=== PATIENT | female | born 1945 | race Caucasian/White ===

== ENCOUNTER → 2016-05-25 | Outpatient (CLI) | payer MEDICARE, OTHER ==
[~2016-05-25] MED LIST: AC325T PO; ACHD5005 PO; AMLO5TAB2; AMLO5TAB2 PO; ASPI325T32 PO; ATOR20TA49 PO; Antivert; BLADDER PILL; DARVOCET; LEVO125T; LEVO150T6 PO; LEVO500T69 PO; LISI20TA PO; LISI40TA PO; LVT.025T PO; NAPR-243 PO; NAPR220T66 PO; POLY17PO23 GT; SENN25TA8 PO; SOLI5TAB4 PO; THYROID
--- NOTE | 2016-05-25 18:12 | Diagnostic Imaging Report ---
INDICATION: Left knee pain. FINDINGS: Three views of the left knee show some degenerative changes in the medial tibiofemoral joint compartment and patellofemoral joint space. There is joint space narrowing and osteophyte formation at the periphery of the articular surfaces. There is no fracture or dislocation. There is no appreciable effusion. IMPRESSION: Degenerative changes in the patellofemoral joint and medial compartment of the left knee. No acute abnormality is seen. Dictated by: Dictated on workstation # [id number]
== END ==
LOC: RAD 15:35
PROVIDERS: ATTEND Nurse Practitioner Family
DX: M17.12 Unilateral primary osteoarthritis, left knee (principal)
CPT/HCPCS: 73562

== ENCOUNTER 2016-12-05 16:41 | Emergency (ER) | payer MEDICARE, OTHER ==
[~2016-12-05] VITALS: Ht 165.1 cm; Wt 81.6 kg
[2016-12-05] MEDS ORDERED: NS IV 1000 ML 1,000 ML IV SCH (17:30)
[2016-12-05] MEDS ORDERED: ONDANSETRON 4 MG/2 ML (SDV) Z0FRAN IVP ONE (17:30)
--- NOTE | 2016-12-05 17:33 | ED General ---
General Chief Complaint: Dizziness/Syncope Stated Complaint: VOMITING,TROUBLE URINATING Nursing Triage Note: patient reports dizziness with n/v since 1000 Nursing Sepsis Screen: No Definite Risk Source of Information: Patient Exam Limitations: Intoxication (JASPAL MCGOVERN MD) History of Present Illness Time Seen by Provider: 17:29 Initial Comments The patient is a 71-year-old white female whom I have known for nearly 40 years. She reported that at approximately 1000 hours she became nauseated and then began to vomit. She estimates that she has vomited as much as 10 times. There is central episodic abdominal pain. She also had one diarrhea stool. She has not been exposed to anyone that she knows has had a gastroenteritis. She believes that she has been febrile. She left the question as to whether she had any previous abdominal surgeries and answered. Timing/Duration: 12 Hours Associated Systoms: Diaphoresis, Loss of Appetite, Nausea/Vomiting (JASPAL MCGOVERN MD) Allergies and Home Medications Allergies Coded Allergies: Penicillins (Unverified Allergy, Mild, 11/14/11) Uncoded Allergies: CONTRAST DYE (Adverse Reaction, Mild, 09/25/15) Home Medications Amlodipine Besylate 5 Mg Tablet, 5 MG PO DAILY, (Reported) Aspirin 325 Mg Tablet.dr, 325 MG PO DAILY, #30 Ref 6 Prescribed by: CARRIE TY on 09/28/15 0842 Atorvastatin Calcium 20 Mg Tablet, 20 MG PO DAILY, #30 Ref 6 Prescribed by: CARRIE TY on 09/28/15 0843 Levothyroxine Sodium 150 Mcg Tablet, 150 MCG PO DAILY, (Reported) LAST FILLED #30 08-08-15 Constitutional: see HPI EENTM: no symptoms reported Respiratory: no symptoms reported Cardiovascular: no symptoms reported Gastrointestinal: see HPI, diarrhea, nausea, vomiting Genitourinary: no symptoms reported Musculoskeletal: no symptoms reported Skin: no symptoms reported Psychiatric/Neurological: No Symptoms Reported (JASPAL MCGOVERN MD) Past Icjipdg-Pyfnbo-Pamqgf Hx Patient Social History Alcohol Use: Denies Use Recreational Drug Use: No Smoking Status: Never a Smoker 2nd Hand Smoke Exposure: No Recent Foreign Travel: No Contact w/Someone Who Travel: No Recent Infectious Disease Expo: No Recent Hopitalizations: No Physical Abuse: No Sexual Abuse: No (JASPAL MCGOVERN MD) Immunizations Up To Date Date of Pneumonia Vaccine: Nov 24, 2010 (JASPAL MCGOVERN MD) Seasonal Allergies Seasonal Allergies: No (JASPAL MCGOVERN MD) Surgeries History of Surgeries: Yes (DISC SURGERY ON BACK 1999, disc surgery on back in 2011) Surgeries: Gallbladder, Orthopedic (JASPAL MCGOVERN MD) Respiratory History of Respiratory Disorde: No (JASPAL MCGOVERN MD) Cardiovascular History of Cardiac Disorders: Yes Cardiac Disorders: Hypertension (JASPAL MCGOVERN MD) Neurological History of Neurological Disord: Yes (severe speech impediment, cervical spinal stenosis) Neurological Disorders: Stroke (JASPAL MCGOVERN MD) Reproductive System Hx Reproductive Disorders: No Sexually Transmitted Disease: No HIV/AIDS: No Female Reproductive Disorders: Denies (JASPAL MCGOVERN MD) Gastrointestinal History of Gastrointestinal Di: Yes (constipation) (JASPAL MCGOVERN MD) Musculoskeletal History of Musculoskeletal Dis: Yes (cervical spinal stenosis) Musculoskeletal Disorders: Arthritis (JASPAL MCGOVERN MD) Endocrine History of Endocrine Disorders: Yes Endocrine Disorders: Hypothyroidsim (JASPAL MCGOVERN MD) HEENT Loss of Vision: Denies Hearing Impairment: Denies (JASPAL MCGOVERN MD) Cancer History of Cancer: No (JASPAL MCGOVERN MD) Psychosocial History of Psychiatric Problem: No Suicide Risk Score: 0 (JASPAL MCGOVERN MD) Integumentary History of Skin or Integumenta: No (JASPAL MCGOVERN MD) Blood Transfusions History of Blood Disorders: No Adverse Reaction to a Blood Tr: No (JASPAL MCGOVERN MD) Family Medical History Significant Family History: Heart Disease, Hypertension Family Medial History: (JASPAL MCGOVERN MD) Physical Exam Vital Signs Vital Sign - Last 12Hours 12/05/16 12/05/16 16:55 19:38 Temp 98.2 Pulse 18 Resp 12 B/P (MAP) 132/62 Pulse Ox 89 O2 Delivery Room Air (MARGARET FRANK APRN) Vital Signs Capillary Refill : Less Than 3 Seconds (JASPAL MCGOVERN MD) General Appearance: Moderate Distress, Other (lying on left side with emesis bag in hand and retching and intervals) Eyes: Bilateral Eye Normal Inspection HEENT: Normal ENT Inspection Neck: Normal Inspection Respiratory: Chest Non Tender, Lungs Clear, Normal Breath Sounds, No Accessory Muscle Use, No Respiratory Distress Cardiovascular: Regular Rate, Rhythm, No Edema, No Gallop, No JVD, No Murmur, Normal Peripheral Pulses Gastrointestinal: Abnormal Bowel Sounds (decreased), Distended Back: Normal Inspection Extremity: Normal Capillary Refill, Normal Inspection, Normal Range of Motion, Non Tender, No Calf Tenderness, No Pedal Edema Skin: Normal Color, Warm/Dry Lymphatic: No Adenopathy (JASPAL MCGOVERN MD) Progress/Results/Core Measures Results/Orders Lab Results Laboratory Tests Test 12/05/16 17:35 12/05/16 18:25 Range/Units White Blood Count 12.5 H 4.3-11.0 10^3/uL Red Blood Count 5.34 4.35-5.85 10^6/uL Hemoglobin 15.0 11.5-16.0 G/DL Hematocrit 46 35-52 % Mean Corpuscular Volume 86 80-99 FL Mean Corpuscular Hemoglobin 28 25-34 PG Mean Corpuscular Hemoglobin Concent 33 32-36 G/DL Red Cell Distribution Width 13.6 10.0-14.5 % Platelet Count 314 130-400 10^3/uL Mean Platelet Volume 9.7 7.4-10.4 FL Neutrophils (%) (Auto) 93 H 42-75 % Lymphocytes (%) (Auto) 3 L 12-44 % Monocytes (%) (Auto) 4 0-12 % Eosinophils (%) (Auto) 0 0-10 % Basophils (%) (Auto) 0 0-10 % Neutrophils # (Auto) 11.6 H 1.8-7.8 X 10^3 Lymphocytes # (Auto) 0.4 L 1.0-4.0 X 10^3 Monocytes # (Auto) 0.5 0.0-1.0 X 10^3 Eosinophils # (Auto) 0.0 0.0-0.3 10^3/uL Basophils # (Auto) 0.0 0.0-0.1 10^3/uL Neutrophils % (Manual) 72 % Lymphocytes % (Manual) 6 % Monocytes % (Manual) 7 % Eosinophils % (Manual) 1 % Basophils % (Manual) 1 % Band Neutrophils 16 % Blood Morphology Comment NORMAL Sodium Level 140 135-145 MMOL/L Potassium Level 3.8 3.6-5.0 MMOL/L Chloride Level 102 98-107 MMOL/L Carbon Dioxide Level 28 21-32 MMOL/L Anion Gap 10 5-14 MMOL/L Blood Urea Nitrogen 13 7-18 MG/DL Creatinine 0.81 0.60-1.30 MG/DL Estimat Glomerular Filtration Rate > 60 BUN/Creatinine Ratio 16 Glucose Level 152 H 70-105 MG/DL Calcium Level 9.6 8.5-10.1 MG/DL Total Bilirubin 1.0 0.1-1.0 MG/DL Aspartate Amino Transf (AST/SGOT) 39 H 5-34 U/L Alanine Aminotransferase (ALT/SGPT) 46 0-55 U/L Alkaline Phosphatase 91 40-136 U/L Troponin I < 0.30 <0.30 NG/ML Total Protein 7.6 6.4-8.2 GM/DL Albumin 4.3 3.2-4.5 GM/DL Urine Color YELLOW Urine Clarity CLEAR Urine pH 5 5-9 Urine Specific [place] 1.020 1.016-1.022 Urine Protein NEGATIVE NEGATIVE Urine Glucose (UA) NEGATIVE NEGATIVE Urine Ketones NEGATIVE NEGATIVE Urine Nitrite NEGATIVE NEGATIVE Urine Bilirubin NEGATIVE NEGATIVE Urine Urobilinogen NORMAL NORMAL MG/DL Urine Leukocyte Esterase NEGATIVE NEGATIVE Urine RBC (Auto) NEGATIVE NEGATIVE Urine RBC NONE /HPF Urine WBC NONE /HPF Urine Squamous Epithelial Cells RARE /HPF Urine Crystals NONE /LPF Urine Bacteria NONE /HPF Urine Casts NONE /LPF Urine Mucus NEGATIVE /LPF Urine Culture Indicated NO (MARGARET FRANK APRN) My Orders Orders - MARGARET FRANK APRN Troponin I (12/05/16 18:28) Ekg Tracing (12/05/16 18:28) Chest Pa/Lat (2 View) (12/05/16 18:29) (MARGARET FRANK APRN) Medications Given in ED Current Medications Medications Dose Ordered Sig/Beena Route Start Time Stop Time Status Last Admin Dose Admin Ondansetron HCl 8 mg ONCE ONCE IVP 12/05/16 17:30 12/05/16 17:31 DC 12/05/16 17:40 8 MG (MARGARET FRANK APRN) Vital Signs/I&O Vital Sign - Last 12Hours 12/05/16 12/05/16 16:55 19:38 Temp 98.2 Pulse 18 84 Resp 12 18 B/P (MAP) 132/62 Pulse Ox 89 95 O2 Delivery Room Air (MARGARET FRANK APRN) Blood Pressure Mean: 85 Departure Communication (Admissions) Progress Notes 1824-I've taken over care of this patient from Dr. Mcgovern. She reports that at this time her dizziness is gone and her nausea is gone, her abdominal pain is gone and she feels back to normal. She does report to me that she had some chest pain that radiated from one shoulder to the other this morning at about 10 a.m. while at rest. The pain persisted for one hour before resolving spontaneously. She currently has no chest pain. I'll add an EKG and troponin to labs. 1917*-patient still remains asymptomatic. We will discharge to home. 1939-Discussed EKG with Dr vogel and he agrees no significant EKG changes from prior. (MARGARET FRANK APRN) Impression Impression: Primary Impression: Vertigo Disposition: 01 HOME, SELF-CARE Condition: Stable (around her) Departure-Patient Inst. Decision time for Depature: 19:17 (MARGARET FRANK APRN) Referrals: CARRIE TY MD (PCP/Family) Primary Care Physician Patient Instructions: Vertigo (a Type of Dizziness) (DC) Add. Discharge Instructions: 1. Call Dr. Ty tomorrow to make an appointment to be seen 2. Return to ER for any concerns 3. Scharge instructions reviewed with patient and/or family. Voiced understanding. Copy Copies To 1: CARRIE TY MD, RODNEY K MD Dec 05, 2016 17:32 MARGARET FRANK APRN Dec 05, 2016 18:28
[2016-12-05 17:47] LABS: BASOPHILS % (AUTO) 0 % (0-10); EOSINOPHILS % (AUTO) 0 % (0-10); LYMPHOCYTES # (AUTO) 0.4 X 10^3 (1.0-4.0); LYMPHOCYTES % (AUTO) 3 % (12-44); MEAN CORPUSCULAR HEMOGLOBIN 28 PG (25-34); MEAN CORPUSCULAR HGB CONC 33 G/DL (32-36); MEAN CORPUSCULAR VOLUME 86 FL (80-99); MEAN PLATELET VOLUME 9.7 FL (7.4-10.4); MONOCYTES # (AUTO) 0.5 X 10^3 (0.0-1.0); MONOCYTES % (AUTO) 4 % (0-12); NEUTROPHILS # (AUTO) 11.6 X 10^3 (1.8-7.8); NEUTROPHILS % (AUTO) 93 % (42-75); PLATELET COUNT 314 10^3/uL (130-400); RED BLOOD COUNT 5.34 10^6/uL (4.35-5.85); RED CELL DISTRIBUTION WIDTH 13.6 % (10.0-14.5); WHITE BLOOD COUNT 12.5 10^3/uL (4.3-11.0)
[2016-12-05 18:05] LABS: BAND NEUTROPHILS 16 %; BASOPHILS % (MANUAL) 1 %; EOSINOPHILS % (MANUAL) 1 %; LYMPHOCYTES % (MANUAL) 6 %; NEUTROPHILS % (MANUAL) 72 %
[2016-12-05 18:08] LABS: ALANINE AMINOTRANSFERASE 46 U/L (0-55); ALBUMIN 4.3 GM/DL (3.2-4.5); ANION GAP 10 MMOL/L (5-14); ASPARTATE AMINO TRANSFERASE 39 U/L (5-34); BLOOD UREA NITROGEN 13 MG/DL (7-18); BUN/CREATININE RATIO 16; CALCIUM 9.6 MG/DL (8.5-10.1); CARBON DIOXIDE 28 MMOL/L (21-32); CHLORIDE 102 MMOL/L (98-107); CREATININE SERUM 0.81 MG/DL (0.60-1.30); GFR ESTIMATED > 60; GLUCOSE 152 MG/DL (70-105); POTASSIUM 3.8 MMOL/L (3.6-5.0); SODIUM 140 MMOL/L (135-145); TOTAL PROTEIN 7.6 GM/DL (6.4-8.2)
[2016-12-05 18:42] LABS: BILIRUBIN,URINE NEGATIVE (NEGATIVE); KETONES,URINE NEGATIVE (NEGATIVE); LEUKOCYTE ESTERASE ,URINE NEGATIVE (NEGATIVE); NITRITE,URINE NEGATIVE (NEGATIVE); PH,URINE 5 (5-9); PROTEIN,URINE NEGATIVE (NEGATIVE); UROBILINOGEN,URINE NORMAL (NORMAL)
[2016-12-05 18:48] LABS: SQUAMOUS EPITHELIAL CELL,UR RARE /HPF
--- NOTE | 2016-12-05 19:01 | Diagnostic Imaging Report ---
INDICATION: Nausea, vomiting, diarrhea and cough. COMPARISON STUDY: Chest from 09/25/15. FINDINGS: A frontal and lateral view of the chest demonstrates mild cardiomegaly with normal vascularity. This appears stable. The lungs are clear. There are no pleural effusions. Postoperative changes are again seen in the cervical spine and left shoulder. IMPRESSION: Stable cardiomegaly with no acute findings. Dictated by: Dictated on workstation # [id number]
[2016-12-05 19:38] VITALS: BP 132/62
== END 2016-12-05 19:38 | disposition home or self-care (01) ==
LOC: EDUNIT# 16:41 → ER 16:43
DX: R42 Dizziness and giddiness (principal); E03.9 Hypothyroidism, unspecified; M48.02 Spinal stenosis, cervical region; I10 Essential (primary) hypertension; Z86.73 Personal history of transient ischemic attack (TIA), and cerebral infarction without residual deficits; Z98.890 Other specified postprocedural states; Z79.82 Long term (current) use of aspirin; Z82.49 Family history of ischemic heart disease and other diseases of the circulatory system
CPT/HCPCS: 36415; 71020; 80053; 81000; 84484; 85007; 85027; 93005

== ENCOUNTER 2016-12-20 17:51 | Emergency (ER) | payer MEDICARE, OTHER ==
[~2016-12-20] VITALS: Ht 152.4 cm; Wt 86.2 kg
--- NOTE | 2016-12-20 18:33 | Diagnostic Imaging Report ---
INDICATION: Fell, right shoulder pain. EXAMINATION: Right shoulder at 6:33 p.m. Three views were obtained. FINDINGS: There is a slightly displaced fracture extending through the greater tuberosity of the humeral head. No other fracture or acute bony abnormality is appreciated. There is mild degenerative disease of the glenohumeral joint and at least moderate degenerative disease of the acromioclavicular joint. The soft tissues are unremarkable. IMPRESSION: 1. There is a slightly displaced fracture of the greater tuberosity of the humerus. If further evaluation of the extent of the injury to the humeral head is desired, then CT would be recommended. 2. There is no acute bony abnormality noted otherwise. Dictated by: Dictated on workstation # [id number]
[2016-12-20] MEDS ORDERED: ACETAMINOPHEN 325 MG TABLET/CAPLET (TYLENOL) PO STA (18:54)
--- NOTE | 2016-12-20 18:54 | ED Upper Extremity ---
General Chief Complaint: Upper Extremity Nursing Triage Note: PT ASSISTED OUT OF CAR PER W/C, PT STATES FELL AT HOME ON R SHOULDER HAS PAIN AND POSSIBLE DEFORMITY OF R SHOULDER. HAS ABRASION NOTED UNDER R ARM STATES ARM HAD GOTTEN CAUGHT ON SOMETHING WHEN SHE FELL Nursing Sepsis Screen: No Definite Risk History of Present Illness Time seen by provider: 18:10 Initial Comments 71-year-old female reports falling off of her front porch, she states it was approximately 3 foot. She landed on her right shoulder. She is right- hand dominant. She reports pain in the right shoulder. She denies a head injury or loss of consciousness at the time of the injury she denies dyspnea or rib pain. Onset: just prior to arrival Pain/Injury Location: right shoulder Method of Injury: fell Modifying Factors: Improves With Cold Therapy, Improves With Immobilization, Improves With Rest Allergies and Home Medications Allergies Coded Allergies: Penicillins (Unverified Allergy, Mild, 11/14/11) Uncoded Allergies: CONTRAST DYE (Adverse Reaction, Mild, 09/25/15) Home Medications Amlodipine Besylate 5 Mg Tablet, 5 MG PO DAILY, (Reported) Aspirin 325 Mg Tablet.dr, 325 MG PO DAILY, #30 Ref 6 Prescribed by: CARRIE VALENTINE on 09/28/15 0842 Atorvastatin Calcium 20 Mg Tablet, 20 MG PO DAILY, #30 Ref 6 Prescribed by: CARRIE VALENTINE on 09/28/15 0843 Levothyroxine Sodium 150 Mcg Tablet, 150 MCG PO DAILY, (Reported) LAST FILLED #30 08-08-15 Tramadol HCl 50 Mg Tablet, 50 MG PO Q8H PRN for PAIN-MILD, #20 Ref 0 Prescribed by: REGGIE ALY on 12/20/16 1857 Constitutional: no symptoms reported, see HPI Musculoskeletal: see HPI, joint pain, muscle pain (right shoulder), muscle stiffness All Other Systems Reviewed Negative Unless Noted: Yes Past Scstuwu-Irxjsq-Npooir Hx Patient Social History Alcohol Use: Denies Use Recreational Drug Use: No Smoking Status: Never a Smoker 2nd Hand Smoke Exposure: No Recent Foreign Travel: No Contact w/Someone Who Travel: No Recent Infectious Disease Expo: No Recent Hopitalizations: No Physical Abuse: No Sexual Abuse: No Immunizations Up To Date Tetanus Booster (TDap): Unknown Date of Pneumonia Vaccine: Nov 24, 2010 Seasonal Allergies Seasonal Allergies: No Surgeries History of Surgeries: Yes (DISC SURGERY ON BACK 1999, disc surgery on back in 2011) Surgeries: Gallbladder, Orthopedic Respiratory History of Respiratory Disorde: No Cardiovascular History of Cardiac Disorders: Yes Cardiac Disorders: Hypertension Neurological History of Neurological Disord: Yes (severe speech impediment, cervical spinal stenosis) Neurological Disorders: Stroke Reproductive System Hx Reproductive Disorders: No Sexually Transmitted Disease: No HIV/AIDS: No Female Reproductive Disorders: Denies Gastrointestinal History of Gastrointestinal Di: Yes (constipation) Musculoskeletal History of Musculoskeletal Dis: Yes (cervical spinal stenosis) Musculoskeletal Disorders: Arthritis Endocrine History of Endocrine Disorders: Yes Endocrine Disorders: Hypothyroidsim HEENT Loss of Vision: Denies Hearing Impairment: Denies Cancer History of Cancer: No Psychosocial History of Psychiatric Problem: No Suicide Risk Score: 0 Integumentary History of Skin or Integumenta: No Blood Transfusions History of Blood Disorders: No Adverse Reaction to a Blood Tr: No Reviewed Nursing Assessment Reviewed/Agree w Nursing PMH: Yes Family Medical History Significant Family History: Heart Disease, Hypertension Family Medial History: Physical Exam Vital Signs Vital Sign - Last 12Hours 12/20/16 17:52 Temp 97.5 Pulse 87 Resp 16 B/P (MAP) 146/80 Pulse Ox 97 Capillary Refill : Less Than 3 Seconds General Appearance: WD/WN, no apparent distress Neck: non-tender, full range of motion, supple, normal inspection Cardiovascular: normal peripheral pulses, regular rate, rhythm Respiratory: chest non-tender, lungs clear, normal breath sounds, other (no rib pain on the right or left to palpation) Gastrointestinal: normal bowel sounds, non tender, soft Shoulder: bone tenderness (right shoulder lateral aspect), limited ROM, pain, soft tissue tenderness, swelling Hand: normal inspection, non-tender, no evidence of injury, normal ROM, Right Neurologic/Tendon: normal sensation, normal motor functions, normal tendon functions Neurologic/Psychiatric: no motor/sensory deficits, alert, normal mood/affect, oriented x 3 Skin: normal color, warm/dry Progress/Results/Core Measures Results/Orders My Orders Orders - REGGIE ALY Shoulder, Right, 3 Views (12/20/16 18:07) Acetaminophen Tablet/Caplet (Tylenol T (12/20/16 18:54) Vital Signs/I&O Vital Sign - Last 12Hours 12/20/16 12/20/16 17:52 19:07 Temp 97.5 97.5 Pulse 87 87 Resp 16 16 B/P (MAP) 146/80 Pulse Ox 97 97 Blood Pressure Mean: 102 Progress Note : Time: 18:10 Progress Note Initial evaluation completed, offered pain medication patient, she denies at this time. We'll obtain x-rays and reevaluate. 1849 x-ray results reviewed with the patient and her family, recommended sling for treatment and follow-up with orthopedics. Ice pack applied to the right shoulder. Tylenol 650 mg orally. She has been evaluated and treated by Dr. Yoo in the past, she prefers to follow-up with him. QUESTIONS answered and discharge plans reviewed. Diagnostic Imaging Diagonstic Imaging: Xray Plain Films/CT/US/NM/MRI: other (shoulder) Comments ADRIAN: [facility] REC#: [id number] PT STATUS: REG ER : 1945 PHYSICIAN: REGGIE ALY ADMIT DATE: 12/20/16/ER Draft Date of Exam:12/20/16 SHOULDER, RIGHT, 3 VIEWS INDICATION: Fell, right shoulder pain. EXAMINATION: Right shoulder at 6:33 p.m. Three views were obtained. FINDINGS: There is a slightly displaced fracture extending through the greater tuberosity of the humeral head. No other fracture or acute bony abnormality is appreciated. There is mild degenerative disease of the glenohumeral joint and at least moderate degenerative disease of the acromioclavicular joint. The soft tissues are unremarkable. IMPRESSION: 1. There is a slightly displaced fracture of the greater tuberosity of the humerus. If further evaluation of the extent of the injury to the humeral head is desired, then CT would be recommended. 2. There is no acute bony abnormality noted otherwise. Dictated on workstation # [id number] Dict: 12/20/16 1824 Trans: 12/20/16 1833 [facility] [id number] Interpreted by: KING CHRISTIANSON MD Electronically signed by: Departure Impression Impression: Primary Impression: Shoulder fracture, right Qualified Codes: S42.91XA - Fracture of right shoulder girdle, part unspecified, initial encounter for closed fracture Additional Impression: Fall Qualified Codes: W19.XXXA - Unspecified fall, initial encounter Disposition: 01 HOME, SELF-CARE Condition: Stable Departure-Patient Inst. Decision time for Depature: 18:50 Referrals: CARRIE VALENTINE MD (PCP/Family) Primary Care Physician Patient Instructions: How to Use a Shoulder Sling, Shoulder Fracture (DC) Add. Discharge Instructions: Ice to right shoulder 20 minutes every 2-3 hours while awake. Sling at all times, may be removed to perform gentle range of motion to the right elbow and wrist. Call for appointment with Dr. Yoo for early next week. Tylenol 650 mg alternating with ibuprofen 600 mg every 4 hours. Use tramadol for additional pain relief. Return to emergency department for new injuries or problems. All discharge instructions reviewed with patient and/or family. Voiced understanding. Scripts Tramadol HCl (Tramadol HCl) 50 Mg Tablet 50 MG PO Q8H Y for PAIN-MILD, #20 TAB 0 Refills Prov: REGGIE ALY 12/20/16 Copy Copies To 1: CARRIE VALENTINE MD Copies To 2: LEEANNA YOO AMY ARNP Dec 20, 2016 18:54
[2016-12-20] MEDS ORDERED: TRAM50TA2 PO (18:57)
[2016-12-20 19:07] VITALS: BP 146/80
== END 2016-12-20 19:07 | disposition home or self-care (01) ==
LOC: EDUNIT# 17:51 → ER 17:52
DX: S42.251A Displaced fracture of greater tuberosity of right humerus, initial encounter for closed fracture (principal); E03.9 Hypothyroidism, unspecified; M48.02 Spinal stenosis, cervical region; I10 Essential (primary) hypertension; Z86.73 Personal history of transient ischemic attack (TIA), and cerebral infarction without residual deficits; Z79.82 Long term (current) use of aspirin; Z82.49 Family history of ischemic heart disease and other diseases of the circulatory system; W17.89XA Other fall from one level to another, initial encounter
CPT/HCPCS: 73030; 99283

== ENCOUNTER 2017-03-21 10:00 | Outpatient (RCR) | payer MEDICARE, OTHER ==
[~2017-03-21 10:00] MED LIST changes: +TRAM50TA2 PO
== END 2017-04-22 14:42 | disposition home or self-care (01) ==
PROVIDERS: ATTEND Nurse Practitioner Family
DX: S42.251D Displaced fracture of greater tuberosity of right humerus, subsequent encounter for fracture with routine healing (principal); W17.89XD Other fall from one level to another, subsequent encounter

== ENCOUNTER → 2017-04-04 | Outpatient (CLI) | payer MEDICARE, OTHER ==
--- NOTE | 2017-04-04 14:56 | Diagnostic Imaging Report ---
PROCEDURE: MRI right joint upper extremity without contrast. TECHNIQUE: Multiplanar, multisequence non contrast-enhanced MRI of the right upper extremity was accomplished. INDICATION: Fall on 12/20/2016 with right humerus fracture. Right arm swelling and numbness to the fingers of the right hand with limited range of motion in the shoulder since that time. COMPARISON: Radiographs of the right shoulder from 12/20/2016. FINDINGS: Multiple sequences demonstrate significant motion artifact. There is mild irregularity of the greater tuberosity, consistent with prior fracture, however there appears to be healing changes with predominant bone marrow continuity. Cortical defects and subcortical cystlike changes are seen at the anterior greater tuberosity. No new fractures are seen. There are moderate degenerative changes at the right acromioclavicular joint. There is a full-thickness tear of the distal supraspinatus tendon measuring approximately 1.8 cm AP, with approximately 7 mm of retraction. There is tendinosis throughout the remainder of the supraspinatus tendon. This full-thickness tear appears to involve the anterior fibers of the infraspinatus as well. The subscapularis tendon appears intact. The teres minor tendon is intact. There is mild generalized muscular atrophy. The long head of the biceps tendon is normal in course and signal. There is minimally increased fluid in the glenohumeral joint. There is fluid in the superior subscapularis recess and the long head of biceps tendon sheath. Minimal fluid seen in the subacromial subdeltoid bursa. The glenoid labrum is not well evaluated, however no para-labral cysts are seen. The spinoglenoid and suprascapular notches are clear. The acromion has a curved undersurface without significant hooking. The coracoclavicular and the coracoacromial ligaments appear intact. The inferior glenohumeral ligament is intact. There is minimal distention of the axillary pouch. The brachial plexus is not imaged. No masses or fluid collections are seen along the course of the suprascapular or axillary nerves. IMPRESSION: 1. Bony union of the right humerus greater tuberosity fracture. Full-thickness tear of the supraspinatus tendon and the anterior fibers of the infraspinatus tendon. Dictated by: Dictated on workstation # [id number]
== END ==
LOC: RAD 12:55
PROVIDERS: ATTEND Orthopaedic Surgery
DX: S42.251D Displaced fracture of greater tuberosity of right humerus, subsequent encounter for fracture with routine healing (principal); S46.011D Strain of muscle(s) and tendon(s) of the rotator cuff of right shoulder, subsequent encounter; W19.XXXD Unspecified fall, subsequent encounter
CPT/HCPCS: 73221

== ENCOUNTER 2017-10-24 13:01 | Outpatient (RCR) | payer MEDICARE, OTHER ==
[~2017-10-24 13:01] MED LIST changes: -AMLO5TAB2; -AMLO5TAB2 PO; +AMLO5TAB7; +AMLO5TAB7 PO
== END 2017-10-24 13:39 | disposition home or self-care (01) ==
PROVIDERS: ATTEND Orthopaedic Surgery
DX: M41.9 Scoliosis, unspecified (principal); M51.36 Other intervertebral disc degeneration, lumbar region; M25.551 Pain in right hip

== ENCOUNTER → 2017-12-05 | Outpatient (CLI) | payer MEDICARE, OTHER ==
--- NOTE | 2017-12-05 18:18 | Diagnostic Imaging Report ---
INDICATION: Digital mammogram bilateral screening with 3-D tomosynthesis. This study was compared to the prior exam of 11/27/2013. At this time, there are no current complaints. The current study was also evaluated with a Computer Aided Detection (CAD) system. 3-D tomosynthesis was also performed and reviewed. FINDINGS: The fibroglandular tissue in both breasts is heterogeneously dense. This does limit the sensitivity of this exam. Overall, there does not appear to have been any significant change when compared to the prior study. No primary or secondary sign of malignancy is noted. 3D tomographic images fail to show any sign of malignancy. IMPRESSION: 1. There is no evidence of malignancy. 2. The patient should have her annual bilateral screening mammogram on schedule in November of 2018. ACR BI-RADS Category 1: Negative. Result letter will be mailed to the patient. Note: At least 10% of breast cancer is not imaged by mammography. Dictated by: Dictated on workstation # [id number]
== END ==
LOC: RAD 10:17
PROVIDERS: ATTEND Nurse Practitioner Family
DX: Z12.31 Encounter for screening mammogram for malignant neoplasm of breast (principal)
CPT/HCPCS: 77067

== ENCOUNTER → 2018-01-29 | Outpatient (CLI) | payer MEDICARE, OTHER ==
[~2018-01-29] VITALS: Ht 152.4 cm; Wt 86.6 kg
[~2018-01-29] MED LIST changes: +CATHETER FLUSH 10 ML SYR IV PRN; +REGADENOSON 0.4 MG/5 ML SYR (LEXISCAN) IV ONE
--- NOTE | 2018-01-29 16:13 | STRESS TEST ---
DATE OF SERVICE: 01/29/2018 LEXISCAN MYOVIEW STRESS TEST REPORT Baseline heart rate is 55. Baseline blood pressure 139/63. Baseline EKG is sinus rhythm with right bundle branch block. In summary, the patient was injected with 10.06 mCi of technetium-99 Myoview and the resting images were obtained. Then, the patient received 0.4 mg of Lexiscan followed by 28.8 mCi of technetium-99 Myoview. Throughout the test, there were no EKG changes. The resting and stress images were reviewed and compared in the short axis, horizontal long axis and vertical long axis views. Review of the images showed breast attenuation with mild decrease uptake at the anteroapical segment with subtle reversibility, no significant ischemia or infarction was noted. SSS is 3, SDS 3, TID value 1.08. On the gated images, the left ventricle appeared to be in normal size with normal contractility. Calculated ejection fraction 70%. CONCLUSION: 1. The patient tolerated Lexiscan well. 2. Breast attenuation with mild decreased uptake at the anteroapical segment with subtle reversibility, no significant ischemia or infarction was noted. 3. Normal left ventricular size with normal contractility. Calculated ejection fraction 70%. Job ID: [id number] DocumentID: [id number] Dictated Date: 01/29/2018 15:36:08 [employer] Date: 01/29/2018 16:13:10 Dictated By: ERIK DAUGHERTY MD
== END ==
LOC: RAD 11:00
PROVIDERS: ATTEND Physician Assistant
DX: I25.10 Atherosclerotic heart disease of native coronary artery without angina pectoris (principal); I10 Essential (primary) hypertension; E78.2 Mixed hyperlipidemia
CPT/HCPCS: 78452; 93017

== ENCOUNTER 2018-06-02 14:57 | Inpatient (IN) | payer MEDICARE, OTHER ==
[~2018-06-02] VITALS: Ht 157.5 cm; Wt 98.0 kg
[2018-06-02] VITALS (16 sets, daily range): BP systolic 74–113; BP diastolic 46–89
[~2018-06-02 14:57] MED LIST changes: -AMLO5TAB7; -AMLO5TAB7 PO; +AMLO5TAB9; +AMLO5TAB9 PO; -CATHETER FLUSH 10 ML SYR IV PRN; +ETOMIDATE IV SOLN 20 MG/10 ML VIAL IV ONE; +MIDAZOLAM 5 MG/5 ML (VERSED) VIAL IJ ONE; -REGADENOSON 0.4 MG/5 ML SYR (LEXISCAN) IV ONE; +SUCCINYLCHOLINE INJ 100 MG/5 ML SYR INJ ONE
[2018-06-02] MEDS ORDERED: NS IV 1000 ML 1,000 ML IV SCH ×3 (15:06→20:45)
--- OUTSIDE RECORDS SUMMARY | 2018-06-02 15:07 | XMS REPORT | CCD ---
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 Name Role Phone Brionna yT PP Unavailable CCM Unavailable Summary Purpose Interface Exchange Insurance Providers Payer name Policy type / Coverage type Covered constitution party ID Effective Begin Date Effective End Date WPS Medicare Part B [id number] 2016 Unknown [facility] [id number] 2016 Unknown Family history Daughter Diagnosis Age At Onset No Family Disease Entered N/A Son Diagnosis Age At Onset No Family Disease Entered N/A Mother Diagnosis Age At Onset No Family Disease Entered N/A Father Diagnosis Age At Onset No Family Disease Entered N/A Runs in the family Diagnosis Age At Onset Cancer Unknown Brother Diagnosis Age At Onset No Family Disease Entered N/A Sister Diagnosis Age At Onset No Family Disease Entered N/A Social History Social History Element Codes Description Effective Dates Employment Unknown Retired 11/28/2017 Marital status Unknown 11/01/2010 Number of children Unknown 2 1 daughter, 1 son - living and well 11/01/[address]: 472240464 Nonsmoker 11/01/[address]: 625764286 Never drinks alcohol 11/01/2010 Has the patient ever used illegal drugs? Unknown Has never used illegal drugs 11/01/2010 Allergies, Adverse Reactions, Alerts Substance Reaction Codes Entered Date Inactivated Date Status * NO KNOWN ENVIRONMENTAL ALLERGIES Unknown 11/01/2010 No Inactive Date Active * NO KNOWN FOOD ALLERGIES Unknown 11/01/2010 No Inactive Date Active Penicillin Unknown 11/01/2010 No Inactive Date Active Past Medical History Illness Codes Condition Status Onset Date Resolved Date Pain in left knee ICD- 9: 719.46 ICD-10: M25.562 Active 05/25/2016 Unknown Pain in right knee ICD -9: 719.46 ICD-10: M25.561 Active 11/02/2016 Unknown Acute recurrent maxillary sinusitis ICD-9: 461.0 ICD-10: J01.01 Active 04/22/2018 Unknown Cough ICD-9: 786.2 ICD-10: R05 Active 04/22/2018 Unknown Fever, unspecified ICD -9: 780.60 ICD-10: R50.9 Active 04/22/2018 Unknown Encounter for screening mammogram for malignant neoplasm of breast ICD-9: V76.12 ICD-10: Z12.31 Active 12/06/2017 Unknown Encounter for general adult medical examination without abnormal findings ICD-9: V70.0 ICD-10: Z00.00 Active 11/28/2017 Unknown Encounter for immunization ICD-9: V06.6 ICD-10: Z23 Active 11/28/2017 Unknown Insect bite (nonvenomous) of right upper arm, initial encounter ICD-9: 912.4 ICD-10: S40.861A Active 11/18/2017 Unknown Pain in right hip ICD- 9: 719.45 ICD-10: M25.551 Active 09/04/2017 Unknown Low back pain ICD-9: 724.2 ICD-10: M54.5 Active 06/15/2015 Unknown Atrophy of thyroid (acquired) ICD-9: 244.8 ICD-10: E03.4 Active 07/26/2016 Unknown Essential (primary) hypertension ICD-9: 401.9 ICD-10: I10 Active 11/05/2013 Unknown Unilateral primary osteoarthritis, left knee ICD-9: 715.96 ICD-10: M17.12 Active 06/21/2016 Unknown Dizziness and giddiness ICD-9: 780.4 ICD-10: R42 Active 12/01/2015 Unknown Other acute nonsuppurative otitis media, bilateral ICD-9: 381.00 ICD-10: H65.193 Active 12/01/2015 Unknown Other acute sinusitis ICD-9: 461.9 ICD-10: J01.80 Active 12/01/2015 Unknown Scar conditions and fibrosis of skin ICD-9: 709.2 ICD-10: L90.5 Active 10/20/2015 Unknown Hypothyroidism, unspecified ICD-9: 244.9 ICD-10: E03.9 Active 06/14/2014 Unknown Other obesity due to excess calories ICD-9: 278.00 ICD-10: E66.09 Active 06/15/2015 Unknown Sciatica, right side ICD-9: 724.3 ICD-10: M54.31 Active 06/15/2015 Unknown Cataract Unknown Active 02/08/2015 Unknown Allergic rhinitis due to pollen ICD-9: 477.0 ICD-10: J30.1 Active 02/07/2015 Unknown Headache ICD-9: 784.0 ICD-10: R51 Active 02/07/2015 Unknown Hyperlipidemia, unspecified ICD-9: 272.4 ICD-10: E78.5 Active 06/14/2014 Unknown Acute maxillary sinusitis, unspecified ICD-9: 461.0 ICD-10: J01.00 Active 12/26/2014 Unknown ESSENTIAL HYPERTENSION ICD-9: 401.9 Active 11/05/2013 Unknown HYPOTHYROIDISM ICD-9: 244.9 Active 06/14/2014 Unknown Sacroiliitis ICD-9: 720.2 Active 07/16/2014 Unknown Gait instability ICD-9 : 781.2 Active 06/14/2014 Unknown HYPERLIPIDEMIA ICD-9: 272.4 Active 06/14/2014 Unknown Osteoarthritis ICD-9: 715.90 Active 06/14/2014 Unknown Solano's cyst ICD-9: 727.51 Active 11/05/2013 Unknown ACUTE PHARYNGITIS ICD- 9: 462 Active 09/08/2013 Unknown UTI ICD-9: 599.0 Active 05/25/2013 Unknown ALLERGIC RHINITIS ICD- 9: 477.9 Active 05/04/2013 Unknown Urinary incontinence Unknown Resolved 02/09/2013 Unknown AC joint pain ICD-9: 719.41 Resolved 02/09/2013 Unknown Acute maxillary antritis ICD-9: 461.0 Resolved 02/09/2013 Unknown ACUTE SINUSITIS ICD-9 : 461.9 Resolved 11/05/2011 Unknown Cough ICD-9: 786.2 Resolved 02/09/2013 Unknown Drug therapy ICD-9: V58.69 Resolved 02/04/2012 Unknown Dysuria ICD-9: 788.1 Resolved 09/11/2012 Unknown Fall from slipping ICD -9: E885.9 Resolved 05/28/2011 Unknown FAMILY DSRPT-ESTRANGMEMT ICD-9: V61.04 Resolved 02/09/2013 Unknown Frequency ICD-9: 788.41 Resolved 02/09/2013 Unknown Hyperlipidemia Unknown Active 02/28/2012 Unknown Constipation - functional ICD-9: 564.09 Active 12/03/2011 Unknown Well woman exam ICD-9 : V70.0 Active 03/15/2011 Unknown ESOPHAGEAL REFLUX ICD- 9: 530.81 Active 03/13/2011 Unknown Leg pain, bilateral ICD-9: 729.5 Active 11/15/2010 Unknown Heart murmur Unknown Active 11/01/2010 Unknown Hypertension Unknown Active 11/01/2010 Unknown Hypothryroidism Unknown Active 11/01/2010 Unknown Osteoarthritis Unknown Active 11/01/2010 Unknown Sciatica Unknown Active 11/01/2010 Unknown Chronic LBP ICD-9: 724.2 Active 11/01/2010 Unknown Generalized OA ICD-9: 715.09 Active 11/01/2010 Unknown Palpitation ICD-9: 785.1 Active 11/01/2010 Unknown SCIATICA ICD-9: 724.3 Active 11/01/2010 Unknown Problems Condition Codes Effective Dates Condition Status Pain in left knee ICD- 9: 719.46 ICD-10: M25.562 05/25/2016 Active Pain in right knee ICD -9: 719.46 ICD-10: M25.561 11/02/2016 Active Acute recurrent maxillary sinusitis ICD-9: 461.0 ICD-10: J01.01 04/22/2018 Active Cough ICD-9: 786.2 ICD-10: R05 04/22/2018 Active Fever, unspecified ICD -9: 780.60 ICD-10: R50.9 04/22/2018 Active Encounter for screening mammogram for malignant neoplasm of breast ICD-9: V76.12 ICD-10: Z12.31 12/06/2017 Active Encounter for general adult medical examination without abnormal findings ICD-9: V70.0 ICD-10: Z00.00 11/28/2017 Active Encounter for immunization ICD-9: V06.6 ICD-10: Z23 11/28/2017 Active Insect bite (nonvenomous) of right upper arm, initial encounter ICD-9: 912.4 ICD-10: S40.861A 11/18/2017 Active Pain in right hip ICD- 9: 719.45 ICD-10: M25.551 09/04/2017 Active Low back pain ICD-9: 724.2 ICD-10: M54.5 06/15/2015 Active Atrophy of thyroid (acquired) ICD-9: 244.8 ICD-10: E03.4 07/26/2016 Active Essential (primary) hypertension ICD-9: 401.9 ICD-10: I10 11/05/2013 Active Unilateral primary osteoarthritis, left knee ICD-9: 715.96 ICD-10: M17.12 06/21/2016 Active Dizziness and giddiness ICD-9: 780.4 ICD-10: R42 12/01/2015 Active Other acute nonsuppurative otitis media, bilateral ICD-9: 381.00 ICD-10: H65.193 12/01/2015 Active Other acute sinusitis ICD-9: 461.9 ICD-10: J01.80 12/01/2015 Active Scar conditions and fibrosis of skin ICD-9: 709.2 ICD-10: L90.5 10/20/2015 Active Hypothyroidism, unspecified ICD-9: 244.9 ICD-10: E03.9 06/14/2014 Active Other obesity due to excess calories ICD-9: 278.00 ICD-10: E66.09 06/15/2015 Active Sciatica, right side ICD-9: 724.3 ICD-10: M54.31 06/15/2015 Active Cataract Unknown 02/08/2015 Active Allergic rhinitis due to pollen ICD-9: 477.0 ICD-10: J30.1 02/07/2015 Active Headache ICD-9: 784.0 ICD-10: R51 02/07/2015 Active Hyperlipidemia, unspecified ICD-9: 272.4 ICD-10: E78.5 06/14/2014 Active Acute maxillary sinusitis, unspecified ICD-9: 461.0 ICD-10: J01.00 12/26/2014 Active ESSENTIAL HYPERTENSION ICD-9: 401.9 11/05/2013 Active HYPOTHYROIDISM ICD-9: 244.9 06/14/2014 Active Sacroiliitis ICD-9: 720.2 07/16/2014 Active Gait instability ICD-9 : 781.2 06/14/2014 Active HYPERLIPIDEMIA ICD-9: 272.4 06/14/2014 Active Osteoarthritis ICD-9: 715.90 06/14/2014 Active Solano's cyst ICD-9: 727.51 11/05/2013 Active ACUTE PHARYNGITIS ICD- 9: 462 09/08/2013 Active UTI ICD-9: 599.0 05/25/2013 Active ALLERGIC RHINITIS ICD- 9: 477.9 05/04/2013 Active Urinary incontinence Unknown 02/09/2013 Resolved AC joint pain ICD-9: 719.41 02/09/2013 Resolved Acute maxillary antritis ICD-9: 461.0 02/09/2013 Resolved ACUTE SINUSITIS ICD-9 : 461.9 11/05/2011 Resolved Cough ICD-9: 786.2 02/09/2013 Resolved Drug therapy ICD-9: V58.69 02/04/2012 Resolved Dysuria ICD-9: 788.1 09/11/2012 Resolved Fall from slipping ICD -9: E885.9 05/28/2011 Resolved FAMILY DSRPT-ESTRANGMEMT ICD-9: V61.04 02/09/2013 Resolved Frequency ICD-9: 788.41 02/09/2013 Resolved Hyperlipidemia Unknown 02/28/2012 Active Constipation - functional ICD-9: 564.09 12/03/2011 Active Well woman exam ICD-9 : V70.0 03/15/2011 Active ESOPHAGEAL REFLUX ICD- 9: 530.81 03/13/2011 Active Leg pain, bilateral ICD-9: 729.5 11/15/2010 Active Heart murmur Unknown 11/01/2010 Active Hypertension Unknown 11/01/2010 Active Hypothryroidism Unknown 11/01/2010 Active Osteoarthritis Unknown 11/01/2010 Active Sciatica Unknown 11/01/2010 Active Chronic LBP ICD-9: 724.2 11/01/2010 Active Generalized OA ICD-9: 715.09 11/01/2010 Active Palpitation ICD-9: 785.1 11/01/2010 Active SCIATICA ICD-9: 724.3 11/01/2010 Active Medications Medication Codes Instructions Start Date Stop Date Status Fill Instructions Kenalog 40 mg/mL suspension for injection RxNorm: 7790000 2 Milliliter(s) Inj 05/01/2018 05/01/2018 Inactive Tessalon Perles 100 mg capsule RxNorm: 381249 1-2 Capsule(s) PO TID PRN 04/22/2018 No Stop Date Active cefdinir 300 mg capsule RxNorm: 748695 1 Capsule(s) PO BID 04/28/2018 Inactive Kenalog 40 mg/mL suspension for injection RxNorm: 3953036 Milliliter(s) Inj 04/22/2018 04/22/2018 Inactive levothyroxine 150 mcg tablet RxNorm: 995795 1 Tablet(s) PO daily 03/18/2018 07/15/2018 Active levothyroxine 137 mcg tablet RxNorm: 316602 1 Tablet(s) PO daily 12/04/2017 03/17/2018 Inactive levothyroxine 137 mcg tablet RxNorm: 284289 1 Tablet(s) PO daily 12/04/2017 12/03/2017 Inactive doxycycline hyclate 100 mg tablet RxNorm: 8945879 1 Tablet(s) PO BID 11/18/2017 11/24/2017 Inactive Kenalog 40 mg/mL suspension for injection RxNorm: 9472611 1 Milliliter(s) Inj 09/04/2017 09/04/2017 Inactive Kenalog 40 mg/mL suspension for injection RxNorm: 7381802 1 Milliliter(s) Inj 09/04/2017 09/04/2017 Inactive levothyroxine 150 mcg tablet RxNorm: 698490 TAKE ONE TABLET BY MOUTH ONCE DAILY ON EMPTY STOMACH 07/09/2017 12/03/2017 Inactive Kenalog 40 mg/mL suspension for injection RxNorm: 0482869 2 Milliliter(s) Inj 03/21/2017 03/21/2017 Inactive levothyroxine 150 mcg tablet RxNorm: 936643 TAKE ONE TABLET BY MOUTH ONCE DAILY ON EMPTY STOMACH 11/08/2016 05/06/2017 Inactive Voltaren 1 % topical gel RxNorm: 154294 1 Application TOP TID as needed 11/02/2016 No Stop Date Active Kenalog 40 mg/mL suspension for injection RxNorm: 2609223 1 Milliliter(s) Inj 06/21/2016 06/21/2016 Inactive levothyroxine 150 mcg tablet RxNorm: 998445 TAKE ONE TABLET BY MOUTH ONCE DAILY ON EMPTY STOMACH 05/09/2016 09/05/2016 Inactive Zithromax Z-Elmer 250 mg tablet RxNorm: 718063 1 Tablet(s) PO UD 12/02/2015 12/06/2015 Inactive Kenalog 40 mg/mL suspension for injection RxNorm: 8951264 Milliliter(s) Inj 12/02/2015 12/02/2015 Inactive levothyroxine 150 mcg tablet RxNorm: 849605 TAKE ONE TABLET BY MOUTH DAILY ON AN EMPTY STOMACH 12/01/2015 03/29/2016 Inactive Norvasc 5 mg tablet RxNorm: 026082 1 Tablet(s) PO daily 201510/10/2016 Inactive Kenalog 40 mg/mL suspension for injection RxNorm: 0232739 1 Milliliter(s) Inj 06/16/2015 06/16/2015 Inactive Norvasc 5 mg tablet RxNorm: 293750 TAKE ONE TABLET BY MOUTH DAILY 06/10/2015 10/07/2015 Inactive levothyroxine 150 mcg tablet RxNorm: 557125 1 Tablet(s) PO daily TAKE ONE TABLET BY MOUTH DAILY 05/18/2015 09/14/2015 Inactive Synthroid 175 mcg tablet RxNorm: 925494 1 Tablet(s) PO daily TAKE ONE TABLET BY MOUTH DAILY 03/11/2015 05/17/2015 Inactive Synthroid 175 mcg tablet RxNorm: 576273 1 Tablet(s) PO daily TAKE ONE TABLET BY MOUTH DAILY 02/08/2015 03/10/2015 Inactive Flonase Allergy Relief 50 mcg/actuation nasal spray, suspension RxNorm: 2 [place] NASAL daily 12/27/2014 01/05/2015 Inactive Kenalog 40 mg/mL suspension for injection RxNorm: 5480284 Milliliter(s) Inj 12/27/2014 12/27/2014 Inactive Levaquin 500 mg tablet RxNorm: 498377 1 Tablet(s) PO daily 03/201401/02/2015 Inactive Zithromax Z-Elmer 250 mg tablet RxNorm: 126047 1 Tablet(s) PO UD 11/26/2014 11/30/2014 Inactive Synthroid 125 mcg tablet RxNorm: 151207 1 Tablet(s) PO daily 10/12/2014 Inactive Synthroid 150 mcg tablet RxNorm: 439708 1 Tablet(s) PO daily TAKE ONE TABLET BY MOUTH DAILY 10/05/2014 02/01/2015 Inactive Norvasc 5 mg tablet RxNorm: 733920 TAKE ONE TABLET BY MOUTH DAILY 10/05/2014 06/01/2015 Inactive Synthroid 125 mcg tablet RxNorm: 879263 TAKE ONE TABLET BY MOUTH DAILY 07/12/2014 10/05/2014 Inactive cephalexin 500 mg capsule RxNorm: 953432 1 Capsule(s) PO TID 06/28/2014 Inactive Have patient get probiotic while on antibiotic cephalexin 500 mg capsule RxNorm: 434385 1 Capsule(s) PO TID 06/21/2014 Inactive Have patient get probiotic while on antibiotic Synthroid 125 mcg tablet RxNorm: 843493 TAKE ONE TABLET BY MOUTH DAILY 05/21/2014 06/19/2014 Inactive ketorolac 60 mg/2 mL intramuscular solution RxNorm: 462594 Milliliter(s) IM 11/05/2013 11/05/2013 Inactive Norvasc 5 mg tablet RxNorm: 132968 TAKE 1 TABLET BY MOUTH ONCE DAILY. 09/21/2013 10/04/2014 Inactive Generic For:NORVASC 5MG Zithromax Z-Elmer 250 mg tablet RxNorm: 250638 1 Tablet(s) PO UD 09/08/2013 09/12/2013 Inactive Bactrim DS 800 mg-160 mg tablet RxNorm: 471158 1 Tablet(s) PO BID 05/25/2013 05/31/2013 Inactive Keflex 500 mg capsule RxNorm: 036339 1 Capsule(s) PO TID 201305/04/2013 Inactive Keflex 500 mg capsule RxNorm: 809519 1 Capsule(s) PO TID 201304/27/2013 Inactive Synthroid 125 mcg tablet RxNorm: 368953 1 Tablet(s) PO daily 02/03/2014 Inactive Synthroid 112 mcg tablet RxNorm: 502318 Tablet(s) PO TAKE (1) TABLET BY MOUTH ONCE DAILY IN THE MORNING 01/28/201302/08 Inactive Synthroid 112 mcg tablet RxNorm: 024161 Tablet(s) PO TAKE (1) TABLET BY MOUTH ONCE DAILY IN THE MORNING 01/28/201301/27 Inactive Synthroid 112 mcg tablet RxNorm: 403273 Tablet(s) PO TAKE (1) TABLET BY MOUTH ONCE DAILY IN THE MORNING 01/26/201301/27 Inactive lovastatin 20 mg tablet RxNorm: 887739 Tablet(s) PO TAKE 1 TABLET BY MOUTH ONCE DAILY AT BEDTIME. 01/05/2013 10/10/2014 Inactive Synthroid 112 mcg tablet RxNorm: 532490 Tablet(s) PO TAKE (1) TABLET BY MOUTH ONCE DAILY IN THE MORNING 10/20/201201/25 Inactive Bactrim DS 800 mg-160 mg tablet RxNorm: 341856 1 Tablet(s) PO BID 09/25/2012 09/24/2012 Inactive Bactrim DS 800 mg-160 mg tablet RxNorm: 609735 1 Tablet(s) PO BID 09/25/2012 09/27/2012 Inactive Diflucan 150 mg tablet RxNorm: 356127 2 Tablet(s) PO daily 09/20/2012 Inactive sulfamethoxazole 800 mg-trimethoprim 160 mg tablet RxNorm: 267885 1 Tablet(s) PO BID 09/11/2012 09/17/2012 Inactive PLEASE GET A PROBIOTIC FOR VALERIE AND HAVE HER TAKE THE PROBIOTIC WHILE ON THE ANTIBIOT TO HELP PREVENT DIARRHEA Norvasc 5 mg tablet RxNorm: 368078 Tablet(s) PO TAKE 1 TABLET BY MOUTH ONCE DAILY. 08/13/2012 09/20/2013 Inactive Synthroid 112 mcg tablet RxNorm: 182292 1 Tablet(s) PO QAM 04/201206/26/2012 Inactive lovastatin 20 mg tablet RxNorm: 769192 1 Tablet(s) PO QHS 02/2701/04/2013 Inactive Norvasc 5 mg tablet RxNorm: 438230 1 Tablet(s) PO daily 201105/26/2012 Inactive Synthroid 100 mcg tablet RxNorm: 290309 Tablet(s) PO 201102/27/2012 Inactive TAKE 1 TABLET BY MOUTH ONCE DAILY FOR THYROID (IN AM, 30-60MIN BEFORE FOOD/ VITAMINS) Synthroid 100 mcg tablet RxNorm: 526556 Tablet(s) PO 201102/27/2012 Inactive TAKE 1 TABLET BY MOUTH ONCE DAILY FOR THYROID (IN AM, 30-60MIN BEFORE FOOD/ VITAMINS) Synthroid 100 mcg tablet RxNorm: 023386 Tablet(s) PO 201112/02/2011 Inactive TAKE 1 TABLET BY MOUTH ONCE DAILY FOR THYROID (IN AM, 30-60MIN BEFORE FOOD/ VITAMINS) Zyrtec 10 mg tablet RxNorm: 3876665 1 Tablet(s) PO daily 11/0412/04/2011 Inactive Synthroid 100 mcg tablet RxNorm: 627619 Tablet(s) PO 201112/02/2011 Inactive TAKE 1 TABLET BY MOUTH ONCE DAILY FOR THYROID (IN AM, 30-60MIN BEFORE FOOD/ VITAMINS) lisinopril 40 mg tablet RxNorm: 819661 Tablet(s) PO 10/08/2011 10/11/2014 Inactive TAKE 1 TABLET BY MOUTH ONCE DAILY. lisinopril 40 mg tablet RxNorm: 283106 Tablet(s) PO 09/04/2011 10/07/2011 Inactive TAKE 1 TABLET BY MOUTH ONCE DAILY. Kenalog 40 mg/mL Susp for Injection RxNorm: 9507301 1 Milliliter(s) Inj 08/09/2011 08/09/2011 Inactive Norvasc 5 mg Tab RxNorm: 025280 Tablet(s) PO 06/26/2011 11/04/2011 Inactive TAKE 1 TABLET BY MOUTH ONCE DAILY. Kenalog 40 mg/mL Susp for Injection RxNorm: 8150530 1 Milliliter(s) Inj 05/28/2011 05/28/2011 Inactive Synthroid 100 mcg tablet RxNorm: 125906 1 Tablet(s) PO daily 10/08/2011 Inactive lisinopril 40 mg Tab RxNorm: 615975 1 Tablet(s) PO daily 201109/03/2011 Inactive Norvasc 5 mg Tab RxNorm: 064327 1 Tablet(s) PO daily 2011 No Stop Date Active Synthroid 88 mcg Tab RxNorm: 283526 1 Tablet(s) PO daily 201012/14/2010 Inactive Norvasc 5 mg tablet RxNorm: 915709 1 Tablet(s) PO daily 201001/27/2012 Inactive Aspirin Low Dose 81 mg tablet,delayed release RxNorm: 153687 1 Tablet(s) PO daily No Start Date Active Aleve 220 mg Tab RxNorm: 431053 Oral No Start Date 12/02/2011 Inactive Synthroid 75 mcg Tab RxNorm: 895728 1 Tablet(s) PO daily No Start Date 11/14/2010 Inactive Diflucan 150 mg tablet RxNorm: 811643 Tablet(s) PO No Start Date 09/17/2012 Inactive lisinopril 40 mg Tab RxNorm: 498977 1 Tablet(s) PO daily No Start Date 03/12/2011 Inactive Synthroid 75 mcg Tab RxNorm: 867098 1 Tablet(s) PO daily No Start Date 03/13/2011 Inactive aspirin 325 mg tablet RxNorm: 436240 1 Tablet(s) PO daily No Start Date 07/25/2016 Inactive Zithromax Z-Elmer 250 mg tablet RxNorm: 961391 Tablet(s) PO QPM No Start Date 12/02/2011 Inactive Aciphex 20 mg Tab RxNorm: 410460 Tablet(s) PO No Start Date 10/10/2014 Inactive Synthroid 88 mcg Tab RxNorm: 121634 1 Tablet(s) PO daily No Start Date 03/13/2011 Inactive naproxen 500 mg Tab RxNorm: 227547 1 Tablet(s) PO BID No Start Date 03/12/2011 Inactive Medication Administered Medication Codes Instructions Start Date Status Kenalog 40 mg/mL suspension for injection RxNorm: 2222567 2Milliliter 05/01/2018 No longer Active Kenalog 40 mg/mL suspension for injection RxNorm: 7126098 Milliliter 04/22/2018 No longer Active Kenalog 40 mg/mL suspension for injection RxNorm: 5450736 1Milliliter 09/04/2017 No longer Active Kenalog 40 mg/mL suspension for injection RxNorm: 5430088 1Milliliter 09/04/2017 No longer Active Kenalog 40 mg/mL suspension for injection RxNorm: 6499098 2Milliliter 03/21/2017 No longer Active Kenalog 40 mg/mL suspension for injection RxNorm: 3083911 1Milliliter 06/21/2016 No longer Active Kenalog 40 mg/mL suspension for injection RxNorm: 8094514 Milliliter 12/02/2015 No longer Active Kenalog 40 mg/mL suspension for injection RxNorm: 3766215 1Milliliter 06/16/2015 No longer Active Kenalog 40 mg/mL suspension for injection RxNorm: 9561453 Milliliter 12/27/2014 No longer Active ketorolac 60 mg/2 mL intramuscular solution RxNorm: 787542 Milliliter 11/05/2013 No longer Active Kenalog 40 mg/mL Susp for Injection RxNorm: 3682124 1Milliliter 08/09/2011 No longer Active Kenalog 40 mg/mL Susp for Injection RxNorm: 5258574 1Milliliter 05/28/2011 No longer Active Immunizations Vaccine Codes Date Status Influenza CVX: 141 11/28/2017 completed Pneumococcal (Adult) CVX: 133 11/28/2017 completed Influenza CVX: 141 11/09/2016 completed Influenza CVX: 141 04/06/2016 completed Influenza CVX: 141 05/04/2013 completed Assessments Condition Codes Effective Dates Pain in right knee ICD-10: M25.561 ICD-9: 719.46 05/01/2018 Pain in left knee ICD-10: M25.562 ICD-9: 719.46 05/01/2018 Acute recurrent maxillary sinusitis ICD-10: J01.01 ICD-9: 461.0 04/22/2018 Fever, unspecified ICD-10: R50.9 ICD-9: 780.60 04/22/2018 Cough ICD-10: R05 ICD-9: 786.2 04/22/2018 Encounter for screening mammogram for malignant neoplasm of breast ICD-10: Z12.31 ICD-9: V76.12 12/06/2017 Encounter for general adult medical examination without abnormal findings ICD-10: Z00.00 ICD-9: V70.0 11/28/2017 Encounter for immunization ICD-10: Z23 ICD-9: V06.6 11/28/2017 Insect bite (nonvenomous) of right upper arm, initial encounter ICD-10: S40.861A ICD-9: 912.4 11/18/2017 Pain in right hip ICD-10: M25.551 ICD-9: 719.45 09/04/2017 Low back pain ICD-10: M54.5 ICD-9: 724.2 03/21/2017 Essential (primary) hypertension ICD-10: I10 ICD-9: 401.9 07/26/2016 Atrophy of thyroid (acquired) ICD-10: E03.4 ICD-9: 244.8 07/26/2016 Unilateral primary osteoarthritis, left knee ICD-10: M17.12 ICD-9: 715.96 06/21/2016 Other acute sinusitis ICD-10: J01.80 ICD-9: 461.9 12/02/2015 Dizziness and giddiness ICD-10: R42 ICD-9: 780.4 12/02/2015 Other acute nonsuppurative otitis media, bilateral ICD-10: H65.193 ICD-9: 381.00 12/02/2015 Scar conditions and fibrosis of skin ICD-10: L90.5 ICD-9: 709.2 10/21/2015 Hypothyroidism, unspecified ICD-10: E03.9 ICD-9: 244.9 10/17/2015 Sciatica, right side ICD-10: M54.31 ICD-9: 724.3 06/16/2015 Other obesity due to excess calories ICD-10: E66.09 ICD-9: 278.00 06/16/2015 Allergic rhinitis due to pollen ICD-10: J30.1 ICD-9: 477.0 02/08/2015 Headache ICD-10: R51 ICD-9: 784.0 02/08/2015 Hyperlipidemia, unspecified ICD-10: E78.5 ICD-9: 272.4 02/03/2015 Acute maxillary sinusitis, unspecified ICD-10: J01.00 ICD-9: 461.0 12/27/2014 HYPOTHYROIDISM ICD-9: 244.9 11/16/2014 ESSENTIAL HYPERTENSION ICD-9: 401.9 11/16 HYPERLIPIDEMIA ICD-9: 272.4 07/16/2014 Sacroiliitis ICD-9: 720.2 07/16/2014 Osteoarthritis ICD-9: 715.90 06/14/2014 Gait instability ICD-9: 781.2 06/14/2014 Solano's cyst ICD-9: 727.51 11/05/2013 ACUTE PHARYNGITIS ICD-9: 462 09/08/2013 UTI ICD-9: 599.0 05/25/2013 ALLERGIC RHINITIS ICD-9: 477.9 2013 Dysuria ICD-9: 788.1 09/11/2012 Drug therapy ICD-9: V58.69 02/04/2012 ESOPHAGEAL REFLUX ICD-9: 530.81 2011 Constipation - functional ICD-9: 564.09 12/03/2011 ACUTE SINUSITIS ICD-9: 461.9 11/05/2011 SCIATICA ICD-9: 724.3 08/09/2011 Fall from slipping ICD-9: E885.9 2011 URINARY FREQUENCY ICD-9: 788.41 2011 Well woman exam ICD-9: V70.0 03/15/2011 Leg pain, bilateral ICD-9: 729.5 2010 Reason For Visit Reason For Visit Effective Dates Notes knee pain 05/01/2018 sinus congestion 04/22/2018 Annual Medicare Wellness Exam 11/28/2017 rash 11/18/2017 right arm knee pain 09/04/2017 knee pain 03/21/2017 knee pain 11/02/2016 knee pain 07/26/2016 knee pain 06/21/2016 knee pain 05/25/2016 Hospital Follow Up 12/02/2015 skin lesion 10/21/2015 hypertension 10/17/2015 hip pain 06/16/2015 hypertension 05/12/2015 vertigo 03/10/2015 vertigo 02/08/2015 earache 12/27/2014 hypertension 11/16/2014 headache 10/11/2014 hypertension 07/16/2014 hypertension 06/14/2014 knee injury 11/05/2013 sore throat 09/08/2013 dysuria 05/25/2013 hypertension 05/04/2013 hypertension 02/09/2013 urinary retention/hesitancy 09/11/2012 hypertension 05/29/2012 blood pressure followup 02/28/2012 hypertension 01/28/2012 hypertension 12/03/2011 cough 11/05/2011 hip pain 08/09/2011 leg pain/sciatica 05/28/2011 well woman exam (65+ years) 03/15/2011 hypothyroid 03/13/2011 lab follow up lower leg pain 11/15/2010 back pain 11/01/2010 Results Observation Observation Code Item Item Code Result Date C A/B FLU 9326203 Influenza A Scr Negative 04/22/2018 C A/B FLU 8070837 Influenza B Scr Negative 04/22/2018 C A/B FLU [id number] Influenza Intrp B AG: PRID:PT:NOSE:NOM:IF See Footnote 04/22/2018 Free T4 Ymd131 FREE T4 0.92 ng/dL 03/14/2018 Tsh Ord6 TSH (3rd IS) 7.96 uIU/mL 03/14/2018 Tsh Ord6 TSH (3rd IS) 0.19 uIU/mL 11/29/2017 Comp Metabolic Lpe638 NA 141 mEq/L 11/29/2017 Comp Metabolic Dhs801 K 4.1 mEq/L 11/29/2017 Comp Metabolic Mjs842 CL 104 mEq/L 11/29/2017 Comp Metabolic Zfi606 CO2 29.0 mEq/L 11/29/2017 Comp Metabolic Byd951 ANION GAP 12 11/29/2017 Comp Metabolic Ifa845 GLUCOSE 100 mg/dL 11/29/2017 Comp Metabolic Msg262 Creat 0.7 mg/dL 11/29/2017 Comp Metabolic Lqp970 eGFR 95 ml/min/1.73m2 11/29/2017 Comp Metabolic Sqh078 BUN 14 mg/dL 11/29/2017 Comp Metabolic Mgg702 B/C Ratio 21.5 Ratio 11/29/2017 Comp Metabolic Emg295 CALCIUM 9.1 mg/dL 11/29/2017 Comp Metabolic Ipf344 ALK PHOS 53 U/L 11/29/2017 Comp Metabolic Wqt626 AST(SGOT) 13 U/L 11/29/2017 Comp Metabolic Spi080 ALT(SGPT) 17 U/L 11/29/2017 Comp Metabolic Nml864 BILI T 0.8 mg/dL 11/29/2017 Comp Metabolic Dmc364 ALBUMIN 3.9 g/dL 11/29/2017 Comp Metabolic Huh013 TPRO 6.1 g/dL 11/29/2017 Comp Metabolic Dqn423 GLOB 2.2 g/dL 11/29/2017 Comp Metabolic Tke999 A/G Ratio 1.8 Ratio 11/29/2017 Comp Metabolic Rxl702 Osmo 282 mOsmo 11/29/2017 Lipid Ord30 CHOL 184 mg/dL 11/29/2017 Lipid Ord30 HDL 52.0 mg/dl 11/29/2017 Lipid Ord30 TRIG 73 mg/dL 11/29/2017 Lipid Ord30 LDL 117 mg/dL 11/29/2017 Lipid Ord30 C/HDL 3.5 Ratio 11/29/2017 Free T4 Gka499 FREE T4 1.47 ng/dL 11/29/2017 Cbc With Differential Ord2 WBC 7.95 K/ul 11/29/2017 Cbc With Differential Ord2 RBC 4.54 M/ul 11/29/2017 Cbc With Differential Ord2 HGB 13.3 g/dl 11/29/2017 Cbc With Differential Ord2 HCT 40.9 % 11/29/2017 Cbc With Differential Ord2 Neut% 69.6 % 11/29/2017 Cbc With Differential Ord2 MCV 90.1 fl 11/29/2017 Cbc With Differential Ord2 Lymph% 17.2 % 11/29/2017 Cbc With Differential Ord2 MCH 29.3 pg 11/29/2017 Cbc With Differential Ord2 [place]% 8.6 % 11/29/2017 Cbc With Differential Ord2 MCHC 32.5 pg 11/29/2017 Cbc With Differential Ord2 Eos% 4.2 % 11/29/2017 Cbc With Differential Ord2 PLT 276 K/ul 11/29/2017 Cbc With Differential Ord2 Baso% 0.4 % 11/29/2017 Cbc With Differential Ord2 RDW 14.0 % 11/29/2017 Cbc With Differential Ord2 Neut ABS# 5.54 K/ul 11/29/2017 Cbc With Differential Ord2 Lymph ABS# 1.37 K/ul 11/29/2017 Cbc With Differential Ord2 [place] ABS# 0.7 K/ul 11/29/2017 Cbc With Differential Ord2 Eos ABS# 0.3 K/ul 11/29/2017 Cbc With Differential Ord2 Baso ABS# 0.0 K/ul 11/29/2017 Comp Metabolic Lqt834 NA 140 mEq/L 07/26/2016 Comp Metabolic Wue699 K 4.0 mEq/L 07/26/2016 Comp Metabolic Ubv977 CL 101 mEq/L 07/26/2016 Comp Metabolic Txm633 CO2 30.0 mEq/L 07/26/2016 Comp Metabolic Mrh907 ANION GAP 13 07/26/2016 Comp Metabolic Dcx294 GLUCOSE 94 mg/dL 07/26/2016 Comp Metabolic Giy642 Creat 0.7 mg/dL 07/26/2016 Comp Metabolic Cgh226 eGFR 87 ml/min/1.73m2 07/26/2016 Comp Metabolic Lfe399 BUN 9 mg/dL 07/26/2016 Comp Metabolic Lie123 B/C Ratio 12.9 Ratio 07/26/2016 Comp Metabolic Zeh715 CALCIUM 9.2 mg/dL 07/26/2016 Comp Metabolic Ztt345 ALK PHOS 74 U/L 07/26/2016 Comp Metabolic Exh377 AST(SGOT) 17 U/L 07/26/2016 Comp Metabolic Yts269 ALT(SGPT) 25 U/L 07/26/2016 Comp Metabolic Rzf038 BILI T 0.8 mg/dL 07/26/2016 Comp Metabolic Cmd793 ALBUMIN 4.0 g/dL 07/26/2016 Comp Metabolic Frx521 TPRO 6.6 g/dL 07/26/2016 Comp Metabolic Jys240 GLOB 2.6 g/dL 07/26/2016 Comp Metabolic Stl701 A/G Ratio 1.5 Ratio 07/26/2016 Comp Metabolic Lyq270 Osmo 278 mOsmo 07/26/2016 Free T4 Yzt081 FREE T4 1.07 ng/dL 07/26/2016 Cbc With Differential Ord2 WBC 8.32 K/ul 07/26/2016 Cbc With Differential Ord2 RBC 4.80 M/ul 07/26/2016 Cbc With Differential Ord2 HGB 13.7 g/dl 07/26/2016 Cbc With Differential Ord2 HCT 42.3 % 07/26/2016 Cbc With Differential Ord2 Neut% 55.9 % 07/26/2016 Cbc With Differential Ord2 MCV 88.1 fl 07/26/2016 Cbc With Differential Ord2 Lymph% 30.4 % 07/26/2016 Cbc With Differential Ord2 MCH 28.5 pg 07/26/2016 Cbc With Differential Ord2 [place]% 9.6 % 07/26/2016 Cbc With Differential Ord2 MCHC 32.4 pg 07/26/2016 Cbc With Differential Ord2 Eos% 4.0 % 07/26/2016 Cbc With Differential Ord2 PLT 300 K/ul 07/26/2016 Cbc With Differential Ord2 Baso% 0.1 % 07/26/2016 Cbc With Differential Ord2 RDW 13.4 % 07/26/2016 Cbc With Differential Ord2 Neut ABS# 4.65 K/ul 07/26/2016 Cbc With Differential Ord2 Lymph ABS# 2.53 K/ul 07/26/2016 Cbc With Differential Ord2 [place] ABS# 0.8 K/ul 07/26/2016 Cbc With Differential Ord2 Eos ABS# 0.3 K/ul 07/26/2016 Cbc With Differential Ord2 Baso ABS# 0.0 K/ul 07/26/2016 Tsh Ord6 hTSH II 0.44 uIU/mL 07/26/2016 Tsh Ord6 hTSH II 0.07 uIU/mL 05/12/2015 Free T4 Ykz365 FREE T4 1.70 ng/dL 05/12/2015 Free T4 Pjv343 FREE T4 0.96 ng/dL 02/03/2015 Comp Metabolic Tbq175 NA 141 mEq/L 02/03/2015 Comp Metabolic Ktc776 K 4.1 mEq/L 02/03/2015 Comp Metabolic Ksb981 CL 105 mEq/L 02/03/2015 Comp Metabolic Qeh260 CO2 29.0 mEq/L 02/03/2015 Comp Metabolic Fqo771 ANION GAP 11 02/03/2015 Comp Metabolic Mqq300 GLUCOSE 99 mg/dL 02/03/2015 Comp Metabolic Zam900 Creat 0.7 mg/dL 02/03/2015 Comp Metabolic Mmq514 eGFR 85 ml/min/1.73m2 02/03/2015 Comp Metabolic Foe417 BUN 15 mg/dL 02/03/2015 Comp Metabolic Fdy017 B/C Ratio 20.8 Ratio 02/03/2015 Comp Metabolic Poz161 CALCIUM 9.3 mg/dL 02/03/2015 Comp Metabolic Oax993 ALK PHOS 62 U/L 02/03/2015 Comp Metabolic Tsc410 AST(SGOT) 19 U/L 02/03/2015 Comp Metabolic Nee205 ALT(SGPT) 23 U/L 02/03/2015 Comp Metabolic Fsk716 BILI T 0.4 mg/dL 02/03/2015 Comp Metabolic Bvo512 ALBUMIN 4.2 g/dL 02/03/2015 Comp Metabolic Byf161 TPRO 6.6 g/dL 02/03/2015 Comp Metabolic Ugz556 GLOB 2.4 g/dL 02/03/2015 Comp Metabolic Izm919 A/G Ratio 1.7 Ratio 02/03/2015 Comp Metabolic Ukz047 Osmo 282 mOsmo 02/03/2015 Lipid Ord30 CHOL 198 mg/dL 02/03/2015 Lipid Ord30 HDL 47.0 mg/dl 02/03/2015 Lipid Ord30 TRIG 75 mg/dL 02/03/2015 Lipid Ord30 LDL 136 mg/dL 02/03/2015 Lipid Ord30 C/HDL 4.2 Ratio 02/03/2015 Cbc With Differential Ord2 WBC 7.4 K/uL 02/03/2015 Cbc With Differential Ord2 LYM 2.5 K/uL 02/03/2015 Cbc With Differential Ord2 LYM% 33.3 % 02/03/2015 Cbc With Differential Ord2 NEUT/GRAN 4.4 K/uL 02/03/2015 Cbc With Differential Ord2 NEUT/GRAN % 59.6 % 02/03/2015 Cbc With Differential Ord2 MID 0.5 K/uL 02/03/2015 Cbc With Differential Ord2 MID% 7.1 % 02/03/2015 Cbc With Differential Ord2 RBC 4.81 M/uL 02/03/2015 Cbc With Differential Ord2 HGB 13.4 g/dL 02/03/2015 Cbc With Differential Ord2 HCT 43.5 % 02/03/2015 Cbc With Differential Ord2 MCV 90 fL 02/03/2015 Cbc With Differential Ord2 MCH 28 pg 02/03/2015 Cbc With Differential Ord2 MCHC 31 g/dL 02/03/2015 Cbc With Differential Ord2 PLT 259 K/uL 02/03/2015 Cbc With Differential Ord2 RDW 15.1 % 02/03/2015 Tsh Ord6 hTSH II 5.13 uIU/mL 02/03/2015 LIPID GRP HDL TEST 41 MG/DL 02/04/2012 LIPID GRP TRIG 129 MG/DL 02/04/2012 LIPID GRP TEST LDL 129 MG/DL 02/04/2012 LIPID GRP CHOL 196 MG/DL 02/04/2012 LIPID GRP RCHOL/HDL 4.78 RATIO 02/04/2012 FREE T4 [id number] FREE T4 1.05 NG/DL 02/04/2012 GFR CALC [id number] GFR AA >60 ML/MIN 02/04/2012 GFR CALC [id number] GFR NON-AA >60 ML/MIN 02/04/2012 TSH [id number] TSH 3.062 uIU/ML 02/04/2012 CHEM 14 [id number] AST 18 U/L 02/04/2012 CHEM 14 [id number] ALT 22 IU/L 02/04/2012 CHEM 14 [id number] BUN 15 MG/DL 02/04/2012 CHEM 14 3830090 ALBUMIN 4.4 GM/DL 02/04/2012 CHEM 14 [id number] CHLORIDE 104 MMOL/L 02/04/2012 CHEM 14 [id number] BILI TOT 0.6 MG/DL 02/04/2012 CHEM 14 2910883 ALK PHOS 54 U/L 02/04/2012 CHEM 14 [id number] SODIUM 141 MMOL/L 02/04/2012 CHEM 14 [id number] CREATININE 0.85 MG/DL 02/04/2012 CHEM 14 [id number] CALCIUM 9.4 MG/DL 02/04/2012 CHEM 14 [id number] POTASSIUM 4.0 MMOL/L 02/04/2012 CHEM 14 2069128 PROT TOT 6.6 GM/DL 02/04/2012 CHEM 14 4217843 GLUCOSE 106 MG/DL 02/04/2012 CHEM 14 2057214 BICARB 30 MMOL/L 02/04/2012 CHEM 14 2552287 ANION GAP 7 MEQ/L 02/04/2012 UA 86472 Specific Remer 1.020 DateTime(Free Text in Aprima ) UA 76110 PH 6 DateTime(Free Text in Aprima) UA 72969 GLUCOSE DateTime(Free Text in Aprima) UA 36785 Protein 1+ DateTime(Free Text in Aprima) UA 91610 Blood 3+ DateTime(Free Text in Aprima) UA 99909 Bilirubin DateTime(Free Text in Aprima) UA 55642 Ketones DateTime(Free Text in Aprima) UA 11773 Urobilinogen DateTime(Free Text in Aprima) UA 20966 Nitrite DateTime(Free Text in Aprima) UA 23055 Leukocytes 2+ DateTime(Free Text in Aprima) UA 71209 Specific Remer 1.025 DateTime(Free Text in Apr ) UA 05947 PH 6 DateTime(Free Text in Apr) UA 54417 GLUCOSE neg DateTime(Free Text in Aprima) UA 72848 Protein neg DateTime(Free Text in Aprima) UA 97297 Blood neg DateTime(Free Text in Apr) UA 60860 Bilirubin neg DateTime(Free Text in Apr) UA 60869 Ketones neg DateTime(Free Text in Apr) UA 44752 Urobilinogen neg DateTime(Free Text in Aprima) UA 09626 Nitrite neg DateTime(Free Text in Apr) UA 17848 Leukocytes 1+ DateTime(Free Text in ) Review of Systems System Result Effective Dates Constitutional No recent illness 2018 Constitutional No chills 05/01/2018 Constitutional No fever 05/01/2018 Constitutional No diaphoresis 05/01/2018 Constitutional No anorexia 05/01/2018 Constitutional No night sweats 2018 Constitutional No fatigue 05/01/2018 Constitutional No insomnia 05/01/2018 Constitutional No malaise 05/01/2018 Constitutional No weight loss 05/01/2018 Constitutional No weight gain 05/01/2018 Constitutional recent illness 04/22/2018 Constitutional No anorexia 04/22/2018 Constitutional No night sweats 2018 Constitutional chills 04/22/2018 Constitutional diaphoresis 04/22/2018 Constitutional fatigue 04/22/2018 Constitutional No insomnia 04/22/2018 Constitutional fever 04/22/2018 Constitutional No malaise 04/22/2018 Constitutional No weight loss 04/22/2018 Constitutional No weight gain 04/22/2018 Eyes No eye erythema 04/22/2018 Eyes No eye discharge 04/22/2018 Ears/Nose/Throat/Neck headache 2018 Ears/Nose/Throat/Neck nasal discharge Ears/Nose/Throat/Neck otalgia 04/22/2018 Ears/Nose/Throat/Neck sinus congestion Ears/Nose/Throat/Neck sore throat 2018 Cardiovascular No chest pain/pressure Cardiovascular No dyspnea 04/22/2018 Cardiovascular No edema 04/22/2018 Respiratory cough 04/22/2018 Respiratory productive sputum 04/22/2018 Gastrointestinal No vomiting 04/22/2018 Gastrointestinal No nausea 04/22/2018 Gastrointestinal No diarrhea 04/22/2018 Genitourinary/Nephrology No dysuria 04/22 Musculoskeletal No joint complaint 2018 Dermatologic No rash 04/22/2018 Neurologic No alteration of consciousness 04/22/2018 Constitutional No recent illness 2017 Constitutional No anorexia 11/28/2017 Constitutional No night sweats 2017 Constitutional No chills 11/28/2017 Constitutional No diaphoresis 11/28/2017 Constitutional fatigue 11/28/2017 Constitutional No fever 11/28/2017 Constitutional No insomnia 11/28/2017 Constitutional No malaise 11/28/2017 Eyes No eye discharge 11/28/2017 Eyes No eye erythema 11/28/2017 Eyes No vision change 11/28/2017 Ears/Nose/Throat/Neck No dizziness 2017 Ears/Nose/Throat/Neck nasal allergies 05/2017 Ears/Nose/Throat/Neck No sore throat 05/2017 Ears/Nose/Throat/Neck No neck pain 2017 Cardiovascular No chest pain/pressure 05/2017 Cardiovascular No edema 11/28/2017 Cardiovascular No fatigue 11/28/2017 Respiratory No chest congestion 2017 Respiratory No chest tightness 2017 Gastrointestinal No anorexia 11/28/2017 Gastrointestinal No constipation 2017 Gastrointestinal No diarrhea 11/28/2017 Genitourinary/Nephrology No dysuria 11/28 Genitourinary/Nephrology No urinary urgency 11/28/2017 Genitourinary/Nephrology No urinary frequency 11/28/2017 Musculoskeletal stiffness 11/28/2017 Dermatologic No rash 11/28/2017 Dermatologic No sores 11/28/2017 Neurologic No dizziness 11/28/2017 Neurologic No neck pain 11/28/2017 Neurologic No syncope 11/28/2017 Psychiatric anxiety 11/28/2017 Psychiatric No depression 11/28/2017 Constitutional No weight loss 11/28/2017 Constitutional No weight gain 11/28/2017 Musculoskeletal No arthralgia(s) 2017 Musculoskeletal No joint complaint 2017 Ears/Nose/Throat/Neck No headache 2017 Neurologic No headache 11/28/2017 Constitutional No recent illness 2017 Constitutional No anorexia 11/18/2017 Constitutional No night sweats 2017 Constitutional No chills 11/18/2017 Constitutional No diaphoresis 11/18/2017 Constitutional fatigue 11/18/2017 Constitutional No fever 11/18/2017 Constitutional No insomnia 11/18/2017 Constitutional No malaise 11/18/2017 Constitutional No weight loss 11/18/2017 Constitutional No weight gain 11/18/2017 Dermatologic erythema 11/18/2017 Constitutional No recent illness 2017 Constitutional No chills 09/04/2017 Constitutional No diaphoresis 09/04/2017 Constitutional No fever 09/04/2017 Eyes No eye erythema 09/04/2017 Ears/Nose/Throat/Neck No nasal discharge 09/04/2017 Cardiovascular No chest pain/pressure 12/2017 Cardiovascular No dyspnea 09/04/2017 Respiratory No cough 09/04/2017 Respiratory No dyspnea 09/04/2017 Musculoskeletal joint complaint 2017 Neurologic No alteration of consciousness 09/04/2017 Neurologic No mental status change 2017 Musculoskeletal back pain 09/04/2017 Constitutional No recent illness 2017 Constitutional No chills 03/21/2017 Constitutional No diaphoresis 03/21/2017 Constitutional No fever 03/21/2017 Eyes No eye erythema 03/21/2017 Ears/Nose/Throat/Neck No nasal allergies 03/21/2017 Ears/Nose/Throat/Neck No nasal discharge 03/21/2017 Cardiovascular No chest pain/pressure Respiratory No cough 03/21/2017 Respiratory No dyspnea 03/21/2017 Musculoskeletal back pain 03/21/2017 Musculoskeletal joint complaint 2017 Dermatologic No rash 03/21/2017 Neurologic No alteration of consciousness 03/21/2017 Neurologic No mental status change 2017 Constitutional No recent illness 2016 Constitutional No chills 11/02/2016 Constitutional No diaphoresis 11/02/2016 Constitutional No fever 11/02/2016 Eyes No eye erythema 11/02/2016 Ears/Nose/Throat/Neck No nasal discharge 11/02/2016 Ears/Nose/Throat/Neck No nasal allergies 11/02/2016 Cardiovascular No chest pain/pressure 09/2016 Respiratory No cough 11/02/2016 Respiratory No dyspnea 11/02/2016 Musculoskeletal back pain 11/02/2016 Musculoskeletal joint complaint 2016 Dermatologic No rash 11/02/2016 Neurologic No alteration of consciousness 11/02/2016 Neurologic No mental status change 2016 Constitutional No recent illness 2016 Constitutional No anorexia 07/26/2016 Constitutional No night sweats 2016 Constitutional No chills 07/26/2016 Constitutional No diaphoresis 07/26/2016 Constitutional fatigue 07/26/2016 Constitutional No fever 07/26/2016 Constitutional No insomnia 07/26/2016 Constitutional No malaise 07/26/2016 Ears/Nose/Throat/Neck No dizziness 2016 Ears/Nose/Throat/Neck nasal allergies 02/2016 Ears/Nose/Throat/Neck No sore throat 02/2016 Ears/Nose/Throat/Neck No neck pain 2016 Cardiovascular No chest pain/pressure 02/2016 Cardiovascular No edema 07/26/2016 Cardiovascular No fatigue 07/26/2016 Respiratory No chest congestion 2016 Respiratory No chest tightness 2016 Respiratory cough 07/26/2016 Gastrointestinal No anorexia 07/26/2016 Gastrointestinal No constipation 2016 Gastrointestinal No diarrhea 07/26/2016 Genitourinary/Nephrology No dysuria 07/26 Genitourinary/Nephrology No urinary urgency 07/26/2016 Genitourinary/Nephrology No urinary frequency 07/26/2016 Musculoskeletal No stiffness 07/26/2016 Musculoskeletal arthralgia(s) 07/26/2016 Musculoskeletal joint complaint 2016 Dermatologic No rash 07/26/2016 Dermatologic No sores 07/26/2016 Neurologic No dizziness 07/26/2016 Neurologic headache 07/26/2016 Neurologic No neck pain 07/26/2016 Neurologic No syncope 07/26/2016 Psychiatric No anxiety 07/26/2016 Psychiatric No depression 07/26/2016 Constitutional No anorexia 06/21/2016 Constitutional No chills 06/21/2016 Constitutional No fatigue 06/21/2016 Eyes No vision change 06/21/2016 Ears/Nose/Throat/Neck No dizziness 2016 Ears/Nose/Throat/Neck No headache 2016 Ears/Nose/Throat/Neck No neck pain 2016 Respiratory No chest congestion 2016 Respiratory No chest tightness 2016 Respiratory No cough 06/21/2016 Gastrointestinal No anorexia 06/21/2016 Gastrointestinal No constipation 2016 Gastrointestinal No diarrhea 06/21/2016 Genitourinary/Nephrology No urinary urgency 06/21/2016 Genitourinary/Nephrology No urinary frequency 06/21/2016 Dermatologic No rash 06/21/2016 Dermatologic No sores 06/21/2016 Psychiatric No anxiety 06/21/2016 Psychiatric No depression 06/21/2016 Musculoskeletal stiffness 06/21/2016 Musculoskeletal No swelling 06/21/2016 Musculoskeletal No muscle weakness 2016 Musculoskeletal No myalgias 06/21/2016 Musculoskeletal arthralgia(s) 06/21/2016 Constitutional No recent illness 2016 Constitutional No chills 05/25/2016 Constitutional No fever 05/25/2016 Eyes No eye erythema 05/25/2016 Ears/Nose/Throat/Neck No nasal discharge 05/25/2016 Cardiovascular No chest pain/pressure Cardiovascular No dyspnea 05/25/2016 Respiratory No cough 05/25/2016 Respiratory No dyspnea 05/25/2016 Musculoskeletal joint complaint 2016 Neurologic No alteration of consciousness 05/25/2016 Neurologic No mental status change 2016 Constitutional recent illness 12/02/2015 Constitutional No diaphoresis 12/02/2015 Constitutional No fever 12/02/2015 Eyes No eye discharge 12/02/2015 Eyes No eye erythema 12/02/2015 Eyes No vision change 12/02/2015 Cardiovascular No chest pain/pressure 08/2015 Respiratory No dyspnea 12/02/2015 Gastrointestinal No abdominal pain 2015 Neurologic No alteration of consciousness 12/02/2015 Constitutional chills 12/02/2015 Constitutional fatigue 12/02/2015 Ears/Nose/Throat/Neck otitis media 2015 Ears/Nose/Throat/Neck nasal allergies 08/2015 Ears/Nose/Throat/Neck nasal discharge 08/2015 Ears/Nose/Throat/Neck sinus congestion Ears/Nose/Throat/Neck postnasal drip 08/2015 Cardiovascular No dyspnea 12/02/2015 Respiratory No chest congestion 2015 Gastrointestinal nausea 12/02/2015 Dermatologic No rash 12/02/2015 Neurologic dizziness 12/02/2015 Neurologic No mental status change 2015 Constitutional No recent illness 2015 Constitutional No chills 10/21/2015 Constitutional No diaphoresis 10/21/2015 Constitutional No fever 10/21/2015 Constitutional No malaise 10/21/2015 Eyes No eye discharge 10/21/2015 Eyes No eye erythema 10/21/2015 Eyes No vision change 10/21/2015 Cardiovascular No chest pain/pressure Cardiovascular No edema 10/21/2015 Respiratory No dyspnea 10/21/2015 Gastrointestinal No abdominal pain 2015 Dermatologic scar 10/21/2015 Neurologic No alteration of consciousness 10/21/2015 Constitutional No recent illness 2015 Constitutional No anorexia 10/17/2015 Constitutional No night sweats 2015 Constitutional No chills 10/17/2015 Constitutional No diaphoresis 10/17/2015 Constitutional fatigue 10/17/2015 Constitutional No fever 10/17/2015 Constitutional No insomnia 10/17/2015 Constitutional No malaise 10/17/2015 Eyes No eye discharge 10/17/2015 Eyes No eye erythema 10/17/2015 Eyes No vision change 10/17/2015 Ears/Nose/Throat/Neck No dizziness 2015 Ears/Nose/Throat/Neck nasal allergies Ears/Nose/Throat/Neck No neck pain 2015 Ears/Nose/Throat/Neck No sore throat Cardiovascular No chest pain/pressure Cardiovascular No edema 10/17/2015 Cardiovascular No fatigue 10/17/2015 Respiratory No chest congestion 2015 Respiratory No chest tightness 2015 Respiratory cough 10/17/2015 Gastrointestinal No anorexia 10/17/2015 Gastrointestinal No constipation 2015 Gastrointestinal No diarrhea 10/17/2015 Genitourinary/Nephrology No dysuria 10/16 Genitourinary/Nephrology No urinary urgency 10/17/2015 Genitourinary/Nephrology No urinary frequency 10/17/2015 Musculoskeletal stiffness 10/17/2015 Musculoskeletal arthralgia(s) 10/17/2015 Musculoskeletal joint complaint 2015 Dermatologic No rash 10/17/2015 Dermatologic No sores 10/17/2015 Neurologic No dizziness 10/17/2015 Neurologic headache 10/17/2015 Neurologic No neck pain 10/17/2015 Neurologic No syncope 10/17/2015 Psychiatric No anxiety 10/17/2015 Psychiatric No depression 10/17/2015 Constitutional No anorexia 06/16/2015 Constitutional No recent illness 2015 Constitutional No night sweats 2015 Constitutional No chills 06/16/2015 Constitutional No diaphoresis 06/16/2015 Constitutional No fatigue 06/16/2015 Constitutional No fever 06/16/2015 Constitutional No insomnia 06/16/2015 Constitutional No malaise 06/16/2015 Constitutional No weight loss 06/16/2015 Constitutional No weight gain 06/16/2015 Musculoskeletal joint complaint 2015 Musculoskeletal back pain 06/16/2015 Musculoskeletal sciatica 06/16/2015 Constitutional No recent illness 2015 Constitutional No anorexia 05/12/2015 Constitutional No night sweats 2015 Constitutional No chills 05/12/2015 Constitutional No diaphoresis 05/12/2015 Constitutional No fatigue 05/12/2015 Constitutional No fever 05/12/2015 Constitutional No insomnia 05/12/2015 Constitutional No malaise 05/12/2015 Constitutional No weight loss 05/12/2015 Constitutional No weight gain 05/12/2015 Constitutional No obesity 05/12/2015 Eyes No vision change 05/12/2015 Ears/Nose/Throat/Neck nasal allergies Ears/Nose/Throat/Neck No headache 2015 Ears/Nose/Throat/Neck otitis media 2015 Ears/Nose/Throat/Neck otalgia 05/12/2015 Ears/Nose/Throat/Neck No sinus congestion 05/12/2015 Ears/Nose/Throat/Neck sore throat 2015 Cardiovascular No chest pain/pressure Respiratory No cough 05/12/2015 Respiratory No chest tightness 2015 Respiratory No chest congestion 2015 Respiratory No cigarette smoking 2015 Respiratory No dyspnea on exertion 2015 Respiratory No dyspnea 05/12/2015 Gastrointestinal No abdominal pain 2015 Gastrointestinal No diarrhea 05/12/2015 Gastrointestinal No constipation 2015 Genitourinary/Nephrology No dysuria 05/11 Musculoskeletal No joint complaint 2015 Musculoskeletal No muscle weakness 2015 Musculoskeletal No myalgias 05/12/2015 Dermatologic No rash 05/12/2015 Dermatologic No sores 05/12/2015 Psychiatric No anxiety 05/12/2015 Psychiatric No depression 05/12/2015 Constitutional No recent illness 2015 Constitutional No anorexia 03/10/2015 Constitutional No night sweats 2015 Constitutional No chills 03/10/2015 Constitutional No diaphoresis 03/10/2015 Constitutional fatigue 03/10/2015 Constitutional No fever 03/10/2015 Constitutional No insomnia 03/10/2015 Constitutional No malaise 03/10/2015 Constitutional No weight loss 03/10/2015 Constitutional No weight gain 03/10/2015 Constitutional No obesity 03/10/2015 Genitourinary/Nephrology No dysuria 03/10 Genitourinary/Nephrology urinary urgency 03/10/2015 Genitourinary/Nephrology No urinary frequency 03/10/2015 Genitourinary/Nephrology urinary incontinence 03/10/2015 Cardiovascular No dyspnea 03/10/2015 Respiratory cough 03/10/2015 Respiratory No cigarette smoking 2015 Respiratory No chest tightness 2015 Respiratory No chest congestion 2015 Gastrointestinal No constipation 2015 Gastrointestinal No diarrhea 03/10/2015 Ears/Nose/Throat/Neck headache 2015 Ears/Nose/Throat/Neck dizziness 2015 Ears/Nose/Throat/Neck No sore throat Ears/Nose/Throat/Neck No otorrhea 2015 Ears/Nose/Throat/Neck No postnasal drip 03/10/2015 Ears/Nose/Throat/Neck No otitis media Ears/Nose/Throat/Neck No otalgia 2015 Eyes No vision change 03/10/2015 Eyes cataract 03/10/2015 Musculoskeletal No myalgias 03/10/2015 Musculoskeletal No muscle weakness 2015 Musculoskeletal No joint complaint 2015 Musculoskeletal No back pain 03/10/2015 Musculoskeletal No stiffness 03/10/2015 Musculoskeletal No arthralgia(s) 2015 Dermatologic No rash 03/10/2015 Dermatologic No sores 03/10/2015 Psychiatric No depression 03/10/2015 Psychiatric No anxiety 03/10/2015 Constitutional No recent illness 2014 Constitutional No anorexia 02/08/2015 Constitutional No night sweats 2014 Constitutional No chills 02/08/2015 Constitutional No diaphoresis 02/08/2015 Constitutional fatigue 02/08/2015 Constitutional No fever 02/08/2015 Constitutional No insomnia 02/08/2015 Constitutional No malaise 02/08/2015 Constitutional No weight loss 02/08/2015 Constitutional No weight gain 02/08/2015 Eyes No eye discharge 02/08/2015 Eyes No eye erythema 02/08/2015 Ears/Nose/Throat/Neck dizziness 2014 Ears/Nose/Throat/Neck headache 2014 Ears/Nose/Throat/Neck nasal discharge Ears/Nose/Throat/Neck otalgia 02/08/2015 Ears/Nose/Throat/Neck No sore throat Ears/Nose/Throat/Neck No sinus congestion 02/08/2015 Cardiovascular No chest pain/pressure Cardiovascular No dyspnea 02/08/2015 Cardiovascular No edema 02/08/2015 Respiratory No productive sputum 2014 Respiratory No cough 02/08/2015 Gastrointestinal No abdominal pain 2014 Gastrointestinal No constipation 2014 Gastrointestinal No diarrhea 02/08/2015 Genitourinary/Nephrology No dysuria 02/08 Genitourinary/Nephrology urinary frequency 02/08/2015 Musculoskeletal No joint complaint 2014 Dermatologic No rash 02/08/2015 Dermatologic No sores 02/08/2015 Neurologic No alteration of consciousness 02/08/2015 Psychiatric No depression 02/08/2015 Endocrine No dry or coarse skin 2014 Ears/Nose/Throat/Neck nasal allergies Constitutional recent illness 12/27/2014 Constitutional No anorexia 12/27/2014 Constitutional No night sweats 2014 Constitutional No chills 12/27/2014 Constitutional diaphoresis 12/27/2014 Constitutional fatigue 12/27/2014 Constitutional fever 12/27/2014 Constitutional No insomnia 12/27/2014 Constitutional No malaise 12/27/2014 Constitutional No weight loss 12/27/2014 Constitutional No weight gain 12/27/2014 Eyes No eye discharge 12/27/2014 Eyes No eye erythema 12/27/2014 Ears/Nose/Throat/Neck No dizziness 2014 Ears/Nose/Throat/Neck nasal allergies 03/2014 Ears/Nose/Throat/Neck nasal discharge 03/2014 Ears/Nose/Throat/Neck headache 2014 Ears/Nose/Throat/Neck otalgia 12/27/2014 Ears/Nose/Throat/Neck sinus congestion Ears/Nose/Throat/Neck sore throat 2014 Cardiovascular No chest pain/pressure 03/2014 Respiratory productive sputum 12/27/2014 Respiratory chest congestion 12/27/2014 Respiratory cough 12/27/2014 Respiratory No dyspnea on exertion 2014 Respiratory No dyspnea 12/27/2014 Gastrointestinal No abdominal pain 2014 Gastrointestinal No constipation 2014 Gastrointestinal No diarrhea 12/27/2014 Genitourinary/Nephrology No dysuria 12/27 Musculoskeletal No joint complaint 2014 Dermatologic No rash 12/27/2014 Dermatologic No sores 12/27/2014 Constitutional No anorexia 11/16/2014 Constitutional No chills 11/16/2014 Constitutional No fatigue 11/16/2014 Eyes No vision change 11/16/2014 Ears/Nose/Throat/Neck No dizziness 2014 Ears/Nose/Throat/Neck No headache 2014 Ears/Nose/Throat/Neck No neck pain 2014 Cardiovascular No edema 11/16/2014 Cardiovascular No fatigue 11/16/2014 Respiratory No chest congestion 2014 Respiratory No chest tightness 2014 Respiratory No cough 11/16/2014 Gastrointestinal No anorexia 11/16/2014 Gastrointestinal No constipation 2014 Gastrointestinal No diarrhea 11/16/2014 Genitourinary/Nephrology No urinary urgency 11/16/2014 Genitourinary/Nephrology No urinary frequency 11/16/2014 Dermatologic No rash 11/16/2014 Dermatologic No sores 11/16/2014 Psychiatric No anxiety 11/16/2014 Psychiatric No depression 11/16/2014 Musculoskeletal stiffness 11/16/2014 Musculoskeletal No swelling 11/16/2014 Musculoskeletal muscle weakness 2014 Musculoskeletal No myalgias 11/16/2014 Musculoskeletal arthralgia(s) 11/16/2014 Musculoskeletal joint complaint 2014 Constitutional No anorexia 10/11/2014 Constitutional No chills 10/11/2014 Constitutional No fatigue 10/11/2014 Eyes No vision change 10/11/2014 Ears/Nose/Throat/Neck No dizziness 2014 Ears/Nose/Throat/Neck headache 2014 Ears/Nose/Throat/Neck No neck pain 2014 Cardiovascular No edema 10/11/2014 Cardiovascular No fatigue 10/11/2014 Respiratory No chest congestion 2014 Respiratory No chest tightness 2014 Respiratory cough 10/11/2014 Gastrointestinal No anorexia 10/11/2014 Gastrointestinal No constipation 2014 Gastrointestinal No diarrhea 10/11/2014 Genitourinary/Nephrology No urinary urgency 10/11/2014 Genitourinary/Nephrology No urinary frequency 10/11/2014 Musculoskeletal stiffness 10/11/2014 Musculoskeletal arthralgia(s) 10/11/2014 Musculoskeletal joint complaint 2014 Dermatologic No rash 10/11/2014 Dermatologic No sores 10/11/2014 Neurologic No dizziness 10/11/2014 Neurologic headache 10/11/2014 Neurologic No neck pain 10/11/2014 Neurologic No syncope 10/11/2014 Psychiatric No anxiety 10/11/2014 Psychiatric No depression 10/11/2014 Constitutional No recent illness 2014 Constitutional No night sweats 2014 Constitutional No diaphoresis 10/11/2014 Constitutional No fever 10/11/2014 Constitutional No insomnia 10/11/2014 Constitutional No malaise 10/11/2014 Constitutional No weight loss 10/11/2014 Constitutional No weight gain 10/11/2014 Eyes No eye erythema 10/11/2014 Eyes No eye discharge 10/11/2014 Ears/Nose/Throat/Neck nasal allergies Ears/Nose/Throat/Neck nasal discharge Ears/Nose/Throat/Neck No sore throat Ears/Nose/Throat/Neck sinus congestion Cardiovascular No chest pain/pressure Genitourinary/Nephrology No dysuria 10/11 Constitutional No anorexia 07/16/2014 Constitutional No chills 07/16/2014 Constitutional No fatigue 07/16/2014 Eyes No vision change 07/16/2014 Ears/Nose/Throat/Neck No dizziness 2014 Ears/Nose/Throat/Neck No headache 2014 Ears/Nose/Throat/Neck No neck pain 2014 Cardiovascular No edema 07/16/2014 Cardiovascular No fatigue 07/16/2014 Respiratory No chest congestion 2014 Respiratory No chest tightness 2014 Respiratory No cough 07/16/2014 Gastrointestinal No anorexia 07/16/2014 Gastrointestinal No constipation 2014 Gastrointestinal No diarrhea 07/16/2014 Genitourinary/Nephrology No urinary urgency 07/16/2014 Genitourinary/Nephrology No urinary frequency 07/16/2014 Dermatologic No rash 07/16/2014 Dermatologic No sores 07/16/2014 Psychiatric No anxiety 07/16/2014 Psychiatric No depression 07/16/2014 Musculoskeletal arthralgia(s) 07/16/2014 Musculoskeletal stiffness 07/16/2014 Musculoskeletal joint complaint 2014 Neurologic No dizziness 07/16/2014 Neurologic No headache 07/16/2014 Neurologic No neck pain 07/16/2014 Neurologic No syncope 07/16/2014 Constitutional No anorexia 06/14/2014 Constitutional No chills 06/14/2014 Constitutional No fatigue 06/14/2014 Eyes No vision change 06/14/2014 Ears/Nose/Throat/Neck No dizziness 2014 Ears/Nose/Throat/Neck No headache 2014 Ears/Nose/Throat/Neck No neck pain 2014 Respiratory No chest congestion 2014 Respiratory No chest tightness 2014 Respiratory No cough 06/14/2014 Gastrointestinal No anorexia 06/14/2014 Gastrointestinal No constipation 2014 Gastrointestinal No diarrhea 06/14/2014 Genitourinary/Nephrology No urinary urgency 06/14/2014 Genitourinary/Nephrology No urinary frequency 06/14/2014 Dermatologic No rash 06/14/2014 Dermatologic No sores 06/14/2014 Psychiatric No anxiety 06/14/2014 Psychiatric No depression 06/14/2014 Cardiovascular No edema 06/14/2014 Cardiovascular No fatigue 06/14/2014 Constitutional No recent illness 2013 Constitutional No anorexia 11/05/2013 Constitutional No chills 11/05/2013 Constitutional No diaphoresis 11/05/2013 Constitutional No fatigue 11/05/2013 Constitutional No fever 11/05/2013 Constitutional No insomnia 11/05/2013 Eyes No eye discharge 11/05/2013 Eyes No eye erythema 11/05/2013 Ears/Nose/Throat/Neck No dizziness 2013 Ears/Nose/Throat/Neck No hoarseness 11/05 Ears/Nose/Throat/Neck No nasal discharge 11/05/2013 Ears/Nose/Throat/Neck No otalgia 2013 Ears/Nose/Throat/Neck No sinus congestion 11/05/2013 Cardiovascular No chest pain/pressure 12/2013 Respiratory No productive sputum 2013 Respiratory No chest congestion 2013 Respiratory No cough 11/05/2013 Gastrointestinal No diarrhea 11/05/2013 Gastrointestinal No nausea 11/05/2013 Gastrointestinal No vomiting 11/05/2013 Genitourinary/Nephrology No dysuria 11/05 Musculoskeletal joint complaint 2013 Dermatologic No rash 11/05/2013 Dermatologic No sores 11/05/2013 Psychiatric No anxiety 11/05/2013 Psychiatric No depression 11/05/2013 Musculoskeletal stiffness 11/05/2013 Musculoskeletal arthralgia(s) 11/05/2013 Constitutional recent illness 09/08/2013 Constitutional No anorexia 09/08/2013 Constitutional fever 09/08/2013 Constitutional fatigue 09/08/2013 Constitutional No diaphoresis 09/08/2013 Constitutional No chills 09/08/2013 Constitutional No insomnia 09/08/2013 Eyes No eye discharge 09/08/2013 Eyes No eye erythema 09/08/2013 Ears/Nose/Throat/Neck No dizziness 2013 Ears/Nose/Throat/Neck No hoarseness 09/08 Ears/Nose/Throat/Neck No nasal discharge 09/08/2013 Ears/Nose/Throat/Neck otalgia 09/08/2013 Ears/Nose/Throat/Neck No sinus congestion 09/08/2013 Cardiovascular No chest pain/pressure Respiratory No productive sputum 2013 Respiratory No chest congestion 2013 Respiratory No cough 09/08/2013 Gastrointestinal No vomiting 09/08/2013 Gastrointestinal No nausea 09/08/2013 Gastrointestinal No diarrhea 09/08/2013 Genitourinary/Nephrology No dysuria 09/08 Dermatologic No rash 09/08/2013 Dermatologic No sores 09/08/2013 Musculoskeletal No joint complaint 2013 Constitutional No recent illness 2013 Constitutional No night sweats 2013 Constitutional No anorexia 05/25/2013 Constitutional No chills 05/25/2013 Constitutional No diaphoresis 05/25/2013 Constitutional No fatigue 05/25/2013 Constitutional No fever 05/25/2013 Constitutional No insomnia 05/25/2013 Constitutional No malaise 05/25/2013 Gastrointestinal No abdominal pain 2013 Gastrointestinal No constipation 2013 Gastrointestinal No diarrhea 05/25/2013 Gastrointestinal No vomiting 05/25/2013 Gastrointestinal No nausea 05/25/2013 Musculoskeletal No joint complaint 2013 Respiratory No cough 05/25/2013 Cardiovascular No chest pain/pressure Ears/Nose/Throat/Neck No dizziness 2013 Constitutional No anorexia 05/04/2013 Constitutional No chills 05/04/2013 Constitutional No fatigue 05/04/2013 Eyes No vision change 05/04/2013 Ears/Nose/Throat/Neck No dizziness 2013 Ears/Nose/Throat/Neck No headache 2013 Ears/Nose/Throat/Neck No neck pain 2013 Respiratory No chest congestion 2013 Respiratory No chest tightness 2013 Respiratory No cough 05/04/2013 Gastrointestinal No anorexia 05/04/2013 Gastrointestinal No constipation 2013 Gastrointestinal No diarrhea 05/04/2013 Genitourinary/Nephrology No urinary urgency 05/04/2013 Genitourinary/Nephrology No urinary frequency 05/04/2013 Dermatologic No rash 05/04/2013 Dermatologic No sores 05/04/2013 Psychiatric No anxiety 05/04/2013 Psychiatric No depression 05/04/2013 Constitutional No anorexia 02/09/2013 Constitutional No chills 02/09/2013 Constitutional No fatigue 02/09/2013 Eyes No vision change 02/09/2013 Ears/Nose/Throat/Neck No dizziness 2012 Ears/Nose/Throat/Neck No headache 2012 Ears/Nose/Throat/Neck No neck pain 2012 Respiratory No chest congestion 2012 Respiratory No chest tightness 2012 Respiratory No cough 02/09/2013 Gastrointestinal No anorexia 02/09/2013 Gastrointestinal No constipation 2012 Gastrointestinal No diarrhea 02/09/2013 Genitourinary/Nephrology No urinary urgency 02/09/2013 Genitourinary/Nephrology No urinary frequency 02/09/2013 Dermatologic No rash 02/09/2013 Dermatologic No sores 02/09/2013 Psychiatric No anxiety 02/09/2013 Psychiatric No depression 02/09/2013 Constitutional No anorexia 09/11/2012 Constitutional No chills 09/11/2012 Ears/Nose/Throat/Neck No dizziness 2012 Ears/Nose/Throat/Neck No headache 2012 Respiratory No chest congestion 2012 Respiratory No cough 09/11/2012 Respiratory No chest tightness 2012 Gastrointestinal No anorexia 09/11/2012 Gastrointestinal No diarrhea 09/11/2012 Gastrointestinal No constipation 2012 Psychiatric No anxiety 09/11/2012 Psychiatric No depression 09/11/2012 Dermatologic No sores 09/11/2012 Dermatologic No rash 09/11/2012 Constitutional No anorexia 05/29/2012 Constitutional No chills 05/29/2012 Constitutional No fatigue 05/29/2012 Eyes No vision change 05/29/2012 Ears/Nose/Throat/Neck No dizziness 2012 Ears/Nose/Throat/Neck No headache 2012 Ears/Nose/Throat/Neck No neck pain 2012 Respiratory No chest congestion 2012 Respiratory No chest tightness 2012 Respiratory No cough 05/29/2012 Gastrointestinal No anorexia 05/29/2012 Gastrointestinal No constipation 2012 Gastrointestinal No diarrhea 05/29/2012 Genitourinary/Nephrology No urinary urgency 05/29/2012 Genitourinary/Nephrology No urinary frequency 05/29/2012 Dermatologic No rash 05/29/2012 Dermatologic No sores 05/29/2012 Psychiatric No anxiety 05/29/2012 Psychiatric No depression 05/29/2012 Constitutional No anorexia 02/28/2012 Constitutional No chills 02/28/2012 Constitutional No fatigue 02/28/2012 Eyes No vision change 02/28/2012 Ears/Nose/Throat/Neck No dizziness 2012 Ears/Nose/Throat/Neck No headache 2012 Ears/Nose/Throat/Neck No neck pain 2012 Respiratory No chest congestion 2012 Respiratory No chest tightness 2012 Respiratory No cough 02/28/2012 Gastrointestinal No anorexia 02/28/2012 Gastrointestinal No constipation 2012 Gastrointestinal No diarrhea 02/28/2012 Genitourinary/Nephrology No urinary urgency 02/28/2012 Genitourinary/Nephrology No urinary frequency 02/28/2012 Dermatologic No rash 02/28/2012 Dermatologic No sores 02/28/2012 Psychiatric No anxiety 02/28/2012 Psychiatric No depression 02/28/2012 Constitutional No anorexia 01/28/2012 Constitutional No chills 01/28/2012 Constitutional No fatigue 01/28/2012 Eyes No vision change 01/28/2012 Ears/Nose/Throat/Neck No dizziness 2011 Ears/Nose/Throat/Neck No headache 2011 Ears/Nose/Throat/Neck No neck pain 2011 Respiratory No chest congestion 2011 Respiratory No chest tightness 2011 Respiratory No cough 01/28/2012 Gastrointestinal No anorexia 01/28/2012 Gastrointestinal No constipation 2011 Gastrointestinal No diarrhea 01/28/2012 Genitourinary/Nephrology No urinary urgency 01/28/2012 Genitourinary/Nephrology No urinary frequency 01/28/2012 Dermatologic No rash 01/28/2012 Dermatologic No sores 01/28/2012 Psychiatric No anxiety 01/28/2012 Psychiatric No depression 01/28/2012 Constitutional No anorexia 12/03/2011 Constitutional No chills 12/03/2011 Constitutional No fatigue 12/03/2011 Eyes No vision change 12/03/2011 Ears/Nose/Throat/Neck No dizziness 2011 Ears/Nose/Throat/Neck No headache 2011 Ears/Nose/Throat/Neck No neck pain 2011 Respiratory No chest congestion 2011 Respiratory No chest tightness 2011 Respiratory No cough 12/03/2011 Gastrointestinal No anorexia 12/03/2011 Gastrointestinal No constipation 2011 Gastrointestinal No diarrhea 12/03/2011 Genitourinary/Nephrology No urinary urgency 12/03/2011 Genitourinary/Nephrology No urinary frequency 12/03/2011 Dermatologic No rash 12/03/2011 Dermatologic No sores 12/03/2011 Psychiatric No anxiety 12/03/2011 Psychiatric No depression 12/03/2011 Constitutional No anorexia 11/05/2011 Constitutional No night sweats 2011 Constitutional No chills 11/05/2011 Constitutional No diaphoresis 11/05/2011 Constitutional fatigue 11/05/2011 Constitutional No fever 11/05/2011 Constitutional No insomnia 11/05/2011 Constitutional No malaise 11/05/2011 Eyes No eye discharge 11/05/2011 Eyes No eye erythema 11/05/2011 Cardiovascular No chest pain/pressure 11/2011 Cardiovascular No dyspnea 11/05/2011 Cardiovascular No near-syncope/dizziness 11/05/2011 Cardiovascular No orthopnea 11/05/2011 Gastrointestinal No abdominal pain 2011 Gastrointestinal No constipation 2011 Gastrointestinal No diarrhea 11/05/2011 Gastrointestinal No nausea 11/05/2011 Gastrointestinal No vomiting 11/05/2011 Genitourinary/Nephrology No dysuria 11/04 Musculoskeletal joint complaint 2011 Musculoskeletal neck pain 11/05/2011 Musculoskeletal back pain 11/05/2011 Musculoskeletal No bone fracture 2011 Dermatologic No rash 11/05/2011 Dermatologic No sores 11/05/2011 Neurologic No alteration of consciousness 11/05/2011 Constitutional No recent illness 2011 Constitutional No recent illness 2011 Constitutional No anorexia 08/09/2011 Constitutional No night sweats 2011 Constitutional No chills 08/09/2011 Constitutional No diaphoresis 08/09/2011 Constitutional No fatigue 08/09/2011 Constitutional No fever 08/09/2011 Constitutional No insomnia 08/09/2011 Constitutional No malaise 08/09/2011 Musculoskeletal No bone fracture 2011 Musculoskeletal back pain 08/09/2011 Musculoskeletal No swelling 08/09/2011 Musculoskeletal sciatica 08/09/2011 Cardiovascular No chest pain/pressure 03/2011 Respiratory No chest congestion 2011 Respiratory No cough 05/28/2011 Constitutional No recent illness 2011 Constitutional No night sweats 2011 Constitutional No chills 05/28/2011 Constitutional No diaphoresis 05/28/2011 Constitutional No fatigue 05/28/2011 Constitutional No fever 05/28/2011 Musculoskeletal back pain 05/28/2011 Musculoskeletal No swelling 05/28/2011 Musculoskeletal sciatica 05/28/2011 Gastrointestinal No abdominal pain 2011 Gastrointestinal No vomiting 05/28/2011 Gastrointestinal No nausea 05/28/2011 Neurologic No alteration of consciousness 05/28/2011 Neurologic No dizziness 05/28/2011 Neurologic No memory loss 05/28/2011 Neurologic No headache 05/28/2011 Constitutional No recent illness 2011 Constitutional No anorexia 03/15/2011 Constitutional No chills 03/15/2011 Constitutional No diaphoresis 03/15/2011 Constitutional No fatigue 03/15/2011 Constitutional No fever 03/15/2011 Eyes No eye discharge 03/15/2011 Eyes No eye erythema 03/15/2011 Ears/Nose/Throat/Neck No dizziness 2011 Ears/Nose/Throat/Neck No sore throat Ears/Nose/Throat/Neck No sinus congestion 03/15/2011 Cardiovascular No chest pain/pressure Respiratory No productive sputum 2011 Respiratory cough 03/15/2011 Respiratory No dyspnea on exertion 2011 Gastrointestinal No nausea 03/15/2011 Gastrointestinal No vomiting 03/15/2011 Gastrointestinal No abdominal pain 2011 Gastrointestinal No constipation 2011 Gastrointestinal No diarrhea 03/15/2011 Gastrointestinal gastroesophageal reflux 03/15/2011 Genitourinary/Nephrology No dysuria 03/15 Dermatologic No rash 03/15/2011 Constitutional No night sweats 2011 Constitutional No chills 03/13/2011 Constitutional fatigue 03/13/2011 Eyes No vision change 03/13/2011 Ears/Nose/Throat/Neck No dysphagia 2011 Ears/Nose/Throat/Neck No dizziness 2011 Ears/Nose/Throat/Neck No headache 2011 Cardiovascular No chest pain/pressure Cardiovascular No edema 03/13/2011 Cardiovascular fatigue 03/13/2011 Respiratory No chest tightness 2011 Respiratory No chest congestion 2011 Gastrointestinal No abdominal pain 2011 Gastrointestinal No constipation 2011 Gastrointestinal No diarrhea 03/13/2011 Musculoskeletal No stiffness 03/13/2011 Musculoskeletal No arthralgia(s) 2011 Psychiatric No anxiety 03/13/2011 Psychiatric depression 03/13/2011 Respiratory cough 03/13/2011 Constitutional No anorexia 11/15/2010 Constitutional No chills 11/15/2010 Constitutional No fatigue 11/15/2010 Eyes No vision change 11/15/2010 Ears/Nose/Throat/Neck No dizziness 2010 Ears/Nose/Throat/Neck No headache 2010 Ears/Nose/Throat/Neck No neck pain 2010 Respiratory No chest congestion 2010 Respiratory No chest tightness 2010 Respiratory No cough 11/15/2010 Gastrointestinal No anorexia 11/15/2010 Gastrointestinal No constipation 2010 Gastrointestinal No diarrhea 11/15/2010 Genitourinary/Nephrology No urinary urgency 11/15/2010 Genitourinary/Nephrology No urinary frequency 11/15/2010 Dermatologic No rash 11/15/2010 Dermatologic No sores 11/15/2010 Psychiatric No anxiety 11/15/2010 Psychiatric No depression 11/15/2010 Constitutional No recent illness 2010 Constitutional No fever 11/01/2010 Ears/Nose/Throat/Neck No dizziness 2010 Gastrointestinal No nausea 11/01/2010 Gastrointestinal No vomiting 11/01/2010 Constitutional No chills 11/01/2010 Respiratory No chest tightness 2010 Respiratory No cough 11/01/2010 Respiratory No chest congestion 2010 Cardiovascular No chest pain/pressure 08/2010 Cardiovascular fatigue 11/01/2010 Genitourinary/Nephrology No urinary incontinence 11/01/2010 Neurologic No ataxia 11/01/2010 Neurologic No dizziness 11/01/2010 Neurologic headache 11/01/2010 Psychiatric No anxiety 11/01/2010 Psychiatric No depression 11/01/2010 Physical Exam Exam Name System Name Item Name Status Result Effective Dates Notes Full Exam - Orthopedics Constitutional general appearance Overall: well nourished 05/01/2018 None Full Exam - Orthopedics Constitutional general appearance Overall: well developed 05/01/2018 None Full Exam - Orthopedics Constitutional general appearance Overall: in no acute distress 05/01/2018 None Full Exam - Orthopedics Eyes conjunctiva/ eyelids Overall: conjunctiva clear 05/01/2018 None Full Exam - Orthopedics Eyes conjunctiva/ eyelids Overall: eyelids normal 05/01/2018 None Full Exam - Orthopedics Ears/Nose/Throat lips/teeth/gingiva Overall: benign lips 05/01/2018 None Full Exam - Orthopedics Ears/Nose/Throat oral cavity/pharynx/larynx Overall: oral mucosa clear 05/01/2018 None Full Exam - Orthopedics Respiratory auscultation Overall: breath sounds clear bilaterally 05/01/2018 None Full Exam - Orthopedics Respiratory respiratory effort/rhythm Overall: no retractions 05/01/2018 None Full Exam - Orthopedics Respiratory respiratory effort/rhythm Overall: normal rate 05/01/2018 None Full Exam - Orthopedics MS: Bilateral Lower Extremities insp & palp - LE Knees: joint swelling 05/01/2018 mild Full Exam - Orthopedics MS: Bilateral Lower Extremities range of motion - LE Knees: crepitus 05/01/2018 None Full Exam - Orthopedics MS: Bilateral Lower Extremities range of motion - LE Knees: pain with flexion 05/01/2018 None Full Exam - Orthopedics Psychiatric orientation/consciousness Overall: oriented to person, place and time 05/01/2018 None Full Exam - Orthopedics Psychiatric mood and affect Overall: normal mood and affect 05/01/2018 None Full Exam - Orthopedics Psychiatric appearance Overall: well-groomed, good eye contact 05/01/2018 None Full Exam - ENT Constitutional general appearance Overall: well nourished 04/22/2018 None Full Exam - ENT Constitutional general appearance Overall: well developed 04/22/2018 None Full Exam - ENT Constitutional general appearance Overall: in no acute distress 04/22/2018 None Full Exam - ENT Neurologic orientation Overall: oriented to person, place and time 04/22/2018 None Full Exam - ENT Integument inspection of skin Overall: no rash, lesions 04/22/2018 None Full Exam - ENT Musculoskeletal head and neck Overall: head atraumatic 04/22/2018 None Full Exam - ENT Lymphatic palpation of lymph nodes Overall: shotty lymphadenopathy 04/22/2018 None Full Exam - ENT Cardiovascular auscultation of heart Overall: regular rate 04/22/2018 None Full Exam - ENT Cardiovascular auscultation of heart Overall: normal heart sounds 04/22/2018 None Full Exam - ENT Respiratory auscultation Overall: breath sounds clear bilaterally 04/22/2018 with deep hacking cough Full Exam - ENT Respiratory inspection Overall: no retractions 04/22/2018 None Full Exam - ENT Respiratory inspection Overall: normal rate None Full Exam - ENT Face and Head palpation Left maxillary sinus: tender 04/22/2018 None Full Exam - ENT Face and Head palpation Right maxillary sinus: tender 04/22/2018 None Full Exam - ENT Ears/Nose/Throat otoscopic exam Overall: external auditory canals normal 04/22/2018 None Full Exam - ENT Ears/Nose/Throat otoscopic exam Overall: tympanic membranes normal 04/22/2018 None Full Exam - ENT Ears/Nose/Throat oropharynx Overall: oral mucosa clear 04/22/2018 None Full Exam - General 1994 Constitutional general appearance Overall: well developed 11/28/2017 None Full Exam - General 1994 Constitutional general appearance Overall: in no acute distress 11/28/2017 None Full Exam - General 1994 Constitutional general appearance Overall: well nourished 11/28/2017 None Full Exam - General 1994 Eyes pupils and irises Overall: pupils equal, round, reactive to light and accomodation 11/28/2017 None Full Exam - General 1994 Ears/Nose/Throat otoscopic exam Overall: external auditory canals clear 11/28/2017 None Full Exam - General 1994 Ears/Nose/Throat otoscopic exam Overall: tympanic membranes clear 11/28/2017 None Full Exam - General 1994 Ears/Nose/Throat oral cavity/pharynx/larynx Overall: oral mucosa clear 11/28/2017 None Full Exam - General 1994 Respiratory auscultation Overall: breath sounds clear bilaterally 11/28/2017 None Full Exam - General 1994 Respiratory respiratory effort/rhythm Overall: no retractions 11/28/2017 None Full Exam - General 1994 Respiratory respiratory effort/rhythm Overall: normal rate 11/28/2017 None Full Exam - General 1994 Cardiovascular extremities Overall: no clubbing 11/28/2017 None Full Exam - General 1994 Cardiovascular auscultation of heart Overall: regular rate 11/28/2017 None Full Exam - General 1994 Cardiovascular auscultation of heart Overall: normal heart sounds 11/28/2017 None Full Exam - General 1994 Cardiovascular auscultation of heart Overall: no murmurs 11/28/2017 None Full Exam - General 1994 Abdomen abdominal exam Overall: no tenderness 11/28/2017 None Full Exam - General 1994 Abdomen abdominal exam Overall: normal bowel sounds 11/28/2017 None Full Exam - General 1994 Musculoskeletal head and neck Overall: head atraumatic 11/28/2017 None Full Exam - General 1994 Musculoskeletal head and neck Overall: cervical spine benign 11/28/2017 None Full Exam - General 1994 Neurologic gait Overall: no ataxia, no unsteadiness 11/28/2017 None Full Exam - General 1994 Psychiatric orientation/consciousness Overall: oriented to person, place and time 11/28/2017 None Full Exam - General 1994 Psychiatric mood and affect Overall: normal mood and affect 11/28/2017 None Full Exam - Dermatology Constitutional general appearance Overall: well nourished 11/18/2017 None Full Exam - Dermatology Constitutional general appearance Overall: well developed 11/18/2017 None Full Exam - Dermatology Constitutional general appearance Overall: in no acute distress 11/18/2017 None Full Exam - Dermatology Constitutional general appearance Overall: of normal body habitus 11/18/2017 None Full Exam - Dermatology Constitutional general appearance Overall: well groomed 11/18/2017 None Full Exam - Dermatology Psychiatric orientation Overall: oriented to person, place and time 11/18/2017 None Full Exam - Dermatology Respiratory auscultation Overall: breath sounds clear bilaterally 11/18/2017 None Full Exam - Dermatology Respiratory respiratory effort/rhythm Overall: no retractions 11/18/2017 None Full Exam - Dermatology Respiratory respiratory effort/rhythm Overall: normal rate 11/18/2017 None Full Exam - Dermatology Cardiovascular peripheral vascular system Overall: warm extremities 11/18/2017 None Full Exam - Dermatology Integument insp & palp - right upper extremity Location: on the forearm 11/18/2017 near elbow - redness and warmth with small puncture marvel noted -petechiae noted from scratching forearm Full Exam - Orthopedics Constitutional general appearance Overall: well nourished 09/04/2017 None Full Exam - Orthopedics Constitutional general appearance Overall: well developed 09/04/2017 None Full Exam - Orthopedics Constitutional general appearance Overall: in no acute distress 09/04/2017 None Full Exam - Orthopedics Eyes conjunctiva/ eyelids Overall: conjunctiva clear 09/04/2017 None Full Exam - Orthopedics Eyes conjunctiva/ eyelids Overall: eyelids normal 09/04/2017 None Full Exam - Orthopedics Ears/Nose/Throat lips/teeth/gingiva Overall: benign lips 09/04/2017 None Full Exam - Orthopedics Ears/Nose/Throat oral cavity/pharynx/larynx Overall: oral mucosa clear 09/04/2017 None Full Exam - Orthopedics Respiratory respiratory effort/rhythm Overall: no retractions 09/04/2017 None Full Exam - Orthopedics Respiratory respiratory effort/rhythm Overall: normal rate 09/04/2017 None Full Exam - Orthopedics Psychiatric orientation/consciousness Overall: oriented to person, place and time 09/04/2017 None Full Exam - Orthopedics Psychiatric mood and affect Overall: normal mood and affect 09/04/2017 None Full Exam - Orthopedics Psychiatric appearance Overall: well-groomed, good eye contact 09/04/2017 None Full Exam - Orthopedics MS: head/neck insp & palp - H/N Overall: head atraumatic 09/04/2017 None Full Exam - Orthopedics MS: spine/rib/pelvis insp & palp - S/R/P Sacroiliac palpation: right sacroiliac joint tenderness 09/04/2017 None Full Exam - Orthopedics MS: right lower extremity insp & palp - RLE Knee: joint tenderness 09/04/2017 None Full Exam - Orthopedics MS: right lower extremity range of motion - RLE Knee: pain with extension 09/04/2017 None Full Exam - Orthopedics MS: right lower extremity range of motion - RLE Knee: pain with flexion 09/04/2017 None Full Exam - Orthopedics Constitutional general appearance Overall: well nourished 03/21/2017 None Full Exam - Orthopedics Constitutional general appearance Overall: well developed 03/21/2017 None Full Exam - Orthopedics Constitutional general appearance Overall: in no acute distress 03/21/2017 None Full Exam - Orthopedics Eyes conjunctiva/ eyelids Overall: conjunctiva clear 03/21/2017 None Full Exam - Orthopedics Eyes conjunctiva/ eyelids Overall: eyelids normal 03/21/2017 None Full Exam - Orthopedics Ears/Nose/Throat lips/teeth/gingiva Overall: benign lips 03/21/2017 None Full Exam - Orthopedics Ears/Nose/Throat oral cavity/pharynx/larynx Overall: oral mucosa clear 03/21/2017 None Full Exam - Orthopedics Respiratory auscultation Overall: breath sounds clear bilaterally 03/21/2017 None Full Exam - Orthopedics Respiratory respiratory effort/rhythm Overall: no retractions 03/21/2017 None Full Exam - Orthopedics Respiratory respiratory effort/rhythm Overall: normal rate 03/21/2017 None Full Exam - Orthopedics MS: Bilateral Lower Extremities insp & palp - LE Knees: joint swelling 03/21/2017 mild Full Exam - Orthopedics MS: Bilateral Lower Extremities range of motion - LE Knees: crepitus 03/21/2017 None Full Exam - Orthopedics MS: Bilateral Lower Extremities range of motion - LE Knees: pain with flexion 03/21/2017 None Full Exam - Orthopedics Psychiatric orientation/consciousness Overall: oriented to person, place and time 03/21/2017 None Full Exam - Orthopedics Psychiatric mood and affect Overall: normal mood and affect 03/21/2017 None Full Exam - Orthopedics Psychiatric appearance Overall: well-groomed, good eye contact 03/21/2017 None Full Exam - Orthopedics Constitutional general appearance Overall: well nourished 11/02/2016 None Full Exam - Orthopedics Constitutional general appearance Overall: well developed 11/02/2016 None Full Exam - Orthopedics Constitutional general appearance Overall: in no acute distress 11/02/2016 None Full Exam - Orthopedics Eyes conjunctiva/ eyelids Overall: conjunctiva clear 11/02/2016 None Full Exam - Orthopedics Eyes conjunctiva/ eyelids Overall: eyelids normal 11/02/2016 None Full Exam - Orthopedics Ears/Nose/Throat lips/teeth/gingiva Overall: benign lips 11/02/2016 None Full Exam - Orthopedics Ears/Nose/Throat oral cavity/pharynx/larynx Overall: oral mucosa clear 11/02/2016 None Full Exam - Orthopedics Respiratory respiratory effort/rhythm Overall: no retractions 11/02/2016 None Full Exam - Orthopedics Respiratory respiratory effort/rhythm Overall: normal rate 11/02/2016 None Full Exam - Orthopedics Respiratory auscultation Overall: breath sounds clear bilaterally 11/02/2016 None Full Exam - Orthopedics MS: Bilateral Lower Extremities insp & palp - LE Knees: joint swelling 11/02/2016 mild Full Exam - Orthopedics MS: Bilateral Lower Extremities range of motion - LE Knees: crepitus 11/02/2016 None Full Exam - Orthopedics MS: Bilateral Lower Extremities range of motion - LE Knees: pain with flexion 11/02/2016 None Full Exam - Orthopedics Psychiatric orientation/consciousness Overall: oriented to person, place and time 11/02/2016 None Full Exam - Orthopedics Psychiatric mood and affect Overall: normal mood and affect 11/02/2016 None Full Exam - Orthopedics Psychiatric appearance Overall: well-groomed, good eye contact 11/02/2016 None Full Exam - General 1994 Constitutional general appearance Overall: well developed 07/26/2016 None Full Exam - General 1994 Constitutional general appearance Overall: in no acute distress 07/26/2016 None Full Exam - General 1994 Constitutional general appearance Overall: well nourished 07/26/2016 None Full Exam - General 1994 Eyes pupils and irises Overall: pupils equal, round, reactive to light and accomodation 07/26/2016 None Full Exam - General 1994 Ears/Nose/Throat otoscopic exam Overall: external auditory canals clear 07/26/2016 None Full Exam - General 1994 Ears/Nose/Throat otoscopic exam Overall: tympanic membranes clear 07/26/2016 None Full Exam - General 1994 Ears/Nose/Throat oral cavity/pharynx/larynx Overall: oral mucosa clear 07/26/2016 None Full Exam - General 1994 Respiratory auscultation Overall: breath sounds clear bilaterally 07/26/2016 None Full Exam - General 1994 Respiratory respiratory effort/rhythm Overall: no retractions 07/26/2016 None Full Exam - General 1994 Respiratory respiratory effort/rhythm Overall: normal rate 07/26/2016 None Full Exam - General 1994 Cardiovascular extremities Overall: no clubbing 07/26/2016 None Full Exam - General 1994 Cardiovascular auscultation of heart Overall: regular rate 07/26/2016 None Full Exam - General 1994 Cardiovascular auscultation of heart Overall: normal heart sounds 07/26/2016 None Full Exam - General 1994 Cardiovascular auscultation of heart Overall: no murmurs 07/26/2016 None Full Exam - General 1994 Abdomen abdominal exam Overall: no tenderness 07/26/2016 None Full Exam - General 1994 Abdomen abdominal exam Overall: normal bowel sounds 07/26/2016 None Full Exam - General 1994 Musculoskeletal spine, ribs and pelvis Sacroiliac joints: tender right sacroiliac joint 07/26/2016 None Full Exam - General 1994 Musculoskeletal head and neck Overall: head atraumatic 07/26/2016 None Full Exam - General 1994 Musculoskeletal head and neck Overall: cervical spine benign 07/26/2016 None Full Exam - General 1994 Neurologic gait Overall: no ataxia, no unsteadiness 07/26/2016 None Full Exam - General 1994 Psychiatric orientation/consciousness Overall: oriented to person, place and time 07/26/2016 None Full Exam - General 1994 Psychiatric mood and affect Overall: normal mood and affect 07/26/2016 None Full Exam - General 1994 Constitutional general appearance Overall: well nourished 06/21/2016 None Full Exam - General 1994 Constitutional general appearance Overall: well developed 06/21/2016 None Full Exam - General 1994 Constitutional general appearance Overall: in no acute distress 06/21/2016 None Full Exam - General 1994 Eyes pupils and irises Overall: pupils equal, round, reactive to light and accomodation 06/21/2016 None Full Exam - General 1994 Ears/Nose/Throat otoscopic exam Overall: external auditory canals clear 06/21/2016 None Full Exam - General 1994 Ears/Nose/Throat otoscopic exam Overall: tympanic membranes clear 06/21/2016 None Full Exam - General 1994 Ears/Nose/Throat lips/teeth/gingiva Overall: benign lips 06/21/2016 None Full Exam - General 1994 Ears/Nose/Throat lips/teeth/gingiva Overall: normal dentition 06/21/2016 None Full Exam - General 1994 Ears/Nose/Throat lips/teeth/gingiva Overall: benign gingiva 06/21/2016 None Full Exam - General 1994 Ears/Nose/Throat lips/teeth/gingiva Overall: no masses 06/21/2016 None Full Exam - General 1994 Ears/Nose/Throat oral cavity/pharynx/larynx Overall: oral mucosa clear 06/21/2016 None Full Exam - General 1994 Abdomen abdominal exam Overall: no tenderness 06/21/2016 None Full Exam - General 1994 Abdomen abdominal exam Overall: normal bowel sounds 06/21/2016 None Full Exam - General 1994 Musculoskeletal head and neck Overall: head atraumatic 06/21/2016 None Full Exam - General 1994 Musculoskeletal head and neck Overall: cervical spine benign 06/21/2016 None Full Exam - General 1994 Neurologic gait Overall: no ataxia, no unsteadiness 06/21/2016 None Full Exam - General 1994 Psychiatric orientation/consciousness Overall: oriented to person, place and time 06/21/2016 None Full Exam - General 1994 Psychiatric mood and affect Overall: normal mood and affect 06/21/2016 None Full Exam - General 1994 Respiratory auscultation Overall: breath sounds clear bilaterally 06/21/2016 None Full Exam - General 1994 Respiratory respiratory effort/rhythm Overall: normal rate 06/21/2016 None Full Exam - General 1994 Respiratory respiratory effort/rhythm Overall: no retractions 06/21/2016 None Full Exam - General 1994 Cardiovascular auscultation of heart Overall: regular rate 06/21/2016 None Full Exam - General 1994 Cardiovascular auscultation of heart Overall: normal heart sounds 06/21/2016 None Full Exam - General 1994 Cardiovascular auscultation of heart Overall: no murmurs 06/21/2016 None Full Exam - General 1994 Musculoskeletal lower extremity ROM - knee: crepitus 06/21/2016 None Full Exam - General 1994 Musculoskeletal lower extremity ROM - knee: pain with flexion 06/21/2016 None Full Exam - General 1994 Musculoskeletal lower extremity Palpation - knee: crepitus 06/21/2016 None Full Exam - Orthopedics Constitutional general appearance Overall: well nourished 05/25/2016 None Full Exam - Orthopedics Constitutional general appearance Overall: well developed 05/25/2016 None Full Exam - Orthopedics Constitutional general appearance Overall: in no acute distress 05/25/2016 None Full Exam - Orthopedics Eyes conjunctiva/ eyelids Overall: conjunctiva clear 05/25/2016 None Full Exam - Orthopedics Eyes conjunctiva/ eyelids Overall: eyelids normal 05/25/2016 None Full Exam - Orthopedics Ears/Nose/Throat lips/teeth/gingiva Overall: benign lips 05/25/2016 None Full Exam - Orthopedics Ears/Nose/Throat oral cavity/pharynx/larynx Overall: oral mucosa clear 05/25/2016 None Full Exam - Orthopedics Respiratory respiratory effort/rhythm Overall: no retractions 05/25/2016 None Full Exam - Orthopedics Respiratory respiratory effort/rhythm Overall: normal rate 05/25/2016 None Full Exam - Orthopedics Psychiatric orientation/consciousness Overall: oriented to person, place and time 05/25/2016 None Full Exam - Orthopedics Psychiatric mood and affect Overall: normal mood and affect 05/25/2016 None Full Exam - Orthopedics Psychiatric appearance Overall: well-groomed, good eye contact 05/25/2016 None Full Exam - Orthopedics MS: left lower extremity insp & palp - LLE Knee: joint swelling 05/25/2016 mild Full Exam - Orthopedics MS: left lower extremity range of motion - LLE Knee: crepitus 05/25/2016 None Full Exam - Orthopedics MS: left lower extremity range of motion - LLE Knee: pain with flexion 05/25/2016 None Full Exam - Orthopedics MS: left lower extremity range of motion - LLE Knee: pain with extension 05/25/2016 None Full Exam - Orthopedics MS: left lower extremity insp & palp - LLE Knee: tenderness over anterior joint line 05/25/2016 None Full Exam - General 1994 Constitutional general appearance Overall: well developed 12/02/2015 None Full Exam - General 1994 Constitutional general appearance Overall: in no acute distress 12/02/2015 None Full Exam - General 1994 Constitutional general appearance Overall: well nourished 12/02/2015 None Full Exam - General 1994 Eyes conjunctiva /eyelids Overall: conjunctiva clear 12/02/2015 None Full Exam - General 1994 Ears/Nose/Throat lips/teeth/gingiva Overall: benign lips 12/02/2015 None Full Exam - General 1994 Ears/Nose/Throat oral cavity/pharynx/larynx Overall: oral mucosa clear 12/02/2015 None Full Exam - General 1994 Respiratory respiratory effort/rhythm Overall: no retractions 12/02/2015 None Full Exam - General 1994 Respiratory respiratory effort/rhythm Overall: normal rate 12/02/2015 None Full Exam - General 1994 Musculoskeletal head and neck Overall: head atraumatic 12/02/2015 None Full Exam - General 1994 Neurologic gait Overall: no ataxia, no unsteadiness 12/02/2015 None Full Exam - General 1994 Psychiatric orientation/consciousness Overall: oriented to person, place and time 12/02/2015 None Full Exam - General 1994 Psychiatric mood and affect Overall: normal mood and affect 12/02/2015 None Full Exam - General 1994 Ears/Nose/Throat otoscopic exam Overall: external auditory canals clear 12/02/2015 None Full Exam - General 1994 Ears/Nose/Throat otoscopic exam Tympanic membrane: air- fluid level 12/02/2015 None Full Exam - General 1994 Ears/Nose/Throat otoscopic exam Tympanic membrane: erythematous 12/02/2015 None Full Exam - General 1994 Ears/Nose/Throat otoscopic exam Tympanic membrane: effusion 12/02/2015 None Full Exam - General 1994 Ears/Nose/Throat internal nose Sinus tenderness: right maxillary 12/02/2015 None Full Exam - General 1994 Cardiovascular auscultation of heart Overall: regular rate 12/02/2015 None Full Exam - General 1994 Cardiovascular auscultation of heart Overall: normal heart sounds 12/02/2015 None Full Exam - General 1994 Neurologic cranial nerves Overall: crainial nerves 2 - 12 grossly intact 12/02/2015 None Full Exam - General 1994 Psychiatric appearance Overall: well-groomed, good eye contact 12/02/2015 None Full Exam - General 1994 Constitutional general appearance Overall: well developed 10/21/2015 None Full Exam - General 1994 Constitutional general appearance Overall: in no acute distress 10/21/2015 None Full Exam - General 1994 Constitutional general appearance Overall: well nourished 10/21/2015 None Full Exam - General 1994 Ears/Nose/Throat oral cavity/pharynx/larynx Overall: oral mucosa clear 10/21/2015 None Full Exam - General 1994 Respiratory respiratory effort/rhythm Overall: no retractions 10/21/2015 None Full Exam - General 1994 Respiratory respiratory effort/rhythm Overall: normal rate 10/21/2015 None Full Exam - General 1994 Cardiovascular extremities Overall: no clubbing 10/21/2015 None Full Exam - General 1994 Abdomen abdominal exam Overall: no tenderness 10/21/2015 None Full Exam - General 1994 Musculoskeletal head and neck Overall: head atraumatic 10/21/2015 None Full Exam - General 1994 Neurologic gait Overall: no ataxia, no unsteadiness 10/21/2015 None Full Exam - General 1994 Psychiatric orientation/consciousness Overall: oriented to person, place and time 10/21/2015 None Full Exam - General 1994 Psychiatric mood and affect Overall: normal mood and affect 10/21/2015 None Full Exam - General 1994 Eyes conjunctiva /eyelids Overall: conjunctiva clear 10/21/2015 None Full Exam - General 1994 Ears/Nose/Throat lips/teeth/gingiva Overall: benign lips 10/21/2015 None Full Exam - General 1994 Abdomen abdominal exam Overall: normal bowel sounds 10/21/2015 None Full Exam - General 1994 Integument inspection of skin Location: abdomen 10/21/2015 None Full Exam - General 1994 Integument inspection of skin Rash/Lesions: surgical site 10/21/2015 lap site - well healed Full Exam - General 1994 Constitutional general appearance Overall: well developed 10/17/2015 None Full Exam - General 1994 Constitutional general appearance Overall: in no acute distress 10/17/2015 None Full Exam - General 1994 Constitutional general appearance Overall: well nourished 10/17/2015 None Full Exam - General 1994 Eyes pupils and irises Overall: pupils equal, round, reactive to light and accomodation 10/17/2015 None Full Exam - General 1994 Ears/Nose/Throat otoscopic exam Overall: external auditory canals clear 10/17/2015 None Full Exam - General 1994 Ears/Nose/Throat otoscopic exam Overall: tympanic membranes clear 10/17/2015 None Full Exam - General 1994 Ears/Nose/Throat oral cavity/pharynx/larynx Overall: oral mucosa clear 10/17/2015 None Full Exam - General 1994 Respiratory auscultation Overall: breath sounds clear bilaterally 10/17/2015 None Full Exam - General 1994 Respiratory respiratory effort/rhythm Overall: no retractions 10/17/2015 None Full Exam - General 1994 Respiratory respiratory effort/rhythm Overall: normal rate 10/17/2015 None Full Exam - General 1994 Cardiovascular extremities Overall: no clubbing 10/17/2015 None Full Exam - General 1994 Cardiovascular auscultation of heart Overall: regular rate 10/17/2015 None Full Exam - General 1994 Cardiovascular auscultation of heart Overall: normal heart sounds 10/17/2015 None Full Exam - General 1994 Cardiovascular auscultation of heart Overall: no murmurs 10/17/2015 None Full Exam - General 1994 Abdomen abdominal exam Overall: no tenderness 10/17/2015 None Full Exam - General 1994 Abdomen abdominal exam Overall: normal bowel sounds 10/17/2015 None Full Exam - General 1994 Musculoskeletal spine, ribs and pelvis Sacroiliac joints: tender right sacroiliac joint 10/17/2015 None Full Exam - General 1994 Musculoskeletal head and neck Overall: head atraumatic 10/17/2015 None Full Exam - General 1994 Musculoskeletal head and neck Overall: cervical spine benign 10/17/2015 None Full Exam - General 1994 Neurologic gait Overall: no ataxia, no unsteadiness 10/17/2015 None Full Exam - General 1994 Psychiatric orientation/consciousness Overall: oriented to person, place and time 10/17/2015 None Full Exam - General 1994 Psychiatric mood and affect Overall: normal mood and affect 10/17/2015 None Full Exam - Orthopedics Constitutional general appearance Overall: well nourished 06/16/2015 None Full Exam - Orthopedics Constitutional general appearance Overall: well developed 06/16/2015 None Full Exam - Orthopedics Constitutional general appearance Overall: in no acute distress 06/16/2015 None Full Exam - Orthopedics Respiratory auscultation Overall: breath sounds clear bilaterally 06/16/2015 None Full Exam - Orthopedics Respiratory respiratory effort/rhythm Overall: no retractions 06/16/2015 None Full Exam - Orthopedics Respiratory respiratory effort/rhythm Overall: normal rate 06/16/2015 None Full Exam - Orthopedics Respiratory respiratory effort/rhythm Overall: normal , symmetric chest expansion 06/16/2015 None Full Exam - Orthopedics Cardiovascular examination of vasculature Overall: no clubbing, cyanosis, edema 06/16/2015 None Full Exam - Orthopedics Musculoskeletal gait and station Conventional walking: painful gait 06/16/2015 None Full Exam - Orthopedics MS: spine/rib/pelvis insp & palp - S/R/P Lumbar spine inspection: normal lumbar spine alignment 06/16/2015 None Full Exam - Orthopedics MS: spine/rib/pelvis insp & palp - S/R/P Hip palpation: no tenderness on palpation 06/16/2015 None Full Exam - Orthopedics MS: left lower extremity insp & palp - LLE Overall: normal appearance of leg 06/16/2015 None Full Exam - Orthopedics Psychiatric orientation/consciousness Overall: oriented to person, place and time 06/16/2015 None Full Exam - Orthopedics MS: spine/rib/pelvis insp & palp - S/R/P Sacroiliac palpation: right sacroiliac joint tenderness 06/16/2015 None Full Exam - General 1994 Constitutional general appearance Overall: well developed 05/12/2015 None Full Exam - General 1994 Constitutional general appearance Overall: in no acute distress 05/12/2015 None Full Exam - General 1994 Constitutional general appearance Overall: well nourished 05/12/2015 None Full Exam - General 1994 Eyes pupils and irises Overall: pupils equal, round, reactive to light and accomodation 05/12/2015 None Full Exam - General 1994 Ears/Nose/Throat otoscopic exam Overall: external auditory canals clear 05/12/2015 None Full Exam - General 1994 Ears/Nose/Throat otoscopic exam Overall: tympanic membranes clear 05/12/2015 None Full Exam - General 1994 Ears/Nose/Throat oral cavity/pharynx/larynx Overall: oral mucosa clear 05/12/2015 None Full Exam - General 1994 Respiratory auscultation Overall: breath sounds clear bilaterally 05/12/2015 None Full Exam - General 1994 Respiratory respiratory effort/rhythm Overall: no retractions 05/12/2015 None Full Exam - General 1994 Respiratory respiratory effort/rhythm Overall: normal rate 05/12/2015 None Full Exam - General 1994 Cardiovascular extremities Overall: no clubbing 05/12/2015 None Full Exam - General 1994 Cardiovascular auscultation of heart Overall: regular rate 05/12/2015 None Full Exam - General 1994 Cardiovascular auscultation of heart Overall: normal heart sounds 05/12/2015 None Full Exam - General 1994 Cardiovascular auscultation of heart Overall: no murmurs 05/12/2015 None Full Exam - General 1994 Abdomen abdominal exam Overall: no tenderness 05/12/2015 None Full Exam - General 1994 Abdomen abdominal exam Overall: normal bowel sounds 05/12/2015 None Full Exam - General 1994 Musculoskeletal head and neck Overall: head atraumatic 05/12/2015 None Full Exam - General 1994 Musculoskeletal head and neck Overall: cervical spine benign 05/12/2015 None Full Exam - General 1994 Neurologic gait Overall: no ataxia, no unsteadiness 05/12/2015 None Full Exam - General 1994 Psychiatric orientation/consciousness Overall: oriented to person, place and time 05/12/2015 None Full Exam - General 1994 Psychiatric mood and affect Overall: normal mood and affect 05/12/2015 None Full Exam - General 1994 Constitutional general appearance Overall: well developed 03/10/2015 None Full Exam - General 1994 Constitutional general appearance Overall: in no acute distress 03/10/2015 None Full Exam - General 1994 Constitutional general appearance Overall: well nourished 03/10/2015 None Full Exam - General 1994 Eyes pupils and irises Overall: pupils equal, round, reactive to light and accomodation 03/10/2015 None Full Exam - General 1994 Ears/Nose/Throat otoscopic exam Overall: external auditory canals clear 03/10/2015 None Full Exam - General 1994 Ears/Nose/Throat otoscopic exam Overall: tympanic membranes clear 03/10/2015 None Full Exam - General 1994 Ears/Nose/Throat oral cavity/pharynx/larynx Overall: oral mucosa clear 03/10/2015 None Full Exam - General 1994 Respiratory auscultation Overall: breath sounds clear bilaterally 03/10/2015 None Full Exam - General 1994 Respiratory respiratory effort/rhythm Overall: no retractions 03/10/2015 None Full Exam - General 1994 Respiratory respiratory effort/rhythm Overall: normal rate 03/10/2015 None Full Exam - General 1994 Cardiovascular extremities Overall: no clubbing 03/10/2015 None Full Exam - General 1994 Cardiovascular auscultation of heart Overall: regular rate 03/10/2015 None Full Exam - General 1994 Cardiovascular auscultation of heart Overall: normal heart sounds 03/10/2015 None Full Exam - General 1994 Cardiovascular auscultation of heart Overall: no murmurs 03/10/2015 None Full Exam - General 1994 Abdomen abdominal exam Overall: no tenderness 03/10/2015 None Full Exam - General 1994 Abdomen abdominal exam Overall: normal bowel sounds 03/10/2015 None Full Exam - General 1994 Musculoskeletal head and neck Overall: head atraumatic 03/10/2015 None Full Exam - General 1994 Musculoskeletal head and neck Overall: cervical spine benign 03/10/2015 None Full Exam - General 1994 Psychiatric orientation/consciousness Overall: oriented to person, place and time 03/10/2015 None Full Exam - General 1994 Psychiatric mood and affect Overall: normal mood and affect 03/10/2015 None Full Exam - General 1994 Neurologic gait Conventional walking: unsteady 03/10/2015 None Full Exam - General 1994 Psychiatric appearance Overall: well-groomed, good eye contact 03/10/2015 None Full Exam - General 1994 Psychiatric speech Overall: unimpaired reading, writing 03/10/2015 None Full Exam - General 1994 Psychiatric speech Overall: normal quality, quantity, rate 03/10/2015 None Full Exam - General 1994 Psychiatric speech Quality: dysphonia 03/10/2015 None Full Exam - General 1994 Psychiatric speech Quantity: normal speech 03/10/2015 None Full Exam - General 1994 Psychiatric behavior/psychomotor activity Overall: no tics, normal psychomotor activity 03/10/2015 None Full Exam - General 1994 Ears/Nose/Throat external ear Overall: normal appearance 03/10/2015 None Full Exam - General 1994 Ears/Nose/Throat external ear Overall: no masses 03/10/2015 None Full Exam - General 1994 Ears/Nose/Throat external ear Overall: normal mastoids 03/10/2015 None Full Exam - General 1994 Ears/Nose/Throat external nose Overall: benign appearance 03/10/2015 None Full Exam - General 1994 Ears/Nose/Throat external nose Overall: non-tender 03/10/2015 None Full Exam - General 1994 Ears/Nose/Throat external nose Overall: no masses 03/10/2015 None Full Exam - General 1994 Ears/Nose/Throat lips/teeth/gingiva Overall: benign gingiva 03/10/2015 None Full Exam - General 1994 Ears/Nose/Throat lips/teeth/gingiva Overall: no masses 03/10/2015 None Full Exam - General 1994 Ears/Nose/Throat lips/teeth/gingiva Overall: benign lips 03/10/2015 None Full Exam - General 1994 Ears/Nose/Throat lips/teeth/gingiva Teeth: wears dentures 03/10/2015 None Full Exam - General 1994 Ears/Nose/Throat otoscopic exam External auditory canal: minimal cerumen 03/10/2015 None Full Exam - General 1994 Ears/Nose/Throat otoscopic exam External auditory canal: tender 03/10/2015 None Full Exam - General 1994 Constitutional general appearance Overall: well developed 02/08/2015 None Full Exam - General 1994 Constitutional general appearance Overall: in no acute distress 02/08/2015 None Full Exam - General 1994 Constitutional general appearance Overall: well nourished 02/08/2015 None Full Exam - General 1994 Eyes pupils and irises Overall: pupils equal, round, reactive to light and accomodation 02/08/2015 None Full Exam - General 1994 Ears/Nose/Throat otoscopic exam Overall: external auditory canals clear 02/08/2015 None Full Exam - General 1994 Ears/Nose/Throat otoscopic exam Overall: tympanic membranes clear 02/08/2015 None Full Exam - General 1994 Ears/Nose/Throat oral cavity/pharynx/larynx Overall: oral mucosa clear 02/08/2015 None Full Exam - General 1994 Respiratory auscultation Overall: breath sounds clear bilaterally 02/08/2015 None Full Exam - General 1994 Respiratory respiratory effort/rhythm Overall: no retractions 02/08/2015 None Full Exam - General 1994 Respiratory respiratory effort/rhythm Overall: normal rate 02/08/2015 None Full Exam - General 1994 Cardiovascular extremities Overall: no clubbing 02/08/2015 None Full Exam - General 1994 Cardiovascular auscultation of heart Overall: regular rate 02/08/2015 None Full Exam - General 1994 Cardiovascular auscultation of heart Overall: normal heart sounds 02/08/2015 None Full Exam - General 1994 Cardiovascular auscultation of heart Overall: no murmurs 02/08/2015 None Full Exam - General 1994 Abdomen abdominal exam Overall: no tenderness 02/08/2015 None Full Exam - General 1994 Abdomen abdominal exam Overall: normal bowel sounds 02/08/2015 None Full Exam - General 1994 Musculoskeletal head and neck Overall: head atraumatic 02/08/2015 None Full Exam - General 1994 Musculoskeletal head and neck Overall: cervical spine benign 02/08/2015 None Full Exam - General 1994 Neurologic gait Overall: no ataxia, no unsteadiness 02/08/2015 None Full Exam - General 1994 Psychiatric orientation/consciousness Overall: oriented to person, place and time 02/08/2015 None Full Exam - General 1994 Psychiatric mood and affect Overall: normal mood and affect 02/08/2015 None Full Exam - ENT Constitutional general appearance Overall: well nourished 12/27/2014 None Full Exam - ENT Constitutional general appearance Overall: well developed 12/27/2014 None Full Exam - ENT Constitutional general appearance Overall: in no acute distress 12/27/2014 None Full Exam - ENT Ears/Nose/Throat otoscopic exam Overall: external auditory canals normal 12/27/2014 None Full Exam - ENT Ears/Nose/Throat otoscopic exam Overall: tympanic membranes normal 12/27/2014 None Full Exam - ENT Ears/Nose/Throat oropharynx Overall: oral mucosa clear 12/27/2014 None Full Exam - ENT Face and Head palpation Left maxillary sinus: nontender 12/27/2014 None Full Exam - ENT Face and Head palpation Left maxillary sinus: tender 12/27/2014 None Full Exam - ENT Face and Head palpation Right maxillary sinus: nontender 12/27/2014 None Full Exam - ENT Face and Head palpation Left frontal sinus: tender 12/27/2014 None Full Exam - ENT Face and Head palpation Right frontal sinus: tender 12/27/2014 None Full Exam - ENT Respiratory inspection Overall: no retractions 12/27/2014 None Full Exam - ENT Respiratory inspection Overall: normal rate 03/2014 None Full Exam - ENT Respiratory auscultation Overall: breath sounds clear bilaterally 12/27/2014 None Full Exam - ENT Cardiovascular auscultation of heart Overall: regular rate 12/27/2014 None Full Exam - ENT Cardiovascular auscultation of heart Overall: normal heart sounds 12/27/2014 None Full Exam - ENT Neurologic orientation Overall: oriented to person, place and time 12/27/2014 None Full Exam - ENT Lymphatic palpation of lymph nodes Overall: anterior cervical chain benign 12/27/2014 None Full Exam - ENT Lymphatic palpation of lymph nodes Overall: posterior cervical chain benign 12/27/2014 None Full Exam - General 1994 Constitutional general appearance Overall: well developed 11/16/2014 None Full Exam - General 1994 Constitutional general appearance Overall: in no acute distress 11/16/2014 None Full Exam - General 1994 Constitutional general appearance Overall: well nourished 11/16/2014 None Full Exam - General 1994 Eyes pupils and irises Overall: pupils equal, round, reactive to light and accomodation 11/16/2014 None Full Exam - General 1994 Ears/Nose/Throat otoscopic exam Overall: external auditory canals clear 11/16/2014 None Full Exam - General 1994 Ears/Nose/Throat otoscopic exam Overall: tympanic membranes clear 11/16/2014 None Full Exam - General 1994 Ears/Nose/Throat oral cavity/pharynx/larynx Overall: oral mucosa clear 11/16/2014 None Full Exam - General 1994 Respiratory auscultation Overall: breath sounds clear bilaterally 11/16/2014 None Full Exam - General 1994 Respiratory respiratory effort/rhythm Overall: no retractions 11/16/2014 None Full Exam - General 1994 Respiratory respiratory effort/rhythm Overall: normal rate 11/16/2014 None Full Exam - General 1994 Cardiovascular extremities Overall: no clubbing 11/16/2014 None Full Exam - General 1994 Cardiovascular auscultation of heart Overall: regular rate 11/16/2014 None Full Exam - General 1994 Cardiovascular auscultation of heart Overall: normal heart sounds 11/16/2014 None Full Exam - General 1994 Cardiovascular auscultation of heart Overall: no murmurs 11/16/2014 None Full Exam - General 1994 Abdomen abdominal exam Overall: no tenderness 11/16/2014 None Full Exam - General 1994 Abdomen abdominal exam Overall: normal bowel sounds 11/16/2014 None Full Exam - General 1994 Musculoskeletal head and neck Overall: head atraumatic 11/16/2014 None Full Exam - General 1994 Musculoskeletal head and neck Overall: cervical spine benign 11/16/2014 None Full Exam - General 1994 Neurologic gait Overall: no ataxia, no unsteadiness 11/16/2014 None Full Exam - General 1994 Psychiatric orientation/consciousness Overall: oriented to person, place and time 11/16/2014 None Full Exam - General 1994 Psychiatric mood and affect Overall: normal mood and affect 11/16/2014 None Full Exam - General 1994 Constitutional general appearance Overall: well developed 10/11/2014 None Full Exam - General 1994 Constitutional general appearance Overall: in no acute distress 10/11/2014 None Full Exam - General 1994 Constitutional general appearance Overall: well nourished 10/11/2014 None Full Exam - General 1994 Eyes pupils and irises Overall: pupils equal, round, reactive to light and accomodation 10/11/2014 None Full Exam - General 1994 Ears/Nose/Throat otoscopic exam Overall: external auditory canals clear 10/11/2014 None Full Exam - General 1994 Ears/Nose/Throat otoscopic exam Overall: tympanic membranes clear 10/11/2014 None Full Exam - General 1994 Ears/Nose/Throat oral cavity/pharynx/larynx Overall: oral mucosa clear 10/11/2014 None Full Exam - General 1994 Respiratory auscultation Overall: breath sounds clear bilaterally 10/11/2014 None Full Exam - General 1994 Respiratory respiratory effort/rhythm Overall: no retractions 10/11/2014 None Full Exam - General 1994 Respiratory respiratory effort/rhythm Overall: normal rate 10/11/2014 None Full Exam - General 1994 Cardiovascular extremities Overall: no clubbing 10/11/2014 None Full Exam - General 1994 Cardiovascular auscultation of heart Overall: regular rate 10/11/2014 None Full Exam - General 1994 Cardiovascular auscultation of heart Overall: normal heart sounds 10/11/2014 None Full Exam - General 1994 Cardiovascular auscultation of heart Overall: no murmurs 10/11/2014 None Full Exam - General 1994 Abdomen abdominal exam Overall: no tenderness 10/11/2014 None Full Exam - General 1994 Abdomen abdominal exam Overall: normal bowel sounds 10/11/2014 None Full Exam - General 1994 Musculoskeletal spine, ribs and pelvis Sacroiliac joints: tender right sacroiliac joint 10/11/2014 None Full Exam - General 1994 Musculoskeletal head and neck Overall: head atraumatic 10/11/2014 None Full Exam - General 1994 Musculoskeletal head and neck Overall: cervical spine benign 10/11/2014 None Full Exam - General 1994 Neurologic gait Overall: no ataxia, no unsteadiness 10/11/2014 None Full Exam - General 1994 Psychiatric orientation/consciousness Overall: oriented to person, place and time 10/11/2014 None Full Exam - General 1994 Psychiatric mood and affect Overall: normal mood and affect 10/11/2014 None Full Exam - General 1994 Constitutional general appearance Overall: well developed 07/16/2014 None Full Exam - General 1994 Constitutional general appearance Overall: in no acute distress 07/16/2014 None Full Exam - General 1994 Constitutional general appearance Overall: well nourished 07/16/2014 None Full Exam - General 1994 Eyes pupils and irises Overall: pupils equal, round, reactive to light and accomodation 07/16/2014 None Full Exam - General 1994 Ears/Nose/Throat otoscopic exam Overall: external auditory canals clear 07/16/2014 None Full Exam - General 1994 Ears/Nose/Throat otoscopic exam Overall: tympanic membranes clear 07/16/2014 None Full Exam - General 1994 Ears/Nose/Throat oral cavity/pharynx/larynx Overall: oral mucosa clear 07/16/2014 None Full Exam - General 1994 Respiratory auscultation Overall: breath sounds clear bilaterally 07/16/2014 None Full Exam - General 1994 Respiratory respiratory effort/rhythm Overall: no retractions 07/16/2014 None Full Exam - General 1994 Respiratory respiratory effort/rhythm Overall: normal rate 07/16/2014 None Full Exam - General 1994 Cardiovascular extremities Overall: no clubbing 07/16/2014 None Full Exam - General 1994 Cardiovascular auscultation of heart Overall: regular rate 07/16/2014 None Full Exam - General 1994 Cardiovascular auscultation of heart Overall: normal heart sounds 07/16/2014 None Full Exam - General 1994 Cardiovascular auscultation of heart Overall: no murmurs 07/16/2014 None Full Exam - General 1994 Abdomen abdominal exam Overall: no tenderness 07/16/2014 None Full Exam - General 1994 Abdomen abdominal exam Overall: normal bowel sounds 07/16/2014 None Full Exam - General 1994 Musculoskeletal head and neck Overall: head atraumatic 07/16/2014 None Full Exam - General 1994 Musculoskeletal head and neck Overall: cervical spine benign 07/16/2014 None Full Exam - General 1994 Neurologic gait Overall: no ataxia, no unsteadiness 07/16/2014 None Full Exam - General 1994 Psychiatric orientation/consciousness Overall: oriented to person, place and time 07/16/2014 None Full Exam - General 1994 Psychiatric mood and affect Overall: normal mood and affect 07/16/2014 None Full Exam - General 1994 Musculoskeletal spine, ribs and pelvis Sacroiliac joints: tender right sacroiliac joint 07/16/2014 None Full Exam - General 1994 Constitutional general appearance Overall: well developed 06/14/2014 None Full Exam - General 1994 Constitutional general appearance Overall: in no acute distress 06/14/2014 None Full Exam - General 1994 Constitutional general appearance Overall: well nourished 06/14/2014 None Full Exam - General 1994 Eyes pupils and irises Overall: pupils equal, round, reactive to light and accomodation 06/14/2014 None Full Exam - General 1994 Ears/Nose/Throat otoscopic exam Overall: external auditory canals clear 06/14/2014 None Full Exam - General 1994 Ears/Nose/Throat otoscopic exam Overall: tympanic membranes clear 06/14/2014 None Full Exam - General 1994 Ears/Nose/Throat oral cavity/pharynx/larynx Overall: oral mucosa clear 06/14/2014 None Full Exam - General 1994 Respiratory auscultation Overall: breath sounds clear bilaterally 06/14/2014 None Full Exam - General 1994 Respiratory respiratory effort/rhythm Overall: no retractions 06/14/2014 None Full Exam - General 1994 Respiratory respiratory effort/rhythm Overall: normal rate 06/14/2014 None Full Exam - General 1994 Cardiovascular extremities Overall: no clubbing 06/14/2014 None Full Exam - General 1994 Cardiovascular auscultation of heart Overall: regular rate 06/14/2014 None Full Exam - General 1994 Cardiovascular auscultation of heart Overall: normal heart sounds 06/14/2014 None Full Exam - General 1994 Cardiovascular auscultation of heart Overall: no murmurs 06/14/2014 None Full Exam - General 1994 Abdomen abdominal exam Overall: no tenderness 06/14/2014 None Full Exam - General 1994 Abdomen abdominal exam Overall: normal bowel sounds 06/14/2014 None Full Exam - General 1994 Musculoskeletal head and neck Overall: head atraumatic 06/14/2014 None Full Exam - General 1994 Musculoskeletal head and neck Overall: cervical spine benign 06/14/2014 None Full Exam - General 1994 Neurologic gait Overall: no ataxia, no unsteadiness 06/14/2014 None Full Exam - General 1994 Psychiatric orientation/consciousness Overall: oriented to person, place and time 06/14/2014 None Full Exam - General 1994 Psychiatric mood and affect Overall: normal mood and affect 06/14/2014 None Full Exam - General 1994 Constitutional general appearance Overall: well developed 11/05/2013 None Full Exam - General 1994 Constitutional general appearance Overall: in no acute distress 11/05/2013 None Full Exam - General 1994 Constitutional general appearance Overall: well nourished 11/05/2013 None Full Exam - General 1994 Eyes pupils and irises Overall: pupils equal, round, reactive to light and accomodation 11/05/2013 None Full Exam - General 1994 Ears/Nose/Throat otoscopic exam Overall: external auditory canals clear 11/05/2013 None Full Exam - General 1994 Ears/Nose/Throat otoscopic exam Overall: tympanic membranes clear 11/05/2013 None Full Exam - General 1994 Ears/Nose/Throat oral cavity/pharynx/larynx Overall: oral mucosa clear 11/05/2013 None Full Exam - General 1994 Respiratory auscultation Overall: breath sounds clear bilaterally 11/05/2013 None Full Exam - General 1994 Respiratory respiratory effort/rhythm Overall: no retractions 11/05/2013 None Full Exam - General 1994 Respiratory respiratory effort/rhythm Overall: normal rate 11/05/2013 None Full Exam - General 1994 Cardiovascular extremities Overall: no clubbing 11/05/2013 None Full Exam - General 1994 Cardiovascular auscultation of heart Overall: regular rate 11/05/2013 None Full Exam - General 1994 Cardiovascular auscultation of heart Overall: normal heart sounds 11/05/2013 None Full Exam - General 1994 Cardiovascular auscultation of heart Overall: no murmurs 11/05/2013 None Full Exam - General 1994 Abdomen abdominal exam Overall: no tenderness 11/05/2013 None Full Exam - General 1994 Abdomen abdominal exam Overall: normal bowel sounds 11/05/2013 None Full Exam - General 1994 Musculoskeletal head and neck Overall: head atraumatic 11/05/2013 None Full Exam - General 1994 Musculoskeletal head and neck Overall: cervical spine benign 11/05/2013 None Full Exam - General 1994 Neurologic gait Overall: no ataxia, no unsteadiness 11/05/2013 None Full Exam - General 1994 Psychiatric orientation/consciousness Overall: oriented to person, place and time 11/05/2013 None Full Exam - General 1994 Psychiatric mood and affect Overall: normal mood and affect 11/05/2013 None Full Exam - General 1994 Musculoskeletal lower extremity Inspection - knee: fullness in popliteal fossa 11/05/2013 None Full Exam - ENT Constitutional general appearance Overall: well nourished 09/08/2013 None Full Exam - ENT Constitutional general appearance Overall: well developed 09/08/2013 None Full Exam - ENT Constitutional general appearance Overall: in no acute distress 09/08/2013 None Full Exam - ENT Neurologic orientation Overall: oriented to person, place and time 09/08/2013 None Full Exam - ENT Cardiovascular auscultation of heart Overall: regular rate 09/08/2013 None Full Exam - ENT Cardiovascular auscultation of heart Overall: normal heart sounds 09/08/2013 None Full Exam - ENT Lymphatic palpation of lymph nodes Overall: posterior cervical chain benign 09/08/2013 None Full Exam - ENT Lymphatic palpation of lymph nodes Overall: anterior cervical chain benign 09/08/2013 None Full Exam - ENT Respiratory auscultation Overall: breath sounds clear bilaterally 09/08/2013 None Full Exam - ENT Face and Head palpation Overall: no sinus tenderness 09/08/2013 None Full Exam - ENT Ears/Nose/Throat oropharynx Posterior Pharynx: erythema 09/08/2013 None Full Exam - ENT Ears/Nose/Throat oropharynx Posterior Pharynx: exudate 09/08/2013 None Full Exam - ENT Ears/Nose/Throat otoscopic exam Overall: tympanic membranes normal 09/08/2013 None Full Exam - ENT Ears/Nose/Throat otoscopic exam Overall: external auditory canals normal 09/08/2013 None Full Exam - General 1994 Constitutional general appearance Overall: well developed 05/25/2013 None Full Exam - General 1994 Constitutional general appearance Overall: in no acute distress 05/25/2013 None Full Exam - General 1994 Constitutional general appearance Overall: well nourished 05/25/2013 None Full Exam - General 1994 Psychiatric orientation/consciousness Overall: oriented to person, place and time 05/25/2013 None Full Exam - General 1994 Abdomen abdominal exam Overall: no tenderness 05/25/2013 None Full Exam - General 1994 Abdomen abdominal exam Overall: normal bowel sounds 05/25/2013 None Full Exam - General 1994 Cardiovascular auscultation of heart Overall: regular rate 05/25/2013 None Full Exam - General 1994 Cardiovascular auscultation of heart Overall: normal heart sounds 05/25/2013 None Full Exam - General 1994 Cardiovascular auscultation of heart Overall: no murmurs 05/25/2013 None Full Exam - General 1994 Respiratory auscultation Overall: breath sounds clear bilaterally 05/25/2013 None Full Exam - General 1994 Respiratory respiratory effort/rhythm Overall: normal rate 05/25/2013 None Full Exam - General 1994 Respiratory respiratory effort/rhythm Overall: no retractions 05/25/2013 None Full Exam - General 1994 Constitutional general appearance Overall: well developed 05/04/2013 None Full Exam - General 1994 Constitutional general appearance Overall: in no acute distress 05/04/2013 None Full Exam - General 1994 Constitutional general appearance Overall: well nourished 05/04/2013 None Full Exam - General 1994 Eyes pupils and irises Overall: pupils equal, round, reactive to light and accomodation 05/04/2013 None Full Exam - General 1994 Ears/Nose/Throat otoscopic exam Overall: external auditory canals clear 05/04/2013 None Full Exam - General 1995 Ears/Nose/Throat otoscopic exam Overall: tympanic membranes clear 05/04/2013 None Full Exam - General 1995 Ears/Nose/Throat oral cavity/pharynx/larynx Overall: oral mucosa clear 05/04/2013 None Full Exam - General 1994 Respiratory auscultation Overall: breath sounds clear bilaterally 05/04/2013 None Full Exam - General 1994 Respiratory respiratory effort/rhythm Overall: no retractions 05/04/2013 None Full Exam - General 1994 Respiratory respiratory effort/rhythm Overall: normal rate 05/04/2013 None Full Exam - General 1994 Cardiovascular extremities Overall: no clubbing 05/04/2013 None Full Exam - General 1994 Cardiovascular auscultation of heart Overall: regular rate 05/04/2013 None Full Exam - General 1994 Cardiovascular auscultation of heart Overall: normal heart sounds 05/04/2013 None Full Exam - General 1994 Cardiovascular auscultation of heart Overall: no murmurs 05/04/2013 None Full Exam - General 1994 Abdomen abdominal exam Overall: no tenderness 05/04/2013 None Full Exam - General 1994 Abdomen abdominal exam Overall: normal bowel sounds 05/04/2013 None Full Exam - General 1994 Musculoskeletal head and neck Overall: head atraumatic 05/04/2013 None Full Exam - General 1994 Musculoskeletal head and neck Overall: cervical spine benign 05/04/2013 None Full Exam - General 1994 Neurologic gait Overall: no ataxia, no unsteadiness 05/04/2013 None Full Exam - General 1994 Psychiatric orientation/consciousness Overall: oriented to person, place and time 05/04/2013 None Full Exam - General 1994 Psychiatric mood and affect Overall: normal mood and affect 05/04/2013 None Full Exam - General 1994 Constitutional general appearance Overall: well developed 02/09/2013 None Full Exam - General 1994 Constitutional general appearance Overall: in no acute distress 02/09/2013 None Full Exam - General 1994 Constitutional general appearance Overall: well nourished 02/09/2013 None Full Exam - General 1994 Eyes pupils and irises Overall: pupils equal, round, reactive to light and accomodation 02/09/2013 None Full Exam - General 1994 Ears/Nose/Throat otoscopic exam Overall: external auditory canals clear 02/09/2013 None Full Exam - General 1994 Ears/Nose/Throat otoscopic exam Overall: tympanic membranes clear 02/09/2013 None Full Exam - General 1995 Ears/Nose/Throat oral cavity/pharynx/larynx Overall: oral mucosa clear 02/09/2013 None Full Exam - General 1994 Respiratory auscultation Overall: breath sounds clear bilaterally 02/09/2013 None Full Exam - General 1994 Respiratory respiratory effort/rhythm Overall: no retractions 02/09/2013 None Full Exam - General 1994 Respiratory respiratory effort/rhythm Overall: normal rate 02/09/2013 None Full Exam - General 1994 Cardiovascular extremities Overall: no clubbing 02/09/2013 None Full Exam - General 1994 Cardiovascular auscultation of heart Overall: regular rate 02/09/2013 None Full Exam - General 1994 Cardiovascular auscultation of heart Overall: normal heart sounds 02/09/2013 None Full Exam - General 1994 Cardiovascular auscultation of heart Overall: no murmurs 02/09/2013 None Full Exam - General 1994 Abdomen abdominal exam Overall: no tenderness 02/09/2013 None Full Exam - General 1994 Abdomen abdominal exam Overall: normal bowel sounds 02/09/2013 None Full Exam - General 1994 Musculoskeletal head and neck Overall: head atraumatic 02/09/2013 None Full Exam - General 1994 Musculoskeletal head and neck Overall: cervical spine benign 02/09/2013 None Full Exam - General 1994 Neurologic gait Overall: no ataxia, no unsteadiness 02/09/2013 None Full Exam - General 1994 Psychiatric orientation/consciousness Overall: oriented to person, place and time 02/09/2013 None Full Exam - General 1994 Psychiatric mood and affect Overall: normal mood and affect 02/09/2013 None Full Exam - General 1994 Constitutional general appearance Overall: well nourished 09/11/2012 None Full Exam - General 1994 Constitutional general appearance Overall: in no acute distress 09/11/2012 None Full Exam - General 1994 Constitutional general appearance Overall: well developed 09/11/2012 None Full Exam - General 1994 Eyes pupils and irises Overall: pupils equal, round, reactive to light and accomodation 09/11/2012 None Full Exam - General 1994 Respiratory auscultation Overall: breath sounds clear bilaterally 09/11/2012 None Full Exam - General 1994 Respiratory respiratory effort/rhythm Overall: no retractions 09/11/2012 None Full Exam - General 1994 Respiratory respiratory effort/rhythm Overall: normal rate 09/11/2012 None Full Exam - General 1994 Cardiovascular extremities Overall: no clubbing 09/11/2012 None Full Exam - General 1994 Cardiovascular auscultation of heart Overall: no murmurs 09/11/2012 None Full Exam - General 1994 Cardiovascular auscultation of heart Overall: normal heart sounds 09/11/2012 None Full Exam - General 1994 Cardiovascular auscultation of heart Overall: regular rate 09/11/2012 None Full Exam - General 1994 Psychiatric mood and affect Overall: normal mood and affect 09/11/2012 None Full Exam - General 1994 Psychiatric orientation/consciousness Overall: oriented to person, place and time 09/11/2012 None Full Exam - General 1994 Abdomen abdominal exam Overall: no tenderness 09/11/2012 None Full Exam - General 1995 Abdomen abdominal exam Overall: normal bowel sounds 09/11/2012 None Full Exam - General 1995 Constitutional general appearance Overall: well nourished 05/29/2012 None Full Exam - General 1994 Eyes pupils and irises Overall: pupils equal, round, reactive to light and accomodation 05/29/2012 None Full Exam - General 1995 Ears/Nose/Throat otoscopic exam Overall: external auditory canals clear 05/29/2012 None Full Exam - General 1995 Ears/Nose/Throat otoscopic exam Overall: tympanic membranes clear 05/29/2012 None Full Exam - General 1995 Ears/Nose/Throat oral cavity/pharynx/larynx Overall: oral mucosa clear 05/29/2012 None Full Exam - General 1994 Respiratory auscultation Overall: breath sounds clear bilaterally 05/29/2012 None Full Exam - General 1994 Respiratory respiratory effort/rhythm Overall: no retractions 05/29/2012 None Full Exam - General 1994 Respiratory respiratory effort/rhythm Overall: normal rate 05/29/2012 None Full Exam - General 1994 Cardiovascular extremities Overall: no clubbing 05/29/2012 None Full Exam - General 1994 Cardiovascular auscultation of heart Overall: regular rate 05/29/2012 None Full Exam - General 1994 Cardiovascular auscultation of heart Overall: normal heart sounds 05/29/2012 None Full Exam - General 1994 Cardiovascular auscultation of heart Overall: no murmurs 05/29/2012 None Full Exam - General 1994 Abdomen abdominal exam Overall: no tenderness 05/29/2012 None Full Exam - General 1994 Abdomen abdominal exam Overall: normal bowel sounds 05/29/2012 None Full Exam - General 1994 Constitutional general appearance Overall: well developed 05/29/2012 None Full Exam - General 1994 Constitutional general appearance Overall: in no acute distress 05/29/2012 None Full Exam - General 1995 Musculoskeletal head and neck Overall: head atraumatic 05/29/2012 None Full Exam - General 1994 Musculoskeletal head and neck Overall: cervical spine benign 05/29/2012 None Full Exam - General 1994 Neurologic gait Overall: no ataxia, no unsteadiness 05/29/2012 None Full Exam - General 1994 Psychiatric orientation/consciousness Overall: oriented to person, place and time 05/29/2012 None Full Exam - General 1994 Psychiatric mood and affect Overall: normal mood and affect 05/29/2012 None Full Exam - General 1995 Constitutional general appearance Overall: well developed 02/28/2012 None Full Exam - General 1995 Constitutional general appearance Overall: in no acute distress 02/28/2012 None Full Exam - General 1995 Constitutional general appearance Overall: well nourished 02/28/2012 None Full Exam - General 1994 Eyes pupils and irises Overall: pupils equal, round, reactive to light and accomodation 02/28/2012 None Full Exam - General 1995 Ears/Nose/Throat otoscopic exam Overall: external auditory canals clear 02/28/2012 None Full Exam - General 1995 Ears/Nose/Throat otoscopic exam Overall: tympanic membranes clear 02/28/2012 None Full Exam - General 1995 Ears/Nose/Throat lips/teeth/gingiva Overall: benign lips 02/28/2012 None Full Exam - General 1995 Ears/Nose/Throat lips/teeth/gingiva Overall: normal dentition 02/28/2012 None Full Exam - General 1995 Ears/Nose/Throat lips/teeth/gingiva Overall: benign gingiva 02/28/2012 None Full Exam - General 1995 Ears/Nose/Throat lips/teeth/gingiva Overall: no masses 02/28/2012 None Full Exam - General 1995 Ears/Nose/Throat oral cavity/pharynx/larynx Overall: oral mucosa clear 02/28/2012 None Full Exam - General 1994 Neck inspection of neck Overall: normal size 02/28/2012 None Full Exam - General 1994 Neck inspection of neck Appearance: surgical scarring 02/28/2012 right anterior neck Full Exam - General 1994 Respiratory auscultation Overall: breath sounds clear bilaterally 02/28/2012 None Full Exam - General 1994 Respiratory respiratory effort/rhythm Overall: no retractions 02/28/2012 None Full Exam - General 1994 Respiratory respiratory effort/rhythm Overall: normal rate 02/28/2012 None Full Exam - General 1994 Cardiovascular extremities Overall: no clubbing 02/28/2012 None Full Exam - General 1994 Cardiovascular auscultation of heart Overall: regular rate 02/28/2012 None Full Exam - General 1994 Cardiovascular auscultation of heart Overall: normal heart sounds 02/28/2012 None Full Exam - General 1994 Cardiovascular auscultation of heart Overall: no murmurs 02/28/2012 None Full Exam - General 1994 Abdomen abdominal exam Overall: no tenderness 02/28/2012 None Full Exam - General 1994 Abdomen abdominal exam Overall: normal bowel sounds 02/28/2012 None Full Exam - General 1995 Musculoskeletal head and neck Overall: head atraumatic 02/28/2012 None Full Exam - General 1994 Musculoskeletal head and neck Overall: cervical spine benign 02/28/2012 None Full Exam - General 1994 Neurologic gait Overall: no ataxia, no unsteadiness 02/28/2012 None Full Exam - General 1994 Psychiatric orientation/consciousness Overall: oriented to person, place and time 02/28/2012 None Full Exam - General 1994 Psychiatric mood and affect Overall: normal mood and affect 02/28/2012 None Full Exam - General 1994 Eyes pupils and irises Overall: pupils equal, round, reactive to light and accomodation 01/28/2012 None Full Exam - General 1995 Ears/Nose/Throat otoscopic exam Overall: external auditory canals clear 01/28/2012 None Full Exam - General 1995 Ears/Nose/Throat otoscopic exam Overall: tympanic membranes clear 01/28/2012 None Full Exam - General 1995 Ears/Nose/Throat lips/teeth/gingiva Overall: benign lips 01/28/2012 None Full Exam - General 1994 Ears/Nose/Throat lips/teeth/gingiva Overall: normal dentition 01/28/2012 None Full Exam - General 1995 Ears/Nose/Throat lips/teeth/gingiva Overall: benign gingiva 01/28/2012 None Full Exam - General 1995 Ears/Nose/Throat lips/teeth/gingiva Overall: no masses 01/28/2012 None Full Exam - General 1995 Ears/Nose/Throat oral cavity/pharynx/larynx Overall: oral mucosa clear 01/28/2012 None Full Exam - General 1994 Neck inspection of neck Overall: normal size 01/28/2012 None Full Exam - General 1994 Neck inspection of neck Appearance: surgical scarring 01/28/2012 right anterior neck Full Exam - General 1994 Respiratory auscultation Overall: breath sounds clear bilaterally 01/28/2012 None Full Exam - General 1994 Respiratory respiratory effort/rhythm Overall: no retractions 01/28/2012 None Full Exam - General 1994 Respiratory respiratory effort/rhythm Overall: normal rate 01/28/2012 None Full Exam - General 1994 Constitutional general appearance Overall: well developed 01/28/2012 None Full Exam - General 1994 Constitutional general appearance Overall: in no acute distress 01/28/2012 None Full Exam - General 1994 Constitutional general appearance Overall: well nourished 01/28/2012 None Full Exam - General 1994 Cardiovascular extremities Overall: no clubbing 01/28/2012 None Full Exam - General 1994 Cardiovascular auscultation of heart Overall: regular rate 01/28/2012 None Full Exam - General 1994 Cardiovascular auscultation of heart Overall: normal heart sounds 01/28/2012 None Full Exam - General 1994 Cardiovascular auscultation of heart Overall: no murmurs 01/28/2012 None Full Exam - General 1994 Abdomen abdominal exam Overall: no tenderness 01/28/2012 None Full Exam - General 1994 Abdomen abdominal exam Overall: normal bowel sounds 01/28/2012 None Full Exam - General 1994 Musculoskeletal head and neck Overall: head atraumatic 01/28/2012 None Full Exam - General 1994 Musculoskeletal head and neck Overall: cervical spine benign 01/28/2012 None Full Exam - General 1994 Neurologic gait Overall: no ataxia, no unsteadiness 01/28/2012 None Full Exam - General 1994 Psychiatric orientation/consciousness Overall: oriented to person, place and time 01/28/2012 None Full Exam - General 1994 Psychiatric mood and affect Overall: normal mood and affect 01/28/2012 None Full Exam - General 1994 Constitutional general appearance Overall: well nourished 12/03/2011 None Full Exam - General 1994 Constitutional general appearance Overall: well developed 12/03/2011 None Full Exam - General 1994 Constitutional general appearance Overall: in no acute distress 12/03/2011 None Full Exam - General 1994 Eyes pupils and irises Overall: pupils equal, round, reactive to light and accomodation 12/03/2011 None Full Exam - General 1994 Ears/Nose/Throat otoscopic exam Overall: external auditory canals clear 12/03/2011 None Full Exam - General 1994 Ears/Nose/Throat otoscopic exam Overall: tympanic membranes clear 12/03/2011 None Full Exam - General 1994 Ears/Nose/Throat lips/teeth/gingiva Overall: benign lips 12/03/2011 None Full Exam - General 1995 Ears/Nose/Throat lips/teeth/gingiva Overall: normal dentition 12/03/2011 None Full Exam - General 1995 Ears/Nose/Throat lips/teeth/gingiva Overall: benign gingiva 12/03/2011 None Full Exam - General 1995 Ears/Nose/Throat lips/teeth/gingiva Overall: no masses 12/03/2011 None Full Exam - General 1995 Ears/Nose/Throat oral cavity/pharynx/larynx Overall: oral mucosa clear 12/03/2011 None Full Exam - General 1995 Abdomen abdominal exam Overall: no tenderness 12/03/2011 None Full Exam - General 1995 Abdomen abdominal exam Overall: normal bowel sounds 12/03/2011 None Full Exam - General 1995 Musculoskeletal head and neck Overall: head atraumatic 12/03/2011 None Full Exam - General 1994 Musculoskeletal head and neck Overall: cervical spine benign 12/03/2011 None Full Exam - General 1994 Neurologic gait Overall: no ataxia, no unsteadiness 12/03/2011 None Full Exam - General 1994 Psychiatric orientation/consciousness Overall: oriented to person, place and time 12/03/2011 None Full Exam - General 1994 Psychiatric mood and affect Overall: normal mood and affect 12/03/2011 None Full Exam - General 1994 Neck inspection of neck Overall: normal size 12/03/2011 None Full Exam - General 1994 Neck inspection of neck Appearance: surgical scarring 12/03/2011 right anterior neck Full Exam - General 1994 Respiratory auscultation Overall: breath sounds clear bilaterally 12/03/2011 None Full Exam - General 1994 Respiratory respiratory effort/rhythm Overall: normal rate 12/03/2011 None Full Exam - General 1994 Respiratory respiratory effort/rhythm Overall: no retractions 12/03/2011 None Full Exam - General 1994 Cardiovascular auscultation of heart Overall: regular rate 12/03/2011 None Full Exam - General 1994 Cardiovascular auscultation of heart Overall: normal heart sounds 12/03/2011 None Full Exam - General 1994 Cardiovascular auscultation of heart Overall: no murmurs 12/03/2011 None Full Exam - General 1994 Cardiovascular extremities Overall: no clubbing 12/03/2011 None Full Exam - ENT Constitutional general appearance Overall: well nourished 11/05/2011 None Full Exam - ENT Constitutional general appearance Overall: well developed 11/05/2011 None Full Exam - ENT Constitutional general appearance Overall: in no acute distress 11/05/2011 None Full Exam - ENT Ears/Nose/Throat otoscopic exam Overall: external auditory canals normal 11/05/2011 None Full Exam - ENT Ears/Nose/Throat otoscopic exam Overall: tympanic membranes normal 11/05/2011 None Full Exam - ENT Ears/Nose/Throat oropharynx Overall: oral mucosa clear 11/05/2011 None Full Exam - ENT Face and Head palpation Right frontal sinus: tender 11/05/2011 None Full Exam - ENT Face and Head palpation Left frontal sinus: tender 11/05/2011 None Full Exam - ENT Face and Head palpation Left maxillary sinus: tender 11/05/2011 None Full Exam - ENT Face and Head palpation Right maxillary sinus: nontender 11/05/2011 None Full Exam - ENT Face and Head palpation Left maxillary sinus: nontender 11/05/2011 None Full Exam - ENT Respiratory auscultation Overall: breath sounds clear bilaterally 11/05/2011 None Full Exam - ENT Respiratory inspection Overall: no retractions 11/05/2011 None Full Exam - ENT Respiratory inspection Overall: normal rate 11/2011 None Full Exam - ENT Cardiovascular auscultation of heart Overall: normal heart sounds 11/05/2011 None Full Exam - ENT Cardiovascular auscultation of heart Overall: regular rate 11/05/2011 None Full Exam - ENT Neurologic orientation Overall: oriented to person, place and time 11/05/2011 None Full Exam - Orthopedics Constitutional general appearance Overall: well nourished 08/09/2011 None Full Exam - Orthopedics Constitutional general appearance Overall: well developed 08/09/2011 None Full Exam - Orthopedics Constitutional general appearance Overall: in no acute distress 08/09/2011 None Full Exam - Orthopedics Respiratory auscultation Overall: breath sounds clear bilaterally 08/09/2011 None Full Exam - Orthopedics Respiratory respiratory effort/rhythm Overall: no retractions 08/09/2011 None Full Exam - Orthopedics Respiratory respiratory effort/rhythm Overall: normal rate 08/09/2011 None Full Exam - Orthopedics Respiratory respiratory effort/rhythm Overall: normal , symmetric chest expansion 08/09/2011 None Full Exam - Orthopedics Cardiovascular examination of vasculature Overall: no clubbing, cyanosis, edema 08/09/2011 None Full Exam - Orthopedics Musculoskeletal gait and station Conventional walking: painful gait 08/09/2011 None Full Exam - Orthopedics MS: spine/rib/pelvis insp & palp - S/R/P Lumbar spine inspection: normal lumbar spine alignment 08/09/2011 None Full Exam - Orthopedics MS: spine/rib/pelvis insp & palp - S/R/P Sacroiliac palpation: left sacroiliac joint tenderness 08/09/2011 None Full Exam - Orthopedics MS: spine/rib/pelvis insp & palp - S/R/P Hip palpation: no tenderness on palpation 08/09/2011 None Full Exam - Orthopedics MS: left lower extremity insp & palp - LLE Overall: normal appearance of leg 08/09/2011 None Full Exam - Orthopedics Psychiatric orientation/consciousness Overall: oriented to person, place and time 08/09/2011 None Full Exam - Orthopedics Constitutional general appearance Overall: well nourished 05/28/2011 None Full Exam - Orthopedics Constitutional general appearance Overall: well developed 05/28/2011 None Full Exam - Orthopedics Constitutional general appearance Overall: in no acute distress 05/28/2011 None Full Exam - Orthopedics Respiratory auscultation Overall: breath sounds clear bilaterally 05/28/2011 None Full Exam - Orthopedics Respiratory respiratory effort/rhythm Overall: normal , symmetric chest expansion 05/28/2011 None Full Exam - Orthopedics Respiratory respiratory effort/rhythm Overall: no retractions 05/28/2011 None Full Exam - Orthopedics Respiratory respiratory effort/rhythm Overall: normal rate 05/28/2011 None Full Exam - Orthopedics Cardiovascular examination of vasculature Overall: no clubbing, cyanosis, edema 05/28/2011 None Full Exam - Orthopedics Musculoskeletal gait and station Conventional walking: painful gait 05/28/2011 None Full Exam - Orthopedics MS: left lower extremity insp & palp - LLE Overall: normal appearance of leg 05/28/2011 None Full Exam - Orthopedics MS: spine/rib/pelvis insp & palp - S/R/P Lumbar spine inspection: normal lumbar spine alignment 05/28/2011 None Full Exam - Orthopedics MS: spine/rib/pelvis insp & palp - S/R/P Sacroiliac palpation: left sacroiliac joint tenderness 05/28/2011 None Full Exam - Orthopedics MS: spine/rib/pelvis insp & palp - S/R/P Hip palpation: no tenderness on palpation 05/28/2011 None Full Exam - Orthopedics Psychiatric orientation/consciousness Overall: oriented to person, place and time 05/28/2011 None Full Exam - Genitourinary/Female Constitutional general appearance Overall: well nourished 03/15/2011 None Full Exam - Genitourinary/Female Constitutional general appearance Overall: well developed 03/15/2011 None Full Exam - Genitourinary/Female Constitutional general appearance Overall: in no acute distress 03/15/2011 None Full Exam - Genitourinary/Female Eyes conjunctiva/eyelids Overall: conjunctiva clear 03/15/2011 None Full Exam - Genitourinary/Female Eyes pupils and irises Overall: pupils equal, round, reactive to light and accomodation 03/15/2011 None Full Exam - Genitourinary/Female Ears/Nose/Throat otoscopic exam Overall: external auditory canals clear 03/15/2011 None Full Exam - Genitourinary/Female Ears/Nose/Throat otoscopic exam Overall: tympanic membranes clear 03/15/2011 None Full Exam - Genitourinary/Female Ears/Nose/Throat oral cavity/pharynx/larynx Oropharynx: a normal exam 03/15/2011 None Full Exam - Genitourinary/Female Respiratory respiratory effort/rhythm Overall: no retractions 03/15/2011 None Full Exam - Genitourinary/Female Respiratory respiratory effort/rhythm Overall: normal rate 03/15/2011 None Full Exam - Genitourinary/Female Respiratory auscultation Overall: breath sounds clear bilaterally 03/15/2011 None Full Exam - Genitourinary/Female Cardiovascular auscultation of heart Overall: regular rate 03/15/2011 None Full Exam - Genitourinary/Female Cardiovascular auscultation of heart Overall: normal heart sounds 03/15/2011 None Full Exam - Genitourinary/Female Cardiovascular auscultation of heart Overall: no murmurs 03/15/2011 None Full Exam - Genitourinary/Female Cardiovascular examination of vasculature Overall: no clubbing, cyanosis, edema 03/15/2011 None Full Exam - Genitourinary/Female Abdomen abdominal exam Overall: non tender, non distended 03/15/2011 None Full Exam - Genitourinary/Female Chest/Breast breast inspection and palpation Overall: breasts symmetric and without lesions 03/15/2011 None Full Exam - Genitourinary/Female Chest/Breast breast inspection and palpation Overall: normal chest shape 03/15/2011 None Full Exam - Genitourinary/Female Genitourinary breast inspection & palpation Overall: breasts symmetric and without lesions 03/15/2011 None Full Exam - Genitourinary/Female Genitourinary breast inspection & palpation Overall: normal chest shape 03/15/2011 None Full Exam - Genitourinary/Female Genitourinary breast inspection & palpation Overall: breasts non-tender, no mass lesions 03/15/2011 None Full Exam - Genitourinary/Female Genitourinary breast inspection & palpation Overall: no nipple discharge 03/15/2011 None Full Exam - Genitourinary/Female Genitourinary external genitalia Overall: normal hair distribution 03/15/2011 None Full Exam - Genitourinary/Female Genitourinary external genitalia Overall: no discharge 03/15/2011 None Full Exam - Genitourinary/Female Genitourinary external genitalia Overall: no lesions 03/15/2011 None Full Exam - Genitourinary/Female Genitourinary urethra Overall: no masses 03/15/2011 None Full Exam - Genitourinary/Female Genitourinary urethra Overall: no tenderness 03/15/2011 None Full Exam - Genitourinary/Female Genitourinary bladder Overall: no tenderness 03/15/2011 None Full Exam - Genitourinary/Female Genitourinary bladder Overall: no mass lesions 03/15/2011 None Full Exam - Genitourinary/Female Genitourinary vagina Overall: no discharge 03/15/2011 None Full Exam - Genitourinary/Female Genitourinary vagina Overall: no lesions 03/15/2011 None Full Exam - Genitourinary/Female Genitourinary cervix Overall: no discharge 03/15/2011 None Full Exam - Genitourinary/Female Genitourinary cervix Overall: no lesions 03/15/2011 None Full Exam - Genitourinary/Female Genitourinary uterus Overall: normal size 03/15/2011 None Full Exam - Genitourinary/Female Genitourinary uterus Overall: normal contour 03/15/2011 None Full Exam - Genitourinary/Female Genitourinary uterus Overall: non tender 03/15/2011 None Full Exam - Genitourinary/Female Genitourinary uterus Overall: normal mobility 03/15/2011 None Full Exam - Genitourinary/Female Genitourinary uterus Overall: normal shape 03/15/2011 None Full Exam - Genitourinary/Female Lymphatic inspection and palpation of nodes Overall: anterior cervical chain benign 03/15/2011 None Full Exam - Genitourinary/Female Lymphatic inspection and palpation of nodes Overall: posterior cervical chain benign 03/15/2011 None Full Exam - Genitourinary/Female Neurologic mood and affect Overall: normal mood 03/15/2011 None Full Exam - Genitourinary/Female Neurologic mood and affect Overall: normal affect 03/15/2011 None Full Exam - Genitourinary/Female Neurologic orientation Overall: oriented to person, place and time 03/15/2011 None Full Exam - Genitourinary/Female Psychiatric orientation/consciousness Overall: oriented to person, place and time 03/15/2011 None Full Exam - General 1994 Musculoskeletal head and neck Overall: head atraumatic 03/13/2011 None Full Exam - General 1994 Musculoskeletal head and neck Overall: cervical spine benign 03/13/2011 None Full Exam - General 1994 Neurologic gait Overall: no ataxia, no unsteadiness 03/13/2011 None Full Exam - General 1994 Psychiatric orientation/consciousness Overall: oriented to person, place and time 03/13/2011 None Full Exam - General 1994 Psychiatric mood and affect Overall: normal mood and affect 03/13/2011 None Full Exam - General 1994 Ears/Nose/Throat lips/teeth/gingiva Teeth: wears dentures 03/13/2011 uppers Full Exam - General 1994 Ears/Nose/Throat oral cavity/pharynx/larynx Overall: oropharyngeal mucosa clear 03/13/2011 None Full Exam - General 1994 Ears/Nose/Throat oral cavity/pharynx/larynx Overall: no masses 03/13/2011 None Full Exam - General 1994 Neck thyroid Overall: normal size None Full Exam - General 1994 Neck thyroid Overall: nontender 2011 None Full Exam - General 1994 Respiratory respiratory effort/rhythm Overall: normal rate 03/13/2011 None Full Exam - General 1994 Respiratory respiratory effort/rhythm Overall: no retractions 03/13/2011 None Full Exam - General 1994 Constitutional general appearance Overall: well nourished 03/13/2011 None Full Exam - General 1994 Constitutional general appearance Overall: well developed 03/13/2011 None Full Exam - General 1994 Abdomen abdominal exam Overall: no tenderness 03/13/2011 None Full Exam - General 1994 Abdomen abdominal exam Overall: normal bowel sounds 03/13/2011 None Full Exam - General 1994 Constitutional general appearance Overall: in no acute distress 03/13/2011 None Full Exam - General 1994 Eyes pupils and irises Overall: pupils equal, round, reactive to light and accomodation 03/13/2011 None Full Exam - General 1995 Ears/Nose/Throat otoscopic exam Overall: external auditory canals clear 03/13/2011 None Full Exam - General 1995 Ears/Nose/Throat otoscopic exam Overall: tympanic membranes clear 03/13/2011 None Full Exam - General 1995 Ears/Nose/Throat lips/teeth/gingiva Overall: benign lips 03/13/2011 None Full Exam - General 1995 Ears/Nose/Throat oral cavity/pharynx/larynx Overall: oral mucosa clear 03/13/2011 None Full Exam - General 1994 Respiratory auscultation Overall: breath sounds clear bilaterally 03/13/2011 None Full Exam - General 1994 Cardiovascular auscultation of heart Overall: regular rate 03/13/2011 None Full Exam - General 1994 Cardiovascular auscultation of heart Overall: normal heart sounds 03/13/2011 None Full Exam - General 1994 Constitutional general appearance Overall: well nourished 11/15/2010 None Full Exam - General 1994 Constitutional general appearance Overall: well developed 11/15/2010 None Full Exam - General 1994 Neurologic gait Overall: no ataxia, no unsteadiness 11/15/2010 None Full Exam - General 1994 Psychiatric orientation/consciousness Overall: oriented to person, place and time 11/15/2010 None Full Exam - General 1994 Psychiatric mood and affect Overall: normal mood and affect 11/15/2010 None Full Exam - General 1994 Constitutional general appearance Overall: in no acute distress 11/15/2010 None Full Exam - General 1994 Eyes pupils and irises Overall: pupils equal, round, reactive to light and accomodation 11/15/2010 None Full Exam - General 1994 Ears/Nose/Throat otoscopic exam Overall: tympanic membranes clear 11/15/2010 None Full Exam - General 1994 Ears/Nose/Throat otoscopic exam Overall: external auditory canals clear 11/15/2010 None Full Exam - General 1994 Ears/Nose/Throat lips/teeth/gingiva Overall: benign gingiva 11/15/2010 None Full Exam - General 1994 Ears/Nose/Throat lips/teeth/gingiva Overall: no masses 11/15/2010 None Full Exam - General 1994 Ears/Nose/Throat lips/teeth/gingiva Overall: normal dentition 11/15/2010 None Full Exam - General 1994 Ears/Nose/Throat lips/teeth/gingiva Overall: benign lips 11/15/2010 None Full Exam - General 1994 Ears/Nose/Throat oral cavity/pharynx/larynx Overall: oral mucosa clear 11/15/2010 None Full Exam - General 1994 Abdomen abdominal exam Overall: no tenderness 11/15/2010 None Full Exam - General 1994 Abdomen abdominal exam Overall: normal bowel sounds 11/15/2010 None Full Exam - General 1994 Musculoskeletal head and neck Overall: head atraumatic 11/15/2010 None Full Exam - General 1994 Musculoskeletal head and neck Overall: cervical spine benign 11/15/2010 None Full Exam - General Eyes pupils and irises Overall: pupils equal, round, reactive to light and accomodation 11/01/2010 None Full Exam - General Ears/Nose/Throat oral cavity/pharynx/larynx Overall: oral mucosa clear 11/01/2010 None Full Exam - General Ears/Nose/Throat oral cavity/pharynx/larynx Overall: oropharyngeal mucosa clear 11/01/2010 None Full Exam - General Ears/Nose/Throat otoscopic exam Overall: external auditory canals clear 11/01/2010 None Full Exam - General Ears/Nose/Throat otoscopic exam Overall: tympanic membranes clear 11/01/2010 None Full Exam - General Respiratory auscultation Overall: breath sounds clear bilaterally 11/01/2010 None Full Exam - General Respiratory respiratory effort/rhythm Overall: no retractions 11/01/2010 None Full Exam - General Respiratory respiratory effort/rhythm Overall: normal rate 11/01/2010 None Full Exam - General Cardiovascular auscultation of heart Overall: regular rate 11/01/2010 None Full Exam - General Cardiovascular auscultation of heart Overall: normal heart sounds 11/01/2010 None Full Exam - General Abdomen abdominal exam Overall: no tenderness 11/01/2010 None Full Exam - General Abdomen abdominal exam Overall: normal bowel sounds 11/01/2010 None Full Exam - General Musculoskeletal head and neck Overall: head atraumatic 11/01/2010 None Full Exam - General Musculoskeletal head and neck Overall: cervical spine benign 11/01/2010 None Full Exam - General Neurologic gait Overall: no ataxia, no unsteadiness 11/01/2010 None Full Exam - General Constitutional general appearance Overall: well nourished 11/01/2010 None Full Exam - General Constitutional general appearance Overall: well developed 11/01/2010 None Full Exam - General Constitutional general appearance Overall: in no acute distress 11/01/2010 None Full Exam - General Musculoskeletal spine , ribs and pelvis Sacroiliac joints: tender left sacroiliac joint 11/01/2010 None Full Exam - General Musculoskeletal spine , ribs and pelvis Sacroiliac joints: tender right sacroiliac joint 11/01/2010 None Full Exam - General Psychiatric orientation/consciousness Overall: oriented to person, place and time 11/01/2010 None Full Exam - General Psychiatric mood and affect Overall: normal mood and affect 11/01/2010 None Procedures Procedure Codes Date DRAIN/INJECT JOINT/BURSA CPT-4: 53925 05/01/2018 TRIAMCINOLONE ACET INJ NOS CPT-4: J3301 05/01/2018 TRIAMCINOLONE ACET INJ NOS CPT-4: J3301 04/22/2018 PPPS, SUBSEQ VISIT CPT -4: G0439 11/28/2017 ADMIN INFLUENZA VIRUS VAC CPT-4: G0008 11/28/2017 ADMIN PNEUMOCOCCAL VACCINE SNOMED CT: [id number] CPT-4: G0009 11/28/2017 FLU VACC PRSV FREE INC ANTIG CPT-4: 42785 11/28/2017 PNEUMOCOCCAL VACC [address]: [id number] CPT-4: 16574 11/28/2017 DRAIN/INJECT JOINT/BURSA CPT-4: 61495 09/04/2017 TRIAMCINOLONE ACET INJ NOS CPT-4: J3301 09/04/2017 TRIAMCINOLONE ACET INJ NOS CPT-4: J3301 03/21/2017 DRAIN/INJECT JOINT/BURSA CPT-4: 83603 03/21/2017 TRIAMCINOLONE ACET INJ NOS CPT-4: J3301 06/21/2016 DRAIN/INJECT JOINT/BURSA CPT-4: 02832 06/21/2016 TRIAMCINOLONE ACET INJ NOS CPT-4: J3301 12/02/2015 TRIAMCINOLONE ACET INJ NOS CPT-4: J3301 06/16/2015 TRIAMCINOLONE ACET INJ NOS CPT-4: J3301 12/27/2014 KETOROLAC TROMETHAMINE INJ CPT-4: J1885 11/05/2013 THER/PROPH/DIAG INJ SC/IM CPT-4: 45929 11/05/2013 URINALYSIS NONAUTO W/O SCOPE CPT-4: 51207 05/25/2013 URINALYSIS NONAUTO W/O SCOPE CPT-4: 19725 09/11/2012 PRESCRIP TRANSMIT VIA ERX SY CPT-4: G8553 09/11/2012 PRESCRIP TRANSMIT VIA ERX SY CPT-4: G8553 02/28/2012 ROUTINE VENIPUNCTURE CPT-4: 03553 02/04/2012 PRESCRIP TRANSMIT VIA ERX SY CPT-4: G8553 01/28/2012 PRESCRIP TRANSMIT VIA ERX SY CPT-4: G8553 11/05/2011 DRAIN/INJECT JOINT/BURSA CPT-4: 02715 08/09/2011 TRIAMCINOLONE ACET INJ NOS CPT-4: J3301 08/09/2011 TRIAMCINOLONE ACET INJ NOS CPT-4: J3301 05/28/2011 THER/PROPH/DIAG INJ SC/IM CPT-4: 74973 05/28/2011 URINALYSIS NONAUTO W/O SCOPE CPT-4: 19136 03/15/2011 Vital Signs Date Vital 05/01/2018 Blood Pressure 1: 122/70 Code : 8480-6 BMI: 37.1 Code : 30246-3 Heart Rate 1 : 80 bpm Height: 5' SpO2: 93% Weight: 190 lbs 04/22/2018 Blood Pressure 1: 128/88 Code : 8480-6 BMI: 36.9 Code : 38767-3 Heart Rate 1 : 97 bpm Height: 5' SpO2: 96% Temperature: 37.2 (C) / 98.9 (F) Weight: 189 lbs 11/28/2017 Blood Pressure 1: 122/66 Code : 8480-6 BMI: 37.1 Code : 02388-8 Heart Rate 1 : 78 bpm Height: 5' SpO2: 96% Waist Measure (cm): 109 cm Weight: 190 lbs 11/18/2017 Blood Pressure 1: 140/80 Code : 8480-6 BMI: 36.9 Code : 90050-3 Heart Rate 1 : 86 bpm Height: 5' SpO2: 94% Weight: 189 lbs 09/04/2017 Blood Pressure 1: 134/80 Code : 8480-6 Heart Rate 1: 74 bpm Height: SpO2: 96% Weight: 03/21/2017 Blood Pressure 1: 126/72 Code : 8480-6 BMI: 36.9 Code : 59624-4 Heart Rate 1 : 87 bpm Height: 5' SpO2: 97% Weight: 189 lbs 11/02/2016 Blood Pressure 1: 134/68 Code : 8480-6 BMI: 38.3 Code : 37191-1 Heart Rate 1 : 86 bpm Height: 5' SpO2: 98% Weight: 196 lbs 07/26/2016 Blood Pressure 1: 144/78 Code : 8480-6 BMI: 37.9 Code : 23019-3 Heart Rate 1 : 69 bpm Height: 5' SpO2: 96% Weight: 194 lbs 06/21/2016 Blood Pressure 1: 118/68 Code : 8480-6 BMI: 39.1 Code : 26013-9 Heart Rate 1 : 77 bpm Height: 5' SpO2: 95% Weight: 200 lbs 05/25/2016 Blood Pressure 1: 148/88 Code : 8480-6 BMI: 38.9 Code : 14547-3 Heart Rate 1 : 91 bpm Height: 5' SpO2: 94% Weight: 199 lbs 12/02/2015 Blood Pressure 1: 144/62 Code : 8480-6 BMI: 37.3 Code : 86300-3 Heart Rate 1 : 81 bpm Height: 5' SpO2: 95% Weight: 191 lbs 10/21/2015 Blood Pressure 1: 138/72 Code : 8480-6 BMI: 37.3 Code : 83527-1 Heart Rate 1 : 102 bpm Height: 5' SpO2: 98% Weight: 191 lbs 10/17/2015 Blood Pressure 1: 132/78 Code : 8480-6 BMI: 37.9 Code : 90548-2 Heart Rate 1 : 74 bpm Height: 5' SpO2: 97% Weight: 194 lbs 06/16/2015 Blood Pressure 1: 140/88 Code : 8480-6 BMI: 39.8 Code : 82512-9 Heart Rate 1 : 74 bpm Height: 5' SpO2: 96% Weight: 204 lbs 05/12/2015 Blood Pressure 1: 146/82 Code : 8480-6 Blood Pressure 1: 130/78 Code: 8480-6 BMI: 38.7 Code: 45038-8 Heart Rate 1: 67 bpm Height: 5' SpO2: 94% Weight: 198 lbs 03/10/2015 Blood Pressure 1: 132/86 Code : 8480-6 BMI: 38.9 Code : 05670-0 Heart Rate 1 : 72 bpm Height: 5' SpO2: 99% Weight: 199 lbs 02/08/2015 Blood Pressure 1: 130/88 Code : 8480-6 BMI: 38.5 Code : 22035-8 Heart Rate 1 : 68 bpm Height: 5' SpO2: 97% Temperature: 36.6 (C) / 97.8 (F) Weight: 197 lbs 12/27/2014 Blood Pressure 1: 140/82 Code : 8480-6 BMI: 38.5 Code : 00765-9 Heart Rate 1 : 79 bpm Height: 5' SpO2: 97% Temperature: 36.3 (C) / 97.4 (F) Weight: 197 lbs 11/16/2014 Blood Pressure 1: 128/76 Code : 8480-6 BMI: 38.7 Code : 83223-0 Heart Rate 1 : 76 bpm Height: 5' Weight: 198 lbs 10/11/2014 Blood Pressure 1: 112/78 Code : 8480-6 BMI: 38.7 Code : 29516-3 Heart Rate 1 : 100 bpm Height: 5' SpO2: 93% Temperature: 36.8 (C) / 98.3 (F) Weight: 198 lbs 07/16/2014 Blood Pressure 1: 142/86 Code : 8480-6 BMI: 39.8 Code : 85670-6 Heart Rate 1 : 71 bpm Height: 5' SpO2: 96% Weight: 204 lbs 06/14/2014 Blood Pressure 1: 132/82 Code : 8480-6 BMI: 39.8 Code : 05268-2 Heart Rate 1 : 71 bpm Height: 5' SpO2: 98% Weight: 207 lbs 11/05/2013 Blood Pressure 1: 130/70 Code : 8480-6 BMI: 38.6 Code : 44181-3 Heart Rate 1 : 83 bpm Height: 5' SpO2: 98% Weight: 201 lbs 09/08/2013 Blood Pressure 1: 122/78 Code : 8480-6 BMI: 39.2 Code : 96215-4 Heart Rate 1 : 64 bpm Height: 5' SpO2: 98% Temperature: 36.7 (C) / 98.0 (F) Weight: 204 lbs 05/25/2013 Blood Pressure 1: 130/82 Code : 8480-6 Weight: 05/04/2013 Blood Pressure 1: 110/68 Code : 8480-6 BMI: 38.8 Code : 52168-7 Heart Rate 1 : 76 bpm Height: 5' Temperature: 37.3 (C) / 99.2 (F) Weight: 202 lbs 02/09/2013 Blood Pressure 1: 128/78 Code : 8480-6 BMI: 39.4 Code : 92033-3 Heart Rate 1 : 76 bpm Height: 5' Weight: 205 lbs 09/11/2012 Blood Pressure 1: 128/72 Code : 8480-6 BMI: 38.6 Code : 56763-9 Heart Rate 1 : 76 bpm Height: 5' Temperature: 37.2 (C) / 99.0 (F) Weight: 201 lbs 05/29/2012 Blood Pressure 1: 132/82 Code : 8480-6 BMI: 38.4 Code : 72873-7 Heart Rate 1 : 80 bpm Height: 5' Weight: 200 lbs 02/28/2012 Blood Pressure 1: 120/66 Code : 8480-6 BMI: 37.6 Code : 22009-1 Height: 5' Weight: 196 lbs 01/28/2012 Blood Pressure 1: 144/72 Code : 8480-6 Heart Rate 1: 68 bpm Weight: 194 lbs 12/03/2011 Blood Pressure 1: 146/70 Code : 8480-6 BMI: 37.3 Code : 58514-3 Heart Rate 1 : 68 bpm Height: 5' Weight: 194 lbs 11/05/2011 Blood Pressure 1: 136/80 Code : 8480-6 Heart Rate 1: 68 bpm Temperature: 37.1 (C) / 98.8 (F) Weight: 200 lbs 08/09/2011 Blood Pressure 1: 128/80 Code : 8480-6 Heart Rate 1: 80 bpm Respiratory Rate : 16 bpm Weight: 200 lbs 05/28/2011 Blood Pressure 1: 142/82 Code : 8480-6 Heart Rate 1: 88 bpm Weight: 202 lbs 03/15/2011 Blood Pressure 1: 124/66 Code : 8480-6 Heart Rate 1: 68 bpm Respiratory Rate : 16 bpm Weight: 198 lbs 03/13/2011 Blood Pressure 1: 136/72 Code : 8480-6 BMI: 37.9 Code : 65189-0 Heart Rate 1 : 66 bpm Height: 5' Respiratory Rate: 20 bpm Weight: 197 lbs 8 oz 11/15/2010 Blood Pressure 1: 166/94 Code : 8480-6 BMI: 36.5 Code : 26562-8 Heart Rate 1 : 56 bpm Height: 5'1" Respiratory Rate: 16 bpm Weight: 193 lbs 11/01/2010 Blood Pressure 1: 132/72 Code : 8480-6 Heart Rate 1: 58 bpm Respiratory Rate : 16 bpm Weight: 189 lbs Functional Status No Functional Status data History of Present Illness Symptom Name Status Result Effective Date Notes Location on the left 05/01/2018 None Location on the right 05/01/2018 -worse Quality acute 2018 None Onset and Resolution sudden in onset 05/01/2018 None Onset of Symptom 3 days ago 05/01/2018 None Frequency of Episodes daily 05/01/2018 None Limitation on Activities moderately limits activities 05/01/2018 None Pertinent Findings pain with movement 05/01/2018 None Pertinent Findings limping 05/01/2018 None Pertinent Findings instability 05/01/2018 None Pertinent Findings swelling 05/01/2018 None Alleviating Factors joint immobilizer 05/01/2018 None Exacerbating Factors weight bearing 05/01/2018 None Onset and Resolution sudden in onset 04/22/2018 None Onset of Symptom 1 weeks ago 04/22/2018 None Pertinent Findings cough 04/22/2018 None Pertinent Findings fever 04/22/2018 None Severity moderate None Frequency of Episodes increasing 04/22/2018 None Length of Episodes 1 weeks 04/22/2018 None Triggers no known associated factors 04/22/2018 None Location on both sides 04/22/2018 None Quality acute 2018 None Location Denies in the lung 04/22/2018 None Quality acute 2018 None Onset and Resolution ongoing 04/22/2018 None Onset of Symptom Denies 1 weeks ago 04/22/2018 None Limitation on Activities does not limit activities 04/22/2018 None Frequency of Episodes increasing 04/22/2018 None Triggers no known associated factors 04/22/2018 None Pertinent Findings chest discomfort 04/22/2018 None Pertinent Findings fever 04/22/2018 None Pertinent Findings Denies lethargy 04/22/2018 None Pertinent Findings sputum production 04/22/2018 None Annual Medicare Wellness Exam Alcohol Use does not drink any alcohol 11/28/2017 None Annual Medicare Wellness Exam Aspirin Use no 11/28/2017 None Annual Medicare Wellness Exam Describe Your Health good 11/28/2017 None Annual Medicare Wellness Exam Blood Glucose (self reported) don't know 11/28/2017 None Annual Medicare Wellness Exam Blood Pressure (self reported ) borderline (120/80 - 139/89) 11/28/2017 None Annual Medicare Wellness Exam Cholesterol (self reported) don't know 11/28/2017 None Annual Medicare Wellness Exam Hemaglobin A-1C (self reported ) don't know 11/28/2017 None Annual Medicare Wellness Exam Hours of Sleep 5-6 11/28/2017 None Annual Medicare Wellness Exam Interaction with Friends yes 11/28/2017 None Annual Medicare Wellness Exam Exercise Habits exercises 2 days per week 11/28/2017 None Annual Medicare Wellness Exam Exercise Habits exercises 10 minutes per day 11/28/2017 None Annual Medicare Wellness Exam Handling Stress often has problems coping 11/28/2017 None Annual Medicare Wellness Exam Depression (last 6 months) some of the time 11/28/2017 None Annual Medicare Wellness Exam Depression or Hopelessness some of the time 11/28/2017 None Annual Medicare Wellness Exam Interests & Pleasure some of the time 11/28/2017 None Annual Medicare Wellness Exam Life Satisfaction dissatisfied 11/28/2017 None Annual Medicare Wellness Exam Smoking and Tobacco Use non smoker 11/28/2017 None Annual Medicare Wellness Exam Social & Emotional Support sometimes 11/28/2017 None Annual Medicare Wellness Exam Stress some of the time 11/28/2017 None Annual Medicare Wellness Exam Sun Exposure protects skin when outdoors: no 11/28/2017 None Annual Medicare Wellness Exam Motor Vehicle Safety always fastens seat belt: mostly 11/28/2017 None Annual Medicare Wellness Exam Motor Vehicle Safety drives after drinking: no 11/28/2017 None Annual Medicare Wellness Exam Motor Vehicle Safety rides with someone who has been drinking: no 11/28 None Annual Medicare Wellness Exam Nutrition servings of fried food / high fat foods per day: 0-1 2017 None Annual Medicare Wellness Exam Nutrition servings of high fiber / whole grain per day: 1 11/28/2017 None Annual Medicare Wellness Exam Nutrition servings of vegetables / fruit per day: 2 11/28/2017 None rash Location-Major on the arms 11/18/2017 right arm rash Color red 2017 None rash Onset and Resolution sudden in onset 11/18/2017 None rash Onset of Symptom 3 days ago 11/18/2017 None rash Pertinent Findings fever 11/18/2017 to arm rash Pertinent Findings itching 11/18/2017 None rash Quality acute None rash Limitation on Activities does not limit activities 11/18/2017 None rash Prior Treatments previously untreated 11/18/2017 None knee pain Location on the right 09/04/2017 None knee pain Onset of Symptom _ years ago 09/04/2017 None knee pain Pertinent Findings decreased range of motion 09/04/2017 None knee pain Pertinent Findings limping 09/04/2017 None knee pain Pertinent Findings pain with movement 09/04/2017 None hip pain Location on the right 09/04/2017 None hip pain Quality constant 09/04/2017 None hip pain Onset of Symptom _ years ago 09/04/2017 None hip pain Pertinent Findings decreased range of motion 09/04/2017 None hip pain Pertinent Findings limping 09/04/2017 None hip pain Pertinent Findings pain with movement 09/04/2017 None knee pain Location on the left 03/21/2017 None knee pain Location on the right 03/21/2017 None shoulder pain Location on the right shoulder 03/21/2017 None shoulder pain Quality acute 03/21/2017 None shoulder pain Onset and Resolution sudden in onset 03/21/2017 None shoulder pain Quality constant 03/21/2017 None shoulder pain Onset and Resolution ongoing 03/21/2017 None shoulder pain Onset of Symptom 3 months ago 03/21/2017 None shoulder pain Frequency of Episodes daily 03/21/2017 None shoulder pain Mechanism of injury fall onto the shoulder 03/21/2017 None shoulder pain Alleviating Factors physical therapy 03/21/2017 None shoulder pain Pertinent Findings limited range of motion 03/21/2017 None knee pain Quality chronic 03/21/2017 None knee pain Limitation on Activities allows weight bearing activity 03/21/2017 None knee pain Pertinent Findings pain with movement 03/21/2017 None knee pain Location on the right 11/02/2016 None knee pain Location on the left 11/02/2016 None knee pain Location in the anterior region 11/02/2016 None knee pain Quality giving way 11/02/2016 None knee pain Quality worsening 11/02/2016 None knee pain Limitation on Activities moderately limits activities 11/02/2016 None knee pain Pertinent Findings pain with movement 11/02/2016 None knee pain Pertinent Findings Denies warmth 11/02/2016 None back pain Location lumbar-sacral spine 11/02/2016 None back pain Quality chronic 11/02/2016 None back pain Quality worsening 11/02/2016 None back pain Onset and Resolution ongoing 11/02/2016 None back pain Pertinent Findings Denies fever 11/02/2016 None knee pain Location on the left 07/26/2016 None knee pain Quality tenderness 07/26/2016 None knee pain Quality intermittent 07/26/2016 None knee pain Frequency of Episodes daily 07/26/2016 None knee pain Pertinent Findings limping 07/26/2016 None knee pain Pertinent Findings pain with movement 07/26/2016 None knee pain Pertinent Findings sensation of buckling 07/26/2016 -improved- once in a while knee pain Pertinent Findings stiffness 07/26/2016 None knee pain Pertinent Findings swelling 07/26/2016 -improved hypertension Quality primary hypertension 07/26/2016 None hypertension Onset and Resolution ongoing 07/26/2016 None hypertension Onset of Symptom during adulthood 07/26/2016 None hypertension Blood Pressure Values not checking blood pressure at home 07/26/2016 None hypertension Alleviating Factors medication 07/26/2016 None hypertension Pertinent Findings Denies dizziness 07/26/2016 None hypertension Pertinent Findings Denies dyspnea 07/26/2016 None knee pain Location on the right 07/26/2016 None knee pain Quality improving 07/26/2016 None knee pain Frequency of Episodes decreasing 07/26/2016 None knee pain Location on the left 06/21/2016 None knee pain Quality giving way 06/21/2016 None knee pain Quality tenderness 06/21/2016 None knee pain Quality intermittent 06/21/2016 None knee pain Quality worsening 06/21/2016 None knee pain Onset and Resolution sudden in onset 06/21/2016 None knee pain Onset of Symptom 2 weeks ago 06/21/2016 None knee pain Frequency of Episodes daily 06/21/2016 None knee pain Pertinent Findings limping 06/21/2016 None knee pain Pertinent Findings pain with movement 06/21/2016 None knee pain Pertinent Findings stiffness 06/21/2016 None knee pain Pertinent Findings swelling 06/21/2016 None knee pain Pertinent Findings warmth 06/21/2016 None knee pain Pertinent Findings sensation of buckling 06/21/2016 None knee pain Location on the left 05/25/2016 None knee pain Quality giving way 05/25/2016 None knee pain Quality tenderness 05/25/2016 None knee pain Quality intermittent 05/25/2016 None knee pain Quality worsening 05/25/2016 None knee pain Onset and Resolution sudden in onset 05/25/2016 None knee pain Onset of Symptom 2 weeks ago 05/25/2016 None knee pain Frequency of Episodes daily 05/25/2016 None knee pain Pertinent Findings limping 05/25/2016 None knee pain Pertinent Findings pain with movement 05/25/2016 None knee pain Pertinent Findings stiffness 05/25/2016 None knee pain Pertinent Findings swelling 05/25/2016 None knee pain Pertinent Findings warmth 05/25/2016 None Hospital Follow Up _ infection 12/02/2015 None Hospital Follow Up Location ears 12/02/2015 None Hospital Follow Up Onset of Symptom 5 days ago 12/02/2015 None dizziness Quality feelings of unsteadiness 12/02/2015 None dizziness Quality imbalance 12/02/2015 None dizziness Onset and Resolution ongoing 12/02/2015 None dizziness Onset of Symptom 1 weeks ago 12/02/2015 None dizziness Pertinent Findings Denies fever 12/02/2015 None dizziness Pertinent Findings nausea 12/02/2015 None skin lesion Quality scabbed 10/21/2015 None skin lesion Location abdomen 10/21/2015 None hypertension Quality chronic 10/17/2015 None hypertension Onset and Resolution ongoing 10/17/2015 None hypertension Onset of Symptom during adulthood 10/17/2015 None hypertension Blood Pressure Values not checking blood pressure at home 10/17/2015 None hypertension Severity mild 10/17/2015 None hypertension Triggers stress 10/17/2015 None hypothyroid Quality chronic 10/17/2015 recent labs hypothyroid Onset and Resolution ongoing 10/17/2015 None hypothyroid Severity mild with subclinical signs 10/17/2015 None hypothyroid Triggers no known associated factors 10/17/2015 None hypertension Pertinent Findings anxiety 10/17/2015 None hypertension Pertinent Findings Denies dizziness 10/17/2015 None hypertension Pertinent Findings Denies dyspnea 10/17/2015 None hip pain Location on the right 06/16/2015 None hip pain Quality intermittent 06/16/2015 None hip pain Onset of Symptom _ years ago 06/16/2015 None hip pain Pertinent Findings decreased range of motion 06/16/2015 None hip pain Pertinent Findings limping 06/16/2015 using a cane hip pain Pertinent Findings pain with movement 06/16/2015 None hip pain Pertinent Findings swelling 06/16/2015 None hip pain Onset and Resolution ongoing 06/16/2015 None hip pain Severity mild 06/16/2015 None hip pain Limitation on Activities allows ambulation 06/16/2015 None hip pain Radiating the leg and foot 06/16/2015 None hip pain Radiating the knee 06/16/2015 None hypertension Quality chronic 05/12/2015 None hypertension Onset and Resolution ongoing 05/12/2015 None hypertension Onset of Symptom during adulthood 05/12/2015 None hypertension Blood Pressure Values not checking blood pressure at home 05/12/2015 None hypertension Severity mild 05/12/2015 None hypertension Triggers stress 05/12/2015 None hypothyroid Quality chronic 05/12/2015 recent labs hypothyroid Onset and Resolution ongoing 05/12/2015 None hypothyroid Severity mild with subclinical signs 05/12/2015 None hypothyroid Triggers no known associated factors 05/12/2015 None vertigo Quality intermittent 03/10/2015 None vertigo Onset and Resolution ongoing 03/10/2015 None vertigo Frequency of Episodes daily 03/10/2015 None vertigo Pertinent Findings Denies dizziness 03/10/2015 None vertigo Pertinent Findings ear pain 03/10/2015 None vertigo Pertinent Findings Denies syncope 03/10/2015 near syncope 2 weeks ago while shopping earache Location both ears 03/10/2015 None earache Quality acute 03/10/2015 None earache Onset and Resolution ongoing 03/10/2015 None vertigo Onset of Symptom 6 weeks ago 03/10/2015 None earache Onset of Symptom 5 weeks ago 03/10/2015 None earache Frequency of Episodes daily 03/10/2015 None vertigo Quality intermittent 02/08/2015 None vertigo Onset and Resolution ongoing 02/08/2015 None vertigo Onset of Symptom 2 weeks ago 02/08/2015 None vertigo Frequency of Episodes daily 02/08/2015 None vertigo Pertinent Findings Denies dizziness 02/08/2015 None vertigo Pertinent Findings ear pain 02/08/2015 None vertigo Pertinent Findings syncope 02/08/2015 near syncope 2 weeks ago while shopping earache Location both ears 02/08/2015 None earache Quality acute 02/08/2015 None earache Onset and Resolution ongoing 02/08/2015 None earache Onset of Symptom 1.5 weeks ago 02/08/2015 None hypertension Quality intermittent 02/08/2015 None hypertension Onset and Resolution ongoing 02/08/2015 None hypertension Blood Pressure Values not checking blood pressure at home 02/08/2015 she has no machine hypertension Severity mild 02/08/2015 None hypertension Pertinent Findings dizziness 02/08/2015 None hypertension Pertinent Findings Denies dyspnea 02/08/2015 None hypothyroid Quality stable 02/08/2015 None hypothyroid Onset and Resolution ongoing 02/08/2015 None hypothyroid Pertinent Findings Denies coarse hair 02/08/2015 None hypothyroid Pertinent Findings Denies dry skin 02/08/2015 None earache Location both ears 12/27/2014 None earache Onset of Symptom 3 days ago 12/27/2014 None cough Location in the throat 12/27/2014 None cough Onset of Symptom 3 days ago 12/27/2014 None cough Pertinent Findings Denies chest discomfort 12/27/2014 None cough Pertinent Findings nasal congestion 12/27/2014 None earache Onset and Resolution ongoing 12/27/2014 c/o ringing in the ears earache Frequency of Episodes increasing 12/27/2014 None earache Triggers no known triggers 12/27/2014 None sore throat Onset of Symptom 3 days ago 12/27/2014 None sore throat Limitation on Activities does not limit oral intake 12/27/2014 None sore throat Location diffusely 12/27/2014 None sore throat Quality scratchy 12/27/2014 None sore throat Pertinent Findings cough 12/27/2014 None sore throat Pertinent Findings nasal congestion 12/27/2014 None hypertension Quality intermittent 11/16/2014 None hypertension Onset and Resolution ongoing 11/16/2014 None hypertension Pertinent Findings Denies dizziness 11/16/2014 None hypertension Pertinent Findings Denies dyspnea 11/16/2014 None hypertension Blood Pressure Values not checking blood pressure at home 11/16/2014 she has no machine hypertension Severity mild 11/16/2014 None hypertension Quality chronic 10/11/2014 None hypertension Quality stable 10/11/2014 None hypertension Onset and Resolution ongoing 10/11/2014 None hypertension Onset of Symptom during adulthood 10/11/2014 None hypertension Blood Pressure Values not checking blood pressure at home 10/11/2014 None hypertension Severity mild 10/11/2014 None hypertension Triggers stress 10/11/2014 None hypertension Pertinent Findings Denies dizziness 10/11/2014 None hypertension Pertinent Findings Denies dyspnea 10/11/2014 None hypertension Pertinent Findings Denies edema 10/11/2014 None hypertension Pertinent Findings Denies orthostatic hypotension 10/11/2014 None hypertension Pertinent Findings Denies palpitations 10/11/2014 None headache Location on both sides 10/11/2014 back- had CT scan and EKG in ER last Saturday- all normal headache Onset of Symptom 1 weeks ago 10/11/2014 intermittent cough Onset of Symptom 1 days ago 10/11/2014 scratchy throat and runny nose cough Pertinent Findings Denies dyspnea 10/11/2014 None cough Pertinent Findings Denies fever 10/11/2014 None cough Pertinent Findings Denies sputum production 10/11/2014 None headache Quality acute 10/11/2014 None headache Onset and Resolution ongoing 10/11/2014 None headache Limitation on Activities does not limit activities 10/11/2014 None headache Frequency of Episodes decreasing 10/11/2014 None headache Triggers stress 10/11/2014 None cough Onset and Resolution ongoing 10/11/2014 None cough Location in the throat 10/11/2014 None cough Limitation on Activities does not limit activities 10/11/2014 None cough Frequency of Episodes increasing 10/11/2014 None hypertension Quality chronic 07/16/2014 None hypertension Quality stable 07/16/2014 None hypertension Onset and Resolution ongoing 07/16/2014 None hypertension Onset of Symptom during adulthood 07/16/2014 None hypertension Blood Pressure Values not checking blood pressure at home 07/16/2014 None hypertension Severity mild 07/16/2014 None hypertension Triggers stress 07/16/2014 None hypertension Pertinent Findings Denies dizziness 07/16/2014 None hypertension Pertinent Findings Denies dyspnea 07/16/2014 None hypertension Pertinent Findings Denies edema 07/16/2014 None hypertension Pertinent Findings Denies orthostatic hypotension 07/16/2014 None hypertension Pertinent Findings Denies palpitations 07/16/2014 None hip pain Location on the right 07/16/2014 None hip pain Quality intermittent 07/16/2014 None hip pain Pertinent Findings pain at rest 07/16/2014 reports that she lays on it too much hip pain Pertinent Findings Denies pain with movement 07/16/2014 None knee pain Location on the right 07/16/2014 None knee pain Pertinent Findings pain with movement 07/16/2014 None knee pain Pertinent Findings swelling 07/16/2014 None knee pain Onset of Symptom 1 months ago 07/16/2014 reports that she has been doing water exercise at PT and seems to help hypertension Quality chronic 06/14/2014 None hypertension Quality stable 06/14/2014 None hypertension Onset and Resolution ongoing 06/14/2014 None hypertension Onset of Symptom during adulthood 06/14/2014 None hypertension Blood Pressure Values not checking blood pressure at home 06/14/2014 None hypertension Severity mild 06/14/2014 None hypertension Triggers stress 06/14/2014 None hypertension Pertinent Findings Denies dizziness 06/14/2014 None hypertension Pertinent Findings Denies dyspnea 06/14/2014 None hypertension Pertinent Findings Denies edema 06/14/2014 None hypertension Pertinent Findings Denies orthostatic hypotension 06/14/2014 None hypertension Pertinent Findings Denies palpitations 06/14/2014 None hypothyroid Quality chronic 06/14/2014 recent labs hypothyroid Onset and Resolution ongoing 06/14/2014 None hypothyroid Severity mild with subclinical signs 06/14/2014 None hypothyroid Triggers no known associated factors 06/14/2014 None back pain Location in the right lower back area 06/14/2014 None back pain Onset of Symptom _ years ago 06/14/2014 previous back surgery in 1999 hip pain Location on the right 06/14/2014 None hip pain Quality intermittent 06/14/2014 None hip pain Pertinent Findings Denies pain with movement 06/14/2014 None hip pain Pertinent Findings pain at rest 06/14/2014 reports that she lays on it too much knee injury Exacerbating Factors activity 11/05/2013 None knee injury Frequency of Episodes unchanged 11/05/2013 fell getting out of bed 2 weeks ago and now has pain behind left thigh and knee, states knee gave out on her knee injury Limitation on Activities allows weight bearing activity 11/05/2013 - she has taken aleve and it did not help, but tylenol with arthritis helped - bending the knee hurts. knee injury Location on the left 11/05/2013 None knee injury Onset and Resolution ongoing 11/05/2013 None knee injury Onset of Symptom 2 weeks ago 11/05/2013 None knee injury Quality acute 11/05/2013 None knee injury Significant Medications NSAID 's 11/05/2013 None knee injury Sports Participation not significant 11/05/2013 None sore throat Location diffusely 09/08/2013 None sore throat Quality sharp 09/08/2013 None sore throat Pertinent Findings Denies cough 09/08/2013 None sore throat Pertinent Findings decreased energy level 09/08/2013 None sore throat Pertinent Findings fever 09/08/2013 None sore throat Onset and Resolution ongoing 09/08/2013 None sore throat Onset of Symptom 3-4 days ago 09/08/2013 None sore throat Limitation on Activities does not limit oral intake 09/08/2013 None sore throat Frequency of Episodes increasing 09/08/2013 None sore throat Triggers swallowing 09/08/2013 None sore throat Significant Medications acetaminophen 09/08/2013 None sore throat Alleviating Factors medication 09/08/2013 None sore throat Pertinent Findings Denies ill contacts 09/08/2013 None dysuria Quality acute 05/25/2013 None dysuria Onset and Resolution ongoing 05/25/2013 None dysuria Onset of Symptom 2 weeks ago 05/25/2013 None dysuria Limitation on Activities does not limit urination 05/25/2013 None dysuria Frequency of Episodes increasing 05/25/2013 None dysuria Triggers no known associated factors 05/25/2013 None dysuria Alleviating Factors medication 05/25/2013 None dysuria Pertinent Findings back pain 05/25/2013 None dysuria Pertinent Findings Denies chills 05/25/2013 None dysuria Pertinent Findings Denies fever 05/25/2013 None dysuria Pertinent Findings Denies nausea 05/25/2013 None dysuria Pertinent Findings Denies pelvic pain 05/25/2013 None dysuria Pertinent Findings urinary urgency 05/25/2013 None hypertension Quality chronic 05/04/2013 None hypertension Onset and Resolution ongoing 05/04/2013 None hypertension Blood Pressure Values not checking blood pressure at home 05/04/2013 None cough Location in the lung 05/04/2013 None cough Quality blood-tinged 05/04/2013 None cough Onset and Resolution ongoing 05/04/2013 on keflex. and cough med cough Quality improving 05/04/2013 None hypertension Quality stable 05/04/2013 None hypertension Onset of Symptom during adulthood 05/04/2013 None hypertension Severity mild 05/04/2013 None hypertension Triggers stress 05/04/2013 None hypertension Pertinent Findings Denies dizziness 05/04/2013 None hypertension Pertinent Findings Denies dyspnea 05/04/2013 None hypertension Pertinent Findings Denies edema 05/04/2013 None hypertension Pertinent Findings Denies orthostatic hypotension 05/04/2013 None hypertension Pertinent Findings Denies palpitations 05/04/2013 None hypertension Quality chronic 02/09/2013 None hypertension Quality stable 02/09/2013 None hypertension Onset and Resolution ongoing 02/09/2013 None hypertension Blood Pressure Values not checking blood pressure at home 02/09/2013 None hypertension Pertinent Findings Denies dizziness 02/09/2013 None hypertension Pertinent Findings Denies dyspnea 02/09/2013 None hypertension Pertinent Findings Denies edema 02/09/2013 None hypertension Pertinent Findings Denies palpitations 02/09/2013 None hypertension Pertinent Findings Denies orthostatic hypotension 02/09/2013 None hypertension Onset of Symptom during adulthood 02/09/2013 None hypertension Severity mild 02/09/2013 None hypertension Triggers stress 02/09/2013 None hypothyroid Quality chronic 02/09/2013 recent labs hypothyroid Onset and Resolution ongoing 02/09/2013 None hypothyroid Severity mild with subclinical signs 02/09/2013 None hypothyroid Triggers no known associated factors 02/09/2013 None urinary retention/hesitancy Quality acute 09/11/2012 None urinary retention/hesitancy Quality hesitancy 09/11/2012 None urinary retention/hesitancy Onset and Resolution sudden in onset 09/11/2012 None urinary retention/hesitancy Onset of Symptom 1 days ago 09/11/2012 None urinary retention/hesitancy Pertinent Findings pelvic pain 09/11/2012 None urinary retention/hesitancy Pertinent Findings urinary urgency 09/11/2012 None urinary retention/hesitancy Severity moderate 09/11/2012 None urinary retention/hesitancy Triggers no known associated factors 09/11/2012 None hypertension Quality chronic 05/29/2012 None hypertension Onset and Resolution ongoing 05/29/2012 None hypertension Onset of Symptom during adulthood 05/29/2012 None hypertension Blood Pressure Values not checking blood pressure at home 05/29/2012 None hypertension Severity mild 05/29/2012 None hypertension Triggers stress 05/29/2012 None hypothyroid Quality chronic 05/29/2012 recent labs hypothyroid Onset and Resolution ongoing 05/29/2012 None hypothyroid Severity mild with subclinical signs 05/29/2012 None hypothyroid Triggers no known associated factors 05/29/2012 None blood pressure followup Quality chronic 02/28/2012 None blood pressure followup Onset and Resolution ongoing 02/28/2012 None blood pressure followup Onset of Symptom during adulthood 02/28/2012 None hypertension Quality chronic 02/28/2012 None hypertension Onset and Resolution ongoing 02/28/2012 None hypertension Onset of Symptom during adulthood 02/28/2012 None hypertension Blood Pressure Values not checking blood pressure at home 02/28/2012 None hypertension Severity mild 02/28/2012 None hypertension Triggers stress 02/28/2012 None hypothyroid Quality chronic 02/28/2012 recent labs hypothyroid Onset and Resolution ongoing 02/28/2012 None hypothyroid Severity mild with subclinical signs 02/28/2012 None hypothyroid Triggers no known associated factors 02/28/2012 None knee pain Location on the right 02/28/2012 None knee pain Quality dull pain 02/28/2012 aching. states using 2 aleve a day and it helps knee pain Quality stable 02/28/2012 None knee pain Pertinent Findings pain with movement 02/28/2012 None hypertension Quality chronic 01/28/2012 None hypertension Onset and Resolution ongoing 01/28/2012 None hypertension Onset of Symptom during adulthood 01/28/2012 None hypertension Blood Pressure Values not checking blood pressure at home 01/28/2012 None hypertension Severity mild 01/28/2012 None hypertension Triggers stress 01/28/2012 None hypothyroid Quality chronic 01/28/2012 recent labs hypothyroid Onset and Resolution ongoing 01/28/2012 None hypothyroid Severity mild with subclinical signs 01/28/2012 None hypothyroid Triggers no known associated factors 01/28/2012 None knee pain Location on the right 01/28/2012 None knee pain Quality dull pain 01/28/2012 aching. states using 2 aleve a day and it helps knee pain Quality stable 01/28/2012 None knee pain Pertinent Findings pain with movement 01/28/2012 None hypertension Quality chronic 12/03/2011 None hypertension Onset and Resolution ongoing 12/03/2011 None hypertension Onset of Symptom during adulthood 12/03/2011 None hypertension Blood Pressure Values not checking blood pressure at home 12/03/2011 None hypertension Severity mild 12/03/2011 None hypertension Triggers stress 12/03/2011 None hypothyroid Quality chronic 12/03/2011 recent labs hypothyroid Onset and Resolution ongoing 12/03/2011 None hypothyroid Severity mild with subclinical signs 12/03/2011 None hypothyroid Triggers no known associated factors 12/03/2011 None cough Quality acute None cough Location in the throat 11/05/2011 None cough Onset and Resolution ongoing 11/05/2011 None cough Onset of Symptom 4 days ago 11/05/2011 None cough Limitation on Activities does not limit activities 11/05/2011 None sore throat Location in the left peritonsillar area 11/05/2011 None sore throat Onset and Resolution ongoing 11/05/2011 None sore throat Quality scratchy 11/05/2011 Itchy throat, itchy eyes, ear pain, and watery eyes. cough Frequency of Episodes increasing 11/05/2011 Scratchy throat, fever, cough, runny nose, since Saturday. States she is scheduled for surgery on Saturday cough Triggers post nasal drip 11/05/2011 None sore throat Limitation on Activities does not limit oral intake 11/05/2011 just wants to make sure she doesn't have an infection since she has surgery on Saturday hip pain Quality burning sensation 08/09/2011 None hip pain Quality tingling 08/09/2011 None hip pain Quality sharp pain 08/09/2011 None hip pain Quality intermittent 08/09/2011 None hip pain Quality worsening 08/09/2011 None hip pain Pertinent Findings instability 08/09/2011 None hip pain Pertinent Findings limping 08/09/2011 None hip pain Pertinent Findings tingling 08/09/2011 None hip pain Onset of Symptom 2 weeks ago 08/09/2011 None hip pain Location in the buttocks 08/09/2011 Left side leg pain/sciatica Radiating the left buttock 05/28/2011 None leg pain/sciatica Quality burning sensation 05/28/2011 None leg pain/sciatica Quality sharp pain 05/28/2011 None leg pain/sciatica Onset of Symptom 2 weeks ago 05/28/2011 None leg pain/sciatica Location left leg sciatica 05/28/2011 States she has had sciatica in the past, but she feel 2 weeks ago and it is hurting worse since then. Taking aleve, it was helping but now it's not working as well. 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 03/15/2011 states urine burton sodor well woman exam (65+ years) Pap Smear last normal performed 5-6 years ago 03/15/2011 None well woman exam (65+ years) Pap Smear normal results 03/15/2011 None well woman exam (65+ years) Menstrual History menopause at age 49 03/15/2011 None well woman exam (65+ years) Obstetrical History 2 total pregnancies 03/15/2011 None well woman exam (65+ years) Obstetrical History 2 full term 03/15/2011 None well woman exam (65+ years) Sexual Activity is not sexually active 03/15/2011 None hypothyroid Onset and Resolution ongoing 03/13/2011 None hypothyroid Quality chronic 03/13/2011 None hypothyroid Severity mild with subclinical signs 03/13/2011 None hypothyroid Pertinent Findings coarse hair 03/13/2011 None hypothyroid Pertinent Findings decreased energy 03/13/2011 None hypothyroid Pertinent Findings Denies dry skin 03/13/2011 None hypothyroid Pertinent Findings Denies dysphagia with liquids 03/13/2011 None hypothyroid Pertinent Findings Denies dysphagia with solids 03/13/2011 None hypothyroid Pertinent Findings increased need for sleep 03/13/2011 None lower leg pain Quality sharp pain 11/15/2010 pt states quit work and leg pain has improved. states no longer has to be up on her feet and can tell a difference hypertension Quality chronic 11/15/2010 None hypertension Onset and Resolution ongoing 11/15/2010 None hypothyroid Quality chronic 11/15/2010 recent labs hypertension Onset of Symptom during adulthood 11/15/2010 None hypertension Blood Pressure Values not checking blood pressure at home 11/15/2010 None hypertension Severity mild 11/15/2010 None hypertension Triggers stress 11/15/2010 None lower leg pain Location in the calf region 11/15/2010 None lower leg pain Onset and Resolution gradual in onset 11/15/2010 None lower leg pain Severity mild 11/15/2010 None lower leg pain Significant Medical Conditions degenerative joint disease 11/15/2010 None hypothyroid Onset and Resolution ongoing 11/15/2010 None hypothyroid Severity mild with subclinical signs 11/15/2010 None hypothyroid Triggers no known associated factors 11/15/2010 None back pain Limitation on Activities moderately limits activities 11/01/2010 None back pain Frequency of Episodes unchanged 11/01/2010 None back pain Length of Episodes 5-6 years 11/01/2010 None back pain Triggers lifting 11/01/2010 None back pain Triggers activity 11/01/2010 None back pain Alleviating Factors heat 11/01/2010 None back pain Alleviating Factors rest 11/01/2010 None back pain Exacerbating Factors stress 11/01/2010 None back pain Exacerbating Factors activity 11/01/2010 None back pain Exacerbating Factors exertion 11/01/2010 None back pain Location in the right lower back area 11/01/2010 None back pain Quality pinching 11/01/2010 None back pain Onset and Resolution worse during the day 11/01/2010 Pt states if she 's on her feet all day it's much worse fatigue Quality worsening 11/01/2010 None fatigue Onset and Resolution worse during the day 11/01/2010 None back pain Mechanism of injury unknown 11/01/2010 None back pain Radiating down the right leg 11/01/2010 None back pain Severity moderate 11/01/2010 None fatigue Onset of Symptom 2 months ago 11/01/2010 None fatigue Triggers exertion 11/01/2010 None fatigue Alleviating Factors rest 11/01/2010 None hypertension Quality chronic 11/01/2010 None hypertension Onset and Resolution ongoing 11/01/2010 None hypertension Onset of Symptom during adulthood 11/01/2010 None hypertension Blood Pressure Values not checking blood pressure at home 11/01/2010 None hypertension Triggers stress 11/01/2010 None hypertension Alleviating Factors medication 11/01/2010 None hypertension Exacerbating Factors stress 11/01/2010 None Advance Directives No Advance Directive data Encounters Encounter Performer Location Codes Date ([id number]) 14633 EST. PATIENT, LEVEL III Diagnosis: Cough[ICD10: R05] Diagnosis: Fever, unspecified[ICD10: R50.9] Diagnosis: Acute recurrent maxillary sinusitis[ICD10: J01.01] Sheri Ty MD, [facility] CPT-4: 13868 04/22/2018 ([id number]) 59293 EST. PATIENT, LEVEL III Diagnosis: Insect bite (nonvenomous) of right upper arm, initial encounter[ICD10 : S40.861A] Sheri Ty MD, [facility] CPT-4: 08909 11/18/2017 [id number] EST. PATIENT, LEVEL III Diagnosis: Pain in right knee[ICD10: M25.561] Diagnosis: Pain in left knee[ICD10: M25.562] Diagnosis: Low back pain[ICD10: M54.5] [facility] CPT[facility] : 59284 03/21/2017 85832 EST. PATIENT, LEVEL III Diagnosis: Pain in right knee[ICD10: M25.561] Diagnosis: Pain in left knee[ICD10: M25.562] Diagnosis: Low back pain[ICD10: M54.5] [facility] CPT-[facility] : 71713 11/02/2016 [id number] [id number] EST. PATIENT, LEVEL III Diagnosis: Essential (primary) hypertension[ICD10: I10] Diagnosis: Atrophy of thyroid (acquired)[ICD10: E03.4] [facility] CPT-4: 43572 07/26/2016 ([id number]) 58897 EST. PATIENT, LEVEL III Diagnosis: Essential (primary) hypertension[ICD10: I10] Diagnosis: Pain in left knee[ICD10: M25.562] Diagnosis: Unilateral primary osteoarthritis, left knee[ICD10: M17.12] Brionna Ty MD , [facility] CPT-4: 21747 06/21/2016 96337 EST. PATIENT, LEVEL III Diagnosis: Pain in left knee[ICD10: M25.562] Lana Ty MD, [facility] CPT -4: 39292 05/25/2016 71351 EST. PATIENT, LEVEL IV Diagnosis: Other acute sinusitis[ICD10: J01.80] Diagnosis: Dizziness and giddiness[ICD10: R42] Diagnosis: Other acute nonsuppurative otitis media, bilateral[ICD10: H65.193] Lana Ty MD, [facility] CPT-4: 49473 12/02/2015 39008 EST. PATIENT, LEVEL III Diagnosis: Scar conditions and fibrosis of skin[ICD10: L90.5] Lana Ty MD, [facility] CPT-4: 94550 10/21/2015 ([id number]) 59770 EST. PATIENT, LEVEL IV Diagnosis: Essential (primary) hypertension[ICD10: I10] Diagnosis: Hypothyroidism, unspecified[ICD10: E03.9] Brionna Ty MD, [facility] CPT-4: 70147 10/17/2015 ([id number]) 00402 EST. PATIENT, LEVEL III Diagnosis: Low back pain[ICD10: M54.5] Diagnosis: Sciatica, right side[ICD10: M54.31] Diagnosis: Other obesity due to excess calories[ICD10: E66.09] Sheri Ty MD, [facility] CPT-4: 78274 06/16/2015 ([id number]) 29898 EST. PATIENT, LEVEL III Diagnosis: Essential (primary) hypertension[ICD10: I10] Diagnosis: Hypothyroidism, unspecified[ICD10: E03.9] Sheri Ty MD, [facility] CPT-4: 28189 05/12/2015 ([id number]) 48010 EST. PATIENT, LEVEL IV Diagnosis: Essential (primary) hypertension[ICD10: I10] Diagnosis: Hypothyroidism, unspecified[ICD10: E03.9] Diagnosis: Dizziness and giddiness[ICD10: R42] Sheri Ty MD, [facility] CPT-4: 39151 03/10/2015 ([id number]) 57188 EST. PATIENT, LEVEL IV Diagnosis: Hypothyroidism, unspecified[ICD10: E03.9] Diagnosis: Dizziness and giddiness[ICD10: R42] Diagnosis: Headache[ICD10: R51] Diagnosis: Allergic rhinitis due to pollen[ICD10: J30.1] Sheri Ty MD, [facility] CPT-4: 77897 02/08/2015 ([id number]) 26872 EST. PATIENT, LEVEL III Diagnosis: Acute maxillary sinusitis, unspecified[ICD10: J01.00] Sheri Ty MD, [facility] CPT-4: 42817 12/27/2014 ([id number]) 80978 EST. PATIENT, LEVEL IV Diagnosis: ESSENTIAL HYPERTENSION[ICD9: 401.9] Diagnosis: HYPOTHYROIDISM[ICD9: 244.9] Brionna Ty MD, [facility] CPT- 4: 31886 11/16/2014 ([id number]) 18548 EST. PATIENT, LEVEL III Diagnosis: ESSENTIAL HYPERTENSION[ICD9: 401.9] Diagnosis: HYPOTHYROIDISM[ICD9: 244.9] Sheri Ty MD, [facility] CPT-4: 72137 10/11/2014 ([id number]) 07827 EST. PATIENT, LEVEL IV Diagnosis: ESSENTIAL HYPERTENSION[ICD9: 401.9] Diagnosis: HYPERLIPIDEMIA[ICD9: 272.4] Diagnosis: HYPOTHYROIDISM[ICD9: 244.9] Diagnosis: Sacroiliitis[ICD9: 720.2] Brionna Ty MD, [facility] CPT-4: 27264 07/16/2014 ([id number]) 37209 EST. PATIENT, LEVEL IV Diagnosis: ESSENTIAL HYPERTENSION[ICD9: 401.9] Diagnosis: HYPOTHYROIDISM[ICD9: 244.9] Diagnosis: HYPERLIPIDEMIA[ICD9: 272.4] Diagnosis: Gait instability[ICD9: 781.2] Diagnosis: Osteoarthritis[ICD9: 715.90] Brionna Ty MD, [facility] CPT- 4: 63903 06/14/2014 ([id number]) [id number] EST. PATIENT, LEVEL IV Diagnosis: Solano's cyst[ICD9: 727.51] Diagnosis: ESSENTIAL HYPERTENSION[ICD9: 401.9] Brionna Ty MD [facility] CPT-4: 16638 11/05/2013 ([id number]) 19322 EST. PATIENT, LEVEL III Diagnosis: ACUTE PHARYNGITIS[ICD9: 462] Sheri Ty MD [facility] CPT-4: 33959 09/08/2013 ([id number]) 53931 EST. PATIENT, LEVEL III Diagnosis: UTI[ICD9: 599.0] Sheri Ty MD [facility] CPT-4: 37661 05/25/2013 ([id number]) 05980 EST. PATIENT, LEVEL IV Diagnosis: ESSENTIAL HYPERTENSION[SNOMED: 53499196] Diagnosis: HYPOTHYROIDISM[ICD9: 244.9] Diagnosis: ALLERGIC RHINITIS[ICD9: 477.9] Brionna Ty MD [facility] CPT- 4: 48132 05/04/2013 ([id number]) 54772 EST. PATIENT, LEVEL IV Diagnosis: ESSENTIAL HYPERTENSION[SNOMED: 82362443] Diagnosis: HYPOTHYROIDISM[ICD9: 244.9] Brionna Ty MD [facility] CPT- 4: 00015 02/09/2013 ([id number]) 20851 EST. PATIENT, LEVEL III Diagnosis: UTI[ICD9: 599.0] Diagnosis: Dysuria[ICD9: 788.1] Brionna Ty MD [facility] CPT-4: 01825 09/11/2012 ([id number]) 20354 EST. PATIENT, LEVEL IV Diagnosis: ESSENTIAL HYPERTENSION[SNOMED: 44169087] Diagnosis: HYPERLIPIDEMIA[ICD9: 272.4] Diagnosis: HYPOTHYROIDISM[ICD9: 244.9] Brionna Ty MD [facility] CPT- 4: 95922 05/29/2012 ([id number]) 69495 EST. PATIENT, LEVEL IV Diagnosis: ESSENTIAL HYPERTENSION[SNOMED: 92910768] Diagnosis: HYPERLIPIDEMIA[ICD9: 272.4] Diagnosis: HYPOTHYROIDISM[ICD9: 244.9] Brionna Ty MD [facility] CPT- 4: 48721 02/28/2012 ([id number]) 69994 EST. PATIENT, LEVEL IV Diagnosis: ESSENTIAL HYPERTENSION[SNOMED: 88407680] Diagnosis: HYPOTHYROIDISM[ICD9: 244.9] Brionna Ty MD, [facility] CPT- 4: 87126 01/28/2012 ([id number]) 53484 EST. PATIENT, LEVEL IV Diagnosis: ESSENTIAL HYPERTENSION[SNOMED: 17540882] Diagnosis: ESOPHAGEAL REFLUX[ICD9: 530.81] Diagnosis: Constipation - functional[ICD9: 564.09] Brionna Ty MD, [facility] CPT-4: 87574 12/03/2011 ([id number]) 99129 EST. PATIENT, LEVEL III Diagnosis: ALLERGIC RHINITIS[ICD9: 477.9] Diagnosis: ACUTE SINUSITIS[ICD9: 461.9] Brionna Ty MD, [facility] CPT- 4: 06022 11/05/2011 ([id number]) 82410 EST. PATIENT, LEVEL III Diagnosis: SCIATICA[ICD9: 724.3] Diagnosis: SACROILIITIS NEC[ICD9: 720.2] Diagnosis: Gait instability[ICD9: 781.2] Sheri Ty MD, [facility] CPT-4: 74082 08/09/2011 28328 EST. PATIENT, LEVEL III Diagnosis: Sacroiliitis[ICD9: 720.2] Diagnosis: Fall from slipping[ICD9: E885.9] Sheri Ty MD, [facility] CPT-4: 98958 05/28/2011 ([id number]) PER PM REEVAL EST PAT 65+ YR Diagnosis: Well woman exam[ICD9: V70.0] Sheri Ty MD, [facility] CPT-4: 15498 03/15/2011 ([id number]) 99685 EST. PATIENT, LEVEL IV Diagnosis: ESSENTIAL HYPERTENSION[SNOMED: 06854229] Diagnosis: HYPOTHYROIDISM[ICD9: 244.9] Diagnosis: ESOPHAGEAL REFLUX[ICD9: 530.81] Brionna Ty MD, [facility] CPT- 4: 07613 03/13/2011 67866 EST. PATIENT, LEVEL IV Diagnosis: ESSENTIAL HYPERTENSION[SNOMED: 61161749] Diagnosis: HYPOTHYROIDISM[ICD9: 244.9] Diagnosis: Leg pain, bilateral[ICD9: 729.5] [facility] CPT-4: 15090 11/15/2010 14359 EST. PATIENT, LEVEL IV Diagnosis: SACROILIITIS NEC[ICD9: 720.2] Diagnosis: SCIATICA[ICD9: 724.3] Diagnosis: ESSENTIAL HYPERTENSION[SNOMED: 54732023] Diagnosis: HYPOTHYROIDISM[ICD9: 244.9] [facility] CPT- 4: 90267 11/01/2010 Plan of Care Planned Activity Notes Codes Status Date Visit Plan: Joint Injection -bilateral knees- Pt was given post - injection instructions. The pt has been advised to use anti- inflammatories post injection today, ice to the injected site, call if redness, warmth, or increased pain occurs at the site of injection. 05/01/2018 Appointment: Sheri Sorto WPtel: [address] [place] [address] (10 min) Simple 05/01/2018 Patient Education: Patient Medication Summary Completed 05/01/2018 Visit Plan: Sinusitis - Pt has acute infection - pain in face, maxillary region, Pt informed to use decongestant, RX given to patient, sinus rinses also recommended. Call if symptoms do not show improvement. Bronchitis - acute case of bronchitis identified. Pt has been given antibiotics , breathing treatments as appropriate, and pt has been instructed to call if symptoms are not improved, or if symptoms acutely worsen. 04/22/2018 Appointment: Sheri Sorto WPtel: [address] [place] [address] (15 min) Moderate 04/22/2018 Patient Education: Patient Medication Summary Completed 04/22/2018 Patient Education: Patient Medication Summary Completed 12/06/2017 Visit Plan: Medicare Exam - today we discussed the patients past history, immunizations, preventative exams/evaluations - colonoscopy, fecal occult blood testing, routine labs for renal function, glucose, cholesterol, osteoporosis evaluations, cardiovascular testing and cancer screenings. We have also discussed mental health and the signs/symptoms of depression. The patient was advised of home safety evaluations and the need to make sure that as the aging process continues, we need to be aware of different ways to make the home a safer place to reside. The patient has also been counseled that exercise is necessary - and of utmost importance as we age to help decrease fall risk and to maintain independence in the home. Today we discussed the need for the patient to create paperwork for Advanced directives as well as for the patient to provide this office with a copy of her DOPA paperwork for health care surrogate. 11/28/2017 Appointment: Sheri Sorto WPtel: [address] [place], [place] [phone] [facility] - Annual Wellness Visit 11/28/2017 Patient Education: Patient Medication Summary Completed 11/28/2017 Care Plan: SCREENINGMAMMOGRAPHYDIGITAL LOINC : 17379-6 Pending 11/28/2017 Visit Plan: Cellulitis -possible spider bite- RX for oral antibiotics provided to use as directed, return to clinic on as directed, call for acute change in symptoms, worsening redness, warmth, discharge. 11/18/2017 Visit Plan: Cellulitis -possible spider bite- RX for oral antibiotics provided to use as directed, return to clinic on as directed, call for acute change in symptoms, worsening redness, warmth, discharge. 11/18/2017 Appointment: Sheri Sorto WPtel: [address] [place], [place] [phone] (30 min) Complex 11/18/2017 Patient Education: Patient Medication Summary Completed 11/18/2017 Visit Plan: Joint Injection - Pt was given post - injection instructions. The pt has been advised to use anti-inflammatories post injection today, ice to the injected site, call if redness, warmth, or increased pain occurs at the site of injection. Right knee pain, Low back pain- the patient was instructed in appropriate posture, need for weight loss to alleviate abdominal obesity that is worsening the patient's back pain.. The pt is to use prn antiinflammatories to manage acute pain. The patient is to call the office if the pain is worsening or does not improve. Sacroiliitis - back exercises discussed with the patient, pt to continue with anti-inflammatories. Pt is to call if the symptoms do not improve or if they worsen. 09/04/2017 Appointment: Lana Seaman [facility]Ptel[facility] (30 min) Complex 09/04/2017 Patient Education: Patient Medication Summary Completed 09/04/2017 Visit Plan: Bilateral knee - Joint Injection - Pt was given post - injection instructions. The pt has been advised to use anti- inflammatories post injection today, ice to the injected site, call if redness, warmth, or increased pain occurs at the site of injection. 03/21/2017 Appointment: [facility] Seaman [facility]Ptel[facility] [phone] [facility] (30 min) Complex 03/21/2017 Patient Education: Patient Medication Summary Completed 03/21/2017 Referral: Osman Yoo 11/07 at 1PM - pt notified at her appointment Completed 11/07/2016 Care Plan: Referral Order SNOMED-CT : 576406386 Pending 11/04/2016 Visit Plan: Low back pain- the patient was instructed in appropriate posture, need for weight loss to alleviate abdominal obesity that is worsening the patient's back pain.. The pt is to use prn antiinflammatories to manage acute pain. The patient is to call the office if the pain is worsening or does not improve. Bilateral knee pain - worsening - will refer to Dr. Yoo - pt is to notify clinic if symptoms do not improve, if they worsen , or with any changes, questions, or concerns. 11/02/2016 Appointment: Lana Seaman WPtel[facility] (30 min) Complex 11/02/2016 Patient Education: Patient Medication Summary Completed 11/02/2016 Visit Plan: Hypertension - well controlled - continue with current medications, continue with no added salt diet. Pt has been encouraged to exercise daily. The pt has been advised to call the office if there are any acute concerns about change in blood pressure readings at home. Hypothyroidism - pt with chronic hypothyroidism, continue with current medication, will monitor pt to signs or symptoms of lack of adequate supplementation. Pt is to continue with current dose of medication unless directed otherwise. Check labs at regular intervals wither q 3 months or q 6 months based on previous levels of control. 07/26/2016 Appointment: Brionna Ty WPtel: [facility] (15 min) Moderate 07/26/2016 Patient Education: Patient Medication Summary Completed 07/26/2016 Patient Education: Obesity Completed 07/26/2016 Appointment: Brionna Ty WPtel: [facility] (15 min) Moderate 07/24/2016 Visit Plan: Hypertension - well controlled - continue with current medications, continue with no added salt diet. Pt has been encouraged to exercise daily. The pt has been advised to call the office if there are any acute concerns about change in blood pressure readings at home. steroid shot left knee today Arthritis- occasionally uncontrolled symptoms- recommend pt to take antiinflammatory as directed for pain control. Use tylenol for break through pain symptoms. 06/21/2016 Appointment: Brionna Ty WPtel: [facility] (15 min) Moderate 06/21/2016 Patient Education: Patient Medication Summary Completed 06/21/2016 Visit Plan: Left knee pain - ongoing x 2 weeks, denies trauma - will order x-ray. Pt is to use RICE - Rest, Ice, Compression, Elevation. The pt is to use prn antiinflammatories to manage acute pain. The patient is to call the office if the pain is worsening or does not improve. 05/25/2016 Appointment: Lana Seaman WPtel: [facility] (30 min) Complex 05/25/2016 Patient Education: Patient Medication Summary Completed 05/25/2016 Patient Education: Obesity Completed 05/25/2016 Appointment: Brionna Ty WPtel: [facility] [place] (15 min) Moderate 02/14/2016 Visit Plan: Sinusitis - Pt has acute infection - pain in face, maxillary region, Pt informed to use decongestant, RX given to patient, sinus rinses also recommended. Call if symptoms do not show improvement. Otitis Media - discussed the diagnosis with the patient, script sent electronically to the pharmacy for treatment of the infection. The disease course was discussed and the need to notify the clinic if symptoms do not improve or if they acutely worsen. Vertigo - discussed diagnosis with the patient, offered the pt the appropriate additional information in hand-out. Pt instructed in home exercises to help alleviate and prevent future recurrent episodes of vertigo. Pt informed that if symptoms worsen, call the office for further instructions/medication interventions. 12/02/2015 Appointment: Sheri Sorto WPtel: [phone] (30 min) Complex 12/02/2015 Patient Education: Patient Medication Summary Completed 12/02/2015 Patient Education: Obesity Completed 12/02/2015 Visit Plan: Scar - lap sites - cholecystectomy - pt states that she was worried that it was getting infected - well healing, no erythema, warmth, drainage, or edema noted. Pt can use topical ointment to help reduce the appearance of scars. Pt is to notify clinic with any questions or concerns. 10/21/2015 Patient Education: Patient Medication Summary Completed 10/21/2015 Patient Education: Obesity Completed 10/21/2015 Visit Plan: Hypertension - well controlled - continue with current medications, continue with no added salt diet. Pt has been encouraged to exercise daily. The pt has been advised to call the office if there are any acute concerns about change in blood pressure readings at home. Hypothyroidism - pt with chronic hypothyroidism, continue with current medication, will monitor pt to signs or symptoms of lack of adequate supplementation. Pt is to continue with current dose of medication unless directed otherwise. Check labs at regular intervals wither q 3 months or q 6 months based on previous levels of control. 10/17/2015 Patient Education: Patient Medication Summary Completed 10/17/2015 Patient Education: Obesity Completed 10/17/2015 Patient Education: Hypertension Completed 10/17/2015 Visit Plan: Sacroilitis/sciatica-injection today in the office-Recommend physical therapy for low back pain- exercises discussed with the patient, pt to continue with antiinflammatories. Pt is to call if the symptoms do not improve or if they worsen. 06/16/2015 Patient Education: Patient Medication Summary Completed 06/16/2015 Patient Education: Obesity Completed 06/16/2015 Care Plan: BMI Above normal followup SELF-MGMT EDUC & TRAIN 1 PT Pending 2015 Visit Plan: Hypertension - well controlled - continue with current medications, continue with no added salt diet. Pt has been encouraged to exercise daily. The pt has been advised to call the office if there are any acute concerns about change in blood pressure readings at home. Hypothyroidism - pt with chronic hypothyroidism, continue with current medication, will monitor pt to signs or symptoms of lack of adequate supplementation. Pt is to continue with current dose of medication unless directed otherwise. Check labs at regular intervals wither q 3 months or q 6 months based on previous levels of control. 05/12/2015 Patient Education: Patient Medication Summary Completed 05/12/2015 Patient Education: Obesity Completed 05/12/2015 Patient Education: Hypertension Completed 05/12/2015 Visit Plan: Hypertension - well controlled - continue with current medications, continue with no added salt diet. Pt has been encouraged to exercise daily. The pt has been advised to call the office if there are any acute concerns about change in blood pressure readings at home. Hypothyroidism - pt with chronic hypothyroidism, continue with current medication, will monitor pt to signs or symptoms of lack of adequate supplementation. Pt is to continue with current dose of medication unless directed otherwise. Check labs at regular intervals wither q 3 months or q 6 months based on previous levels of control. Hejfmdlii-qcjozwiy-megt if symptoms do not completely resolve 03/10/2015 Appointment: (15 min) Moderate 03/10/2015 Patient Education: Patient Medication Summary Completed 03/10/2015 Patient Education: Hypertension Completed 03/10/2015 Visit Plan: Allergies - chronic - recommended pt to use allergy medication as prescribed. Pt has been counseled as to the appropriate use of the medication. Pt to call if allergy symptoms are not controlled with the medication. If using nasal spray, instructions as follows: Nasal spray- use twice daily, one spray per nostril twice daily, after 30 minutes, rinse out nose with saline spray.. Use opposite hand per nostril to spray in the nasal steroid allergy spray. Hypothyroidism - pt with chronic hypothyroidism, continue with current medication, will monitor pt to signs or symptoms of lack of adequate supplementation. Pt is to continue with current dose of medication unless directed otherwise. Check labs at regular intervals wither q 3 months or q 6 months based on previous levels of control. Uknneadxe-flrqjlzfs-rbnqwou due to allergies-start claritin-call if symptoms persist and we will further investigate with CT head and carotid ultrasound 02/08/2015 Appointment: (15 min) Moderate 02/08/2015 Patient Education: Patient Medication Summary Completed 02/08/2015 Patient Education: Patient Medication Summary Completed 02/03/2015 Visit Plan: Sinusitis - Pt has acute infection - pain in face, maxillary region, Pt informed to use decongestant, RX given to patient, sinus rinses also recommended. Call if symptoms do not show improvement. 12/27/2014 Appointment: Sheri Sorto WPtel: [phone] [facility] (15 min) Moderate 12/27/2014 Patient Education: Patient Medication Summary Completed 12/27/2014 Visit Plan: Hypertension - well controlled - continue with current medications, continue with no added salt diet. Pt has been encouraged to exercise daily. The pt has been advised to call the office if there are any acute concerns about change in blood pressure readings at home. Hypothyroidism - pt with chronic hypothyroidism, continue with current medication, will monitor pt to signs or symptoms of lack of adequate supplementation. Pt is to continue with current dose of medication unless directed otherwise. Check labs at regular intervals wither q 3 months or q 6 months based on previous levels of control. 11/16/2014 Appointment: [facility]ionna [facility] [address] [facility] [facility] 11/16/2014 Patient Education: Patient Medication Summary Completed 11/16/2014 Patient Education: Hypertension Completed 11/16/2014 Visit Plan: Hypertension - well controlled - continue with current medications, continue with no added salt diet. Pt has been encouraged to exercise daily. The pt has been advised to call the office if there are any acute concerns about change in blood pressure readings at home. Hypothyroidism - pt with chronic hypothyroidism, continue with current medication, will monitor pt to signs or symptoms of lack of adequate supplementation. Pt is to continue with current dose of medication unless directed otherwise. Check labs at regular intervals wither q 3 months or q 6 months based on previous levels of control. 10/11/2014 Appointment: (15 min) Moderate 10/11/2014 Patient Education: Patient Medication Summary Completed 10/11/2014 Patient Education: Hypertension Completed 10/11/2014 Visit Plan: Hypertension - well controlled - continue with current medications, continue with no added salt diet. Pt has been encouraged to exercise daily. The pt has been advised to call the office if there are any acute concerns about change in blood pressure readings at home. Hypothyroidism - pt with chronic hypothyroidism, continue with current medication, will monitor pt to signs or symptoms of lack of adequate supplementation. Pt is to continue with current dose of medication unless directed otherwise. Check labs at regular intervals wither q 3 months or q 6 months based on previous levels of control. Hyperlipidemia - pt has been counseled about appropriate diet, exercise, and need for low fat food choices. I have discussed the need for the patient to take medications as prescribed. If the patient has negative side effects from the medication, they are to CALL the office and not abruptly discontinue the medication without discussion with a practitioner in the office. We will check labs in 3-6 months for follow up on the patient's chronic medical problem and to assure normal liver response to medications. SI joint pain, patient to use anti-inflammatory - will refer to Dr. Sarmiento for eval/ injections if conservative therapy does not help, pt is to call us to report if the recommended treatments help. 07/16/2014 Appointment: Brionna Ty WPtel: [address] [place], [place] [id number] Follow up 07/16/2014 Patient Education: Patient Medication Summary Completed 07/16/2014 Patient Education: Hypertension Completed 07/16/2014 Appointment: Brionna Ty WPtel: [address] [place], [place] [id number] Follow up 07/14/2014 Visit Plan: Hypertension - well controlled - continue with current medications, continue with no added salt diet. Pt has been encouraged to exercise daily. The pt has been advised to call the office if there are any acute concerns about change in blood pressure readings at home. Hypothyroidism - pt with chronic hypothyroidism, continue with current medication, will monitor pt to signs or symptoms of lack of adequate supplementation. Pt is to continue with current dose of medication unless directed otherwise. Check labs at regular intervals wither q 3 months or q 6 months based on previous levels of control. Arthritis- occasionally uncontrolled symptoms- recommend pt to take antiinflammatory as directed for pain control. Use tylenol for break through pain symptoms. Back pain - referral to physical therapy for treatment and gait training/strengthening. Pt to RTC in a few weeks for re-eval - if still not doing well, need to inject patient. 06/14/2014 Appointment: [phone] [facility] [facility] 06/14/2014 Patient Education: Patient Medication Summary Completed 06/14/2014 Patient Education: Hypertension Completed 06/14/2014 Visit Plan: Hypertension - well controlled - continue with current medications, continue with no added salt diet. Pt has been encouraged to exercise daily. The pt has been advised to call the office if there are any acute concerns about change in blood pressure readings at home. Arthritis - uncontrolled - with Solano's cyst toradol 60mg im x 1 11/05/2013 Appointment: Brionna Ty [facility]Ptel[facility] [address] [facility] Follow up 11/05/2013 Patient Education: Patient Medication Summary Completed 11/05/2013 Patient Education: Hypertension Completed 11/05/2013 Appointment: [facility]ionna Ty [facility]el[facility] [phone] [facility] Follow up 11/02/2013 Visit Plan: Pharyngitis-Discussed natural and expected course of this diagnosis and need to alert me if symtpoms do not follow expected course, or if any worse. Recommended salt water gargles as needed for pain. Tylenol/motrin as needed for fever/discomfort. 09/08/2013 Appointment: Sick 09/08/2013 Patient Education: Patient Medication Summary Completed 09/08/2013 Visit Plan: Urinary Tract Infection-discussed natural and expected course of this diagnosis and to alert me if symptoms do not follow expected course, or if any worse. UA positive for infection today in the office- plan to send for culture and will call patient with results. RX sent to patient' s pharmacy. Avoid tub baths, restrictive underwear, etc. Recommend patient start on probiotic while taking the antibiotic to prevent diarrhea. Patient verbalized understanding of plan. 05/25/2013 Appointment: Sheri Sorto WPtel: [phone] [place] Other 05/25/2013 Patient Education: Patient Medication Summary Completed 05/25/2013 Visit Plan: Hypertension - well controlled - continue with current medications, continue with no added salt diet. Pt has been encouraged to exercise daily. The pt has been advised to call the office if there are any acute concerns about change in blood pressure readings at home. Hypothyroidism - pt with chronic hypothyroidism, continue with current medication, will monitor pt to signs or symptoms of lack of adequate supplementation. Pt is to continue with current dose of medication unless directed otherwise. Check labs at regular intervals wither q 3 months or q 6 months based on previous levels of control. Allergies - chronic - recommended pt to use allergy medication as prescribed. Pt has been counseled as the the appropriate use of the medication. Pt to call if allergy symptoms are not controlled with the medication. If using nasal spray, instructions as follows: Nasal spray- use twice daily, one spray per nostril twice daily, after 30 minutes, rinse out nose with saline spray.. Use opposite hand per nostril to spray in the nasal steroid allergy spray. 05/04/2013 Appointment: Brionna Ty WPtel: [address] [place], [place] [id number] Follow up 05/04/2013 Patient Education: Patient Medication Summary Completed 05/04/2013 Patient Education: Hypertension Completed 05/04/2013 Visit Plan: Hypertension - well controlled - continue with current medications, continue with no added salt diet. Pt has been encouraged to exercise daily. The pt has been advised to call the office if there are any acute concerns about change in blood pressure readings at home. Hypothyroidism - pt with chronic hypothyroidism, continue with current medication, will monitor pt to signs or symptoms of lack of adequate supplementation. Pt is to continue with current dose of medication unless directed otherwise. Check labs at regular intervals wither q 3 months or q 6 months based on previous levels of control. 02/09/2013 Appointment: Brionna Ty WPtel: [address] [place], [place] [id number] Follow up 02/09/2013 Patient Education: Patient Medication Summary Completed 02/09/2013 Patient Education: Hypertension Completed 02/09/2013 Appointment: Brionna Ty WPtel: [address] [place], [place] [id number] Follow up 12/11/2012 Visit Plan: UTI - pt with positive urinalysis - culture sent if appropriate. Antibiotic electronically prescribed to pt's pharmacy of choice. Pt to call if symptoms do not improve. 09/11/2012 Appointment: Brionna Ty WPtel: [address] [facility] [id number] Follow up 09/11/2012 Patient Education: Patient Medication Summary Completed 09/11/2012 Appointment: Brionna Ty WPtel: [address] [id number] Follow up 09/02/2012 Visit Plan: Hypertension - well controlled - continue with current medications, continue with no added salt diet. Pt has been encouraged to exercise daily. The pt has been advised to call the office if there are any acute concerns about change in blood pressure readings at home. Hyperlipidemia - pt has been counseled about appropriate diet, exercise, and need for low fat food choices. I have discussed the need for the patient to take medications as prescribed. If the patient has negative side effects from the medication, they are to CALL the office and not abruptly discontinue the medication without discussion with a practicioner in the office. We will check labs in 3-6 months for follow up on the patient's chronic medical problem and to assure normal liver response to medications. Hypothyroidism - pt with chronic hypothyroidism, continue with current medication, will monitor pt to signs or symptoms of lack of adequate supplementation. Pt is to continue with current dose of medication unless directed otherwise. Check labs at regular intervals wither q 3 months or q 6 months based on previous levels of control. 05/29/2012 Appointment: Brionna Ty WPtel: [phone] [facility] [id number] Follow up 05/29/2012 Patient Education: Patient Medication Summary Completed 05/29/2012 Patient Education: Hypertension Completed 05/29/2012 Visit Plan: Hypertension - well controlled - continue with current medications, continue with no added salt diet. Pt has been encouraged to exercise daily. The pt has been advised to call the office if there are any acute concerns about change in blood pressure readings at home. Hyperlipidemia - pt has been counseled about appropriate diet, exercise, and need for low fat food choices. I have discussed the need for the patient to take medications as prescribed. If the patient has negative side effects from the medication, they are to CALL the office and not abruptly discontinue the medication without discussion with a practicioner in the office. We will check labs in 3-6 months for follow up on the patient's chronic medical problem and to assure normal liver response to medications. started lovastatin 20mg qhs Hypothyroidism - pt with chronic hypothyroidism, continue with current medication, will monitor pt to signs or symptoms of lack of adequate supplementation. Pt is to continue with current dose of medication unless directed otherwise. Check labs at regular intervals wither q 3 months or q 6 months based on previous levels of control. increased synthroid dose to 112 mcg daily 02/28/2012 Appointment: Brionna Ty WPtel: [phone] [id number] Follow up 02/28/2012 Patient Education: Patient Medication Summary Completed 02/28/2012 Patient Education: Hypertension Completed 02/28/2012 Patient Education: Patient Medication Summary Completed 02/04/2012 Patient Education: Hypertension Completed 02/04/2012 Visit Plan: Hypertension - uncontrolled - the patient's medications have been modified as documented in the visit note. The patient has been counseled to cut back on salt in diet for a no added salt diet, low fat diet, start an exercise program with low weight bearing exercises and higher aerobic activity for heart health. The patient is to check blood pressure readings as an outpatient and either fax, call, or email the readings to the office next week for practicioner to review. The pt is to call for acute concerns. PT TO RESTART HER NORVASC AT 5MG DAILY IN THE MORNING. Hypothyroidism - controlled - continue to monitor labs serially to keep Valerie at appropriate levelsof supplementation. 01/28/2012 Appointment: Brionna Ty WPtel: [address] [id number] Follow up 01/28/2012 Patient Education: Hypertension Completed 01/28/2012 Patient Education: Patient Medication Summary Completed 01/28/2012 Visit Plan: Hypertension - well controlled - continue with current medications, continue with no added salt diet. Pt has been encouraged to exercise daily. The pt has been advised to call the office if there are any acute concerns about change in blood pressure readings at home. Esophageal Reflux - the patient has been counseled against excessive intake of caffiene, spicy foods, peppermint, and cinnamon - all of which can exacerbate esophageal reflux. The patient is to take medications as prescribed and call the office if the symptoms are not improving. Neck pain- pt to follow up with Dr. Wadsworth. Constipation- improved on Miralax- may go to Saturday, Saturday, Saturday. 12/03/2011 Appointment: Brionna Ty WPtel: [address] [place], [place] [id number] Hospital follow up 12/03/2011 Patient Education: Patient Medication Summary Completed 12/03/2011 Patient Education: High Blood Pressure: Essential Hypertension Completed 2011 Visit Plan: Allergies - Advised avoidance of allergens if possible, we discussed natural and expected course of this diagnosis and need to alert me if symtpoms do not follow expected course, or if any worse. Sinusitis - Pt has acute infection - pain in face, maxillary region, Pt informed to use decongestant, RX given to patient, sinus rinses also recommended. Recommend take start on probiotic while on antibiotics. Call if symptoms do not show improvement. 11/05/2011 Appointment: Sheri Sorto WPtel: [address] [place], [place] [phone] Other 11/05/2011 Appointment: Sheri Sorto WPtel: [address] [place], [place] [phone] Lab Draw 11/05/2011 Patient Education: Patient Medication Summary Completed 11/05/2011 Appointment: Brionna Ty WPtel: [address] [place], [place] [id number] Follow up 09/06/2011 Visit Plan: Sacroilitis/sciatica-injection today in the office-Recommend physical therapy for gait instability- exercises discussed with the patient, pt to continue with antiinflammatories. Pt is to call if the symptoms do not improve or if they worsen. 08/09/2011 Appointment: Sheri Sorto WPtel: [address] [place], [place] [phone] [place] Other 08/09/2011 Patient Education: Patient Medication Summary Completed 08/09/2011 Visit Plan: Sacroilitis/sciatica-discussed natural and expected course of this diagnosis and to alert me if symptoms do not follow expected course, or if any worse. Plan for xrays today at the hospital to evaluate for acute abnormality. Kenalog injection today in the office. 05/28/2011 Appointment: Sheri Sorto WPtel: [facility] [place] [phone] [place] [address] Other 05/28/2011 Patient Education: Patient Medication Summary Completed 05/28/2011 Visit Plan: Well Adult Female - exam completed. Pap and gc/ chlamydia and breast exam completed. Pt will be called with results of her testing. She was advised to continue with yearly annual exams. Safe sex practices discussed during office visit today. Call if any abnormal gynecologic issues during the next year, otherwise, RTC yearly or prn. 03/15/2011 Appointment: Sheri Sorto WPtel: [facility] [id number] [place] [address] Well Woman 03/15/2011 Patient Education: Patient Medication Summary Completed 03/15/2011 Visit Plan: Hypertension - well controlled - continue with current medications, continue with no added salt diet. Pt has been encouraged to exercise daily. The pt has been advised to call the office if there are any acute concerns about change in blood pressure readings at home. Hypothyroidism - pt with chronic hypothyroidism, continue with current medication, will monitor pt to signs or symptoms of lack of adequate supplementation. Pt is to continue with current dose of medication unless directed otherwise. Check labs at regular intervals wither q 3 months or q 6 months based on previous levels of control. Synthroid changed to 100 mcg daily. Esophageal Reflux - the patient has been counseled against excessive intake of caffiene, spicy foods, peppermint , and cinnamon - all of which can exacerbate esophageal reflux. The patient is to take medications as prescribed and call the office if the symptoms are not improving. Samples of aciphex given to pt. 03/13/2011 Appointment: Brionna Ty WPtel: [phone] Other 03/13/2011 Patient Education: Patient Medication Summary Completed 03/13/2011 Patient Education: High Blood Pressure: Essential Hypertension Completed 2011 Appointment: Brionna Ty WPtel: [facility] Other 12/06/2010 Visit Plan: Hypertension - uncontrolled - the patient's medications have been modified as documented in the visit note. The patient has been counseled to cut back on salt in diet for a no added salt diet, low fat diet, start an exercise program with low weight bearing exercises and higher aerobic activity for heart health. The patient is to check blood pressure readings as an outpatient and either fax, call, or email the readings to the office next week for practicioner to review. The pt is to call for acute concerns. CONTINUE WITH THE LISINOPRIL AT CURRENT DOSE, AND START ON THE NEW MEDICATION, NORVASC 5 MG DAILY. Hypothyroidism - pt with chronic hypothyroidism , continue with current medication, will monitor pt to signs or symptoms of lack of adequate supplementation. Pt is to continue with current dose of medication unless directed otherwise. Check labs at regular intervals wither q 3 months or q 6 months based on previous levels of control. Leg pain- improved- continue with as needed antiinflammatories. 11/15/2010 Appointment: Brionna Ty WPtel: [address] [place] [address] Other 11/15/2010 Patient Education: Patient Medication Summary Completed 11/15/2010 Visit Plan: Hypertension - well controlled - continue with current medications, continue with no added salt diet. Pt has been encouraged to exercise daily. The pt has been advised to call the office if there are any acute concerns about change in blood pressure readings at home. Hypothyroidism - pt with chronic hypothyroidism, continue with current medication, will monitor pt to signs or symptoms of lack of adequate supplementation. Pt is to continue with current dose of medication unless directed otherwise. Check labs at regular intervals wither q 3 months or q 6 months based on previous levels of control. Sciatica- exercises discussed with the patient, pt to continue with antiinflammatories. Pt is to call if the symptoms do not improve or if they worsen. TAKE NAPROSYN TWICE A DAY TO CONTROL THE SCIATICA( BACK PAIN). 11/01/2010 Appointment: Brionna Ty WPtel: [facility] Other 11/01/2010 Patient Education: Patient Medication Summary Completed 11/01/2010 Referral: Osman Yoo Referral Completed Instructions Comment Refer to Sita for PT . Sacroilitis/sciatica-injection today in the office-Recommend physical therapy for low back pain- exercises discussed with the patient, pt to continue with antiinflammatories. Pt is to call if the symptoms do not improve or if they worsen. . Allergies - Advised avoidance of allergens if possible, we discussed natural and expected course of this diagnosis and need to alert me if symtpoms do not follow expected course, or if any worse. Sinusitis - Pt has acute infection - pain in face, maxillary region, Pt informed to use decongestant, RX given to patient, sinus rinses also recommended. Recommend take start on probiotic while on antibiotics. Call if symptoms do not show improvement. KENALOG FLU SWAB . Sinusitis - Pt has acute infection - pain in face, maxillary region, Pt informed to use decongestant, RX given to patient, sinus rinses also recommended. Call if symptoms do not show improvement. Bronchitis - acute case of bronchitis identified. Pt has been given antibiotics , breathing treatments as appropriate, and pt has been instructed to call if symptoms are not improved, or if symptoms acutely worsen. . Hypertension - well controlled - continue with current medications, continue with no added salt diet. Pt has been encouraged to exercise daily. The pt has been advised to call the office if there are any acute concerns about change in blood pressure readings at home. Hypothyroidism - pt with chronic hypothyroidism, continue with current medication, will monitor pt to signs or symptoms of lack of adequate supplementation. Pt is to continue with current dose of medication unless directed otherwise. Check labs at regular intervals wither q 3 months or q 6 months based on previous levels of control. Hyperlipidemia - pt has been counseled about appropriate diet, exercise, and need for low fat food choices. I have discussed the need for the patient to take medications as prescribed. If the patient has negative side effects from the medication, they are to CALL the office and not abruptly discontinue the medication without discussion with a practitioner in the office. We will check labs in 3-6 months for follow up on the patient's chronic medical problem and to assure normal liver response to medications. SI joint pain, patient to use anti-inflammatory - will refer to Dr. Sarmiento for eval/injections if conservative therapy does not help, pt is to call us to report if the recommended treatments help. . Hypertension - well controlled - continue with current medications, continue with no added salt diet. Pt has been encouraged to exercise daily. The pt has been advised to call the office if there are any acute concerns about change in blood pressure readings at home. Hypothyroidism - pt with chronic hypothyroidism, continue with current medication, will monitor pt to signs or symptoms of lack of adequate supplementation. Pt is to continue with current dose of medication unless directed otherwise. Check labs at regular intervals wither q 3 months or q 6 months based on previous levels of control. RETURN SATURDAY SO I CAN LOOK AT YOUR ARM . Cellulitis -possible spider bite- RX for oral antibiotics provided to use as directed, return to clinic on as directed, call for acute change in symptoms, worsening redness, warmth, discharge. RETURN SATURDAY SO I CAN LOOK AT YOUR ARM . Cellulitis -possible spider bite- RX for oral antibiotics provided to use as directed, return to clinic on as directed, call for acute change in symptoms, worsening redness, warmth, discharge. . Hypertension - well controlled - continue with current medications, continue with no added salt diet. Pt has been encouraged to exercise daily. The pt has been advised to call the office if there are any acute concerns about change in blood pressure readings at home. Hypothyroidism - pt with chronic hypothyroidism, continue with current medication, will monitor pt to signs or symptoms of lack of adequate supplementation. Pt is to continue with current dose of medication unless directed otherwise. Check labs at regular intervals wither q 3 months or q 6 months based on previous levels of control. Start the stretching exercises that have been provided.. Hypertension - well controlled - continue with current medications, continue with no added salt diet. Pt has been encouraged to exercise daily. The pt has been advised to call the office if there are any acute concerns about change in blood pressure readings at home. Hypothyroidism - pt with chronic hypothyroidism, continue with current medication, will monitor pt to signs or symptoms of lack of adequate supplementation. Pt is to continue with current dose of medication unless directed otherwise. Check labs at regular intervals wither q 3 months or q 6 months based on previous levels of control. Sciatica- exercises discussed with the patient, pt to continue with antiinflammatories. Pt is to call if the symptoms do not improve or if they worsen. TAKE NAPROSYN TWICE A DAY TO CONTROL THE SCIATICA( BACK PAIN). . Hypertension - well controlled - continue with current medications, continue with no added salt diet. Pt has been encouraged to exercise daily. The pt has been advised to call the office if there are any acute concerns about change in blood pressure readings at home. Hypothyroidism - pt with chronic hypothyroidism, continue with current medication, will monitor pt to signs or symptoms of lack of adequate supplementation. Pt is to continue with current dose of medication unless directed otherwise. Check labs at regular intervals wither q 3 months or q 6 months based on previous levels of control. Synthroid changed to 100 mcg daily. Esophageal Reflux - the patient has been counseled against excessive intake of caffiene, spicy foods, peppermint, and cinnamon - all of which can exacerbate esophageal reflux. The patient is to take medications as prescribed and call the office if the symptoms are not improving. Samples of aciphex given to pt. culture urine. Urinary Tract Infection-discussed natural and expected course of this diagnosis and to alert me if symptoms do not follow expected course, or if any worse. UA positive for infection today in the office- plan to send for culture and will call patient with results. RX sent to patient' s pharmacy. Avoid tub baths, restrictive underwear, etc. Recommend patient start on probiotic while taking the antibiotic to prevent diarrhea. Patient verbalized understanding of plan. . Joint Injection -bilateral knees- Pt was given post - injection instructions. The pt has been advised to use anti-inflammatories post injection today, ice to the injected site, call if redness, warmth, or increased pain occurs at the site of injection. . Joint Injection - Pt was given post - injection instructions. The pt has been advised to use anti-inflammatories post injection today, ice to the injected site, call if redness, warmth, or increased pain occurs at the site of injection. Right knee pain, Low back pain- the patient was instructed in appropriate posture, need for weight loss to alleviate abdominal obesity that is worsening the patient's back pain.. The pt is to use prn antiinflammatories to manage acute pain. The patient is to call the office if the pain is worsening or does not improve. Sacroiliitis - back exercises discussed with the patient, pt to continue with anti-inflammatories. Pt is to call if the symptoms do not improve or if they worsen. . Scar - lap sites - cholecystectomy - pt states that she was worried that it was getting infected - well healing, no erythema, warmth, drainage, or edema noted. Pt can use topical ointment to help reduce the appearance of scars. Pt is to notify clinic with any questions or concerns. . Hypertension - well controlled - continue with current medications, continue with no added salt diet. Pt has been encouraged to exercise daily. The pt has been advised to call the office if there are any acute concerns about change in blood pressure readings at home. Hypothyroidism - pt with chronic hypothyroidism, continue with current medication, will monitor pt to signs or symptoms of lack of adequate supplementation. Pt is to continue with current dose of medication unless directed otherwise. Check labs at regular intervals wither q 3 months or q 6 months based on previous levels of control. . Pharyngitis-Discussed natural and expected course of this diagnosis and need to alert me if symtpoms do not follow expected course, or if any worse. Recommended salt water gargles as needed for pain. Tylenol/ motrin as needed for fever/discomfort. . Hypertension - well controlled - continue with current medications, continue with no added salt diet. Pt has been encouraged to exercise daily. The pt has been advised to call the office if there are any acute concerns about change in blood pressure readings at home. Hypothyroidism - pt with chronic hypothyroidism, continue with current medication, will monitor pt to signs or symptoms of lack of adequate supplementation. Pt is to continue with current dose of medication unless directed otherwise. Check labs at regular intervals wither q 3 months or q 6 months based on previous levels of control. Arthritis- occasionally uncontrolled symptoms- recommend pt to take antiinflammatory as directed for pain control. Use tylenol for break through pain symptoms. Back pain - referral to physical therapy for treatment and gait training/ strengthening. Pt to RTC in a few weeks for re-eval - if still not doing well, need to inject patient. . Hypertension - well controlled - continue with current medications, continue with no added salt diet. Pt has been encouraged to exercise daily. The pt has been advised to call the office if there are any acute concerns about change in blood pressure readings at home. Hypothyroidism - pt with chronic hypothyroidism, continue with current medication, will monitor pt to signs or symptoms of lack of adequate supplementation. Pt is to continue with current dose of medication unless directed otherwise. Check labs at regular intervals wither q 3 months or q 6 months based on previous levels of control. Allergies - chronic - recommended pt to use allergy medication as prescribed. Pt has been counseled as the the appropriate use of the medication. Pt to call if allergy symptoms are not controlled with the medication. If using nasal spray, instructions as follows: Nasal spray- use twice daily, one spray per nostril twice daily, after 30 minutes, rinse out nose with saline spray.. Use opposite hand per nostril to spray in the nasal steroid allergy spray. PT TO RESTART THE NORVASC 5MG DAILY IN THE MORNING (this is in addition to the lisinopril 40 mg taken at bedtime). Hypertension - uncontrolled - the patient's medications have been modified as documented in the visit note. The patient has been counseled to cut back on salt in diet for a no added salt diet, low fat diet, start an exercise program with low weight bearing exercises and higher aerobic activity for heart health. The patient is to check blood pressure readings as an outpatient and either fax , call, or email the readings to the office next week for practicioner to review. The pt is to call for acute concerns. PT TO RESTART HER NORVASC AT 5MG DAILY IN THE MORNING. Hypothyroidism - controlled - continue to monitor labs serially to keep Valerie at appropriate levelsof supplementation. . Sinusitis - Pt has acute infection - pain in face, maxillary region, Pt informed to use decongestant, RX given to patient, sinus rinses also recommended. Call if symptoms do not show improvement. . Hypertension - well controlled - continue with current medications, continue with no added salt diet. Pt has been encouraged to exercise daily. The pt has been advised to call the office if there are any acute concerns about change in blood pressure readings at home. Hypothyroidism - pt with chronic hypothyroidism, continue with current medication, will monitor pt to signs or symptoms of lack of adequate supplementation. Pt is to continue with current dose of medication unless directed otherwise. Check labs at regular intervals wither q 3 months or q 6 months based on previous levels of control. CLARITIN 10MG DAILY INCREASE SYNTHROID TO 175MCG DAILY-TAKE FIRST THING IN THE MORNING ON AN EMPTY STOMACH ABOUT AN HOUR BEFORE BREAKFAST CALL IF DIZZINESS CONTINUES . Allergies - chronic - recommended pt to use allergy medication as prescribed. Pt has been counseled as to the appropriate use of the medication. Pt to call if allergy symptoms are not controlled with the medication. If using nasal spray, instructions as follows: Nasal spray- use twice daily, one spray per nostril twice daily, after 30 minutes, rinse out nose with saline spray.. Use opposite hand per nostril to spray in the nasal steroid allergy spray. Hypothyroidism - pt with chronic hypothyroidism, continue with current medication, will monitor pt to signs or symptoms of lack of adequate supplementation. Pt is to continue with current dose of medication unless directed otherwise. Check labs at regular intervals wither q 3 months or q 6 months based on previous levels of control. Iptcaypzh-jfoeyxdpn-njpisqe due to allergies-start claritin-call if symptoms persist and we will further investigate with CT head and carotid ultrasound . Hypertension - well controlled - continue with current medications, continue with no added salt diet. Pt has been encouraged to exercise daily. The pt has been advised to call the office if there are any acute concerns about change in blood pressure readings at home. Hyperlipidemia - pt has been counseled about appropriate diet, exercise, and need for low fat food choices. I have discussed the need for the patient to take medications as prescribed. If the patient has negative side effects from the medication, they are to CALL the office and not abruptly discontinue the medication without discussion with a practicioner in the office. We will check labs in 3-6 months for follow up on the patient's chronic medical problem and to assure normal liver response to medications. started lovastatin 20mg qhs Hypothyroidism - pt with chronic hypothyroidism, continue with current medication, will monitor pt to signs or symptoms of lack of adequate supplementation. Pt is to continue with current dose of medication unless directed otherwise. Check labs at regular intervals wither q 3 months or q 6 months based on previous levels of control. increased synthroid dose to 112 mcg daily . Sinusitis - Pt has acute infection - pain in face, maxillary region, Pt informed to use decongestant, RX given to patient, sinus rinses also recommended. Call if symptoms do not show improvement. Otitis Media - discussed the diagnosis with the patient, script sent electronically to the pharmacy for treatment of the infection. The disease course was discussed and the need to notify the clinic if symptoms do not improve or if they acutely worsen. Vertigo - discussed diagnosis with the patient, offered the pt the appropriate additional information in hand-out. Pt instructed in home exercises to help alleviate and prevent future recurrent episodes of vertigo. Pt informed that if symptoms worsen, call the office for further instructions/medication interventions. Appointment with Dr. Yoo in [place] office on Tuesday 11/07 at 1PM - go 15 minutes early for paperwork. Flo Leal - I can send a script to the pharmacy - if it is too expensive then tell them no thank you. . Low back pain- the patient was instructed in appropriate posture, need for weight loss to alleviate abdominal obesity that is worsening the patient's back pain.. The pt is to use prn antiinflammatories to manage acute pain. The patient is to call the office if the pain is worsening or does not improve. Bilateral knee pain - worsening - will refer to Dr. Yoo - pt is to notify clinic if symptoms do not improve, if they worsen, or with any changes, questions, or concerns. Plan: ([id number]) SCREENINGMAMMOGRAPHYDIGITAL-Scheduled for tomorrow at the hospital . Hypertension - well controlled - continue with current medications, continue with no added salt diet. Pt has been encouraged to exercise daily. The pt has been advised to call the office if there are any acute concerns about change in blood pressure readings at home. 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 UTI - pt with positive urinalysis - culture sent if appropriate. Antibiotic electronically prescribed to pt's pharmacy of choice. Pt to call if symptoms do not improve. Xray SI joint/lumbar spine today Kenalog injection in the office today.. Sacroilitis/sciatica-discussed natural and expected course of this diagnosis and to alert me if symptoms do not follow expected course, or if any worse. Plan for xrays today at the hospital to evaluate for acute abnormality. Kenalog injection today in the office. . Hypertension - well controlled - continue with current medications, continue with no added salt diet. Pt has been encouraged to exercise daily. The pt has been advised to call the office if there are any acute concerns about change in blood pressure readings at home. Esophageal Reflux - the patient has been counseled against excessive intake of caffiene, spicy foods, peppermint, and cinnamon - all of which can exacerbate esophageal reflux. The patient is to take medications as prescribed and call the office if the symptoms are not improving. Neck pain- pt to follow up with Dr. Wadsworth. Constipation- improved on Miralax- may go to Saturday, Saturday, Saturday. . Hypertension - well controlled - continue with current medications, continue with no added salt diet. Pt has been encouraged to exercise daily. The pt has been advised to call the office if there are any acute concerns about change in blood pressure readings at home. Hypothyroidism - pt with chronic hypothyroidism, continue with current medication, will monitor pt to signs or symptoms of lack of adequate supplementation. Pt is to continue with current dose of medication unless directed otherwise. Check labs at regular intervals wither q 3 months or q 6 months based on previous levels of control. . Hypertension - well controlled - continue with current medications, continue with no added salt diet. Pt has been encouraged to exercise daily. The pt has been advised to call the office if there are any acute concerns about change in blood pressure readings at home. Hypothyroidism - pt with chronic hypothyroidism, continue with current medication, will monitor pt to signs or symptoms of lack of adequate supplementation. Pt is to continue with current dose of medication unless directed otherwise. Check labs at regular intervals wither q 3 months or q 6 months based on previous levels of control. Uutosipbr-osjjnypi-ffda if symptoms do not completely resolve . Well Adult Female - exam completed. Pap and gc/ chlamydia and breast exam completed. Pt will be called with results of her testing. She was advised to continue with yearly annual exams. Safe sex practices discussed during office visit today. Call if any abnormal gynecologic issues during the next year, otherwise, RTC yearly or prn. . Hypertension - well controlled - continue with current medications, continue with no added salt diet. Pt has been encouraged to exercise daily. The pt has been advised to call the office if there are any acute concerns about change in blood pressure readings at home. steroid shot left knee today Arthritis- occasionally uncontrolled symptoms- recommend pt to take antiinflammatory as directed for pain control. Use tylenol for break through pain symptoms. RETURN TOMORROW FOR FASTING LABS SCHEDULE MAMMOGRAM FLU AND PREVNAR LET US KNOW WHEN YOU WANT US TO SCHEDULE AN APPOINTMENT WITH DR COPELAND FOR COLONOSCOPY . Medicare Exam - today we discussed the patients past history, immunizations, preventative exams/evaluations - colonoscopy, fecal occult blood testing, routine labs for renal function, glucose, cholesterol, osteoporosis evaluations , cardiovascular testing and cancer screenings. We have also discussed mental health and the signs/symptoms of depression. The patient was advised of home safety evaluations and the need to make sure that as the aging process continues , we need to be aware of different ways to make the home a safer place to reside. The patient has also been counseled that exercise is necessary - and of utmost importance as we age to help decrease fall risk and to maintain independence in the home. Today we discussed the need for the patient to create paperwork for Advanced directives as well as for the patient to provide this office with a copy of her [facility] paperwork for health care surrogate. . Hypertension - well controlled - continue with current medications, continue with no added salt diet. Pt has been encouraged to exercise daily. The pt has been advised to call the office if there are any acute concerns about change in blood pressure readings at home. Hypothyroidism - pt with chronic hypothyroidism, continue with current medication, will monitor pt to signs or symptoms of lack of adequate supplementation. Pt is to continue with current dose of medication unless directed otherwise. Check labs at regular intervals wither q 3 months or q 6 months based on previous levels of control. Recommend physical therapy for gait instability, sciatica- appointment August 15 at 8:30am Recommend rest and anti-inflammatories. . Sacroilitis/sciatica-injection today in the office-Recommend physical therapy for gait instability- exercises discussed with the patient, pt to continue with antiinflammatories. Pt is to call if the symptoms do not improve or if they worsen. . Hypertension - uncontrolled - the patient's medications have been modified as documented in the visit note. The patient has been counseled to cut back on salt in diet for a no added salt diet, low fat diet, start an exercise program with low weight bearing exercises and higher aerobic activity for heart health. The patient is to check blood pressure readings as an outpatient and either fax , call, or email the readings to the office next week for practicioner to review. The pt is to call for acute concerns. CONTINUE WITH THE LISINOPRIL AT CURRENT DOSE, AND START ON THE NEW MEDICATION, NORVASC 5 MG DAILY. Hypothyroidism - pt with chronic hypothyroidism, continue with current medication, will monitor pt to signs or symptoms of lack of adequate supplementation. Pt is to continue with current dose of medication unless directed otherwise. Check labs at regular intervals wither q 3 months or q 6 months based on previous levels of control. Leg pain- improved- continue with as needed antiinflammatories. . Hypertension - well controlled - continue with current medications, continue with no added salt diet. Pt has been encouraged to exercise daily. The pt has been advised to call the office if there are any acute concerns about change in blood pressure readings at home. Hyperlipidemia - pt has been counseled about appropriate diet, exercise, and need for low fat food choices. I have discussed the need for the patient to take medications as prescribed. If the patient has negative side effects from the medication, they are to CALL the office and not abruptly discontinue the medication without discussion with a practicioner in the office. We will check labs in 3-6 months for follow up on the patient's chronic medical problem and to assure normal liver response to medications. Hypothyroidism - pt with chronic hypothyroidism, continue with current medication, will monitor pt to signs or symptoms of lack of adequate supplementation. Pt is to continue with current dose of medication unless directed otherwise. Check labs at regular intervals wither q 3 months or q 6 months based on previous levels of control. Rest, Ice, Compression, Elevation Ibuprofen as needed for pain. Left knee pain - ongoing x 2 weeks, denies trauma - will order x-ray. Pt is to use RICE - Rest, Ice, Compression, Elevation. The pt is to use prn antiinflammatories to manage acute pain. The patient is to call the office if the pain is worsening or does not improve. She would like to think about being referred to Dr. Linda . Bilateral knee - Joint Injection - Pt was given post - injection instructions. The pt has been advised to use anti-inflammatories post injection today, ice to the injected site, call if redness, warmth, or increased pain occurs at the site of injection.
[2018-06-02] MEDS ORDERED: RT-ALBUTEROL/IPRATROPIUM 3 ML (DUONEB) VIAL ONE (15:09)
--- OUTSIDE RECORDS SUMMARY | 2018-06-02 15:11 | XMS REPORT | CCD ---
Author Author [facility] Organization [facility] Address [address] [place] [address] Phone Care Team Providers Care [employer] Curriculum Developer Name Role Phone Brionna Ty PP Unavailable CCM Unavailable Summary Purpose Interface Exchange Insurance Providers Payer name Policy type / Coverage type Covered republican ID Effective Begin Date Effective End Date WPS Medicare Part B [id number] 2016 Unknown [employer] [id number] 2016 Unknown Family history Daughter Diagnosis Age [...] and well 11/01/[address]: 076589056 Nonsmoker 11/01/[address]: 979525562 Never drinks alcohol 11/01/2010 Has the patient [...] Kenalog 40 mg/mL suspension for injection RxNorm: 3275981 2 Milliliter(s) Inj 05/01/2018 05/01/2018 Inactive Tessalon Perles 100 mg capsule RxNorm: 763069 1-2 Capsule(s) PO TID PRN 04/22/2018 No Stop Date Active cefdinir 300 mg capsule RxNorm: 617444 1 Capsule(s) PO BID 04/28/2018 Inactive Kenalog 40 mg/mL suspension for injection RxNorm: 5681018 Milliliter(s) Inj 04/22/2018 04/22/2018 Inactive levothyroxine 150 mcg tablet RxNorm: 010399 1 Tablet(s) PO daily 03/18/2018 07/15/2018 Active levothyroxine 137 mcg tablet RxNorm: 301825 1 Tablet(s) PO daily 12/04/2017 03/17/2018 Inactive levothyroxine 137 mcg tablet RxNorm: 786714 1 Tablet(s) PO daily 12/04/2017 12/03/2017 Inactive doxycycline hyclate 100 mg tablet RxNorm: 6183182 1 Tablet(s) PO BID 11/18/2017 11/24/2017 Inactive Kenalog 40 mg/mL suspension for injection RxNorm: 1891804 1 Milliliter(s) Inj 09/04/2017 09/04/2017 Inactive Kenalog 40 mg/mL suspension for injection RxNorm: 2037702 1 Milliliter(s) Inj 09/04/2017 09/04/2017 Inactive levothyroxine 150 mcg tablet RxNorm: 973983 TAKE ONE TABLET BY MOUTH ONCE DAILY ON EMPTY STOMACH 07/09/2017 12/03/2017 Inactive Kenalog 40 mg/mL suspension for injection RxNorm: 1559505 2 Milliliter(s) Inj 03/21/2017 03/21/2017 Inactive levothyroxine 150 mcg tablet RxNorm: 610914 TAKE ONE TABLET BY MOUTH ONCE DAILY ON EMPTY STOMACH 11/08/2016 05/06/2017 Inactive Voltaren 1 % topical gel RxNorm: 493886 1 Application TOP TID as needed 11/02/2016 No Stop Date Active Kenalog 40 mg/mL suspension for injection RxNorm: 6420440 1 Milliliter(s) Inj 06/21/2016 06/21/2016 Inactive levothyroxine 150 mcg tablet RxNorm: 876165 TAKE ONE TABLET BY MOUTH ONCE DAILY ON EMPTY STOMACH 05/09/2016 09/05/2016 Inactive Zithromax Z-Elmer 250 mg tablet RxNorm: 910297 1 Tablet(s) PO UD 12/02/2015 12/06/2015 Inactive Kenalog 40 mg/mL suspension for injection RxNorm: 6644466 Milliliter(s) Inj 12/02/2015 12/02/2015 Inactive levothyroxine 150 mcg tablet RxNorm: 532129 TAKE ONE TABLET BY MOUTH DAILY ON AN EMPTY STOMACH 12/01/2015 03/29/2016 Inactive Norvasc 5 mg tablet RxNorm: 090799 1 Tablet(s) PO daily 201510/10/2016 Inactive Kenalog 40 mg/mL suspension for injection RxNorm: 5287436 1 Milliliter(s) Inj 06/16/2015 06/16/2015 Inactive Norvasc 5 mg tablet RxNorm: 845836 TAKE ONE TABLET BY MOUTH DAILY 06/10/2015 10/07/2015 Inactive levothyroxine 150 mcg tablet RxNorm: 253648 1 Tablet(s) PO daily TAKE ONE TABLET BY MOUTH DAILY 05/18/2015 09/14/2015 Inactive Synthroid 175 mcg tablet RxNorm: 572861 1 Tablet(s) PO daily TAKE ONE TABLET BY MOUTH DAILY 03/11/2015 05/17/2015 Inactive Synthroid 175 mcg tablet RxNorm: 467694 1 Tablet(s) PO daily TAKE ONE TABLET BY MOUTH DAILY 02/08/2015 03/10/2015 Inactive Flonase Allergy Relief 50 mcg/actuation nasal spray, suspension RxNorm: 2 [place] NASAL daily 12/27/2014 01/05/2015 Inactive Kenalog 40 mg/mL suspension for injection RxNorm: 9507626 Milliliter(s) Inj 12/27/2014 12/27/2014 Inactive Levaquin 500 mg tablet RxNorm: 169393 1 Tablet(s) PO daily 03/201401/02/2015 Inactive Zithromax Z-Elmer 250 mg tablet RxNorm: 483060 1 Tablet(s) PO UD 11/26/2014 11/30/2014 Inactive Synthroid 125 mcg tablet RxNorm: 046674 1 Tablet(s) PO daily 10/12/2014 Inactive Synthroid 150 mcg tablet RxNorm: 404161 1 Tablet(s) PO daily TAKE ONE TABLET BY MOUTH DAILY 10/05/2014 02/01/2015 Inactive Norvasc 5 mg tablet RxNorm: 999509 TAKE ONE TABLET BY MOUTH DAILY 10/05/2014 06/01/2015 Inactive Synthroid 125 mcg tablet RxNorm: 445207 TAKE ONE TABLET BY MOUTH DAILY 07/12/2014 10/05/2014 Inactive cephalexin 500 mg capsule RxNorm: 744586 1 Capsule(s) PO TID 06/28/2014 Inactive Have patient get probiotic while on antibiotic cephalexin 500 mg capsule RxNorm: 661643 1 Capsule(s) PO TID 06/21/2014 Inactive Have patient get probiotic while on antibiotic Synthroid 125 mcg tablet RxNorm: 941259 TAKE ONE TABLET BY MOUTH DAILY 05/21/2014 06/19/2014 Inactive ketorolac 60 mg/2 mL intramuscular solution RxNorm: 064868 Milliliter(s) IM 11/05/2013 11/05/2013 Inactive Norvasc 5 mg tablet RxNorm: 624869 TAKE 1 TABLET BY MOUTH ONCE DAILY. 09/21/2013 10/04/2014 Inactive Generic For:NORVASC 5MG Zithromax Z-Elmer 250 mg tablet RxNorm: 121333 1 Tablet(s) PO UD 09/08/2013 09/12/2013 Inactive Bactrim DS 800 mg-160 mg tablet RxNorm: 014454 1 Tablet(s) PO BID 05/25/2013 05/31/2013 Inactive Keflex 500 mg capsule RxNorm: 899733 1 Capsule(s) PO TID 201305/04/2013 Inactive Keflex 500 mg capsule RxNorm: 977295 1 Capsule(s) PO TID 201304/27/2013 Inactive Synthroid 125 mcg tablet RxNorm: 678463 1 Tablet(s) PO daily 02/03/2014 Inactive Synthroid 112 mcg tablet RxNorm: 245239 Tablet(s) PO TAKE (1) TABLET BY MOUTH ONCE DAILY IN THE MORNING 01/28/201302/08 Inactive Synthroid 112 mcg tablet RxNorm: 479532 Tablet(s) PO TAKE (1) TABLET BY MOUTH ONCE DAILY IN THE MORNING 01/28/201301/27 Inactive Synthroid 112 mcg tablet RxNorm: 933466 Tablet(s) PO TAKE (1) TABLET BY MOUTH ONCE DAILY IN THE MORNING 01/26/201301/27 Inactive lovastatin 20 mg tablet RxNorm: 118656 Tablet(s) PO TAKE 1 TABLET BY MOUTH ONCE DAILY AT BEDTIME. 01/05/2013 10/10/2014 Inactive Synthroid 112 mcg tablet RxNorm: 502500 Tablet(s) PO TAKE (1) TABLET BY MOUTH ONCE DAILY IN THE MORNING 10/20/201201/25 Inactive Bactrim DS 800 mg-160 mg tablet RxNorm: 739864 1 Tablet(s) PO BID 09/25/2012 09/24/2012 Inactive Bactrim DS 800 mg-160 mg tablet RxNorm: 597724 1 Tablet(s) PO BID 09/25/2012 09/27/2012 Inactive Diflucan 150 mg tablet RxNorm: 985383 2 Tablet(s) PO daily 09/20/2012 Inactive sulfamethoxazole 800 mg-trimethoprim 160 mg tablet RxNorm: 392516 1 Tablet(s) PO BID 09/11/2012 09/17/2012 Inactive PLEASE GET A PROBIOTIC FOR VALERIE AND HAVE HER TAKE THE PROBIOTIC WHILE ON THE ANTIBIOT TO HELP PREVENT DIARRHEA Norvasc 5 mg tablet RxNorm: 266292 Tablet(s) PO TAKE 1 TABLET BY MOUTH ONCE DAILY. 08/13/2012 09/20/2013 Inactive Synthroid 112 mcg tablet RxNorm: 705071 1 Tablet(s) PO QAM 04/201206/26/2012 Inactive lovastatin 20 mg tablet RxNorm: 417855 1 Tablet(s) PO QHS 02/2701/04/2013 Inactive Norvasc 5 mg tablet RxNorm: 051269 1 Tablet(s) PO daily 201105/26/2012 Inactive Synthroid 100 mcg tablet RxNorm: 769080 Tablet(s) PO 201102/27/2012 Inactive TAKE 1 TABLET BY MOUTH ONCE DAILY FOR THYROID (IN AM, 30-60MIN BEFORE FOOD/ VITAMINS) Synthroid 100 mcg tablet RxNorm: 033152 Tablet(s) PO 201102/27/2012 Inactive TAKE 1 TABLET BY MOUTH ONCE DAILY FOR THYROID (IN AM, 30-60MIN BEFORE FOOD/ VITAMINS) Synthroid 100 mcg tablet RxNorm: 347331 Tablet(s) PO 201112/02/2011 Inactive TAKE 1 TABLET BY MOUTH ONCE DAILY FOR THYROID (IN AM, 30-60MIN BEFORE FOOD/ VITAMINS) Zyrtec 10 mg tablet RxNorm: 2263473 1 Tablet(s) PO daily 11/0412/04/2011 Inactive Synthroid 100 mcg tablet RxNorm: 867973 Tablet(s) PO 201112/02/2011 Inactive TAKE 1 TABLET BY MOUTH ONCE DAILY FOR THYROID (IN AM, 30-60MIN BEFORE FOOD/ VITAMINS) lisinopril 40 mg tablet RxNorm: 829367 Tablet(s) PO 10/08/2011 10/11/2014 Inactive TAKE 1 TABLET BY MOUTH ONCE DAILY. lisinopril 40 mg tablet RxNorm: 865266 Tablet(s) PO 09/04/2011 10/07/2011 Inactive TAKE 1 TABLET BY MOUTH ONCE DAILY. Kenalog 40 mg/mL Susp for Injection RxNorm: 4521891 1 Milliliter(s) Inj 08/09/2011 08/09/2011 Inactive Norvasc 5 mg Tab RxNorm: 202063 Tablet(s) PO 06/26/2011 11/04/2011 Inactive TAKE 1 TABLET BY MOUTH ONCE DAILY. Kenalog 40 mg/mL Susp for Injection RxNorm: 0138889 1 Milliliter(s) Inj 05/28/2011 05/28/2011 Inactive Synthroid 100 mcg tablet RxNorm: 991895 1 Tablet(s) PO daily 10/08/2011 Inactive lisinopril 40 mg Tab RxNorm: 629856 1 Tablet(s) PO daily 201109/03/2011 Inactive Norvasc 5 mg Tab RxNorm: 610358 1 Tablet(s) PO daily 2011 No Stop Date Active Synthroid 88 mcg Tab RxNorm: 403783 1 Tablet(s) PO daily 201012/14/2010 Inactive Norvasc 5 mg tablet RxNorm: 696529 1 Tablet(s) PO daily 201001/27/2012 Inactive Aspirin Low Dose 81 mg tablet,delayed release RxNorm: 750087 1 Tablet(s) PO daily No Start Date Active Aleve 220 mg Tab RxNorm: 991668 Oral No Start Date 12/02/2011 Inactive Synthroid 75 mcg Tab RxNorm: 628677 1 Tablet(s) PO daily No Start Date 11/14/2010 Inactive Diflucan 150 mg tablet RxNorm: 884818 Tablet(s) PO No Start Date 09/17/2012 Inactive lisinopril 40 mg Tab RxNorm: 385277 1 Tablet(s) PO daily No Start Date 03/12/2011 Inactive Synthroid 75 mcg Tab RxNorm: 311928 1 Tablet(s) PO daily No Start Date 03/13/2011 Inactive aspirin 325 mg tablet RxNorm: 337985 1 Tablet(s) PO daily No Start Date 07/25/2016 Inactive Zithromax Z-Elmer 250 mg tablet RxNorm: 005386 Tablet(s) PO QPM No Start Date 12/02/2011 Inactive Aciphex 20 mg Tab RxNorm: 787057 Tablet(s) PO No Start Date 10/10/2014 Inactive Synthroid 88 mcg Tab RxNorm: 763326 1 Tablet(s) PO daily No Start Date 03/13/2011 Inactive naproxen 500 mg Tab RxNorm: 873481 1 Tablet(s) PO BID No Start Date 03/12/2011 Inactive Medication Administered Medication Codes Instructions Start Date Status Kenalog 40 mg/mL suspension for injection RxNorm: 8841220 2Milliliter 05/01/2018 Active Kenalog 40 mg/mL suspension for injection RxNorm: 3484716 Milliliter 04/22/2018 No longer Active Kenalog 40 mg/mL suspension for injection RxNorm: 3576928 1Milliliter 09/04/2017 No longer Active Kenalog 40 mg/mL suspension for injection RxNorm: 7445423 1Milliliter 09/04/2017 No longer Active Kenalog 40 mg/mL suspension for injection RxNorm: 8324064 2Milliliter 03/21/2017 No longer Active Kenalog 40 mg/mL suspension for injection RxNorm: 9535914 1Milliliter 06/21/2016 No longer Active Kenalog 40 mg/mL suspension for injection RxNorm: 0757961 Milliliter 12/02/2015 No longer Active Kenalog 40 mg/mL suspension for injection RxNorm: 8540266 1Milliliter 06/16/2015 No longer Active Kenalog 40 mg/mL suspension for injection RxNorm: 5293378 Milliliter 12/27/2014 No longer Active ketorolac 60 mg/2 mL intramuscular solution RxNorm: 698308 Milliliter 11/05/2013 No longer Active Kenalog 40 mg/mL Susp for Injection RxNorm: 5094852 1Milliliter 08/09/2011 No longer Active Kenalog 40 mg/mL Susp for Injection RxNorm: 1950890 1Milliliter 05/28/2011 No longer Active Immunizations Vaccine [...] Item Code Result Date C A/B FLU 0036135 Influenza A Scr Negative 04/22/2018 C A/B FLU 6024560 Influenza B Scr Negative 04/22/2018 C A/B FLU 7316776 Influenza Intrp B AG: PRID:PT:NOSE:NOM:IF See Footnote 04/22/2018 Free T4 Vnt011 FREE T4 0.92 ng/dL 03/14/2018 Tsh Ord6 TSH (3rd IS) 7.96 uIU/mL 03/14/2018 Tsh Ord6 TSH (3rd IS) 0.19 uIU/mL 11/29/2017 Comp Metabolic Pnr532 NA 141 mEq/L 11/29/2017 Comp Metabolic Rbt555 K 4.1 mEq/L 11/29/2017 Comp Metabolic Waz729 CL 104 mEq/L 11/29/2017 Comp Metabolic Veo025 CO2 29.0 mEq/L 11/29/2017 Comp Metabolic Sei635 ANION GAP 12 11/29/2017 Comp Metabolic Vfq543 GLUCOSE 100 mg/dL 11/29/2017 Comp Metabolic Hlt403 Creat 0.7 mg/dL 11/29/2017 Comp Metabolic Msq314 eGFR 95 ml/min/1.73m2 11/29/2017 Comp Metabolic Iob209 BUN 14 mg/dL 11/29/2017 Comp Metabolic Oiv352 B/C Ratio 21.5 Ratio 11/29/2017 Comp Metabolic Wkg087 CALCIUM 9.1 mg/dL 11/29/2017 Comp Metabolic Hck451 ALK PHOS 53 U/L 11/29/2017 Comp Metabolic Ivr847 AST(SGOT) 13 U/L 11/29/2017 Comp Metabolic Vsk610 ALT(SGPT) 17 U/L 11/29/2017 Comp Metabolic Peq932 BILI T 0.8 mg/dL 11/29/2017 Comp Metabolic Kaa869 ALBUMIN 3.9 g/dL 11/29/2017 Comp Metabolic Uvn574 TPRO 6.1 g/dL 11/29/2017 Comp Metabolic Vgs824 GLOB 2.2 g/dL 11/29/2017 Comp Metabolic Gzv077 A/G Ratio 1.8 Ratio 11/29/2017 Comp Metabolic Cgn669 Osmo 282 mOsmo 11/29/2017 Lipid Ord30 CHOL 184 mg/dL 11/29/2017 Lipid Ord30 HDL 52.0 mg/dl 11/29/2017 Lipid Ord30 TRIG 73 mg/dL 11/29/2017 Lipid Ord30 LDL 117 mg/dL 11/29/2017 Lipid Ord30 C/HDL 3.5 Ratio 11/29/2017 Free T4 Ryz996 FREE T4 1.47 ng/dL 11/29/2017 Cbc With [...] 29.3 pg 11/29/2017 Cbc With Differential Ord2 [place]% 8.6 % 11/29/2017 Cbc With Differential Ord2 [...] 1.37 K/ul 11/29/2017 Cbc With Differential Ord2 [place] ABS# 0.7 K/ul 11/29/2017 Cbc With Differential Ord2 Eos ABS# 0.3 K/ul 11/29/2017 Cbc With Differential Ord2 Baso ABS# 0.0 K/ul 11/29/2017 Comp Metabolic Rmf301 NA 140 mEq/L 07/26/2016 Comp Metabolic Hpm786 K 4.0 mEq/L 07/26/2016 Comp Metabolic Vbs823 CL 101 mEq/L 07/26/2016 Comp Metabolic Prq746 CO2 30.0 mEq/L 07/26/2016 Comp Metabolic Yia304 ANION GAP 13 07/26/2016 Comp Metabolic Nsr935 GLUCOSE 94 mg/dL 07/26/2016 Comp Metabolic Nve257 Creat 0.7 mg/dL 07/26/2016 Comp Metabolic Yir894 eGFR 87 ml/min/1.73m2 07/26/2016 Comp Metabolic Uat084 BUN 9 mg/dL 07/26/2016 Comp Metabolic Zgp602 B/C Ratio 12.9 Ratio 07/26/2016 Comp Metabolic Kux877 CALCIUM 9.2 mg/dL 07/26/2016 Comp Metabolic Sje679 ALK PHOS 74 U/L 07/26/2016 Comp Metabolic Iah841 AST(SGOT) 17 U/L 07/26/2016 Comp Metabolic Vha599 ALT(SGPT) 25 U/L 07/26/2016 Comp Metabolic Qex751 BILI T 0.8 mg/dL 07/26/2016 Comp Metabolic Yhn207 ALBUMIN 4.0 g/dL 07/26/2016 Comp Metabolic Dxl532 TPRO 6.6 g/dL 07/26/2016 Comp Metabolic Lux715 GLOB 2.6 g/dL 07/26/2016 Comp Metabolic Kde194 A/G Ratio 1.5 Ratio 07/26/2016 Comp Metabolic Ttg240 Osmo 278 mOsmo 07/26/2016 Free T4 Nfd133 FREE T4 1.07 ng/dL 07/26/2016 Cbc With [...] 28.5 pg 07/26/2016 Cbc With Differential Ord2 [place]% 9.6 % 07/26/2016 Cbc With Differential Ord2 [...] 2.53 K/ul 07/26/2016 Cbc With Differential Ord2 [place] ABS# 0.8 K/ul 07/26/2016 Cbc With Differential Ord2 Eos ABS# 0.3 K/ul 07/26/2016 Cbc With Differential Ord2 Baso ABS# 0.0 K/ul 07/26/2016 Tsh Ord6 hTSH II 0.44 uIU/mL 07/26/2016 Tsh Ord6 hTSH II 0.07 uIU/mL 05/12/2015 Free T4 Ftt288 FREE T4 1.70 ng/dL 05/12/2015 Free T4 Yaq404 FREE T4 0.96 ng/dL 02/03/2015 Comp Metabolic Wto098 NA 141 mEq/L 02/03/2015 Comp Metabolic Spu633 K 4.1 mEq/L 02/03/2015 Comp Metabolic Qlv332 CL 105 mEq/L 02/03/2015 Comp Metabolic Gez683 CO2 29.0 mEq/L 02/03/2015 Comp Metabolic Kjz856 ANION GAP 11 02/03/2015 Comp Metabolic Ssg665 GLUCOSE 99 mg/dL 02/03/2015 Comp Metabolic Mdz297 Creat 0.7 mg/dL 02/03/2015 Comp Metabolic Jac651 eGFR 85 ml/min/1.73m2 02/03/2015 Comp Metabolic Kaq136 BUN 15 mg/dL 02/03/2015 Comp Metabolic Eve935 B/C Ratio 20.8 Ratio 02/03/2015 Comp Metabolic Dfu491 CALCIUM 9.3 mg/dL 02/03/2015 Comp Metabolic Fch146 ALK PHOS 62 U/L 02/03/2015 Comp Metabolic Ody788 AST(SGOT) 19 U/L 02/03/2015 Comp Metabolic Zpl141 ALT(SGPT) 23 U/L 02/03/2015 Comp Metabolic Kbq187 BILI T 0.4 mg/dL 02/03/2015 Comp Metabolic Vlv934 ALBUMIN 4.2 g/dL 02/03/2015 Comp Metabolic Ofu404 TPRO 6.6 g/dL 02/03/2015 Comp Metabolic Nak468 GLOB 2.4 g/dL 02/03/2015 Comp Metabolic Kih060 A/G Ratio 1.7 Ratio 02/03/2015 Comp Metabolic Sye559 Osmo 282 mOsmo 02/03/2015 Lipid Ord30 CHOL [...] GRP RCHOL/HDL 4.78 RATIO 02/04/2012 FREE T4 7221652 FREE T4 1.05 NG/DL 02/04/2012 GFR CALC 7615610 GFR AA >60 ML/MIN 02/04/2012 GFR CALC 4812078 GFR NON-AA >60 ML/MIN 02/04/2012 TSH 2365303 TSH 3.062 uIU/ML 02/04/2012 CHEM 14 2846404 AST 18 U/L 02/04/2012 CHEM 14 0676144 ALT 22 IU/L 02/04/2012 CHEM 14 2767446 BUN 15 MG/DL 02/04/2012 CHEM 14 0393184 ALBUMIN 4.4 GM/DL 02/04/2012 CHEM 14 8165942 CHLORIDE 104 MMOL/L 02/04/2012 CHEM 14 0553493 BILI TOT 0.6 MG/DL 02/04/2012 CHEM 14 5348836 ALK PHOS 54 U/L 02/04/2012 CHEM 14 8583405 SODIUM 141 MMOL/L 02/04/2012 CHEM 14 7648623 CREATININE 0.85 MG/DL 02/04/2012 CHEM 14 2393071 CALCIUM 9.4 MG/DL 02/04/2012 CHEM 14 8985240 POTASSIUM 4.0 MMOL/L 02/04/2012 CHEM 14 2793344 PROT TOT 6.6 GM/DL 02/04/2012 CHEM 14 3334778 GLUCOSE 106 MG/DL 02/04/2012 CHEM 14 1072788 BICARB 30 MMOL/L 02/04/2012 CHEM 14 3312194 ANION GAP 7 MEQ/L 02/04/2012 UA 05071 Specific [place] 1.020 DateTime(Free Text in Apr ) UA 42062 PH 6 DateTime(Free Text in Aprima) UA 30042 GLUCOSE DateTime(Free Text in Aprima) UA 00756 Protein 1+ DateTime(Free Text in Aprima) UA 82460 Blood 3+ DateTime(Free Text in Aprima) UA 90018 Bilirubin DateTime(Free Text in ) UA 46217 Ketones DateTime(Free Text in Apr) UA 03146 Urobilinogen DateTime(Free Text in Apr) UA 03215 Nitrite DateTime(Free Text in Apr) UA 63999 Leukocytes 2+ DateTime(Free Text in Apr) UA 91471 Specific [place] 1.025 DateTime(Free Text in Apr ) UA 69968 PH 6 DateTime(Free Text in ) UA 14781 GLUCOSE neg DateTime(Free Text in Apr) UA 17334 Protein neg DateTime(Free Text in Apr) UA 32420 Blood neg DateTime(Free Text in Apr) UA 80462 Bilirubin neg DateTime(Free Text in Apr) UA 36285 Ketones neg DateTime(Free Text in ) UA 37974 Urobilinogen neg DateTime(Free Text in ) UA 56341 Nitrite neg DateTime(Free Text in ) UA 63430 Leukocytes 1+ DateTime(Free Text in ) Review [...] affect 09/11/2012 None Full Exam - General 1995 Psychiatric orientation/consciousness Overall: oriented to person, place and time 09/11/2012 None Full Exam - General 1995 Abdomen abdominal exam Overall: no tenderness 09/11/2012 [...] distress 05/29/2012 None Full Exam - General 1994 [...] distress 02/28/2012 None Full Exam - General 1994 Constitutional general appearance Overall: well nourished 02/28/2012 [...] clubbing 02/28/2012 None Full Exam - General 1995 Cardiovascular auscultation of heart Overall: regular rate 02/28/2012 None Full Exam - General 1994 Cardiovascular auscultation of heart Overall: normal heart sounds 02/28/2012 None Full Exam - General 1994 Cardiovascular auscultation of heart Overall: no murmurs 02/28/2012 None Full Exam - General 1995 Abdomen abdominal exam Overall: no tenderness 02/28/2012 None Full Exam - General 1995 Abdomen abdominal exam Overall: normal bowel sounds 02/28/2012 None Full Exam - General 1995 Musculoskeletal head and neck Overall: head atraumatic 02/28/2012 None Full Exam - General 1995 Musculoskeletal head and neck Overall: cervical spine [...] lips 01/28/2012 None Full Exam - General 1995 Ears/Nose/Throat lips/teeth/gingiva Overall: normal dentition 01/28/2012 None [...] General 1994 Ears/Nose/Throat lips/teeth/gingiva Overall: benign lips 03/13/2011 None Full Exam - General 1994 [...] Procedures Procedure Codes Date DRAIN/INJECT JOINT/BURSA CPT-4: 92007 05/01/2018 TRIAMCINOLONE ACET INJ NOS CPT-4: J3301 05/01/2018 TRIAMCINOLONE ACET INJ NOS CPT-4: J3301 04/22/2018 PPPS, SUBSEQ VISIT CPT -4: G0439 11/28/2017 ADMIN INFLUENZA VIRUS VAC CPT-4: G0008 11/28/2017 ADMIN PNEUMOCOCCAL VACCINE SNOMED CT: 48533164 CPT-4: G0009 11/28/2017 FLU VACC PRSV FREE INC ANTIG CPT-4: 23574 11/28/2017 PNEUMOCOCCAL VACC [address]: 91075734 CPT-4: 27766 11/28/2017 DRAIN/INJECT JOINT/BURSA CPT-4: 17908 09/04/2017 TRIAMCINOLONE ACET INJ NOS CPT-4: J3301 09/04/2017 TRIAMCINOLONE ACET INJ NOS CPT-4: J3301 03/21/2017 DRAIN/INJECT JOINT/BURSA CPT-4: 90285 03/21/2017 TRIAMCINOLONE ACET INJ NOS CPT-4: J3301 06/21/2016 DRAIN/INJECT JOINT/BURSA CPT-4: 86516 06/21/2016 TRIAMCINOLONE ACET INJ NOS CPT-4: J3301 12/02/2015 TRIAMCINOLONE ACET INJ NOS CPT-4: J3301 06/16/2015 TRIAMCINOLONE ACET INJ NOS CPT-4: J3301 12/27/2014 KETOROLAC TROMETHAMINE INJ CPT-4: J1885 11/05/2013 THER/PROPH/DIAG INJ SC/IM CPT-4: 52755 11/05/2013 URINALYSIS NONAUTO W/O SCOPE CPT-4: 41359 05/25/2013 URINALYSIS NONAUTO W/O SCOPE CPT-4: 28874 09/11/2012 PRESCRIP TRANSMIT VIA ERX SY CPT-4: G8553 09/11/2012 PRESCRIP TRANSMIT VIA ERX SY CPT-4: G8553 02/28/2012 ROUTINE VENIPUNCTURE CPT-4: 28328 02/04/2012 PRESCRIP TRANSMIT VIA ERX SY CPT-4: G8553 01/28/2012 PRESCRIP TRANSMIT VIA ERX SY CPT-4: G8553 11/05/2011 DRAIN/INJECT JOINT/BURSA CPT-4: 68810 08/09/2011 TRIAMCINOLONE ACET INJ NOS CPT-4: J3301 08/09/2011 TRIAMCINOLONE ACET INJ NOS CPT-4: J3301 05/28/2011 THER/PROPH/DIAG INJ SC/IM CPT-4: 54268 05/28/2011 URINALYSIS NONAUTO W/O SCOPE CPT-4: 54899 03/15/2011 Vital Signs Date Vital 05/01/2018 Blood Pressure 1: 122/70 Code : 8480-6 BMI: 37.1 Code : 26393-6 Heart Rate 1 : 80 bpm Height: 5' SpO2: 93% Weight: 190 lbs 04/22/2018 Blood Pressure 1: 128/88 Code : 8480-6 BMI: 36.9 Code : 73490-6 Heart Rate 1 : 97 bpm Height: 5' SpO2: 96% Temperature: 37.2 (C) / 98.9 (F) Weight: 189 lbs 11/28/2017 Blood Pressure 1: 122/66 Code : 8480-6 BMI: 37.1 Code : 47429-2 Heart Rate 1 : 78 bpm Height: 5' SpO2: 96% Waist Measure (cm): 109 cm Weight: 190 lbs 11/18/2017 Blood Pressure 1: 140/80 Code : 8480-6 BMI: 36.9 Code : 82009-2 Heart Rate 1 : 86 bpm Height: 5' SpO2: 94% Weight: 189 lbs 09/04/2017 Blood Pressure 1: 134/80 Code : 8480-6 Heart Rate 1: 74 bpm Height: SpO2: 96% Weight: 03/21/2017 Blood Pressure 1: 126/72 Code : 8480-6 BMI: 36.9 Code : 96360-1 Heart Rate 1 : 87 bpm Height: 5' SpO2: 97% Weight: 189 lbs 11/02/2016 Blood Pressure 1: 134/68 Code : 8480-6 BMI: 38.3 Code : 02099-4 Heart Rate 1 : 86 bpm Height: 5' SpO2: 98% Weight: 196 lbs 07/26/2016 Blood Pressure 1: 144/78 Code : 8480-6 BMI: 37.9 Code : 49685-0 Heart Rate 1 : 69 bpm Height: 5' SpO2: 96% Weight: 194 lbs 06/21/2016 Blood Pressure 1: 118/68 Code : 8480-6 BMI: 39.1 Code : 22058-5 Heart Rate 1 : 77 bpm Height: 5' SpO2: 95% Weight: 200 lbs 05/25/2016 Blood Pressure 1: 148/88 Code : 8480-6 BMI: 38.9 Code : 06754-1 Heart Rate 1 : 91 bpm Height: 5' SpO2: 94% Weight: 199 lbs 12/02/2015 Blood Pressure 1: 144/62 Code : 8480-6 BMI: 37.3 Code : 75780-4 Heart Rate 1 : 81 bpm Height: 5' SpO2: 95% Weight: 191 lbs 10/21/2015 Blood Pressure 1: 138/72 Code : 8480-6 BMI: 37.3 Code : 34117-3 Heart Rate 1 : 102 bpm Height: 5' SpO2: 98% Weight: 191 lbs 10/17/2015 Blood Pressure 1: 132/78 Code : 8480-6 BMI: 37.9 Code : 84959-3 Heart Rate 1 : 74 bpm Height: 5' SpO2: 97% Weight: 194 lbs 06/16/2015 Blood Pressure 1: 140/88 Code : 8480-6 BMI: 39.8 Code : 03625-7 Heart Rate 1 : 74 bpm Height: 5' SpO2: 96% Weight: 204 lbs 05/12/2015 Blood Pressure 1: 146/82 Code : 8480-6 Blood Pressure 1: 130/78 Code: 8480-6 BMI: 38.7 Code: 52576-4 Heart Rate 1: 67 bpm Height: 5' SpO2: 94% Weight: 198 lbs 03/10/2015 Blood Pressure 1: 132/86 Code : 8480-6 BMI: 38.9 Code : 61256-6 Heart Rate 1 : 72 bpm Height: 5' SpO2: 99% Weight: 199 lbs 02/08/2015 Blood Pressure 1: 130/88 Code : 8480-6 BMI: 38.5 Code : 11409-4 Heart Rate 1 : 68 bpm Height: 5' SpO2: 97% Temperature: 36.6 (C) / 97.8 (F) Weight: 197 lbs 12/27/2014 Blood Pressure 1: 140/82 Code : 8480-6 BMI: 38.5 Code : 37287-1 Heart Rate 1 : 79 bpm Height: 5' SpO2: 97% Temperature: 36.3 (C) / 97.4 (F) Weight: 197 lbs 11/16/2014 Blood Pressure 1: 128/76 Code : 8480-6 BMI: 38.7 Code : 40184-4 Heart Rate 1 : 76 bpm Height: 5' Weight: 198 lbs 10/11/2014 Blood Pressure 1: 112/78 Code : 8480-6 BMI: 38.7 Code : 21853-2 Heart Rate 1 : 100 bpm Height: 5' SpO2: 93% Temperature: 36.8 (C) / 98.3 (F) Weight: 198 lbs 07/16/2014 Blood Pressure 1: 142/86 Code : 8480-6 BMI: 39.8 Code : 59954-2 Heart Rate 1 : 71 bpm Height: 5' SpO2: 96% Weight: 204 lbs 06/14/2014 Blood Pressure 1: 132/82 Code : 8480-6 BMI: 39.8 Code : 96412-7 Heart Rate 1 : 71 bpm Height: 5' SpO2: 98% Weight: 207 lbs 11/05/2013 Blood Pressure 1: 130/70 Code : 8480-6 BMI: 38.6 Code : 58744-9 Heart Rate 1 : 83 bpm Height: 5' SpO2: 98% Weight: 201 lbs 09/08/2013 Blood Pressure 1: 122/78 Code : 8480-6 BMI: 39.2 Code : 60551-0 Heart Rate 1 : 64 bpm Height: 5' SpO2: 98% Temperature: 36.7 (C) / 98.0 (F) Weight: 204 lbs 05/25/2013 Blood Pressure 1: 130/82 Code : 8480-6 Weight: 05/04/2013 Blood Pressure 1: 110/68 Code : 8480-6 BMI: 38.8 Code : 83343-9 Heart Rate 1 : 76 bpm Height: 5' Temperature: 37.3 (C) / 99.2 (F) Weight: 202 lbs 02/09/2013 Blood Pressure 1: 128/78 Code : 8480-6 BMI: 39.4 Code : 75334-6 Heart Rate 1 : 76 bpm Height: 5' Weight: 205 lbs 09/11/2012 Blood Pressure 1: 128/72 Code : 8480-6 BMI: 38.6 Code : 05990-6 Heart Rate 1 : 76 bpm Height: 5' Temperature: 37.2 (C) / 99.0 (F) Weight: 201 lbs 05/29/2012 Blood Pressure 1: 132/82 Code : 8480-6 BMI: 38.4 Code : 38488-0 Heart Rate 1 : 80 bpm Height: 5' Weight: 200 lbs 02/28/2012 Blood Pressure 1: 120/66 Code : 8480-6 BMI: 37.6 Code : 38991-9 Height: 5' Weight: 196 lbs 01/28/2012 Blood Pressure 1: 144/72 Code : 8480-6 Heart Rate 1: 68 bpm Weight: 194 lbs 12/03/2011 Blood Pressure 1: 146/70 Code : 8480-6 BMI: 37.3 Code : 33422-9 Heart Rate 1 : 68 bpm Height: [...] Code : 8480-6 BMI: 37.9 Code : 67194-0 Heart Rate 1 : 66 bpm Height: 5' Respiratory Rate: 20 bpm Weight: 197 lbs 8 oz 11/15/2010 Blood Pressure 1: 166/94 Code : 8480-6 BMI: 36.5 Code : 32008-2 Heart Rate 1 : 56 bpm Height: [...] an infection since she has surgery on Wednesday hip pain Quality burning sensation 08/09/2011 None [...] 05/28/2011 None well woman exam (65+ years) 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 PATIENT, LEVEL III Diagnosis: Cough[ICD10: R05] Diagnosis: Fever, unspecified[ICD10: R50.9] Diagnosis: Acute recurrent maxillary sinusitis[ICD10: J01.01] Sheri Ty MD, [facility] CPT-4: 53090 04/22/2018 ([id number]) 70819 EST. PATIENT, LEVEL III Diagnosis: Insect bite (nonvenomous) of right upper arm, initial encounter[ICD10 : S40.861A] [facility] CPT-4: 59515 11/18/2017 19133 EST. PATIENT, LEVEL III Diagnosis: Pain in right knee[ICD10: M25.561] Diagnosis: Pain in left knee[ICD10: M25.562] Diagnosis: Low back pain[ICD10: M54.5] [facility] CPT-4 : 27190 03/21/2017 29257 EST. PATIENT, LEVEL III Diagnosis: Pain in right knee[ICD10: M25.561] Diagnosis: Pain in left knee[ICD10: M25.562] Diagnosis: Low back pain[ICD10: M54.5] [facility] CPT-4 : 87508 11/02/2016 ([id number] 81537 EST. PATIENT, LEVEL III Diagnosis: Essential (primary) hypertension[ICD10: I10] Diagnosis: Atrophy of thyroid (acquired)[ICD10: E03.4] [facility] CPT-4: 65419 07/26/2016 ([id number]) 26085 EST. PATIENT, LEVEL III Diagnosis: Essential (primary) hypertension[ICD10: I10] Diagnosis: Pain in left knee[ICD10: M25.562] Diagnosis: Unilateral primary osteoarthritis, left knee[ICD10: M17.12] Brionna Ty MD , [facility] CPT-4: 55679 06/21/2016 49367 EST. PATIENT, LEVEL III Diagnosis: Pain in left knee[ICD10: M25.562] Lana Ty MD, [facility] CPT -4: 62174 05/25/2016 35854 EST. PATIENT, LEVEL IV Diagnosis: Other acute sinusitis[ICD10: J01.80] Diagnosis: Dizziness and giddiness[ICD10: R42] Diagnosis: Other acute nonsuppurative otitis media, bilateral[ICD10: H65.193] Lana Ty MD, [facility] CPT-4: 91298 12/02/2015 33429 EST. PATIENT, LEVEL III Diagnosis: Scar conditions and fibrosis of skin[ICD10: L90.5] Lana Ty MD, [facility] CPT-4: 60200 10/21/2015 ([id number]) 30648 EST. PATIENT, LEVEL IV Diagnosis: Essential (primary) hypertension[ICD10: I10] Diagnosis: Hypothyroidism, unspecified[ICD10: E03.9] Brionna Ty MD, [facility] CPT-4: 31126 10/17/2015 ([id number]) 04334 EST. PATIENT, LEVEL III Diagnosis: Low back pain[ICD10: M54.5] Diagnosis: Sciatica, right side[ICD10: M54.31] Diagnosis: Other obesity due to excess calories[ICD10: E66.09] Sheri Ty MD, [facility] CPT-4: 96436 06/16/2015 ([id number]) 19481 EST. PATIENT, LEVEL III Diagnosis: Essential (primary) hypertension[ICD10: I10] Diagnosis: Hypothyroidism, unspecified[ICD10: E03.9] Sheri Ty MD, [facility] CPT-4: 31401 05/12/2015 ([id number]) 28326 EST. PATIENT, LEVEL IV Diagnosis: Essential (primary) hypertension[ICD10: I10] Diagnosis: Hypothyroidism, unspecified[ICD10: E03.9] Diagnosis: Dizziness and giddiness[ICD10: R42] Sheri Ty MD, [facility] CPT-4: 83469 03/10/2015 [id number]) 10111 EST. PATIENT, LEVEL IV Diagnosis: Hypothyroidism, unspecified[ICD10: E03.9] Diagnosis: Dizziness and giddiness[ICD10: R42] Diagnosis: Headache[ICD10: R51] Diagnosis: Allergic rhinitis due to pollen[ICD10: J30.1] Sheri Ty MD, [facility] CPT-4: 07153 02/08/2015 ([id number]) 66498 EST. PATIENT, LEVEL III Diagnosis: Acute maxillary sinusitis, unspecified[ICD10: J01.00] Sheri Ty MD, [facility] CPT-4: 37382 12/27/2014 ([id number]) 11509 EST. PATIENT, LEVEL IV Diagnosis: ESSENTIAL HYPERTENSION[ICD9: 401.9] Diagnosis: HYPOTHYROIDISM[ICD9: 244.9] Brionna Ty MD, [facility] CPT- 4: 38452 11/16/2014 ([id number]) 52615 EST. PATIENT, LEVEL III Diagnosis: ESSENTIAL HYPERTENSION[ICD9: 401.9] Diagnosis: HYPOTHYROIDISM[ICD9: 244.9] Sheri Ty MD, [facility] CPT-4: 65896 10/11/2014 ([id number]) 74488 EST. PATIENT, LEVEL IV Diagnosis: ESSENTIAL HYPERTENSION[ICD9: 401.9] Diagnosis: HYPERLIPIDEMIA[ICD9: 272.4] Diagnosis: HYPOTHYROIDISM[ICD9: 244.9] Diagnosis: Sacroiliitis[ICD9: 720.2] Brionna Ty MD, [facility] CPT-4: 01777 07/16/2014 ([id number]) 66554 EST. PATIENT, LEVEL IV Diagnosis: ESSENTIAL HYPERTENSION[ICD9: 401.9] Diagnosis: HYPOTHYROIDISM[ICD9: 244.9] Diagnosis: HYPERLIPIDEMIA[ICD9: 272.4] Diagnosis: Gait instability[ICD9: 781.2] Diagnosis: Osteoarthritis[ICD9: 715.90] Brionna Ty MD, [facility] CPT- 4: 16961 06/14/2014 ([id number]) 75325 EST. PATIENT, LEVEL IV Diagnosis: Solano's cyst[ICD9: 727.51] Diagnosis: ESSENTIAL HYPERTENSION[ICD9: 401.9] Brionna Ty MD [facility] CPT-4: 02685 11/05/2013 ([id number]) 83675 EST. PATIENT, LEVEL III Diagnosis: ACUTE PHARYNGITIS[ICD9: 462] Sheri Ty MD [facility] CPT-4: 19930 09/08/2013 ([id number]) 81509 EST. PATIENT, LEVEL III Diagnosis: UTI[ICD9: 599.0] Sheri Ty MD [facility] CPT-4: 61764 05/25/2013 ([id number]) 17595 EST. PATIENT, LEVEL IV Diagnosis: ESSENTIAL HYPERTENSION[SNOMED: 06486239] Diagnosis: HYPOTHYROIDISM[ICD9: 244.9] Diagnosis: ALLERGIC RHINITIS[ICD9: 477.9] Brionna Ty MD [facility] CPT- 4: 46546 05/04/2013 ([id number]) 90540 EST. PATIENT, LEVEL IV Diagnosis: ESSENTIAL HYPERTENSION[SNOMED: 77602050] Diagnosis: HYPOTHYROIDISM[ICD9: 244.9] Brionna Ty MD [facility] CPT- 4: 05035 02/09/2013 ([id number]) 82716 EST. PATIENT, LEVEL III Diagnosis: UTI[ICD9: 599.0] Diagnosis: Dysuria[ICD9: 788.1] Brionna Ty MD [facility] CPT-4: 30906 09/11/2012 ([id number]) 86592 EST. PATIENT, LEVEL IV Diagnosis: ESSENTIAL HYPERTENSION[SNOMED: 66007416] Diagnosis: HYPERLIPIDEMIA[ICD9: 272.4] Diagnosis: HYPOTHYROIDISM[ICD9: 244.9] Brionna Ty MD, [facility] CPT- 4: 73291 05/29/2012 ([id number]) 28804 EST. PATIENT, LEVEL IV Diagnosis: ESSENTIAL HYPERTENSION[SNOMED: 87804862] Diagnosis: HYPERLIPIDEMIA[ICD9: 272.4] Diagnosis: HYPOTHYROIDISM[ICD9: 244.9] Brionna Ty MD, [facility] CPT- 4: 01802 02/28/2012 ([id number]) 65692 EST. PATIENT, LEVEL IV Diagnosis: ESSENTIAL HYPERTENSION[SNOMED: 50857078] Diagnosis: HYPOTHYROIDISM[ICD9: 244.9] Brionna Ty MD [facility] CPT- 4: 03562 01/28/2012 ([id number]) 79186 EST. PATIENT, LEVEL IV Diagnosis: ESSENTIAL HYPERTENSION[SNOMED: 11906774] Diagnosis: ESOPHAGEAL REFLUX[ICD9: 530.81] Diagnosis: Constipation - functional[ICD9: 564.09] Brionna Ty MD, [facility] CPT-4: 96178 12/03/2011 ([id number]) 33717 EST. PATIENT, LEVEL III Diagnosis: ALLERGIC RHINITIS[ICD9: 477.9] Diagnosis: ACUTE SINUSITIS[ICD9: 461.9] Brionna yT MD, [facility] CPT- 4: 82679 11/05/2011 ([id number]) 13409 EST. PATIENT, LEVEL III Diagnosis: SCIATICA[ICD9: 724.3] Diagnosis: SACROILIITIS NEC[ICD9: 720.2] Diagnosis: Gait instability[ICD9: 781.2] Sheri Ty MD, [facility] CPT-4: 92813 08/09/2011 84716 EST. PATIENT, LEVEL III Diagnosis: Sacroiliitis[ICD9: 720.2] Diagnosis: Fall from slipping[ICD9: E885.9] Sheri Ty MD, [facility] CPT-4: 71403 05/28/2011 ([id number]) PER PM REEVAL EST PAT 65+ YR Diagnosis: Well woman exam[ICD9: V70.0] Sheri Ty MD, [facility] CPT-4: 59538 03/15/2011 ([id number]) 96205 EST. PATIENT, LEVEL IV Diagnosis: ESSENTIAL HYPERTENSION[SNOMED: 27725419] Diagnosis: HYPOTHYROIDISM[ICD9: 244.9] Diagnosis: ESOPHAGEAL REFLUX[ICD9: 530.81] Brionna Ty MD, [facility] CPT- 4: 82319 03/13/2011 82569 EST. PATIENT, LEVEL IV Diagnosis: ESSENTIAL HYPERTENSION[SNOMED: 63347184] Diagnosis: HYPOTHYROIDISM[ICD9: 244.9] Diagnosis: Leg pain, bilateral[ICD9: 729.5] [facility] CPT-4: 31190 11/15/2010 08241 EST. PATIENT, LEVEL IV Diagnosis: SACROILIITIS NEC[ICD9: 720.2] Diagnosis: SCIATICA[ICD9: 724.3] Diagnosis: ESSENTIAL HYPERTENSION[SNOMED: 43172968] Diagnosis: HYPOTHYROIDISM[ICD9: 244.9] [facility] CPT- 4: 68689 11/01/2010 Plan of Care Planned Activity Notes Codes Status Date Visit Plan: Joint Injection -bilateral knees- Pt was given post - injection instructions. The pt has been advised to use anti- inflammatories post injection today, ice to the injected site, call if redness, warmth, or increased pain occurs at the site of injection. 05/01/2018 Patient Education: Patient Medication Summary Completed [...] acutely worsen. 04/22/2018 Appointment: Sheri Sorto WPtel: [address] [place], [place] [phone] (15 min) Moderate 04/22/2018 Patient Education: Patient [...] care surrogate. 11/28/2017 Appointment: Sheri Sorto WPtel: [phone] [facility] - Annual Wellness Visit 11/28/2017 Patient Education: Patient Medication Summary Completed 11/28/2017 Care Plan: SCREENINGMAMMOGRAPHYDIGITAL LOINC : 77322-1 Pending 11/28/2017 Visit Plan: Cellulitis -possible spider [...] warmth, discharge. 11/18/2017 Appointment: Sheri Sorto WPtel: [facility]5 [phone] (30 min) Complex 11/18/2017 Patient Education: Patient [...] they worsen. 09/04/2017 Appointment: Lana Seaman WPtel: [facility] (30 min) Complex 09/04/2017 Patient Education: Patient Medication Summary Completed 09/04/2017 Visit Plan: Bilateral knee - Joint Injection - Pt was given post - injection instructions. The pt has been advised to use anti- inflammatories post injection today, ice to the injected site, call if redness, warmth, or increased pain occurs at the site of injection. 03/21/2017 Appointment: [phone] (30 min) Complex 03/21/2017 Patient Education: Patient Medication Summary Completed 03/21/2017 Referral: Osman Yoo 11/07 at 1PM - pt notified at her appointment Completed 11/07/2016 Care Plan: Referral Order SNOMED-CT : 873502943 Pending 11/04/2016 Visit Plan: Low back pain- [...] or concerns. 11/02/2016 Appointment: Lana Seaman WPtel: [facility] [place] (30 min) Complex 11/02/2016 Patient Education: Patient [...] of control. 07/26/2016 Appointment: [phone] [place] (15 min) Moderate 07/26/2016 Patient Education: Patient Medication Summary Completed 07/26/2016 Patient Education: Obesity Completed 07/26/2016 Appointment: Brionna Ty WPtel: [facility] (15 min) Moderate 07/24/2016 Visit Plan: Hypertension [...] pain symptoms. 06/21/2016 Appointment: Brionna Ty WPtel: [facility] (15 min) Moderate 06/21/2016 Patient Education: Patient [...] not improve. 05/25/2016 Appointment: Lana Seaman WPtel: [facility] (30 min) Complex 05/25/2016 Patient Education: Patient Medication Summary Completed 05/25/2016 Patient Education: Obesity Completed 05/25/2016 Appointment: Brionna Ty WPtel: [facility] (15 min) Moderate 02/14/2016 Visit Plan: Sinusitis [...] instructions/medication interventions. 12/02/2015 Appointment: Sheri Sorto WPtel: [address] [place], [place] [phone] (30 min) [facility] 12/02/2015 Patient Education: Patient Medication Summary Completed [...] months based on previous levels of control. Oqyndqqwi-hegqtejn-bwyk if symptoms do not completely resolve 03/10/2015 [...] months based on previous levels of control. Ukaeeetcf-vmjmwudto-qmgjabh due to allergies-start claritin-call if symptoms persist [...] show improvement. 12/27/2014 Appointment: Sheri Sorto WPtel: [phone] [phone] [place] (15 min) Moderate 12/27/2014 Patient Education: Patient [...] of control. 11/16/2014 Appointment: [facility]ionna Ty WPtel[phone] Follow up 11/16/2014 Patient Education: Patient Medication [...] treatments help. 07/16/2014 Appointment: Brionna Ty WPtel: [facility] Follow up 07/16/2014 Patient Education: Patient Medication Summary Completed 07/16/2014 Patient Education: Hypertension Completed 07/16/2014 Appointment: Brionna Ty WPtel: [address] [place], [place] [phone] [place] Follow up 07/14/2014 Visit Plan: Hypertension - [...] inject patient. 06/14/2014 Appointment: Brionna Ty WPtel: [facility] [place] Follow up 06/14/2014 Patient Education: Patient Medication [...] x 1 11/05/2013 Appointment: Brionna Ty WPtel: [facility] Follow up 11/05/2013 Patient Education: Patient Medication Summary Completed 11/05/2013 Patient Education: Hypertension Completed 11/05/2013 Appointment: Brionna Ty WPtel: [facility] Follow up 11/02/2013 Visit Plan: Pharyngitis-Discussed natural [...] of plan. 05/25/2013 Appointment: Sheri Sorto WPtel: [phone] Other 05/25/2013 Patient Education: Patient Medication Summary [...] allergy spray. 05/04/2013 Appointment: Brionna Ty WPtel: [address] [place], [place] [phone] Follow up 05/04/2013 Patient Education: Patient Medication [...] of control. 02/09/2013 Appointment: Brionna Ty WPtel: [address] [place], [place] [phone] Follow up 02/09/2013 Patient Education: Patient Medication Summary Completed 02/09/2013 Patient Education: Hypertension Completed 02/09/2013 Appointment: Brionna Ty WPtel: [address] [place] [phone] Follow up 12/11/2012 Visit Plan: UTI - pt with positive urinalysis - culture sent if appropriate. Antibiotic electronically prescribed to pt's pharmacy of choice. Pt to call if symptoms do not improve. 09/11/2012 Appointment: Brionna Ty WPtel: [facility] Follow up 09/11/2012 Patient Education: Patient Medication Summary Completed 09/11/2012 Appointment: Brionna Ty WPtel: [phone] Follow up 09/02/2012 Visit Plan: Hypertension - [...] control. 05/29/2012 Appointment: Brionna Ty WPtel: [phone] Follow up 05/29/2012 Patient Education: Patient Medication [...] daily 02/28/2012 Appointment: Brionna Ty WPtel: [phone] Follow up 02/28/2012 Patient Education: Patient Medication [...] supplementation. 01/28/2012 Appointment: Brionna Ty WPtel: [phone] Follow up 01/28/2012 Patient Education: Hypertension Completed [...] Saturday, Saturday. 12/03/2011 Appointment: Brionna Ty WPtel: [address] [place], [place] [phone] Hospital follow up 12/03/2011 Patient Education: Patient [...] show improvement. 11/05/2011 Appointment: Sheri Sorto WPtel: [address] [place], [place] [phone] Other 11/05/2011 Appointment: Sheri Sorto WPtel: [address] [place], [place] [phone] Lab Draw 11/05/2011 Patient Education: Patient Medication Summary Completed 11/05/2011 Appointment: Brionna Ty WPtel: [address] [place], [place] [phone] Follow up 09/06/2011 Visit Plan: Sacroilitis/sciatica-injection today in the office-Recommend physical therapy for gait instability- exercises discussed with the patient, pt to continue with antiinflammatories. Pt is to call if the symptoms do not improve or if they worsen. 08/09/2011 Appointment: Sheri Sorto WPtel: [address] [place], [place] [phone] Other 08/09/2011 Patient Education: Patient Medication Summary Completed 08/09/2011 Visit Plan: Sacroilitis/sciatica-discussed natural and expected course of this diagnosis and to alert me if symptoms do not follow expected course, or if any worse. Plan for xrays today at the hospital to evaluate for acute abnormality. Kenalog injection today in the office. 05/28/2011 Appointment: Sheri Sorto WPtel: [address] [place], [place] [phone] Other 05/28/2011 Patient Education: Patient Medication Summary [...] or prn. 03/15/2011 Appointment: Sheri Sorto WPtel: [phone] [facility] 03/15/2011 Patient Education: Patient Medication [...] to pt. 03/13/2011 Appointment: Brionna Ty WPtel: [address] [place], [place] [phone] Other 03/13/2011 Patient Education: Patient Medication Summary Completed 03/13/2011 Patient Education: High Blood Pressure: Essential Hypertension Completed 2011 Appointment: Brionna Ty WPtel: [address] [place], [place] [phone] Other 12/06/2010 Visit Plan: Hypertension - uncontrolled [...] needed antiinflammatories. 11/15/2010 Appointment: Brionna Ty WPtel: [address] [place] [address] Other 11/15/2010 Patient Education: Patient Medication Summary [...] BACK PAIN). 11/01/2010 Appointment: Brionna Ty WPtel: [facility] [place] Other 11/01/2010 Patient Education: Patient Medication Summary [...] improving. Samples of aciphex given to pt. . Hypertension - well controlled - continue [...] months based on previous levels of control. culture urine. Urinary Tract Infection-discussed natural and [...] diarrhea. Patient verbalized understanding of plan. . Scar - lap sites - cholecystectomy - pt states that she was worried that it was getting infected - well healing, no erythema, warmth, drainage, or edema noted. Pt can use topical ointment to help reduce the appearance of scars. Pt is to notify clinic with any questions or concerns. . Joint Injection - Pt was given [...] do not improve or if they worsen. RETURN TOMORROW FOR FASTING LABS SCHEDULE MAMMOGRAM [...] DOPA paperwork for health care surrogate. . Well Adult Female - exam completed. [...] months based on previous levels of control. Wnuuchcqy-takvmbiq-rmcu if symptoms do not completely resolve . Hypertension - well controlled - continue [...] Miralax- may go to Saturday, Saturday, Saturday. Xray SI joint/lumbar spine today Kenalog injection in the office today.. Sacroilitis/sciatica-discussed natural and expected course of this diagnosis and to alert me if symptoms do not follow expected course, or if any worse. Plan for xrays today at the hospital to evaluate for acute abnormality. Kenalog injection today in the office. WHILE ON ANTIBIOTIC, TAKE A PROBIOTIC LIKE [employer] TO HELP PREVENT DIARRHEA. UTI - pt with positive urinalysis - culture sent if appropriate. Antibiotic electronically prescribed to pt's pharmacy of choice. Pt to call if symptoms do not improve. Plan: ([id number]) SCREENINGMAMMOGRAPHYDIGITAL-Scheduled for tomorrow at the [...] Solano's cyst toradol 60mg im x [address] Yoo in [place] office on Tuesday 11/07 at 1PM - go 15 minutes early for paperwork. Voltaren Gel - I can send a script to [...] or with any changes, questions, or concerns. . Sinusitis - Pt has acute infection [...] call the office for further instructions/medication interventions. . Hypertension - well controlled - continue [...] increased synthroid dose to 112 mcg daily CLARITIN 10MG DAILY INCREASE SYNTHROID TO 175MCG [...] months based on previous levels of control. Qrtfjvbbi-ekwgzlkmt-jqwwrmg due to allergies-start claritin-call if symptoms persist [...] based on previous levels of control. . Joint Injection -bilateral knees- Pt was given post - injection instructions. The pt has been advised to use anti-inflammatories post injection today, ice to the injected site, call if redness, warmth, or increased pain occurs at the site of injection. . Sinusitis - Pt has acute infection - pain in face, maxillary region, Pt informed to use decongestant, RX given to patient, sinus rinses also recommended. Call if symptoms do not show improvement. PT TO RESTART THE NORVASC 5MG DAILY [...] keep Valerie at appropriate levelsof supplementation. . Hypertension - well controlled - continue [...] spray in the nasal steroid allergy spray. . Hypertension - well controlled - continue [...] doing well, need to inject patient. . Pharyngitis-Discussed natural and expected course of [...] Use tylenol for break through pain symptoms. . Hypertension - well controlled - continue [...] do not improve or if they worsen. She would like to think about being referred to Dr. Linda . Bilateral knee - Joint Injection - Pt was given post - injection instructions. The pt has been advised to use anti-inflammatories post injection today, ice to the injected site, call if redness, warmth, or increased pain occurs at the site of injection. . Hypertension - uncontrolled - the patient's [...]
--- NOTE | 2018-06-02 15:13 | ED General ---
General Chief Complaint: Respiratory Problems Stated Complaint: WEAKNESS Source of Information: Patient, Family Exam Limitations: No Limitations History of Present Illness Date Seen by Provider: Jun 02, 2018 Time Seen by Provider: 14:54 Initial Comments Patient presents to ER by private conveyance with her grandson with chief complaint that this morning she woke up just not feeling well having nausea vomiting all day cough is productive and complaint of shortness of air. She does not have a history of oxygen dependency, asthma or COPD that her grandson is aware of. He does not know what medication she takes. The patient is not able to give any meaningful review of systems or history as she is quite delirious. She has not had any Tylenol ibuprofen or aspirin today. Allergies and Home Medications Allergies Coded Allergies: Penicillins (Unverified Allergy, Mild, 11/14/11) Uncoded Allergies: CONTRAST DYE (Adverse Reaction, Mild, 09/25/15) Home Medications Amlodipine Besylate 5 Mg Tablet, 5 MG PO DAILY, (Reported) Aspirin 325 Mg Tablet.dr, 325 MG PO DAILY Prescribed by: CARRIE TY on 09/28/15 0842 Atorvastatin Calcium 20 Mg Tablet, 20 MG PO DAILY Prescribed by: CARRIE TY on 09/28/15 0843 Levothyroxine Sodium 150 Mcg Tablet, 150 MCG PO DAILY, (Reported) LAST FILLED #30 16 Tramadol HCl 50 Mg Tablet, 50 MG PO Q8H PRN for PAIN-MILD Prescribed by: REGGIE ALY on 12/20/16 7417 Patient Home Medication List Home Medication List Reviewed: Yes Review of Systems Review of Systems Constitutional: see HPI ( the patient's unable to participate in a meaningful review of systems secondary to her), fever, malaise, weakness Respiratory: cough, phlegm Gastrointestinal: nausea, vomiting Past Nukicru-Cexmdp-Gllugv Hx Patient Social History Alcohol Use: Denies Use Recreational Drug Use: No Smoking Status: Never a Smoker 2nd Hand Smoke Exposure: No Recent Hopitalizations: No Immunizations Up To Date Tetanus Booster (TDap): Unknown Date of Pneumonia Vaccine: Nov 24, 2010 Seasonal Allergies Seasonal Allergies: No Past Medical History Surgeries: Yes (DISC SURGERY ON BACK 1999, disc surgery on back in 2011) Gallbladder, Orthopedic Respiratory: No Cardiac: Yes Hypertension Neurological: Yes (severe speech impediment, cervical spinal stenosis) Stroke Reproductive Disorders: No Female Reproductive Disorders: Denies Sexually Transmitted Disease: No HIV/AIDS: No Gastrointestinal: Yes (constipation) Musculoskeletal: Yes (cervical spinal stenosis) Arthritis Endocrine: Yes Hypothyroidsim Loss of Vision: Denies Hearing Impairment: Denies Cancer: No Psychosocial: No Integumentary: No Blood Disorders: No Adverse Reaction/Blood Tranf: No Family Medical History Heart Disease, Hypertension Physical Exam-Suspected Sepsis Physical Exam Vital Signs Vital Signs - First Documented 06/02/18 06/02/18 06/02/18 14:57 15:08 15:17 Temp 103.6 Pulse 128 Resp 26 B/P (MAP) 175/87 (116) Pulse Ox 90 O2 Delivery Nasal Cannula O2 Flow Rate 5.00 FiO2 75 Capillary Refill : Height, Weight, BMI Height: 5'0.00" Weight: 191lbs. 0.0oz. 86.174739ys; 37.3 BMI Method:Stated General Appearance: Obese, Severe Distress Eyes: Bilateral Eye Normal Inspection, Bilateral Eye PERRL, Bilateral Eye EOMI HEENT: PERRL/EOMI, TMs Normal, Normal ENT Inspection, Pharynx Normal; No Moist Mucous Membranes Neck: Full Range of Motion, Normal Inspection Respiratory: Lungs Clear, Accessory Muscle Use, Decreased Breath Sounds, Respiratory Distress (moderate to severe) Cardiovascular: Regular Rate, Rhythm, No Edema, Normal Peripheral Pulses, Tachycardia Gastrointestinal: Normal Bowel Sounds, Non Tender, Soft Extremity: Normal Capillary Refill, Normal Inspection, Normal Range of Motion, No Calf Tenderness, No Pedal Edema Neurologic/Psychiatric: Alert, No Motor/Sensory Deficits, Other (GCS 12 points. The patient knows her name. Delirious, somnolent) Skin: normal color, warm/dry Focused Exam Sepsis Stage: Septic Shock Possible Source: Pulmonary Lactate Level 06/02/18 15:10: Lactic Acid Level 4.42*H 06/02/18 16:50: Lactic Acid Level 3.01*H Time of Focused Exam: 18:11 Respiratory: Chest Non Tender, Crackles (right base), Respiratory Distress ( orotracheally intubated) Cardiovascular: Regular Rate, Rhythm, Normal Peripheral Pulses Capillary Refill: Greater Than 3 Seconds (on Levophed centrally) Peripheral Pulses: 1+ Radial Pulses (R), 1+ Radial Pulses (L) Skin: normal color, warm/dry Lactic Acid Level Laboratory Tests Test 06/02/18 15:10 06/02/18 16:50 Lactic Acid Level 4.42 MMOL/L (0.50-2.00) *H 3.01 MMOL/L (0.50-2.00) *H Within 3hrs of presentation: Admin fluids, Admin ABX, Blood cultures prior to ABX's, Focus exam, Lactate level, Other (Levophed initiated.) Procedures/Interventions Lumen: triple Central Line Procedure: betadine prep (chlorhexidine prep), sterile drapes applied, sterile dressing applied Position: internal jugular (R) Anesthesia: Lidocaine Volume Anesthetic (ccs): 3 Complications: none Post Position: sutured, good blood return, position confirmed w/ CXR There was no family present and the patient was sedated and orotracheally intubated and unable to give consent. Emergent need for central line vasopressors was indicated by her map in the upper 40s low 50s. We positioned the patient appropriately ascertained good site using ultrasound and then clean the site using chlorhexidine prep provided and draped her out in the usual sterile fashion. We then infiltrated the skin with 1% lidocaine 3 cc. We flushed the triple-lumen catheter and using ultrasound put the introducer needle into the right IJ on first attempt. We then passed a guidewire easily made a small maddison in the skin using 11 blade and removed the introducer needle. We then passed the dilator over the guidewire and removed it area did then placed the central lumen of the triple lumen catheter over the guidewire and then threaded it on to about 14 cm. Within stitched it down into different places. We placed a Biopatch and sterile dressing usual fashion. Chest x-ray was obtained demonstrating the distal tip of the central line in the superior vena cava just above the right atrium. The patient tolerated the procedure well. Reason for Intubation: acute respiratory failure with hypoxia Date of ETT Placement: Jun 02, 2018 Time of ETT Placement: 16:08 Intubation Method: orotracheal Tube Size: 8.0 Medications: Etomidate (30 mg), Succinylcholine (100 mg) Positive End Tide CO2: Yes (26 mmHg) Breath Sounds after Intubation: bilateral-equal Intubation Complications: other (too deep) Post Intubation Xray: Yes ETT tip at raz The decision was made to emergently intubate the patient as she was continuing to fail and having increasingly worsening respiratory failure despite interventions. We explained this to patient but she was unable to give any coherent consent. We positioned the patient appropriately oxygenated her with a bag valve mask until she was up to 97% and gave etomidate. After she was sedated we pushed succinylcholine. After she was adequately paralyzed we were able to use a 4 Joanna to get a good look at the vocal cords. We're able to easily pass an 8.0 ET tube and wants to pass the vocal cords. We then held the tube at 24 at the right lip. We gave of breath and her exhalation fogged tube and she had good breath sounds bilaterally and no breath sounds over the epigastrium. Patient's oxygen sats stayed up about 92-94%. We secured the tube and start Biaxin orogastric tube and her oxygen sats were back down to 88-92%. FiO2 was 100% and she was put on the ventilator and initial settings of 20 respiratory rate, tidal volume 500, PEEP 5. Patient's sedation was continued with propofol at 40. Progress/Results/Core Measures Suspected Sepsis SIRS Temperature: Pulse: Respiratory Rate: Laboratory Tests 06/02/18 15:10: White Blood Count 13.7H Blood Pressure / Mean: 06/02/18 15:10: Lactic Acid Level 4.42*H 06/02/18 16:50: Lactic Acid Level 3.01*H Laboratory Tests 06/02/18 15:10: Creatinine 0.89, INR Comment 1.0, Platelet Count 264, Total Bilirubin 1.6H Results/Orders Lab Results Laboratory Tests Test 06/02/18 15:09 06/02/18 15:10 06/02/18 15:12 06/02/18 15:14 Range/Units Blood Gas Puncture Site LT BRACHIAL Blood Gas Patient Temperature 103.3 Arterial Blood pH 7.39 7.37-7.43 Arterial Blood Partial Pressure CO2 35 35-45 MMHG Arterial Blood Partial Pressure O2 74 L 79-93 MMHG Arterial Blood HCO3 20 L 23-27 MMOL/L Arterial Blood Total CO2 21.2 21.0-31.0 MMOL/L Arterial Blood Oxygen Saturation 94 94-100 % Arterial Blood Base Excess -3.3 L -2.5-2.5 MMOL/L Yovani Test YES-POS Blood Gas Ventilator Setting NO Blood Gas Inspired Oxygen 4 White Blood Count 13.7 H 4.3-11.0 10^3/uL Red Blood Count 5.39 4.35-5.85 10^6/uL Hemoglobin 15.6 11.5-16.0 G/DL Hematocrit 47 35-52 % Mean Corpuscular Volume 87 80-99 FL Mean Corpuscular Hemoglobin 29 25-34 PG Mean Corpuscular Hemoglobin Concent 33 32-36 G/DL Red Cell Distribution Width 14.4 10.0-14.5 % Platelet Count 264 130-400 10^3/uL Mean Platelet Volume 9.7 7.4-10.4 FL Neutrophils (%) (Auto) 88 H 42-75 % Lymphocytes (%) (Auto) 10 L 12-44 % Monocytes (%) (Auto) 2 0-12 % Eosinophils (%) (Auto) 0 0-10 % Basophils (%) (Auto) 0 0-10 % Neutrophils # (Auto) 12.1 H 1.8-7.8 X 10^3 Lymphocytes # (Auto) 1.3 1.0-4.0 X 10^3 Monocytes # (Auto) 0.3 0.0-1.0 X 10^3 Eosinophils # (Auto) 0.0 0.0-0.3 10^3/uL Basophils # (Auto) 0.0 0.0-0.1 10^3/uL Neutrophils % (Manual) 65 % Lymphocytes % (Manual) 9 % Monocytes % (Manual) 2 % Eosinophils % (Manual) 0 % Basophils % (Manual) 0 % Band Neutrophils 20 % Reactive Lymphocytes 4 % Blood Morphology Comment NORMAL Prothrombin Time 13.3 12.2-14.7 SEC INR Comment 1.0 0.8-1.4 Activated Partial Thromboplast Time 26 24-35 SEC Sodium Level 138 135-145 MMOL/L Potassium Level 3.6 3.6-5.0 MMOL/L Chloride Level 100 98-107 MMOL/L Carbon Dioxide Level 25 21-32 MMOL/L Anion Gap 13 5-14 MMOL/L Blood Urea Nitrogen 11 7-18 MG/DL Creatinine 0.89 0.60-1.30 MG/DL Estimat Glomerular Filtration Rate > 60 BUN/Creatinine Ratio 12 Glucose Level 166 H 70-105 MG/DL Lactic Acid Level 4.42 *H 0.50-2.00 MMOL/L Calcium Level 9.5 8.5-10.1 MG/DL Corrected Calcium 9.4 8.5-10.1 MG/DL Total Bilirubin 1.6 H 0.1-1.0 MG/DL Aspartate Amino Transf (AST/SGOT) 22 5-34 U/L Alanine Aminotransferase (ALT/SGPT) 29 0-55 U/L Alkaline Phosphatase 54 40-136 U/L Total Protein 6.8 6.4-8.2 GM/DL Albumin 4.1 3.2-4.5 GM/DL Triglycerides Level 75 <150 MG/DL Glucometer 162 H 70-110 MG/DL Urine Color YELLOW Urine Clarity SLIGHTLY CLOUDY Urine pH 8 5-9 Urine Specific Teller 1.010 L 1.016-1.022 Urine Protein 1+ H NEGATIVE Urine Glucose (UA) NEGATIVE NEGATIVE Urine Ketones 1+ H NEGATIVE Urine Nitrite NEGATIVE NEGATIVE Urine Bilirubin NEGATIVE NEGATIVE Urine Urobilinogen 1 NORMAL MG/DL Urine Leukocyte Esterase 1+ H NEGATIVE Urine RBC (Auto) NEGATIVE NEGATIVE Urine RBC RARE /HPF Urine WBC RARE /HPF Urine Squamous Epithelial Cells RARE /HPF Urine Crystals PRESENT H /LPF Urine Amorphous Sediment FEW RENATA PHOSPHATE H /LPF Urine Bacteria TRACE /HPF Urine Casts NONE /LPF Urine Mucus SMALL H /LPF Urine Culture Indicated CULTURE PENDING Test 06/02/18 16:37 06/02/18 16:50 Range/Units Blood Gas Puncture Site RT BRACHIAL Blood Gas Patient Temperature 101.5 Arterial Blood pH 7.32 *L 7.37-7.43 Arterial Blood Partial Pressure CO2 41 35-45 MMHG Arterial Blood Partial Pressure O2 123 H 79-93 MMHG Arterial Blood HCO3 20 L 23-27 MMOL/L Arterial Blood Total CO2 21.1 21.0-31.0 MMOL/L Arterial Blood Oxygen Saturation 99 94-100 % Arterial Blood Base Excess -4.8 L -2.5-2.5 MMOL/L Yovani Test YES-POS Blood Gas Ventilator Setting YES Blood Gas Inspired Oxygen 100% Lactic Acid Level 3.01 *H 0.50-2.00 MMOL/L Micro Results Microbiology 06/02/18 Influenza Types A,B Antigen ([place]) - Final, Complete My Orders Orders - ANDRÉS MURGUIA Arterial Blood Gas (06/02/18 15:06) Influenza A And B Antigens (06/02/18 15:06) Albuterol/Ipra Inhalation Soln (Duoneb I (06/02/18 15:15) Chest 1 View, Ap/Pa Only (06/02/18 15:06) Cbc With Automated Diff (06/02/18 15:06) Comprehensive Metabolic Panel (06/02/18 15:06) Blood Culture (06/02/18 15:06) Sputum Culture (06/02/18 15:06) Urinalysis (06/02/18 15:06) Urine Culture (06/02/18 15:06) Protime With Inr (06/02/18 15:06) Partial Thromboplastin Time (06/02/18 15:06) Saline Lock/Iv-Start (06/02/18 15:06) Saline Lock/Iv-Start (06/02/18 15:06) Vital Signs Adult Sepsis Patie Q15M (06/02/18 15:06) Ondansetron Injection (Zofran Injectio (06/02/18 15:15) O2 (06/02/18 15:06) Remove Rings In Anticipation O (06/02/18 15:06) Lactic Acid Analyzer (06/02/18 15:06) Ns Iv 1000 Ml (Sodium Chloride 0.9%) (06/02/18 15:06) Cefepime Injection (Maxipime Injection) (06/02/18 15:15) Saline Lock/Iv-Start (06/02/18 15:06) Ns Iv 1000 Ml (Sodium Chloride 0.9%) (06/02/18 15:06) Acetaminophen Suppository (Tylenol Suppo (06/02/18 15:15) Svn Small Volume Nebulizer (06/02/18 15:06) Accucheck Stat ONCE (06/02/18 15:06) Arterial Blood Gas (06/02/18 15:09) Albuterol/Ipra Inhalation Soln (Duoneb I (06/02/18 15:09) Catheter(Urinary) Insert & Ass 03,15 (06/02/18 15:13) Ekg Tracing (06/02/18 15:21) Continuous Ekg Monitoring (06/02/18 15:21) Manual Differential (06/02/18 15:10) Arterial Blood Draw (06/02/18 ) Saline Lock/Iv-Start (06/02/18 15:47) Ns Iv 500 Ml (Sodium Chloride 0.9%) (06/02/18 15:47) Propofol Drip (Icu) (Diprivan Drip (Icu) (06/02/18 16:01) Chest 1 View, Ap/Pa Only (06/02/18 16:13) Propofol Drip (Icu) (Diprivan Drip (Icu) (06/02/18 16:15) Triglycerides (06/02/18 16:13) Triglycerides (06/04/18 16:13) Triglycerides (06/06/18 16:13) Triglycerides (06/08/18 16:13) Triglycerides (06/10/18 16:13) Ketorolac Injection (Toradol Injection) (06/02/18 16:45) Ns (Ivpb) (Sodium Chloride 0.9%) (06/02/18 16:35) Norepinephrine (Levophed) (06/02/18 16:35) Propofol Drip (Icu) (Diprivan Drip (Icu) (06/02/18 17:15) Chest 1 View, Ap/Pa Only (06/02/18 17:14) Norepinephrine (Levophed) (06/02/18 17:15) Vancomycin Injection (Vancomycin Injecti (06/02/18 17:36) Lactated Ringers (Lr 1000 Ml Iv Solution (06/02/18 18:23) Medications Given in ED Current Medications Medications Dose Ordered Sig/Beena Route Start Time Stop Time Status Last Admin Dose Admin Acetaminophen 650 mg ONCE ONCE MA 06/02/18 15:15 06/02/18 15:16 DC 06/02/18 15:19 650 MG Cefepime HCl 1000 mg/Sterile Water 10 ml @ 200 mls/hr ONCE ONCE IV 06/02/18 15:15 06/02/18 15:17 DC 06/02/18 15:25 200 MLS/HR Ondansetron HCl 4 mg PRN PRN IV 06/02/18 15:15 06/02/18 15:20 DC 06/02/18 15:19 4 MG Sodium Chloride 500 ml @ 0 mls/hr Q0M ONCE IV 06/02/18 15:47 06/02/18 15:49 DC 06/02/18 16:30 0 MLS/HR Vital Signs/I&O 06/02/18 06/02/18 06/02/18 06/02/18 14:57 15:08 15:12 15:17 Temp 103.6 Pulse 128 Resp 26 B/P (MAP) 175/87 (116) Pulse Ox 90 90 94 O2 Delivery Nasal Cannula Nasal Cannula Nasal Cannula Vapotherm O2 Flow Rate 5.00 5.00 4.00 30.00 FiO2 75 06/02/18 06/02/18 06/02/18 15:19 16:11 17:37 Temp 103.6 103.6 Pulse 120 108 Resp 18 24 B/P (MAP) 113/92 Pulse Ox 89 O2 Delivery Mechanical Ventilator FiO2 100 Capillary Refill : Progress Note #1: Time: 15:19 Progress Note The patient appears acutely delirious with a temperature of 103 and blood sugar 162. No history of diabetes. Plan to do a septic workup given her a 20 mL/kg bolus 2 L of saline and inserted a Mullen catheter. We put her on a DuoNeb since her lung sounds are diminished and her oxygen saturations stayed around 88-92%. We'll put her on Vapotherm. ABG. Cefepime for pneumonia versus urine. Influenza swabs. Telemetry demonstrates a widened QRS consistent with her history of right bundle-branch block. Planned obtain a baseline EKG Echocardiogram [address] Singh: Normal left greater size and systolic function with an EF of 60%. Records indicate a history of status post cholecystectomy, hypertension, hyperlipidemia and hypothyroidism. Cardiac catheterization by Dr. Singh 2009 demonstrating no obstructive disease or coronary system with an EF of 60%. Slightly prominent upper portion of the descending aorta without any significant aneurysm or dissection. 1545: We have her on 75 FiO2 and that were in the vault keeping her SPO2 around 90-92%. flow 25 lpm. Lactate is 4.2 so we will give her a full 30 mL/kg bolus of fluids. Progress Note #2: Time: 18:10 Progress Note During suctioning the patient was having quite a bit of coughing and restlessness so we added a second 5 for its amnesia as well as sedation properties. History included the patient is having nausea and vomiting today but family says that she does not have a history of ever aspirating before. She has no history of lung disease and they said that she just started getting sick today. It is possible she could've aspirated therefore we added vancomycin. ECG Initial ECG Impression Date: Jun 02, 2018 Initial ECG Impression Time: 15:32 Initial ECG Rate: 126 Initial ECG Rhythm: S.Tach Initial ECG Intervals: Normal Initial ECG Impression: Normal, Nonspecific Changes Initial ECG Comparisson: Unchanged Comment No significant ST elevation or depression. Diagnostic Imaging Diagonstic Imaging: Xray Plain Films/CT/US/NM/MRI: chest (1v) Comments [facility], [place] NAME: SONIA NOEL MED REC#: [id number] PT STATUS: REG ER : 1945 PHYSICIAN: ANDRÉS MURGUIA MD ADMIT DATE: 06/02/18/ER Draft Date of Exam:06/02/18 CHEST 1 VIEW, AP/PA ONLY INDICATION: Weakness with shortness of breath. COMPARISON: 12/05/2016. FINDINGS: New right basilar pulmonary opacity reflecting a change from prior is suspicious for infiltrate in the right middle or lower lobe. There is partial obscuration of the right heart border. There does appear to be at least small right pleural effusion. We note sensitivity limited by portable semi-upright technique with an apical lordotic orientation. IMPRESSION: Suspicion for new infiltrate medial right base with probable small right pleural effusion. No other potential change at this exam. Dictated on workstation # [id number] Dict: 06/02/18 1601 Trans: 06/02/18 1606 [id number] Interpreted by: AARON AVILA Electronically signed by: Reviewed: Reviewed by Me Diagonstic Imaging: Xray Plain Films/CT/US/NM/MRI: chest (1v) Comments NAME: SONIA NOEL MED REC#: [id number] PHYSICIAN: ANDRÉS MURGUIA MD CC: SHASTA MINOR MD; ANDRÉS MURGUIA Page 1 of 1 RADIOLOGY REPORT [facility] [place] CC: SHASTA MINOR MD; ANDRÉS MURGUIA Page 1 of 1 RADIOLOGY REPORT NAME: SONIA NOEL MED REC#: [id number] PT STATUS: REG ER : 1945 PHYSICIAN: ANDRÉS MURGUIA MD ADMIT DATE: 06/02/18/ER Signed Date of Exam: 06/02/18 CHEST 1 VIEW, AP/PA ONLY PATIENT HISTORY: Intubation. TECHNIQUE: Single frontal view of the chest. COMPARISON: Radiograph from the same day. FINDINGS: The endotracheal tube is approximately 3 cm from the raz. An enteric tube crosses the [id number]. Cervical spine fusion hardware is noted. A suture anchor is seen in the left humeral head. The lung volumes are low. There is dense consolidation in the right lung base. The cardiac silhouette is mildly prominent which may be due to AP technique. No pneumothorax or pleural effusion is seen. IMPRESSION: 1. The endotracheal tube is 3 cm from the raz. 2. Dense right basilar consolidation. Dictated by: Dictated on workstation # [id number] Dict: 06/02/18 1640 Trans: 06/02/18 1716 Interpreted by: SHASTA MINOR MD Electronically signed by: SHASTA MINOR MD 06/02/18 1716 Reviewed: Reviewed by Me Diagonstic Imaging: Xray Plain Films/CT/US/NM/MRI: chest (1v) Comments Interval change of the central line overlying the right IJ shadow terminating just above the right atrium in the superior vena cava. No evidence of pneumothorax. Reviewed: Reviewed by Me Critical Care Note Critical Care Start Time: 16:00 Stop Time: 17:30 Total Time (minutes) 90minutes Progress Patient presented with respirations stress delirium and we started with a nasal cannula which improved her oxygen saturation from 82-86%. We then put her on Vapotherm and initiated a DuoNeb. After that she stayed around 88-90%. We continued to increase the flow as well as the oxygen FiO2 and her oxygen sats continued to drop back down towards 80. Before we maxed out we decided the patient needed intubated so we got the respiratory team together and use succinylcholine and etomidate and intubated her. See procedure note. Shortly after that she was still struggling oxygenate so we increased her PEEP 5 up to 10 and had her rate of 20 and total volume of 500. There are still struggling to keep oxygen sats 88-90%. We have suctioned multiple times. Then her blood pressure which was good and the 130s systolic range dropped. Using propofol for sedation 70s stop the propofol put her in Trendelenburg and her pressure stayed at a map of 50-55. She had already received a maximum 2.5 L bolus of IV fluids and ultrasound demonstrated a plump IJ. We initiated Levophed through peripheral line improved her blood pressure up to a map of 60 at 10 mcg/m. We then got the central line placed confirmed position by x-ray and switched the pressors over the central line, gave her vancomycin in addition to cefepime and increased her pressors up to 20 which gave her a map of 60-65. We have discontinued Trendelenburg as was making it difficult for her to breathe. Her initial ABG demonstrated that she was blowing off all of her CO2 and had metabolic acidosis. Her lactate was 4.2. Repeat ABG after she was intubated and ventilated for about half an hour demonstrated that she was now retaining CO2 modestly and was starting to go acidotic so we increased her ventilation to tidal volume of 600, dropped her PEEP down to 5 to help out with her low blood pressure and because the ABG demonstrated a PaO2 of 124. We continued the FiO2 of 1.0. Made consultation with pulmonology and they recommend we treat her like a large patient and decreased the tidal volumes to 500 and increased the rate to 24 With a peak back at 10. Patient's been tolerating this with an oxygen saturation of about 95% on FiO2 of 1 and her heart rate has decreased from 120 down to about 90-100. He also noted on her x-ray that the ET tube was resting against the raz so it was withdrawn 2 cm and repeat x-ray demonstrates good position. Patient's family has been updated frequently from the family room and after we are done getting her x-rays they have been in the room with the patient several times and all their questions and answered. Patient's is stable as were probably going to get her in the ER and so we were taking her to the ICU. After the central line was placed propofol was reinitiated at 20 mg. 1820: Patient's blood pressure continues to dwindle as we started vancomycin. It was down to map of 55 so we increased Levophed to 25 mcg/m and added lactated Ringer's at 200 cc an hour. Departure Communication (Admissions) Time/Spoke to Admitting Phy: 16:26 Discussed case, labs, imaging and antibiotics. Dr. Ty agrees with admission to the ICU and consult with Dr. Morales. Time/Spoke to Consulting Phy: 17:20 Discussed the case with Dr. Morales, pulmonology and he recommends treating the patient and ordered patient and increased the rate 24, PEEP of 10, tidal volume back down to 500. He would like an ABG in 1 hour and have the results called to him. Impression Primary Impression: Pneumonia Qualified Codes: J18.1 - Lobar pneumonia, unspecified organism Additional Impressions: Septic shock Acute respiratory failure Qualified Codes: J96.01 - Acute respiratory failure with hypoxia Disposition: ADMITTED INPATIENT Condition: Critical Admissions Decision to Admit Reason: Admit from ER (General) Decision to Admit/Date: Jun 02, 2018 Time/Decision to Admit Time: 16:19 Departure-Patient Inst. Referrals: CARRIE TY MD (PCP/Family) Primary Care Physician ANDRÉS MURGUIA Jun 02, 2018 15:12
[2018-06-02] MEDS ORDERED: RT-ALBUTEROL/IPRATROPIUM 3 ML (DUONEB) VIAL INH ONE (15:15)
[2018-06-02] MEDS ORDERED: ACETAMINOPHEN 650 MG SUPP (TYLENOL) PR ONE (15:15)
[2018-06-02] MEDS ORDERED: CEFEPIME INJECTION 1,000 MG in WATER (STERILE) FOR INJECTION 10 ML IV ONE (15:15)
[2018-06-02] MEDS ORDERED: ONDANSETRON 4 MG/2 ML (SDV) Z0FRAN IV PRN (15:15)
--- OUTSIDE RECORDS SUMMARY | 2018-06-02 15:16 | XMS REPORT | CCD ---
Author Author [facility] Organization [facility] Address [address] [place] [address] Phone Care Team Providers Care Recruitment Assistant Name Role Phone Brionna Ty PP Unavailable CCM Unavailable Summary Purpose Interface Exchange Insurance Providers Payer name Policy type / Coverage type Covered green party ID Effective Begin Date Effective End Date WPS Medicare Part B [id number] 2016 Unknown [employer] [id number] 2016 Unknown Family history Daughter Diagnosis Age [...] and well 11/01/[address]: 963671283 Nonsmoker 11/01/[address]: 984539444 Never drinks alcohol 11/01/2010 Has the patient [...] Codes Condition Status Onset Date Resolved Date Acute recurrent maxillary sinusitis ICD-9: 461.0 ICD-10: [...] 9: 719.45 ICD-10: M25.551 Active 09/04/2017 Unknown Pain in right knee ICD -9: 719.46 ICD-10: M25.561 Active 11/02/2016 Unknown Low back pain ICD-9: 724.2 ICD-10: M54.5 Active 06/15/2015 Unknown Pain in left knee ICD- 9: 719.46 ICD-10: M25.562 Active 05/25/2016 Unknown Atrophy of thyroid (acquired) ICD-9: 244.8 [...] Problems Condition Codes Effective Dates Condition Status Acute recurrent maxillary sinusitis ICD-9: 461.0 ICD-10: [...] ICD- 9: 719.45 ICD-10: M25.551 09/04/2017 Active Pain in right knee ICD -9: 719.46 ICD-10: M25.561 11/02/2016 Active Low back pain ICD-9: 724.2 ICD-10: M54.5 06/15/2015 Active Pain in left knee ICD- 9: 719.46 ICD-10: M25.562 05/25/2016 Active Atrophy of thyroid (acquired) ICD-9: 244.8 [...] Start Date Stop Date Status Fill Instructions Tessalon Perles 100 mg capsule RxNorm: 033070 1-2 Capsule(s) PO TID PRN 04/22/2018 No Stop Date Active cefdinir 300 mg capsule RxNorm: 824000 1 Capsule(s) PO BID 04/28/2018 Active Kenalog 40 mg/mL suspension for injection RxNorm: 3638697 Milliliter(s) Inj 04/22/2018 04/22/2018 Inactive levothyroxine 150 mcg tablet RxNorm: 206390 1 Tablet(s) PO daily 03/18/2018 07/15/2018 Active levothyroxine 137 mcg tablet RxNorm: 375774 1 Tablet(s) PO daily 12/04/2017 03/17/2018 Inactive levothyroxine 137 mcg tablet RxNorm: 192985 1 Tablet(s) PO daily 12/04/2017 12/03/2017 Inactive doxycycline hyclate 100 mg tablet RxNorm: 3811575 1 Tablet(s) PO BID 11/18/2017 11/24/2017 Inactive Kenalog 40 mg/mL suspension for injection RxNorm: 1293215 1 Milliliter(s) Inj 09/04/2017 09/04/2017 Inactive Kenalog 40 mg/mL suspension for injection RxNorm: 7129787 1 Milliliter(s) Inj 09/04/2017 09/04/2017 Inactive levothyroxine 150 mcg tablet RxNorm: 724539 TAKE ONE TABLET BY MOUTH ONCE DAILY ON EMPTY STOMACH 07/09/2017 12/03/2017 Inactive Kenalog 40 mg/mL suspension for injection RxNorm: 6257579 2 Milliliter(s) Inj 03/21/2017 03/21/2017 Inactive levothyroxine 150 mcg tablet RxNorm: 430258 TAKE ONE TABLET BY MOUTH ONCE DAILY ON EMPTY STOMACH 11/08/2016 05/06/2017 Inactive Voltaren 1 % topical gel RxNorm: 539987 1 Application TOP TID as needed 11/02/2016 No Stop Date Active Kenalog 40 mg/mL suspension for injection RxNorm: 8511391 1 Milliliter(s) Inj 06/21/2016 06/21/2016 Inactive levothyroxine 150 mcg tablet RxNorm: 527546 TAKE ONE TABLET BY MOUTH ONCE DAILY ON EMPTY STOMACH 05/09/2016 09/05/2016 Inactive Zithromax Z-Elmer 250 mg tablet RxNorm: 666727 1 Tablet(s) PO UD 12/02/2015 12/06/2015 Inactive Kenalog 40 mg/mL suspension for injection RxNorm: 4590937 Milliliter(s) Inj 12/02/2015 12/02/2015 Inactive levothyroxine 150 mcg tablet RxNorm: 996688 TAKE ONE TABLET BY MOUTH DAILY ON AN EMPTY STOMACH 12/01/2015 03/29/2016 Inactive Norvasc 5 mg tablet RxNorm: 998530 1 Tablet(s) PO daily 201510/10/2016 Inactive Kenalog 40 mg/mL suspension for injection RxNorm: 2927170 1 Milliliter(s) Inj 06/16/2015 06/16/2015 Inactive Norvasc 5 mg tablet RxNorm: 173279 TAKE ONE TABLET BY MOUTH DAILY 06/10/2015 10/07/2015 Inactive levothyroxine 150 mcg tablet RxNorm: 893356 1 Tablet(s) PO daily TAKE ONE TABLET BY MOUTH DAILY 05/18/2015 09/14/2015 Inactive Synthroid 175 mcg tablet RxNorm: 227048 1 Tablet(s) PO daily TAKE ONE TABLET BY MOUTH DAILY 03/11/2015 05/17/2015 Inactive Synthroid 175 mcg tablet RxNorm: 237696 1 Tablet(s) PO daily TAKE ONE TABLET BY MOUTH DAILY 02/08/2015 03/10/2015 Inactive Flonase Allergy Relief 50 mcg/actuation nasal spray, suspension RxNorm: 2 Solomon NASAL daily 12/27/2014 01/05/2015 Inactive Kenalog 40 mg/mL suspension for injection RxNorm: 6087653 Milliliter(s) Inj 12/27/2014 12/27/2014 Inactive Levaquin 500 mg tablet RxNorm: 474050 1 Tablet(s) PO daily 03/201401/02/2015 Inactive Zithromax Z-Elmer 250 mg tablet RxNorm: 467694 1 Tablet(s) PO UD 11/26/2014 11/30/2014 Inactive Synthroid 125 mcg tablet RxNorm: 422680 1 Tablet(s) PO daily 10/12/2014 Inactive Synthroid 150 mcg tablet RxNorm: 248723 1 Tablet(s) PO daily TAKE ONE TABLET BY MOUTH DAILY 10/05/2014 02/01/2015 Inactive Norvasc 5 mg tablet RxNorm: 742623 TAKE ONE TABLET BY MOUTH DAILY 10/05/2014 06/01/2015 Inactive Synthroid 125 mcg tablet RxNorm: 878236 TAKE ONE TABLET BY MOUTH DAILY 07/12/2014 10/05/2014 Inactive cephalexin 500 mg capsule RxNorm: 250725 1 Capsule(s) PO TID 06/28/2014 Inactive Have patient get probiotic while on antibiotic cephalexin 500 mg capsule RxNorm: 831581 1 Capsule(s) PO TID 06/21/2014 Inactive Have patient get probiotic while on antibiotic Synthroid 125 mcg tablet RxNorm: 027045 TAKE ONE TABLET BY MOUTH DAILY 05/21/2014 06/19/2014 Inactive ketorolac 60 mg/2 mL intramuscular solution RxNorm: 035897 Milliliter(s) IM 11/05/2013 11/05/2013 Inactive Norvasc 5 mg tablet RxNorm: 355063 TAKE 1 TABLET BY MOUTH ONCE DAILY. 09/21/2013 10/04/2014 Inactive Generic For:NORVASC 5MG Zithromax Z-Elmer 250 mg tablet RxNorm: 594863 1 Tablet(s) PO UD 09/08/2013 09/12/2013 Inactive Bactrim DS 800 mg-160 mg tablet RxNorm: 643772 1 Tablet(s) PO BID 05/25/2013 05/31/2013 Inactive Keflex 500 mg capsule RxNorm: 560509 1 Capsule(s) PO TID 201305/04/2013 Inactive Keflex 500 mg capsule RxNorm: 960772 1 Capsule(s) PO TID 201304/27/2013 Inactive Synthroid 125 mcg tablet RxNorm: 743066 1 Tablet(s) PO daily 02/03/2014 Inactive Synthroid 112 mcg tablet RxNorm: 037169 Tablet(s) PO TAKE (1) TABLET BY MOUTH ONCE DAILY IN THE MORNING 01/28/201302/08 Inactive Synthroid 112 mcg tablet RxNorm: 612568 Tablet(s) PO TAKE (1) TABLET BY MOUTH ONCE DAILY IN THE MORNING 01/28/201301/27 Inactive Synthroid 112 mcg tablet RxNorm: 113266 Tablet(s) PO TAKE (1) TABLET BY MOUTH ONCE DAILY IN THE MORNING 01/26/201301/27 Inactive lovastatin 20 mg tablet RxNorm: 784554 Tablet(s) PO TAKE 1 TABLET BY MOUTH ONCE DAILY AT BEDTIME. 01/05/2013 10/10/2014 Inactive Synthroid 112 mcg tablet RxNorm: 864641 Tablet(s) PO TAKE (1) TABLET BY MOUTH ONCE DAILY IN THE MORNING 10/20/201201/25 Inactive Bactrim DS 800 mg-160 mg tablet RxNorm: 125041 1 Tablet(s) PO BID 09/25/2012 09/24/2012 Inactive Bactrim DS 800 mg-160 mg tablet RxNorm: 733559 1 Tablet(s) PO BID 09/25/2012 09/27/2012 Inactive Diflucan 150 mg tablet RxNorm: 997505 2 Tablet(s) PO daily 09/20/2012 Inactive sulfamethoxazole 800 mg-trimethoprim 160 mg tablet RxNorm: 104862 1 Tablet(s) PO BID 09/11/2012 09/17/2012 Inactive PLEASE GET A PROBIOTIC FOR VALERIE AND HAVE HER TAKE THE PROBIOTIC WHILE ON THE ANTIBIOT TO HELP PREVENT DIARRHEA Norvasc 5 mg tablet RxNorm: 955912 Tablet(s) PO TAKE 1 TABLET BY MOUTH ONCE DAILY. 08/13/2012 09/20/2013 Inactive Synthroid 112 mcg tablet RxNorm: 865146 1 Tablet(s) PO QAM 04/201206/26/2012 Inactive lovastatin 20 mg tablet RxNorm: 503661 1 Tablet(s) PO QHS 02/2701/04/2013 Inactive Norvasc 5 mg tablet RxNorm: 594354 1 Tablet(s) PO daily 201105/26/2012 Inactive Synthroid 100 mcg tablet RxNorm: 560223 Tablet(s) PO 201102/27/2012 Inactive TAKE 1 TABLET BY MOUTH ONCE DAILY FOR THYROID (IN AM, 30-60MIN BEFORE FOOD/ VITAMINS) Synthroid 100 mcg tablet RxNorm: 151396 Tablet(s) PO 201102/27/2012 Inactive TAKE 1 TABLET BY MOUTH ONCE DAILY FOR THYROID (IN AM, 30-60MIN BEFORE FOOD/ VITAMINS) Synthroid 100 mcg tablet RxNorm: 743988 Tablet(s) PO 201112/02/2011 Inactive TAKE 1 TABLET BY MOUTH ONCE DAILY FOR THYROID (IN AM, 30-60MIN BEFORE FOOD/ VITAMINS) Zyrtec 10 mg tablet RxNorm: 9970417 1 Tablet(s) PO daily 11/0412/04/2011 Inactive Synthroid 100 mcg tablet RxNorm: 938813 Tablet(s) PO 201112/02/2011 Inactive TAKE 1 TABLET BY MOUTH ONCE DAILY FOR THYROID (IN AM, 30-60MIN BEFORE FOOD/ VITAMINS) lisinopril 40 mg tablet RxNorm: 994091 Tablet(s) PO 10/08/2011 10/11/2014 Inactive TAKE 1 TABLET BY MOUTH ONCE DAILY. lisinopril 40 mg tablet RxNorm: 373888 Tablet(s) PO 09/04/2011 10/07/2011 Inactive TAKE 1 TABLET BY MOUTH ONCE DAILY. Kenalog 40 mg/mL Susp for Injection RxNorm: 7578881 1 Milliliter(s) Inj 08/09/2011 08/09/2011 Inactive Norvasc 5 mg Tab RxNorm: 958052 Tablet(s) PO 06/26/2011 11/04/2011 Inactive TAKE 1 TABLET BY MOUTH ONCE DAILY. Kenalog 40 mg/mL Susp for Injection RxNorm: 9353486 1 Milliliter(s) Inj 05/28/2011 05/28/2011 Inactive Synthroid 100 mcg tablet RxNorm: 987033 1 Tablet(s) PO daily 10/08/2011 Inactive lisinopril 40 mg Tab RxNorm: 491969 1 Tablet(s) PO daily 201109/03/2011 Inactive Norvasc 5 mg Tab RxNorm: 114292 1 Tablet(s) PO daily 2011 No Stop Date Active Synthroid 88 mcg Tab RxNorm: 025137 1 Tablet(s) PO daily 201012/14/2010 Inactive Norvasc 5 mg tablet RxNorm: 047833 1 Tablet(s) PO daily 201001/27/2012 Inactive Aspirin Low Dose 81 mg tablet,delayed release RxNorm: 904812 1 Tablet(s) PO daily No Start Date Active Aleve 220 mg Tab RxNorm: 143738 Oral No Start Date 12/02/2011 Inactive Synthroid 75 mcg Tab RxNorm: 337480 1 Tablet(s) PO daily No Start Date 11/14/2010 Inactive Diflucan 150 mg tablet RxNorm: 067004 Tablet(s) PO No Start Date 09/17/2012 Inactive lisinopril 40 mg Tab RxNorm: 638702 1 Tablet(s) PO daily No Start Date 03/12/2011 Inactive Synthroid 75 mcg Tab RxNorm: 700191 1 Tablet(s) PO daily No Start Date 03/13/2011 Inactive aspirin 325 mg tablet RxNorm: 626826 1 Tablet(s) PO daily No Start Date 07/25/2016 Inactive Zithromax Z-Elmer 250 mg tablet RxNorm: 798469 Tablet(s) PO QPM No Start Date 12/02/2011 Inactive Aciphex 20 mg Tab RxNorm: 572791 Tablet(s) PO No Start Date 10/10/2014 Inactive Synthroid 88 mcg Tab RxNorm: 344580 1 Tablet(s) PO daily No Start Date 03/13/2011 Inactive naproxen 500 mg Tab RxNorm: 734495 1 Tablet(s) PO BID No Start Date 03/12/2011 Inactive Medication Administered Medication Codes Instructions Start Date Status Kenalog 40 mg/mL suspension for injection RxNorm: 7678665 Milliliter 04/22/2018 Active Kenalog 40 mg/mL suspension for injection RxNorm: 8173970 1Milliliter 09/04/2017 No longer Active Kenalog 40 mg/mL suspension for injection RxNorm: 8206187 1Milliliter 09/04/2017 No longer Active Kenalog 40 mg/mL suspension for injection RxNorm: 8352402 2Milliliter 03/21/2017 No longer Active Kenalog 40 mg/mL suspension for injection RxNorm: 0860456 1Milliliter 06/21/2016 No longer Active Kenalog 40 mg/mL suspension for injection RxNorm: 2524870 Milliliter 12/02/2015 No longer Active Kenalog 40 mg/mL suspension for injection RxNorm: 5850292 1Milliliter 06/16/2015 No longer Active Kenalog 40 mg/mL suspension for injection RxNorm: 5078508 Milliliter 12/27/2014 No longer Active ketorolac 60 mg/2 mL intramuscular solution RxNorm: 786599 Milliliter 11/05/2013 No longer Active Kenalog 40 mg/mL Susp for Injection RxNorm: 0446703 1Milliliter 08/09/2011 No longer Active Kenalog 40 mg/mL Susp for Injection RxNorm: 6766267 1Milliliter 05/28/2011 No longer Active Immunizations Vaccine Codes Date Status Influenza CVX: 141 11/28/2017 completed Pneumococcal (Adult) CVX: 133 11/28/2017 completed Influenza CVX: 141 11/09/2016 completed Influenza CVX: 141 04/06/2016 completed Influenza CVX: 141 05/04/2013 completed Assessments Condition Codes Effective Dates Acute recurrent maxillary sinusitis ICD-10: J01.01 ICD-9: [...] S40.861A ICD-9: 912.4 11/18/2017 Pain in right knee ICD-10: M25.561 ICD-9: 719.46 09/04/2017 Pain in right hip ICD-10: M25.551 ICD-9: 719.45 09/04/2017 Pain in left knee ICD-10: M25.562 ICD-9: 719.46 03/21/2017 Low back pain ICD-10: M54.5 ICD-9: 724.2 03/21/2017 Essential (primary) hypertension ICD-10: I10 ICD-9: 401.9 07/26/2016 Atrophy of thyroid (acquired) ICD-10: E03.4 ICD-9: 244.8 07/26/2016 Unilateral primary osteoarthritis, left knee ICD-10: M17.12 ICD-9: 715.96 06/21/2016 Other acute nonsuppurative otitis media, bilateral ICD-10: H65.193 ICD-9: 381.00 12/02/2015 Dizziness and giddiness ICD-10: R42 ICD-9: 780.4 12/02/2015 Other acute sinusitis ICD-10: J01.80 ICD-9: 461.9 12/02/2015 Scar conditions and fibrosis of skin [...] Visit Reason For Visit Effective Dates Notes sinus congestion 04/22/2018 Annual Medicare Wellness Exam [...] Item Code Result Date C A/B FLU 9400123 Influenza A Scr Negative 04/22/2018 C A/B FLU 9524302 Influenza B Scr Negative 04/22/2018 C A/B FLU 3078141 Influenza Intrp B AG: PRID:PT:NOSE:NOM:IF See Footnote 04/22/2018 Free T4 Trp733 FREE T4 0.92 ng/dL 03/14/2018 Tsh Ord6 TSH (3rd IS) 7.96 uIU/mL 03/14/2018 Tsh Ord6 TSH (3rd IS) 0.19 uIU/mL 11/29/2017 Comp Metabolic Irx767 NA 141 mEq/L 11/29/2017 Comp Metabolic Izn054 K 4.1 mEq/L 11/29/2017 Comp Metabolic Oxo434 CL 104 mEq/L 11/29/2017 Comp Metabolic Rmb344 CO2 29.0 mEq/L 11/29/2017 Comp Metabolic Lpy523 ANION GAP 12 11/29/2017 Comp Metabolic Gmi196 GLUCOSE 100 mg/dL 11/29/2017 Comp Metabolic Lzq651 Creat 0.7 mg/dL 11/29/2017 Comp Metabolic Pif991 eGFR 95 ml/min/1.73m2 11/29/2017 Comp Metabolic Oso888 BUN 14 mg/dL 11/29/2017 Comp Metabolic Odx751 B/C Ratio 21.5 Ratio 11/29/2017 Comp Metabolic Fim131 CALCIUM 9.1 mg/dL 11/29/2017 Comp Metabolic Yha168 ALK PHOS 53 U/L 11/29/2017 Comp Metabolic Jeg749 AST(SGOT) 13 U/L 11/29/2017 Comp Metabolic Jxq264 ALT(SGPT) 17 U/L 11/29/2017 Comp Metabolic Yfc452 BILI T 0.8 mg/dL 11/29/2017 Comp Metabolic Ytp802 ALBUMIN 3.9 g/dL 11/29/2017 Comp Metabolic Kwo224 TPRO 6.1 g/dL 11/29/2017 Comp Metabolic Bbg052 GLOB 2.2 g/dL 11/29/2017 Comp Metabolic Onc222 A/G Ratio 1.8 Ratio 11/29/2017 Comp Metabolic Jie365 Osmo 282 mOsmo 11/29/2017 Lipid Ord30 CHOL 184 mg/dL 11/29/2017 Lipid Ord30 HDL 52.0 mg/dl 11/29/2017 Lipid Ord30 TRIG 73 mg/dL 11/29/2017 Lipid Ord30 LDL 117 mg/dL 11/29/2017 Lipid Ord30 C/HDL 3.5 Ratio 11/29/2017 Free T4 Ekd412 FREE T4 1.47 ng/dL 11/29/2017 Cbc With Differential Ord2 WBC 7.95 K/ul 11/29/2017 Cbc With Differential Ord2 RBC 4.54 M/ul 11/29/2017 Cbc With Differential Ord2 HGB 13.3 g/dl 11/29/2017 Cbc With Differential Ord2 HCT 40.9 % 11/29/2017 Cbc With Differential Ord2 Neut% 69.6 % 11/29/2017 Cbc With Differential Ord2 Lymph% 17.2 % 11/29/2017 Cbc With Differential Ord2 MCV 90.1 fl 11/29/2017 Cbc With Differential Ord2 MCH 29.3 pg 11/29/2017 Cbc With Differential Ord2 [place]% 8.6 % 11/29/2017 Cbc With Differential Ord2 [...] 1.37 K/ul 11/29/2017 Cbc With Differential Ord2 [place] ABS# 0.7 K/ul 11/29/2017 Cbc With Differential Ord2 Eos ABS# 0.3 K/ul 11/29/2017 Cbc With Differential Ord2 Baso ABS# 0.0 K/ul 11/29/2017 Comp Metabolic Dxo918 NA 140 mEq/L 07/26/2016 Comp Metabolic Tfk961 K 4.0 mEq/L 07/26/2016 Comp Metabolic Wto664 CL 101 mEq/L 07/26/2016 Comp Metabolic Zev569 CO2 30.0 mEq/L 07/26/2016 Comp Metabolic Tvi247 ANION GAP 13 07/26/2016 Comp Metabolic Rmo315 GLUCOSE 94 mg/dL 07/26/2016 Comp Metabolic Aea291 Creat 0.7 mg/dL 07/26/2016 Comp Metabolic Kbs809 eGFR 87 ml/min/1.73m2 07/26/2016 Comp Metabolic Yoi744 BUN 9 mg/dL 07/26/2016 Comp Metabolic Zpf601 B/C Ratio 12.9 Ratio 07/26/2016 Comp Metabolic Ilx787 CALCIUM 9.2 mg/dL 07/26/2016 Comp Metabolic Vma854 ALK PHOS 74 U/L 07/26/2016 Comp Metabolic Lco105 AST(SGOT) 17 U/L 07/26/2016 Comp Metabolic Rdx958 ALT(SGPT) 25 U/L 07/26/2016 Comp Metabolic Gxt923 BILI T 0.8 mg/dL 07/26/2016 Comp Metabolic Awf351 ALBUMIN 4.0 g/dL 07/26/2016 Comp Metabolic Rvg061 TPRO 6.6 g/dL 07/26/2016 Comp Metabolic Zyc221 GLOB 2.6 g/dL 07/26/2016 Comp Metabolic Zdu577 A/G Ratio 1.5 Ratio 07/26/2016 Comp Metabolic Whj280 Osmo 278 mOsmo 07/26/2016 Free T4 Rjp764 FREE T4 1.07 ng/dL 07/26/2016 Cbc With Differential Ord2 WBC 8.32 K/ul 07/26/2016 Cbc With Differential Ord2 RBC 4.80 M/ul 07/26/2016 Cbc With Differential Ord2 HGB 13.7 g/dl 07/26/2016 Cbc With Differential Ord2 Neut% 55.9 % 07/26/2016 Cbc With Differential Ord2 HCT 42.3 % 07/26/2016 Cbc With Differential Ord2 MCV 88.1 fl 07/26/2016 Cbc With Differential Ord2 Lymph% 30.4 % 07/26/2016 Cbc With Differential Ord2 MCH 28.5 pg 07/26/2016 Cbc With Differential Ord2 [place]% 9.6 % 07/26/2016 Cbc With Differential Ord2 [...] 2.53 K/ul 07/26/2016 Cbc With Differential Ord2 [place] ABS# 0.8 K/ul 07/26/2016 Cbc With Differential Ord2 Eos ABS# 0.3 K/ul 07/26/2016 Cbc With Differential Ord2 Baso ABS# 0.0 K/ul 07/26/2016 Tsh Ord6 hTSH II 0.44 uIU/mL 07/26/2016 Tsh Ord6 hTSH II 0.07 uIU/mL 05/12/2015 Free T4 Kzd151 FREE T4 1.70 ng/dL 05/12/2015 Free T4 Sfi699 FREE T4 0.96 ng/dL 02/03/2015 Comp Metabolic Qof127 NA 141 mEq/L 02/03/2015 Comp Metabolic Dlb093 K 4.1 mEq/L 02/03/2015 Comp Metabolic Uny861 CL 105 mEq/L 02/03/2015 Comp Metabolic Mdw765 CO2 29.0 mEq/L 02/03/2015 Comp Metabolic Brk093 ANION GAP 11 02/03/2015 Comp Metabolic Kun814 GLUCOSE 99 mg/dL 02/03/2015 Comp Metabolic Pjw449 Creat 0.7 mg/dL 02/03/2015 Comp Metabolic Vvx397 eGFR 85 ml/min/1.73m2 02/03/2015 Comp Metabolic Ums706 BUN 15 mg/dL 02/03/2015 Comp Metabolic Itp884 B/C Ratio 20.8 Ratio 02/03/2015 Comp Metabolic Qlv468 CALCIUM 9.3 mg/dL 02/03/2015 Comp Metabolic Mjb880 ALK PHOS 62 U/L 02/03/2015 Comp Metabolic Yga139 AST(SGOT) 19 U/L 02/03/2015 Comp Metabolic Jrt543 ALT(SGPT) 23 U/L 02/03/2015 Comp Metabolic Qon216 BILI T 0.4 mg/dL 02/03/2015 Comp Metabolic Pcz998 ALBUMIN 4.2 g/dL 02/03/2015 Comp Metabolic Ddi151 TPRO 6.6 g/dL 02/03/2015 Comp Metabolic Qkl784 GLOB 2.4 g/dL 02/03/2015 Comp Metabolic Pvj140 A/G Ratio 1.7 Ratio 02/03/2015 Comp Metabolic Nni089 Osmo 282 mOsmo 02/03/2015 Lipid Ord30 CHOL [...] hTSH II 5.13 uIU/mL 02/03/2015 LIPID GRP 3504010 HDL TEST 41 MG/DL 02/04/2012 LIPID GRP 7064977 TRIG 129 MG/DL 02/04/2012 LIPID GRP 4885343 TEST LDL 129 MG/DL 02/04/2012 LIPID GRP CHOL 196 MG/DL 02/04/2012 LIPID GRP RCHOL/HDL 4.78 RATIO 02/04/2012 FREE T4 2898522 FREE T4 1.05 NG/DL 02/04/2012 GFR CALC 5561283 GFR AA >60 ML/MIN 02/04/2012 GFR CALC 0002013 GFR NON-AA >60 ML/MIN 02/04/2012 TSH 4511543 TSH 3.062 uIU/ML 02/04/2012 CHEM 14 1140307 AST 18 U/L 02/04/2012 CHEM 14 7115059 ALT 22 IU/L 02/04/2012 CHEM 14 8564439 BUN 15 MG/DL 02/04/2012 CHEM 14 1789158 ALBUMIN 4.4 GM/DL 02/04/2012 CHEM 14 6747616 CHLORIDE 104 MMOL/L 02/04/2012 CHEM 14 7092965 BILI TOT 0.6 MG/DL 02/04/2012 CHEM 14 1802738 ALK PHOS 54 U/L 02/04/2012 CHEM 14 9573775 SODIUM 141 MMOL/L 02/04/2012 CHEM 14 1169380 CREATININE 0.85 MG/DL 02/04/2012 CHEM 14 8965253 CALCIUM 9.4 MG/DL 02/04/2012 CHEM 14 3798947 POTASSIUM 4.0 MMOL/L 02/04/2012 CHEM 14 4534324 PROT TOT 6.6 GM/DL 02/04/2012 CHEM 14 4117068 GLUCOSE 106 MG/DL 02/04/2012 CHEM 14 2359958 BICARB 30 MMOL/L 02/04/2012 CHEM 14 6662275 ANION GAP 7 MEQ/L 02/04/2012 UA 11336 Specific [place] 1.020 DateTime(Free Text in ) UA 99769 PH 6 DateTime(Free Text in Aprima) UA 92423 GLUCOSE DateTime(Free Text in Aprima) UA 01742 Protein 1+ DateTime(Free Text in Aprima) UA 04892 Blood 3+ DateTime(Free Text in Aprima) UA 75839 Bilirubin DateTime(Free Text in Aprima) UA 08676 Ketones DateTime(Free Text in Aprima) UA 93212 Urobilinogen DateTime(Free Text in Aprima) UA 01837 Nitrite DateTime(Free Text in Aprima) UA 97376 Leukocytes 2+ DateTime(Free Text in Aprima) UA 74952 Specific [place] 1.025 DateTime(Free Text in ) UA 75302 PH 6 DateTime(Free Text in ) UA 32637 GLUCOSE neg DateTime(Free Text in ) UA 58585 Protein neg DateTime(Free Text in ) UA 11863 Blood neg DateTime(Free Text in ) UA 30689 Bilirubin neg DateTime(Free Text in ) UA 78546 Ketones neg DateTime(Free Text in ) UA 83848 Urobilinogen neg DateTime(Free Text in ) UA 20287 Nitrite neg DateTime(Free Text in ) UA 02234 Leukocytes 1+ DateTime(Free Text in ) Review of Systems System Result Effective Dates Constitutional recent illness 04/22/2018 Constitutional No anorexia [...] Result Effective Dates Notes Full Exam - ENT Constitutional general appearance [...] time 11/28/2017 None Full Exam - General 1995 Psychiatric mood and affect Overall: normal mood [...] 1994 Constitutional general appearance Overall: well nourished 05/29/2012 None Full Exam - General 1994 Eyes pupils and irises Overall: pupils equal, round, reactive to light and accomodation 05/29/2012 None Full Exam - General 1995 Ears/Nose/Throat otoscopic exam Overall: external auditory canals clear 05/29/2012 None Full Exam - General 1995 Ears/Nose/Throat otoscopic exam Overall: tympanic membranes clear 05/29/2012 None Full Exam - General 1994 Ears/Nose/Throat [...] accomodation 01/28/2012 None Full Exam - General 1994 Ears/Nose/Throat otoscopic exam Overall: external auditory canals clear 01/28/2012 None Full Exam - General 1995 Ears/Nose/Throat otoscopic exam Overall: tympanic membranes clear 01/28/2012 None Full Exam - General 1994 Ears/Nose/Throat lips/teeth/gingiva Overall: benign lips 01/28/2012 None Full Exam - General 1995 Ears/Nose/Throat lips/teeth/gingiva Overall: normal dentition 01/28/2012 None Full Exam - General 1995 Ears/Nose/Throat lips/teeth/gingiva Overall: benign gingiva 01/28/2012 None Full Exam - General 1994 Ears/Nose/Throat lips/teeth/gingiva Overall: no masses 01/28/2012 None [...] distress 01/28/2012 None Full Exam - General 1995 Constitutional general appearance Overall: well nourished 01/28/2012 [...] tenderness 01/28/2012 None Full Exam - General 1995 Abdomen [...] General 1995 Ears/Nose/Throat lips/teeth/gingiva Overall: benign lips 12/03/2011 None [...] tenderness 12/03/2011 None Full Exam - General 1994 Abdomen [...] time 03/15/2011 None Full Exam - General 1995 Musculoskeletal head and neck Overall: head atraumatic 03/13/2011 None Full Exam - General 1995 Musculoskeletal head and neck Overall: cervical spine benign 03/13/2011 None Full Exam - General 1995 Neurologic gait Overall: no ataxia, no unsteadiness 03/13/2011 None Full Exam - General 1995 Psychiatric orientation/consciousness Overall: oriented to person, place and time 03/13/2011 None Full Exam - General 1994 Psychiatric mood and affect Overall: normal mood and affect 03/13/2011 None Full Exam - General 1995 Ears/Nose/Throat lips/teeth/gingiva Teeth: wears dentures 03/13/2011 uppers Full Exam - General 1995 Ears/Nose/Throat oral cavity/pharynx/larynx Overall: oropharyngeal mucosa clear 03/13/2011 None Full Exam - General 1995 Ears/Nose/Throat oral cavity/pharynx/larynx Overall: no masses 03/13/2011 [...] clear 11/15/2010 None Full Exam - General 1995 Ears/Nose/Throat otoscopic exam Overall: external auditory canals clear 11/15/2010 None Full Exam - General 1994 Ears/Nose/Throat lips/teeth/gingiva Overall: benign gingiva 11/15/2010 None Full Exam - General 1995 Ears/Nose/Throat lips/teeth/gingiva Overall: no masses 11/15/2010 None Full Exam - General 1995 Ears/Nose/Throat lips/teeth/gingiva Overall: normal dentition 11/15/2010 None Full Exam - General 1995 Ears/Nose/Throat lips/teeth/gingiva Overall: benign lips 11/15/2010 None Full Exam - General 1995 Ears/Nose/Throat oral cavity/pharynx/larynx Overall: oral mucosa clear 11/15/2010 None Full Exam - General 1994 Abdomen abdominal exam Overall: no tenderness 11/15/2010 None Full Exam - General 1994 Abdomen abdominal exam Overall: normal bowel sounds 11/15/2010 None Full Exam - General 1994 Musculoskeletal head and neck Overall: head atraumatic 11/15/2010 None Full Exam - General 1995 Musculoskeletal [...] affect 11/01/2010 None Procedures Procedure Codes Date TRIAMCINOLONE ACET INJ NOS CPT-4: J3301 04/22/2018 PPPS, SUBSEQ VISIT CPT -4: G0439 11/28/2017 ADMIN INFLUENZA VIRUS VAC CPT-4: G0008 11/28/2017 ADMIN PNEUMOCOCCAL VACCINE SNOMED CT: 10352083 CPT-4: G0009 11/28/2017 FLU VACC PRSV FREE INC ANTIG CPT-4: 45727 11/28/2017 PNEUMOCOCCAL VACC [address]: 47138345 CPT-4: 25849 11/28/2017 DRAIN/INJECT JOINT/BURSA CPT-4: 74299 09/04/2017 TRIAMCINOLONE ACET INJ NOS CPT-4: J3301 09/04/2017 TRIAMCINOLONE ACET INJ NOS CPT-4: J3301 03/21/2017 DRAIN/INJECT JOINT/BURSA CPT-4: 69032 03/21/2017 TRIAMCINOLONE ACET INJ NOS CPT-4: J3301 06/21/2016 DRAIN/INJECT JOINT/BURSA CPT-4: 61970 06/21/2016 TRIAMCINOLONE ACET INJ NOS CPT-4: J3301 12/02/2015 TRIAMCINOLONE ACET INJ NOS CPT-4: J3301 06/16/2015 TRIAMCINOLONE ACET INJ NOS CPT-4: J3301 12/27/2014 KETOROLAC TROMETHAMINE INJ CPT-4: J1885 11/05/2013 THER/PROPH/DIAG INJ SC/IM CPT-4: 70746 11/05/2013 URINALYSIS NONAUTO W/O SCOPE CPT-4: 49273 05/25/2013 URINALYSIS NONAUTO W/O SCOPE CPT-4: 42310 09/11/2012 PRESCRIP TRANSMIT VIA ERX SY CPT-4: G8553 09/11/2012 PRESCRIP TRANSMIT VIA ERX SY CPT-4: G8553 02/28/2012 ROUTINE VENIPUNCTURE CPT-4: 47359 02/04/2012 PRESCRIP TRANSMIT VIA ERX SY CPT-4: G8553 01/28/2012 PRESCRIP TRANSMIT VIA ERX SY CPT-4: G8553 11/05/2011 DRAIN/INJECT JOINT/BURSA CPT-4: 45751 08/09/2011 TRIAMCINOLONE ACET INJ NOS CPT-4: J3301 08/09/2011 TRIAMCINOLONE ACET INJ NOS CPT-4: J3301 05/28/2011 THER/PROPH/DIAG INJ SC/IM CPT-4: 60348 05/28/2011 URINALYSIS NONAUTO W/O SCOPE CPT-4: 18038 03/15/2011 Vital Signs Date Vital 04/22/2018 Blood Pressure 1: 128/88 Code : 8480-6 BMI: 36.9 Code : 68342-8 Heart Rate 1 : 97 bpm Height: 5' SpO2: 96% Temperature: 37.2 (C) / 98.9 (F) Weight: 189 lbs 11/28/2017 Blood Pressure 1: 122/66 Code : 8480-6 BMI: 37.1 Code : 17966-8 Heart Rate 1 : 78 bpm Height: 5' SpO2: 96% Waist Measure (cm): 109 cm Weight: 190 lbs 11/18/2017 Blood Pressure 1: 140/80 Code : 8480-6 BMI: 36.9 Code : 34282-3 Heart Rate 1 : 86 bpm Height: 5' SpO2: 94% Weight: 189 lbs 09/04/2017 Blood Pressure 1: 134/80 Code : 8480-6 Heart Rate 1: 74 bpm Height: SpO2: 96% Weight: 03/21/2017 Blood Pressure 1: 126/72 Code : 8480-6 BMI: 36.9 Code : 29845-4 Heart Rate 1 : 87 bpm Height: 5' SpO2: 97% Weight: 189 lbs 11/02/2016 Blood Pressure 1: 134/68 Code : 8480-6 BMI: 38.3 Code : 80356-7 Heart Rate 1 : 86 bpm Height: 5' SpO2: 98% Weight: 196 lbs 07/26/2016 Blood Pressure 1: 144/78 Code : 8480-6 BMI: 37.9 Code : 58627-2 Heart Rate 1 : 69 bpm Height: 5' SpO2: 96% Weight: 194 lbs 06/21/2016 Blood Pressure 1: 118/68 Code : 8480-6 BMI: 39.1 Code : 53908-8 Heart Rate 1 : 77 bpm Height: 5' SpO2: 95% Weight: 200 lbs 05/25/2016 Blood Pressure 1: 148/88 Code : 8480-6 BMI: 38.9 Code : 55097-4 Heart Rate 1 : 91 bpm Height: 5' SpO2: 94% Weight: 199 lbs 12/02/2015 Blood Pressure 1: 144/62 Code : 8480-6 BMI: 37.3 Code : 69237-0 Heart Rate 1 : 81 bpm Height: 5' SpO2: 95% Weight: 191 lbs 10/21/2015 Blood Pressure 1: 138/72 Code : 8480-6 BMI: 37.3 Code : 50447-0 Heart Rate 1 : 102 bpm Height: 5' SpO2: 98% Weight: 191 lbs 10/17/2015 Blood Pressure 1: 132/78 Code : 8480-6 BMI: 37.9 Code : 52567-3 Heart Rate 1 : 74 bpm Height: 5' SpO2: 97% Weight: 194 lbs 06/16/2015 Blood Pressure 1: 140/88 Code : 8480-6 BMI: 39.8 Code : 80271-8 Heart Rate 1 : 74 bpm Height: 5' SpO2: 96% Weight: 204 lbs 05/12/2015 Blood Pressure 1: 146/82 Code : 8480-6 Blood Pressure 1: 130/78 Code: 8480-6 BMI: 38.7 Code: 13361-7 Heart Rate 1: 67 bpm Height: 5' SpO2: 94% Weight: 198 lbs 03/10/2015 Blood Pressure 1: 132/86 Code : 8480-6 BMI: 38.9 Code : 53504-4 Heart Rate 1 : 72 bpm Height: 5' SpO2: 99% Weight: 199 lbs 02/08/2015 Blood Pressure 1: 130/88 Code : 8480-6 BMI: 38.5 Code : 42581-6 Heart Rate 1 : 68 bpm Height: 5' SpO2: 97% Temperature: 36.6 (C) / 97.8 (F) Weight: 197 lbs 12/27/2014 Blood Pressure 1: 140/82 Code : 8480-6 BMI: 38.5 Code : 87205-5 Heart Rate 1 : 79 bpm Height: 5' SpO2: 97% Temperature: 36.3 (C) / 97.4 (F) Weight: 197 lbs 11/16/2014 Blood Pressure 1: 128/76 Code : 8480-6 BMI: 38.7 Code : 06531-6 Heart Rate 1 : 76 bpm Height: 5' Weight: 198 lbs 10/11/2014 Blood Pressure 1: 112/78 Code : 8480-6 BMI: 38.7 Code : 82670-1 Heart Rate 1 : 100 bpm Height: 5' SpO2: 93% Temperature: 36.8 (C) / 98.3 (F) Weight: 198 lbs 07/16/2014 Blood Pressure 1: 142/86 Code : 8480-6 BMI: 39.8 Code : 83560-2 Heart Rate 1 : 71 bpm Height: 5' SpO2: 96% Weight: 204 lbs 06/14/2014 Blood Pressure 1: 132/82 Code : 8480-6 BMI: 39.8 Code : 88709-7 Heart Rate 1 : 71 bpm Height: 5' SpO2: 98% Weight: 207 lbs 11/05/2013 Blood Pressure 1: 130/70 Code : 8480-6 BMI: 38.6 Code : 57288-5 Heart Rate 1 : 83 bpm Height: 5' SpO2: 98% Weight: 201 lbs 09/08/2013 Blood Pressure 1: 122/78 Code : 8480-6 BMI: 39.2 Code : 87025-7 Heart Rate 1 : 64 bpm Height: 5' SpO2: 98% Temperature: 36.7 (C) / 98.0 (F) Weight: 204 lbs 05/25/2013 Blood Pressure 1: 130/82 Code : 8480-6 Weight: 05/04/2013 Blood Pressure 1: 110/68 Code : 8480-6 BMI: 38.8 Code : 98197-1 Heart Rate 1 : 76 bpm Height: 5' Temperature: 37.3 (C) / 99.2 (F) Weight: 202 lbs 02/09/2013 Blood Pressure 1: 128/78 Code : 8480-6 BMI: 39.4 Code : 77900-1 Heart Rate 1 : 76 bpm Height: 5' Weight: 205 lbs 09/11/2012 Blood Pressure 1: 128/72 Code : 8480-6 BMI: 38.6 Code : 40238-8 Heart Rate 1 : 76 bpm Height: 5' Temperature: 37.2 (C) / 99.0 (F) Weight: 201 lbs 05/29/2012 Blood Pressure 1: 132/82 Code : 8480-6 BMI: 38.4 Code : 31386-9 Heart Rate 1 : 80 bpm Height: 5' Weight: 200 lbs 02/28/2012 Blood Pressure 1: 120/66 Code : 8480-6 BMI: 37.6 Code : 92329-8 Height: 5' Weight: 196 lbs 01/28/2012 Blood Pressure 1: 144/72 Code : 8480-6 Heart Rate 1: 68 bpm Weight: 194 lbs 12/03/2011 Blood Pressure 1: 146/70 Code : 8480-6 BMI: 37.3 Code : 14979-5 Heart Rate 1 : 68 bpm Height: [...] Code : 8480-6 BMI: 37.9 Code : 89603-0 Heart Rate 1 : 66 bpm Height: 5' Respiratory Rate: 20 bpm Weight: 197 lbs 8 oz 11/15/2010 Blood Pressure 1: 166/94 Code : 8480-6 BMI: 36.5 Code : 96416-6 Heart Rate 1 : 56 bpm Height: 5'1" Respiratory Rate: 16 bpm Weight: 193 lbs 11/01/2010 Blood Pressure 1: 132/72 Code : 8480-6 Heart Rate 1: 58 bpm Respiratory Rate : 16 bpm Weight: 189 lbs Functional Status No Functional Status data History of Present Illness Symptom Name Status Result Effective Date Notes Onset and Resolution sudden in onset 04/22/2018 [...] years ago 06/14/2014 previous back surgery in 2000 hip pain Location on the right 06/14/2014 [...] 05/28/2011 None well woman exam (65+ years) 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 PATIENT, LEVEL III Diagnosis: Cough[ICD10: R05] Diagnosis: Fever, unspecified[ICD10: R50.9] Diagnosis: Acute recurrent maxillary sinusitis[ICD10: J01.01] [facility] CPT-4: 87477 04/22/2018 [id number]) 93879 EST. PATIENT, LEVEL III Diagnosis: Insect bite (nonvenomous) of right upper arm, initial encounter[ICD10 : S40.861A] [facility] CPT-4: 88148 11/18/2017 66405 EST. PATIENT, LEVEL III Diagnosis: Pain in right knee[ICD10: M25.561] Diagnosis: Pain in left knee[ICD10: M25.562] Diagnosis: Low back pain[ICD10: M54.5] Lana Ty MD, [facility] CPT-4 : 11733 03/21/2017 33714 EST. PATIENT, LEVEL III Diagnosis: Pain in right knee[ICD10: M25.561] Diagnosis: Pain in left knee[ICD10: M25.562] Diagnosis: Low back pain[ICD10: M54.5] Lana Ty MD, [facility] CPT-4 : 90314 11/02/2016 ([id number]) 91103 EST. PATIENT, LEVEL III Diagnosis: Essential (primary) hypertension[ICD10: I10] Diagnosis: Atrophy of thyroid (acquired)[ICD10: E03.4] Brionna Ty MD, [facility] CPT-4: 85375 07/26/2016 ([id number]) 62354 EST. PATIENT, LEVEL III Diagnosis: Essential (primary) hypertension[ICD10: I10] Diagnosis: Pain in left knee[ICD10: M25.562] Diagnosis: Unilateral primary osteoarthritis, left knee[ICD10: M17.12] Brionna Ty MD , [facility] CPT-4: 63990 06/21/2016 50570 EST. PATIENT, LEVEL III Diagnosis: Pain in left knee[ICD10: M25.562] Lana Ty MD, [facility] CPT -4: 05914 05/25/2016 73651 EST. PATIENT, LEVEL IV Diagnosis: Other acute sinusitis[ICD10: J01.80] Diagnosis: Dizziness and giddiness[ICD10: R42] Diagnosis: Other acute nonsuppurative otitis media, bilateral[ICD10: H65.193] Lana Ty MD, [facility] CPT-4: 73806 12/02/2015 73963 EST. PATIENT, LEVEL III Diagnosis: Scar conditions and fibrosis of skin[ICD10: L90.5] Lana Ty MD, [facility] CPT-4: 48083 10/21/2015 ([id number]) 04811 EST. PATIENT, LEVEL IV Diagnosis: Essential (primary) hypertension[ICD10: I10] Diagnosis: Hypothyroidism, unspecified[ICD10: E03.9] Brionna Ty MD, [facility] CPT-4: 36722 10/17/2015 ([id number]) 70318 EST. PATIENT, LEVEL III Diagnosis: Low back pain[ICD10: M54.5] Diagnosis: Sciatica, right side[ICD10: M54.31] Diagnosis: Other obesity due to excess calories[ICD10: E66.09] Sheri Ty MD, [facility] CPT-4: 36199 06/16/2015 ([id number]) 42947 EST. PATIENT, LEVEL III Diagnosis: Essential (primary) hypertension[ICD10: I10] Diagnosis: Hypothyroidism, unspecified[ICD10: E03.9] Sheri Ty MD, [facility] CPT-4: 19303 05/12/2015 ([id number]) 32292 EST. PATIENT, LEVEL IV Diagnosis: Essential (primary) hypertension[ICD10: I10] Diagnosis: Hypothyroidism, unspecified[ICD10: E03.9] Diagnosis: Dizziness and giddiness[ICD10: R42] Sheri Ty MD, [facility] CPT-4: 75052 03/10/2015 ([id number]) 43871 EST. PATIENT, LEVEL IV Diagnosis: Hypothyroidism, unspecified[ICD10: E03.9] Diagnosis: Dizziness and giddiness[ICD10: R42] Diagnosis: Headache[ICD10: R51] Diagnosis: Allergic rhinitis due to pollen[ICD10: J30.1] Sheri Ty MD, [facility] CPT-4: 80344 02/08/2015 ([id number]) 64821 EST. PATIENT, LEVEL III Diagnosis: Acute maxillary sinusitis, unspecified[ICD10: J01.00] Sheri Ty MD, [facility] CPT-4: 28013 12/27/2014 ([id number]) 29104 EST. PATIENT, LEVEL IV Diagnosis: ESSENTIAL HYPERTENSION[ICD9: 401.9] Diagnosis: HYPOTHYROIDISM[ICD9: 244.9] Brionna Ty MD, [facility] CPT- 4: 26245 11/16/2014 ([id number]) 40969 EST. PATIENT, LEVEL III Diagnosis: ESSENTIAL HYPERTENSION[ICD9: 401.9] Diagnosis: HYPOTHYROIDISM[ICD9: 244.9] Sheri Ty MD, [facility] CPT-4: 71271 10/11/2014 ([id number]) 65863 EST. PATIENT, LEVEL IV Diagnosis: ESSENTIAL HYPERTENSION[ICD9: 401.9] Diagnosis: HYPERLIPIDEMIA[ICD9: 272.4] Diagnosis: HYPOTHYROIDISM[ICD9: 244.9] Diagnosis: Sacroiliitis[ICD9: 720.2] Brionna Ty MD, [facility] CPT-4: 56956 07/16/2014 ([id number]) 15155 EST. PATIENT, LEVEL IV Diagnosis: ESSENTIAL HYPERTENSION[ICD9: 401.9] Diagnosis: HYPOTHYROIDISM[ICD9: 244.9] Diagnosis: HYPERLIPIDEMIA[ICD9: 272.4] Diagnosis: Gait instability[ICD9: 781.2] Diagnosis: Osteoarthritis[ICD9: 715.90] Brionna Ty MD, [facility] CPT- 4: 04098 06/14/2014 ([id number]) 11282 EST. PATIENT, LEVEL IV Diagnosis: Solano's cyst[ICD9: 727.51] Diagnosis: ESSENTIAL HYPERTENSION[ICD9: 401.9] Brionna Ty MD, [facility] CPT-4: 13105 11/05/2013 ([id number]) 50380 EST. PATIENT, LEVEL III Diagnosis: ACUTE PHARYNGITIS[ICD9: 462] Sheri Ty MD, [facility] CPT-4: 60530 09/08/2013 ([id number]) 68888 EST. PATIENT, LEVEL III Diagnosis: UTI[ICD9: 599.0] Sheri Ty MD, [facility] CPT-4: 98337 05/25/2013 ([id number]) 79281 EST. PATIENT, LEVEL IV Diagnosis: ESSENTIAL HYPERTENSION[SNOMED: 65393997] Diagnosis: HYPOTHYROIDISM[ICD9: 244.9] Diagnosis: ALLERGIC RHINITIS[ICD9: 477.9] Brionna Ty MD, [facility] CPT- 4: 67691 05/04/2013 ([id number]) 25290 EST. PATIENT, LEVEL IV Diagnosis: ESSENTIAL HYPERTENSION[SNOMED: 24468586] Diagnosis: HYPOTHYROIDISM[ICD9: 244.9] Brionna Ty MD [facility] CPT- 4: 59641 02/09/2013 ([id number]) 25000 EST. PATIENT, LEVEL III Diagnosis: UTI[ICD9: 599.0] Diagnosis: Dysuria[ICD9: 788.1] Brionna yT MD [facility] CPT-4: 12448 09/11/2012 ([id number]) 05116 EST. PATIENT, LEVEL IV Diagnosis: ESSENTIAL HYPERTENSION[SNOMED: 47616023] Diagnosis: HYPERLIPIDEMIA[ICD9: 272.4] Diagnosis: HYPOTHYROIDISM[ICD9: 244.9] Brionna Ty MD [facility] CPT- 4: 48132 05/29/2012 ([id number]) 10572 EST. PATIENT, LEVEL IV Diagnosis: ESSENTIAL HYPERTENSION[SNOMED: 82020964] Diagnosis: HYPERLIPIDEMIA[ICD9: 272.4] Diagnosis: HYPOTHYROIDISM[ICD9: 244.9] Brionna Ty MD [facility] CPT- 4: 00112 02/28/2012 ([id number]) 45807 EST. PATIENT, LEVEL IV Diagnosis: ESSENTIAL HYPERTENSION[SNOMED: 08741507] Diagnosis: HYPOTHYROIDISM[ICD9: 244.9] Brionna Ty MD [facility] CPT- 4: 48630 01/28/2012 ([id number]) 49736 EST. PATIENT, LEVEL IV Diagnosis: ESSENTIAL HYPERTENSION[SNOMED: 72152178] Diagnosis: ESOPHAGEAL REFLUX[ICD9: 530.81] Diagnosis: Constipation - functional[ICD9: 564.09] Brionna Ty MD [facility] CPT-4: 20439 12/03/2011 ([id number]) 21056 EST. PATIENT, LEVEL III Diagnosis: ALLERGIC RHINITIS[ICD9: 477.9] Diagnosis: ACUTE SINUSITIS[ICD9: 461.9] Brionna Ty MD [facility] CPT- 4: 39622 11/05/2011 ([id number]) 78866 EST. PATIENT, LEVEL III Diagnosis: SCIATICA[ICD9: 724.3] Diagnosis: SACROILIITIS NEC[ICD9: 720.2] Diagnosis: Gait instability[ICD9: 781.2] Sheri Ty MD [facility] CPT-4: 07433 08/09/2011 31046 EST. PATIENT, LEVEL III Diagnosis: Sacroiliitis[ICD9: 720.2] Diagnosis: Fall from slipping[ICD9: E885.9] Sheri Ty MD, [facility] CPT-4: 06925 05/28/2011 ([id number]) PER PM REEVAL EST PAT 65+ YR Diagnosis: Well woman exam[ICD9: V70.0] Sheri Ty MD, [facility] CPT-4: 75543 03/15/2011 ([id number]) 72336 EST. PATIENT, LEVEL IV Diagnosis: ESSENTIAL HYPERTENSION[SNOMED: 19888204] Diagnosis: HYPOTHYROIDISM[ICD9: 244.9] Diagnosis: ESOPHAGEAL REFLUX[ICD9: 530.81] Brionna Ty MD, [facility] CPT- 4: 49511 03/13/2011 17283 EST. PATIENT, LEVEL IV Diagnosis: ESSENTIAL HYPERTENSION[SNOMED: 20717301] Diagnosis: HYPOTHYROIDISM[ICD9: 244.9] Diagnosis: Leg pain, bilateral[ICD9: 729.5] Brionna Ty MD, [facility] CPT-4: 24153 11/15/2010 22882 EST. PATIENT, LEVEL IV Diagnosis: SACROILIITIS NEC[ICD9: 720.2] Diagnosis: SCIATICA[ICD9: 724.3] Diagnosis: ESSENTIAL HYPERTENSION[SNOMED: 35684976] Diagnosis: HYPOTHYROIDISM[ICD9: 244.9] Brionna Ty MD, [facility] CPT- 4: 16551 11/01/2010 Plan of Care Planned Activity Notes Codes Status Date Visit Plan: Sinusitis - Pt has acute [...] improved, or if symptoms acutely worsen. 04/22/2018 Patient Education: Patient Medication Summary Completed [...] care surrogate. 11/28/2017 Appointment: [facility] Sorto [facility]el[phone] [facility] - Annual Wellness Visit 11/28/2017 Patient Education: Patient Medication Summary Completed 11/28/2017 Care Plan: SCREENINGMAMMOGRAPHYDIGITAL LOINC : 14282-4 Pending 11/28/2017 Visit Plan: Cellulitis -possible spider [...] warmth, discharge. 11/18/2017 Appointment: Sheri Sorto WPtel: [phone] (30 min) Complex 11/18/2017 Patient Education: Patient [...] they worsen. 09/04/2017 Appointment: Lana Seaman WPtel: [phone] [facility] (30 min) Complex 09/04/2017 Patient Education: Patient Medication Summary Completed 09/04/2017 Visit Plan: Bilateral knee - Joint Injection - Pt was given post - injection instructions. The pt has been advised to use anti- inflammatories post injection today, ice to the injected site, call if redness, warmth, or increased pain occurs at the site of injection. 03/21/2017 Appointment: Lana Seaman WPtel: [phone] [facility] (30 min) Complex 03/21/2017 Patient Education: Patient Medication Summary Completed 03/21/2017 Referral: Osman Yoo 11/07 at 1PM - pt notified at her appointment Completed 11/07/2016 Care Plan: Referral Order SNOMED-CT : 458231586 Pending 11/04/2016 Visit Plan: Low back pain- [...] or concerns. 11/02/2016 Appointment: [facility] Seaman [facility]Ptel[phone] [facility] [place] (30 min) Complex 11/02/2016 Patient Education: [...] of control. 07/26/2016 Appointment: Brionna Ty WPtel: [phone] [facility] (15 min) Moderate 07/26/2016 Patient Education: Patient Medication Summary Completed 07/26/2016 Patient Education: Obesity Completed 07/26/2016 Appointment: Brionna Ty WPtel: [facility]6 [facility] (15 min) Moderate 07/24/2016 Visit Plan: [...] pain symptoms. 06/21/2016 Appointment: Brionna Ty WPtel: [facility]4 [facility] (15 min) Moderate 06/21/2016 Patient Education: [...] not improve. 05/25/2016 Appointment: Lana Seaman WPtel: [facility]9 [facility] [place] (30 min) Complex 05/25/2016 Patient Education: Patient Medication Summary Completed 05/25/2016 Patient Education: Obesity Completed 05/25/2016 Appointment: Brionna Ty WPtel: [facility]7 [facility] [place] (15 min) Moderate 02/14/2016 Visit Plan: [...] instructions/medication interventions. 12/02/2015 Appointment: Sheri Sorto WPtel: [address] [place] [phone] (30 min) Complex 12/02/2015 Patient Education: Patient [...] months based on previous levels of control. Sjxotptfd-cshsccxd-wvoz if symptoms do not completely resolve 03/10/2015 [...] months based on previous levels of control. Mezplsnhl-quvjdvhug-etbfdxg due to allergies-start claritin-call if symptoms persist [...] show improvement. 12/27/2014 Appointment: Sheri Sorto WPtel: [facility]9 [facility] [place] [address] (15 min) Moderate 12/27/2014 Patient Education: Patient [...] of control. 11/16/2014 Appointment: Brionna Ty WPtel: [facility] Follow up 11/16/2014 Patient Education: Patient Medication [...] treatments help. 07/16/2014 Appointment: [facility]ion[facility] Ty WPtel: [facility] Follow up 07/16/2014 Patient Education: Patient Medication Summary Completed 07/16/2014 Patient Education: Hypertension Completed 07/16/2014 Appointment: Brionna Ty WPtel: [facility] [place] Follow up 07/14/2014 Visit Plan: Hypertension [...] inject patient. 06/14/2014 Appointment: Brionna Ty WPtel: [facility]3 [facility] Follow up 06/14/2014 Patient Education: Patient Medication [...] x 1 11/05/2013 Appointment: Brionna Ty WPtel: [facility] Follow up 11/05/2013 Patient Education: Patient Medication Summary Completed 11/05/2013 Patient Education: Hypertension Completed 11/05/2013 Appointment: Brionna Ty WPtel: [facility] Follow up 11/02/2013 Visit Plan: Pharyngitis-Discussed natural [...] of plan. 05/25/2013 Appointment: Sheri Sorto WPtel: [phone] Other 05/25/2013 Patient Education: Patient Medication Summary [...] allergy spray. 05/04/2013 Appointment: Brionna Ty WPtel: [address] [place], [place] [phone] Follow up 05/04/2013 Patient Education: Patient Medication [...] of control. 02/09/2013 Appointment: Brionna Ty WPtel: [address] [place], [place] [phone] Follow up 02/09/2013 Patient Education: Patient Medication Summary Completed 02/09/2013 Patient Education: Hypertension Completed 02/09/2013 Appointment: Brionna Ty WPtel: [address] [place], [place] [phone] Follow up 12/11/2012 Visit Plan: UTI - pt with positive urinalysis - culture sent if appropriate. Antibiotic electronically prescribed to pt's pharmacy of choice. Pt to call if symptoms do not improve. 09/11/2012 Appointment: [facility]el[phone] Follow up 09/11/2012 Patient Education: Patient Medication Summary Completed 09/11/2012 Appointment: Brionna Ty WPtel: [phone] [facility] Follow up 09/02/2012 Visit Plan: Hypertension - [...] control. 05/29/2012 Appointment: [facility]Ptel[phone] Follow up 05/29/2012 Patient Education: Patient Medication [...] daily 02/28/2012 Appointment: [facility]el[phone] [facility] Follow up 02/28/2012 Patient Education: Patient Medication [...] supplementation. 01/28/2012 Appointment: [phone] Follow up 01/28/2012 Patient Education: Hypertension Completed [...] Saturday, Saturday. 12/03/2011 Appointment: Brionna Ty WPtel: [address] [place], [place] [phone] Hospital follow up 12/03/2011 Patient Education: Patient [...] show improvement. 11/05/2011 Appointment: Sheri Sorto WPtel: [address] [place], [place] [phone] [place] [address] Other 11/05/2011 Appointment: Sheri Sorto WPtel: [address] [place], [place] [phone] Lab Draw 11/05/2011 Patient Education: Patient Medication Summary Completed 11/05/2011 Appointment: Brionna Ty WPtel: [address] [place], [place] [phone] Follow up 09/06/2011 Visit Plan: Sacroilitis/sciatica-injection today in the office-Recommend physical therapy for gait instability- exercises discussed with the patient, pt to continue with antiinflammatories. Pt is to call if the symptoms do not improve or if they worsen. 08/09/2011 Appointment: Sheri Sorto WPtel: [address] [place], [place] [phone] [place] Other 08/09/2011 Patient Education: Patient Medication Summary Completed 08/09/2011 Visit Plan: Sacroilitis/sciatica-discussed natural and expected course of this diagnosis and to alert me if symptoms do not follow expected course, or if any worse. Plan for xrays today at the hospital to evaluate for acute abnormality. Kenalog injection today in the office. 05/28/2011 Appointment: Sheri Sorto WPtel: [phone] [facility] Other 05/28/2011 Patient Education: Patient Medication Summary [...] or prn. 03/15/2011 Appointment: Sheri Sorto WPtel: [phone] [phone] [facility] 03/15/2011 Patient Education: Patient Medication [...] to pt. 03/13/2011 Appointment: Brionna Ty WPtel: [phone] [facility] Other 03/13/2011 Patient Education: Patient Medication Summary Completed 03/13/2011 Patient Education: High Blood Pressure: Essential Hypertension Completed 2011 Appointment: Brionna Ty WPtel: [address] [place], [place] [phone] Other 12/06/2010 Visit Plan: Hypertension - uncontrolled [...] needed antiinflammatories. 11/15/2010 Appointment: Brionna Ty WPtel: [address] [place], [place] [phone] Other 11/15/2010 Patient Education: Patient Medication Summary [...] BACK PAIN). 11/01/2010 Appointment: Brionna Ty WPtel: [address] [place], [place] [phone] Other 11/01/2010 Patient Education: Patient Medication Summary Completed 11/01/2010 Referral: Osman Yoo Referral Completed Instructions Comment KENALOG FLU SWAB . Sinusitis - Pt [...] not improved, or if symptoms acutely worsen. RETURN TOMORROW FOR FASTING LABS SCHEDULE [...] months based on previous levels of control. WHILE ON ANTIBIOTIC, TAKE A PROBIOTIC LIKE [employer] TO HELP PREVENT DIARRHEA. UTI - pt [...] months based on previous levels of control. Othegcnum-mlqtqqhs-abwl if symptoms do not completely resolve . Well Adult Female - exam completed. Pap and gc/ chlamydia and breast exam completed. Pt will be called with results of her testing. She was advised to continue with yearly annual exams. Safe sex practices discussed during office visit today. Call if any abnormal gynecologic issues during the next year, otherwise, RTC yearly or prn. Plan: ([id number]) SCREENINGMAMMOGRAPHYDIGITAL-Scheduled for tomorrow at the [...] Solano's cyst toradol 60mg im x 1 . Joint Injection - Pt was given [...] notify clinic with any questions or concerns. culture urine. Urinary Tract Infection-discussed natural and [...] diarrhea. Patient verbalized understanding of plan. . Hypertension - well controlled - continue [...] improving. Samples of aciphex given to pt. Start the stretching exercises that have been [...] report if the recommended treatments help. . Allergies - Advised avoidance of allergens [...] Call if symptoms do not show improvement. Refer to [facility] for PT . Sacroilitis/sciatica-injection today in the office-Recommend physical therapy for low back pain- exercises discussed with the patient, pt to continue with antiinflammatories. Pt is to call if the symptoms do not improve or if they worsen. . Sinusitis - Pt has acute infection [...] months based on previous levels of control. Mkesdufnp-ienzdamns-pfindfb due to allergies-start claritin-call if symptoms persist [...] based on previous levels of control. . Sinusitis - Pt has acute infection [...] pain is worsening or does not improve. Appointment with Dr. Yoo in [place] office on Tuesday 11/07 at 1PM - [...]
[2018-06-02 15:18] LABS: ABG BASE EXCESS -3.3 MMOL/L (-2.5-2.5); ABG OXYGEN SATURATION 94 % (94-100); ABG PCO2 35 MMHG (35-45); ABG PH 7.39 (7.37-7.43); ABG PO2 74 MMHG (79-93); ABG TCO2 21.2 MMOL/L (21.0-31.0); ALLENS TEST YES-POS; INSPIRED O2 4; PATIENT TEMP 103.3; VENTILATOR NO
--- OUTSIDE RECORDS SUMMARY | 2018-06-02 15:21 | XMS REPORT | CCD ---
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 Role Phone Brionna Ty PP Unavailable CCM Unavailable Summary Purpose Interface Exchange Insurance Providers Payer name Policy type / Coverage type Covered green party ID Effective Begin Date Effective End Date WPS Medicare Part B [id number] 2016 Unknown [employer] [id number] 2016 Unknown Family history Daughter Diagnosis Age [...] and well 11/01/[address]: 492215127 Nonsmoker 11/01/[address]: 601336651 Never drinks alcohol 11/01/2010 Has the patient [...] Instructions Tessalon Perles 100 mg capsule RxNorm: 652637 1-2 Capsule(s) PO TID PRN 04/22/2018 No Stop Date Active cefdinir 300 mg capsule RxNorm: 943924 1 Capsule(s) PO BID 04/28/2018 Active Kenalog 40 mg/mL suspension for injection RxNorm: 8848476 Milliliter(s) Inj 04/22/2018 04/22/2018 Inactive levothyroxine 150 mcg tablet RxNorm: 968066 1 Tablet(s) PO daily 03/18/2018 07/15/2018 Active levothyroxine 137 mcg tablet RxNorm: 200845 1 Tablet(s) PO daily 12/04/2017 03/17/2018 Inactive levothyroxine 137 mcg tablet RxNorm: 346924 1 Tablet(s) PO daily 12/04/2017 12/03/2017 Inactive doxycycline hyclate 100 mg tablet RxNorm: 4673105 1 Tablet(s) PO BID 11/18/2017 11/24/2017 Inactive Kenalog 40 mg/mL suspension for injection RxNorm: 0220976 1 Milliliter(s) Inj 09/04/2017 09/04/2017 Inactive Kenalog 40 mg/mL suspension for injection RxNorm: 0909277 1 Milliliter(s) Inj 09/04/2017 09/04/2017 Inactive levothyroxine 150 mcg tablet RxNorm: 849413 TAKE ONE TABLET BY MOUTH ONCE DAILY ON EMPTY STOMACH 07/09/2017 12/03/2017 Inactive Kenalog 40 mg/mL suspension for injection RxNorm: 0303947 2 Milliliter(s) Inj 03/21/2017 03/21/2017 Inactive levothyroxine 150 mcg tablet RxNorm: 257627 TAKE ONE TABLET BY MOUTH ONCE DAILY ON EMPTY STOMACH 11/08/2016 05/06/2017 Inactive Voltaren 1 % topical gel RxNorm: 784331 1 Application TOP TID as needed 11/02/2016 No Stop Date Active Kenalog 40 mg/mL suspension for injection RxNorm: 3643529 1 Milliliter(s) Inj 06/21/2016 06/21/2016 Inactive levothyroxine 150 mcg tablet RxNorm: 208430 TAKE ONE TABLET BY MOUTH ONCE DAILY ON EMPTY STOMACH 05/09/2016 09/05/2016 Inactive Zithromax Z-Elmer 250 mg tablet RxNorm: 051702 1 Tablet(s) PO UD 12/02/2015 12/06/2015 Inactive Kenalog 40 mg/mL suspension for injection RxNorm: 9375917 Milliliter(s) Inj 12/02/2015 12/02/2015 Inactive levothyroxine 150 mcg tablet RxNorm: 412430 TAKE ONE TABLET BY MOUTH DAILY ON AN EMPTY STOMACH 12/01/2015 03/29/2016 Inactive Norvasc 5 mg tablet RxNorm: 287326 1 Tablet(s) PO daily 201510/10/2016 Inactive Kenalog 40 mg/mL suspension for injection RxNorm: 4128346 1 Milliliter(s) Inj 06/16/2015 06/16/2015 Inactive Norvasc 5 mg tablet RxNorm: 359640 TAKE ONE TABLET BY MOUTH DAILY 06/10/2015 10/07/2015 Inactive levothyroxine 150 mcg tablet RxNorm: 061174 1 Tablet(s) PO daily TAKE ONE TABLET BY MOUTH DAILY 05/18/2015 09/14/2015 Inactive Synthroid 175 mcg tablet RxNorm: 922939 1 Tablet(s) PO daily TAKE ONE TABLET BY MOUTH DAILY 03/11/2015 05/17/2015 Inactive Synthroid 175 mcg tablet RxNorm: 008017 1 Tablet(s) PO daily TAKE ONE TABLET BY MOUTH DAILY 02/08/2015 03/10/2015 Inactive Flonase Allergy Relief 50 mcg/actuation nasal spray, suspension RxNorm: 2 [place] NASAL daily 12/27/2014 01/05/2015 Inactive Kenalog 40 mg/mL suspension for injection RxNorm: 6602775 Milliliter(s) Inj 12/27/2014 12/27/2014 Inactive Levaquin 500 mg tablet RxNorm: 864572 1 Tablet(s) PO daily 03/201401/02/2015 Inactive Zithromax Z-Elmer 250 mg tablet RxNorm: 390069 1 Tablet(s) PO UD 11/26/2014 11/30/2014 Inactive Synthroid 125 mcg tablet RxNorm: 501630 1 Tablet(s) PO daily 10/12/2014 Inactive Synthroid 150 mcg tablet RxNorm: 118088 1 Tablet(s) PO daily TAKE ONE TABLET BY MOUTH DAILY 10/05/2014 02/01/2015 Inactive Norvasc 5 mg tablet RxNorm: 560567 TAKE ONE TABLET BY MOUTH DAILY 10/05/2014 06/01/2015 Inactive Synthroid 125 mcg tablet RxNorm: 339442 TAKE ONE TABLET BY MOUTH DAILY 07/12/2014 10/05/2014 Inactive cephalexin 500 mg capsule RxNorm: 535364 1 Capsule(s) PO TID 06/28/2014 Inactive Have patient get probiotic while on antibiotic cephalexin 500 mg capsule RxNorm: 788795 1 Capsule(s) PO TID 06/21/2014 Inactive Have patient get probiotic while on antibiotic Synthroid 125 mcg tablet RxNorm: 452517 TAKE ONE TABLET BY MOUTH DAILY 05/21/2014 06/19/2014 Inactive ketorolac 60 mg/2 mL intramuscular solution RxNorm: 704798 Milliliter(s) IM 11/05/2013 11/05/2013 Inactive Norvasc 5 mg tablet RxNorm: 603070 TAKE 1 TABLET BY MOUTH ONCE DAILY. 09/21/2013 10/04/2014 Inactive Generic For:NORVASC 5MG Zithromax Z-Elmer 250 mg tablet RxNorm: 408142 1 Tablet(s) PO UD 09/08/2013 09/12/2013 Inactive Bactrim DS 800 mg-160 mg tablet RxNorm: 115317 1 Tablet(s) PO BID 05/25/2013 05/31/2013 Inactive Keflex 500 mg capsule RxNorm: 665071 1 Capsule(s) PO TID 201305/04/2013 Inactive Keflex 500 mg capsule RxNorm: 927616 1 Capsule(s) PO TID 201304/27/2013 Inactive Synthroid 125 mcg tablet RxNorm: 320821 1 Tablet(s) PO daily 02/03/2014 Inactive Synthroid 112 mcg tablet RxNorm: 931908 Tablet(s) PO TAKE (1) TABLET BY MOUTH ONCE DAILY IN THE MORNING 01/28/201302/08 Inactive Synthroid 112 mcg tablet RxNorm: 428779 Tablet(s) PO TAKE (1) TABLET BY MOUTH ONCE DAILY IN THE MORNING 01/28/201301/27 Inactive Synthroid 112 mcg tablet RxNorm: 173354 Tablet(s) PO TAKE (1) TABLET BY MOUTH ONCE DAILY IN THE MORNING 01/26/201301/27 Inactive lovastatin 20 mg tablet RxNorm: 919321 Tablet(s) PO TAKE 1 TABLET BY MOUTH ONCE DAILY AT BEDTIME. 01/05/2013 10/10/2014 Inactive Synthroid 112 mcg tablet RxNorm: 660045 Tablet(s) PO TAKE (1) TABLET BY MOUTH ONCE DAILY IN THE MORNING 10/20/201201/25 Inactive Bactrim DS 800 mg-160 mg tablet RxNorm: 987919 1 Tablet(s) PO BID 09/25/2012 09/24/2012 Inactive Bactrim DS 800 mg-160 mg tablet RxNorm: 064172 1 Tablet(s) PO BID 09/25/2012 09/27/2012 Inactive Diflucan 150 mg tablet RxNorm: 375844 2 Tablet(s) PO daily 09/20/2012 Inactive sulfamethoxazole 800 mg-trimethoprim 160 mg tablet RxNorm: 774832 1 Tablet(s) PO BID 09/11/2012 09/17/2012 Inactive PLEASE GET A PROBIOTIC FOR VALERIE AND HAVE HER TAKE THE PROBIOTIC WHILE ON THE ANTIBIOT TO HELP PREVENT DIARRHEA Norvasc 5 mg tablet RxNorm: 088963 Tablet(s) PO TAKE 1 TABLET BY MOUTH ONCE DAILY. 08/13/2012 09/20/2013 Inactive Synthroid 112 mcg tablet RxNorm: 620702 1 Tablet(s) PO QAM 04/201206/26/2012 Inactive lovastatin 20 mg tablet RxNorm: 576696 1 Tablet(s) PO QHS 02/2701/04/2013 Inactive Norvasc 5 mg tablet RxNorm: 576058 1 Tablet(s) PO daily 201105/26/2012 Inactive Synthroid 100 mcg tablet RxNorm: 539025 Tablet(s) PO 201102/27/2012 Inactive TAKE 1 TABLET BY MOUTH ONCE DAILY FOR THYROID (IN AM, 30-60MIN BEFORE FOOD/ VITAMINS) Synthroid 100 mcg tablet RxNorm: 111199 Tablet(s) PO 201102/27/2012 Inactive TAKE 1 TABLET BY MOUTH ONCE DAILY FOR THYROID (IN AM, 30-60MIN BEFORE FOOD/ VITAMINS) Synthroid 100 mcg tablet RxNorm: 499443 Tablet(s) PO 201112/02/2011 Inactive TAKE 1 TABLET BY MOUTH ONCE DAILY FOR THYROID (IN AM, 30-60MIN BEFORE FOOD/ VITAMINS) Zyrtec 10 mg tablet RxNorm: 6278564 1 Tablet(s) PO daily 11/0412/04/2011 Inactive Synthroid 100 mcg tablet RxNorm: 360909 Tablet(s) PO 201112/02/2011 Inactive TAKE 1 TABLET BY MOUTH ONCE DAILY FOR THYROID (IN AM, 30-60MIN BEFORE FOOD/ VITAMINS) lisinopril 40 mg tablet RxNorm: 234543 Tablet(s) PO 10/08/2011 10/11/2014 Inactive TAKE 1 TABLET BY MOUTH ONCE DAILY. lisinopril 40 mg tablet RxNorm: 840358 Tablet(s) PO 09/04/2011 10/07/2011 Inactive TAKE 1 TABLET BY MOUTH ONCE DAILY. Kenalog 40 mg/mL Susp for Injection RxNorm: 6291326 1 Milliliter(s) Inj 08/09/2011 08/09/2011 Inactive Norvasc 5 mg Tab RxNorm: 140016 Tablet(s) PO 06/26/2011 11/04/2011 Inactive TAKE 1 TABLET BY MOUTH ONCE DAILY. Kenalog 40 mg/mL Susp for Injection RxNorm: 0831594 1 Milliliter(s) Inj 05/28/2011 05/28/2011 Inactive Synthroid 100 mcg tablet RxNorm: 130077 1 Tablet(s) PO daily 10/08/2011 Inactive lisinopril 40 mg Tab RxNorm: 752214 1 Tablet(s) PO daily 201109/03/2011 Inactive Norvasc 5 mg Tab RxNorm: 349496 1 Tablet(s) PO daily 2011 No Stop Date Active Synthroid 88 mcg Tab RxNorm: 830331 1 Tablet(s) PO daily 201012/14/2010 Inactive Norvasc 5 mg tablet RxNorm: 655277 1 Tablet(s) PO daily 201001/27/2012 Inactive Aspirin Low Dose 81 mg tablet,delayed release RxNorm: 385173 1 Tablet(s) PO daily No Start Date Active Aleve 220 mg Tab RxNorm: 845901 Oral No Start Date 12/02/2011 Inactive Synthroid 75 mcg Tab RxNorm: 223821 1 Tablet(s) PO daily No Start Date 11/14/2010 Inactive Diflucan 150 mg tablet RxNorm: 678869 Tablet(s) PO No Start Date 09/17/2012 Inactive lisinopril 40 mg Tab RxNorm: 499176 1 Tablet(s) PO daily No Start Date 03/12/2011 Inactive Synthroid 75 mcg Tab RxNorm: 398140 1 Tablet(s) PO daily No Start Date 03/13/2011 Inactive aspirin 325 mg tablet RxNorm: 409950 1 Tablet(s) PO daily No Start Date 07/25/2016 Inactive Zithromax Z-Elmer 250 mg tablet RxNorm: 333371 Tablet(s) PO QPM No Start Date 12/02/2011 Inactive Aciphex 20 mg Tab RxNorm: 418721 Tablet(s) PO No Start Date 10/10/2014 Inactive Synthroid 88 mcg Tab RxNorm: 942736 1 Tablet(s) PO daily No Start Date 03/13/2011 Inactive naproxen 500 mg Tab RxNorm: 804798 1 Tablet(s) PO BID No Start Date 03/12/2011 Inactive Medication Administered Medication Codes Instructions Start Date Status Kenalog 40 mg/mL suspension for injection RxNorm: 9252852 Milliliter 04/22/2018 Active Kenalog 40 mg/mL suspension for injection RxNorm: 3104814 1Milliliter 09/04/2017 No longer Active Kenalog 40 mg/mL suspension for injection RxNorm: 3382115 1Milliliter 09/04/2017 No longer Active Kenalog 40 mg/mL suspension for injection RxNorm: 2220768 2Milliliter 03/21/2017 No longer Active Kenalog 40 mg/mL suspension for injection RxNorm: 0599046 1Milliliter 06/21/2016 No longer Active Kenalog 40 mg/mL suspension for injection RxNorm: 5997164 Milliliter 12/02/2015 No longer Active Kenalog 40 mg/mL suspension for injection RxNorm: 7192128 1Milliliter 06/16/2015 No longer Active Kenalog 40 mg/mL suspension for injection RxNorm: 4225942 Milliliter 12/27/2014 No longer Active ketorolac 60 mg/2 mL intramuscular solution RxNorm: 113843 Milliliter 11/05/2013 No longer Active Kenalog 40 mg/mL Susp for Injection RxNorm: 1206075 1Milliliter 08/09/2011 No longer Active Kenalog 40 mg/mL Susp for Injection RxNorm: 3111505 1Milliliter 05/28/2011 No longer Active Immunizations Vaccine [...] back pain ICD-10: M54.5 ICD-9: 724.2 03/21/2017 Pain in left knee ICD-10: M25.562 ICD-9: 719.46 03/21/2017 Essential (primary) hypertension ICD-10: I10 ICD-9: [...] Item Code Result Date C A/B FLU 1316918 Influenza A Scr Negative 04/22/2018 C A/B FLU 7638441 Influenza B Scr Negative 04/22/2018 C A/B FLU 2356421 Influenza Intrp B AG: PRID:PT:NOSE:NOM:IF See Footnote 04/22/2018 Free T4 Lyj809 FREE T4 0.92 ng/dL 03/14/2018 Tsh Ord6 TSH (3rd IS) 7.96 uIU/mL 03/14/2018 Tsh Ord6 TSH (3rd IS) 0.19 uIU/mL 11/29/2017 Comp Metabolic Ekj041 NA 141 mEq/L 11/29/2017 Comp Metabolic Ajv080 K 4.1 mEq/L 11/29/2017 Comp Metabolic Scl308 CL 104 mEq/L 11/29/2017 Comp Metabolic Vow516 CO2 29.0 mEq/L 11/29/2017 Comp Metabolic Fxm328 ANION GAP 12 11/29/2017 Comp Metabolic Jmb773 GLUCOSE 100 mg/dL 11/29/2017 Comp Metabolic Sux900 Creat 0.7 mg/dL 11/29/2017 Comp Metabolic Nem825 eGFR 95 ml/min/1.73m2 11/29/2017 Comp Metabolic Kbc830 BUN 14 mg/dL 11/29/2017 Comp Metabolic Rzl186 B/C Ratio 21.5 Ratio 11/29/2017 Comp Metabolic Dtj366 CALCIUM 9.1 mg/dL 11/29/2017 Comp Metabolic Ezq818 ALK PHOS 53 U/L 11/29/2017 Comp Metabolic Mlc355 AST(SGOT) 13 U/L 11/29/2017 Comp Metabolic Qoo235 ALT(SGPT) 17 U/L 11/29/2017 Comp Metabolic Qbx023 BILI T 0.8 mg/dL 11/29/2017 Comp Metabolic Gvg962 ALBUMIN 3.9 g/dL 11/29/2017 Comp Metabolic Hqz524 TPRO 6.1 g/dL 11/29/2017 Comp Metabolic Kpy806 GLOB 2.2 g/dL 11/29/2017 Comp Metabolic Heb780 A/G Ratio 1.8 Ratio 11/29/2017 Comp Metabolic Tvz671 Osmo 282 mOsmo 11/29/2017 Lipid Ord30 CHOL 184 mg/dL 11/29/2017 Lipid Ord30 HDL 52.0 mg/dl 11/29/2017 Lipid Ord30 TRIG 73 mg/dL 11/29/2017 Lipid Ord30 LDL 117 mg/dL 11/29/2017 Lipid Ord30 C/HDL 3.5 Ratio 11/29/2017 Free T4 Vgr879 FREE T4 1.47 ng/dL 11/29/2017 Cbc With [...] 29.3 pg 11/29/2017 Cbc With Differential Ord2 [place]key% 8.6 % 11/29/2017 Cbc With Differential Ord2 [...] 1.37 K/ul 11/29/2017 Cbc With Differential Ord2 [place] ABS# 0.7 K/ul 11/29/2017 Cbc With Differential Ord2 Eos ABS# 0.3 K/ul 11/29/2017 Cbc With Differential Ord2 Baso ABS# 0.0 K/ul 11/29/2017 Comp Metabolic Iya258 NA 140 mEq/L 07/26/2016 Comp Metabolic Xdq316 K 4.0 mEq/L 07/26/2016 Comp Metabolic Vhg797 CL 101 mEq/L 07/26/2016 Comp Metabolic Eni265 CO2 30.0 mEq/L 07/26/2016 Comp Metabolic Bom551 ANION GAP 13 07/26/2016 Comp Metabolic Yzf003 GLUCOSE 94 mg/dL 07/26/2016 Comp Metabolic Lwv658 Creat 0.7 mg/dL 07/26/2016 Comp Metabolic Sxn447 eGFR 87 ml/min/1.73m2 07/26/2016 Comp Metabolic Lkz857 BUN 9 mg/dL 07/26/2016 Comp Metabolic Wka503 B/C Ratio 12.9 Ratio 07/26/2016 Comp Metabolic Kzd804 CALCIUM 9.2 mg/dL 07/26/2016 Comp Metabolic Xog454 ALK PHOS 74 U/L 07/26/2016 Comp Metabolic Qqv885 AST(SGOT) 17 U/L 07/26/2016 Comp Metabolic Pxh507 ALT(SGPT) 25 U/L 07/26/2016 Comp Metabolic Txv032 BILI T 0.8 mg/dL 07/26/2016 Comp Metabolic Frv999 ALBUMIN 4.0 g/dL 07/26/2016 Comp Metabolic Rqy000 TPRO 6.6 g/dL 07/26/2016 Comp Metabolic Cqu386 GLOB 2.6 g/dL 07/26/2016 Comp Metabolic Xjb089 A/G Ratio 1.5 Ratio 07/26/2016 Comp Metabolic Oeg996 Osmo 278 mOsmo 07/26/2016 Free T4 Coz930 FREE T4 1.07 ng/dL 07/26/2016 Cbc With [...] 28.5 pg 07/26/2016 Cbc With Differential Ord2 [place]% 9.6 % 07/26/2016 Cbc With Differential Ord2 [...] 2.53 K/ul 07/26/2016 Cbc With Differential Ord2 [place] ABS# 0.8 K/ul 07/26/2016 Cbc With Differential Ord2 Eos ABS# 0.3 K/ul 07/26/2016 Cbc With Differential Ord2 Baso ABS# 0.0 K/ul 07/26/2016 Tsh Ord6 hTSH II 0.44 uIU/mL 07/26/2016 Tsh Ord6 hTSH II 0.07 uIU/mL 05/12/2015 Free T4 Dqy714 FREE T4 1.70 ng/dL 05/12/2015 Free T4 Dxg351 FREE T4 0.96 ng/dL 02/03/2015 Comp Metabolic Nfx102 NA 141 mEq/L 02/03/2015 Comp Metabolic Kle482 K 4.1 mEq/L 02/03/2015 Comp Metabolic Tin673 CL 105 mEq/L 02/03/2015 Comp Metabolic Acm414 CO2 29.0 mEq/L 02/03/2015 Comp Metabolic Tov111 ANION GAP 11 02/03/2015 Comp Metabolic Una035 GLUCOSE 99 mg/dL 02/03/2015 Comp Metabolic Ssp189 Creat 0.7 mg/dL 02/03/2015 Comp Metabolic Lng955 eGFR 85 ml/min/1.73m2 02/03/2015 Comp Metabolic Caw764 BUN 15 mg/dL 02/03/2015 Comp Metabolic Qgj111 B/C Ratio 20.8 Ratio 02/03/2015 Comp Metabolic Pnm115 CALCIUM 9.3 mg/dL 02/03/2015 Comp Metabolic Maq150 ALK PHOS 62 U/L 02/03/2015 Comp Metabolic Bxo103 AST(SGOT) 19 U/L 02/03/2015 Comp Metabolic Zcv676 ALT(SGPT) 23 U/L 02/03/2015 Comp Metabolic Ich512 BILI T 0.4 mg/dL 02/03/2015 Comp Metabolic Knm004 ALBUMIN 4.2 g/dL 02/03/2015 Comp Metabolic Qbj368 TPRO 6.6 g/dL 02/03/2015 Comp Metabolic Fws835 GLOB 2.4 g/dL 02/03/2015 Comp Metabolic Byl253 A/G Ratio 1.7 Ratio 02/03/2015 Comp Metabolic Yre643 Osmo 282 mOsmo 02/03/2015 Lipid Ord30 CHOL [...] hTSH II 5.13 uIU/mL 02/03/2015 LIPID GRP 9299308 HDL TEST 41 MG/DL 02/04/2012 LIPID GRP 7609213 TRIG 129 MG/DL 02/04/2012 LIPID GRP 2916357 TEST LDL 129 MG/DL 02/04/2012 LIPID GRP CHOL 196 MG/DL 02/04/2012 LIPID GRP RCHOL/HDL 4.78 RATIO 02/04/2012 FREE T4 4544810 FREE T4 1.05 NG/DL 02/04/2012 GFR CALC 6706096 GFR AA >60 ML/MIN 02/04/2012 GFR CALC 8691201 GFR NON-AA >60 ML/MIN 02/04/2012 TSH 2779412 TSH 3.062 uIU/ML 02/04/2012 CHEM 14 0223201 AST 18 U/L 02/04/2012 CHEM 14 0564768 ALT 22 IU/L 02/04/2012 CHEM 14 1403946 BUN 15 MG/DL 02/04/2012 CHEM 14 9177671 ALBUMIN 4.4 GM/DL 02/04/2012 CHEM 14 4299963 CHLORIDE 104 MMOL/L 02/04/2012 CHEM 14 1534624 BILI TOT 0.6 MG/DL 02/04/2012 CHEM 14 3906428 ALK PHOS 54 U/L 02/04/2012 CHEM 14 4864837 SODIUM 141 MMOL/L 02/04/2012 CHEM 14 6047641 CREATININE 0.85 MG/DL 02/04/2012 CHEM 14 9442362 CALCIUM 9.4 MG/DL 02/04/2012 CHEM 14 0457414 POTASSIUM 4.0 MMOL/L 02/04/2012 CHEM 14 7002256 PROT TOT 6.6 GM/DL 02/04/2012 CHEM 14 4905883 GLUCOSE 106 MG/DL 02/04/2012 CHEM 14 0165913 BICARB 30 MMOL/L 02/04/2012 CHEM 14 1414754 ANION GAP 7 MEQ/L 02/04/2012 UA 20389 Specific Moss 1.020 DateTime(Free Text in ) UA 69288 PH 6 DateTime(Free Text in Aprima) UA 13730 GLUCOSE DateTime(Free Text in Aprima) UA 53481 Protein 1+ DateTime(Free Text in Aprima) UA 34635 Blood 3+ DateTime(Free Text in Aprima) UA 80455 Bilirubin DateTime(Free Text in Aprima) UA 94480 Ketones DateTime(Free Text in Aprima) UA 35311 Urobilinogen DateTime(Free Text in Aprima) UA 24377 Nitrite DateTime(Free Text in Aprima) UA 63450 Leukocytes 2+ DateTime(Free Text in Aprima) UA 83650 Specific Moss 1.025 DateTime(Free Text in ) UA 16014 PH 6 DateTime(Free Text in ) UA 38166 GLUCOSE neg DateTime(Free Text in ) UA 57884 Protein neg DateTime(Free Text in ) UA 59213 Blood neg DateTime(Free Text in ) UA 68874 Bilirubin neg DateTime(Free Text in ) UA 62771 Ketones neg DateTime(Free Text in ) UA 86357 Urobilinogen neg DateTime(Free Text in ) UA 41278 Nitrite neg DateTime(Free Text in ) UA 88565 Leukocytes 1+ DateTime(Free Text in ) Review [...] G0008 11/28/2017 ADMIN PNEUMOCOCCAL VACCINE SNOMED CT: 13518439 CPT-4: G0009 11/28/2017 FLU VACC PRSV FREE INC ANTIG CPT-4: 32553 11/28/2017 PNEUMOCOCCAL VACC [address]: 35986022 CPT-4: 36736 11/28/2017 DRAIN/INJECT JOINT/BURSA CPT-4: 95927 09/04/2017 TRIAMCINOLONE ACET INJ NOS CPT-4: J3301 09/04/2017 TRIAMCINOLONE ACET INJ NOS CPT-4: J3301 03/21/2017 DRAIN/INJECT JOINT/BURSA CPT-4: 21566 03/21/2017 TRIAMCINOLONE ACET INJ NOS CPT-4: J3301 06/21/2016 DRAIN/INJECT JOINT/BURSA CPT-4: 40515 06/21/2016 TRIAMCINOLONE ACET INJ NOS CPT-4: J3301 12/02/2015 TRIAMCINOLONE ACET INJ NOS CPT-4: J3301 06/16/2015 TRIAMCINOLONE ACET INJ NOS CPT-4: J3301 12/27/2014 KETOROLAC TROMETHAMINE INJ CPT-4: J1885 11/05/2013 THER/PROPH/DIAG INJ SC/IM CPT-4: 62665 11/05/2013 URINALYSIS NONAUTO W/O SCOPE CPT-4: 44719 05/25/2013 URINALYSIS NONAUTO W/O SCOPE CPT-4: 08097 09/11/2012 PRESCRIP TRANSMIT VIA ERX SY CPT-4: G8553 09/11/2012 PRESCRIP TRANSMIT VIA ERX SY CPT-4: G8553 02/28/2012 ROUTINE VENIPUNCTURE CPT-4: 72811 02/04/2012 PRESCRIP TRANSMIT VIA ERX SY CPT-4: G8553 01/28/2012 PRESCRIP TRANSMIT VIA ERX SY CPT-4: G8553 11/05/2011 DRAIN/INJECT JOINT/BURSA CPT-4: 38045 08/09/2011 TRIAMCINOLONE ACET INJ NOS CPT-4: J3301 08/09/2011 TRIAMCINOLONE ACET INJ NOS CPT-4: J3301 05/28/2011 THER/PROPH/DIAG INJ SC/IM CPT-4: 24797 05/28/2011 URINALYSIS NONAUTO W/O SCOPE CPT-4: 91120 03/15/2011 Vital Signs Date Vital 04/22/2018 Blood Pressure 1: 128/88 Code : 8480-6 BMI: 36.9 Code : 81926-9 Heart Rate 1 : 97 bpm Height: 5' SpO2: 96% Temperature: 37.2 (C) / 98.9 (F) Weight: 189 lbs 11/28/2017 Blood Pressure 1: 122/66 Code : 8480-6 BMI: 37.1 Code : 30334-6 Heart Rate 1 : 78 bpm Height: 5' SpO2: 96% Waist Measure (cm): 109 cm Weight: 190 lbs 11/18/2017 Blood Pressure 1: 140/80 Code : 8480-6 BMI: 36.9 Code : 74516-6 Heart Rate 1 : 86 bpm Height: 5' SpO2: 94% Weight: 189 lbs 09/04/2017 Blood Pressure 1: 134/80 Code : 8480-6 Heart Rate 1: 74 bpm Height: SpO2: 96% Weight: 03/21/2017 Blood Pressure 1: 126/72 Code : 8480-6 BMI: 36.9 Code : 99149-2 Heart Rate 1 : 87 bpm Height: 5' SpO2: 97% Weight: 189 lbs 11/02/2016 Blood Pressure 1: 134/68 Code : 8480-6 BMI: 38.3 Code : 05272-8 Heart Rate 1 : 86 bpm Height: 5' SpO2: 98% Weight: 196 lbs 07/26/2016 Blood Pressure 1: 144/78 Code : 8480-6 BMI: 37.9 Code : 80928-1 Heart Rate 1 : 69 bpm Height: 5' SpO2: 96% Weight: 194 lbs 06/21/2016 Blood Pressure 1: 118/68 Code : 8480-6 BMI: 39.1 Code : 85305-2 Heart Rate 1 : 77 bpm Height: 5' SpO2: 95% Weight: 200 lbs 05/25/2016 Blood Pressure 1: 148/88 Code : 8480-6 BMI: 38.9 Code : 63678-4 Heart Rate 1 : 91 bpm Height: 5' SpO2: 94% Weight: 199 lbs 12/02/2015 Blood Pressure 1: 144/62 Code : 8480-6 BMI: 37.3 Code : 80413-6 Heart Rate 1 : 81 bpm Height: 5' SpO2: 95% Weight: 191 lbs 10/21/2015 Blood Pressure 1: 138/72 Code : 8480-6 BMI: 37.3 Code : 66198-8 Heart Rate 1 : 102 bpm Height: 5' SpO2: 98% Weight: 191 lbs 10/17/2015 Blood Pressure 1: 132/78 Code : 8480-6 BMI: 37.9 Code : 28145-0 Heart Rate 1 : 74 bpm Height: 5' SpO2: 97% Weight: 194 lbs 06/16/2015 Blood Pressure 1: 140/88 Code : 8480-6 BMI: 39.8 Code : 42559-5 Heart Rate 1 : 74 bpm Height: 5' SpO2: 96% Weight: 204 lbs 05/12/2015 Blood Pressure 1: 146/82 Code : 8480-6 Blood Pressure 1: 130/78 Code: 8480-6 BMI: 38.7 Code: 64343-3 Heart Rate 1: 67 bpm Height: 5' SpO2: 94% Weight: 198 lbs 03/10/2015 Blood Pressure 1: 132/86 Code : 8480-6 BMI: 38.9 Code : 41976-6 Heart Rate 1 : 72 bpm Height: 5' SpO2: 99% Weight: 199 lbs 02/08/2015 Blood Pressure 1: 130/88 Code : 8480-6 BMI: 38.5 Code : 55641-1 Heart Rate 1 : 68 bpm Height: 5' SpO2: 97% Temperature: 36.6 (C) / 97.8 (F) Weight: 197 lbs 12/27/2014 Blood Pressure 1: 140/82 Code : 8480-6 BMI: 38.5 Code : 60386-9 Heart Rate 1 : 79 bpm Height: 5' SpO2: 97% Temperature: 36.3 (C) / 97.4 (F) Weight: 197 lbs 11/16/2014 Blood Pressure 1: 128/76 Code : 8480-6 BMI: 38.7 Code : 65962-3 Heart Rate 1 : 76 bpm Height: 5' Weight: 198 lbs 10/11/2014 Blood Pressure 1: 112/78 Code : 8480-6 BMI: 38.7 Code : 72702-9 Heart Rate 1 : 100 bpm Height: 5' SpO2: 93% Temperature: 36.8 (C) / 98.3 (F) Weight: 198 lbs 07/16/2014 Blood Pressure 1: 142/86 Code : 8480-6 BMI: 39.8 Code : 20834-9 Heart Rate 1 : 71 bpm Height: 5' SpO2: 96% Weight: 204 lbs 06/14/2014 Blood Pressure 1: 132/82 Code : 8480-6 BMI: 39.8 Code : 15064-5 Heart Rate 1 : 71 bpm Height: 5' SpO2: 98% Weight: 207 lbs 11/05/2013 Blood Pressure 1: 130/70 Code : 8480-6 BMI: 38.6 Code : 36731-0 Heart Rate 1 : 83 bpm Height: 5' SpO2: 98% Weight: 201 lbs 09/08/2013 Blood Pressure 1: 122/78 Code : 8480-6 BMI: 39.2 Code : 89721-5 Heart Rate 1 : 64 bpm Height: 5' SpO2: 98% Temperature: 36.7 (C) / 98.0 (F) Weight: 204 lbs 05/25/2013 Blood Pressure 1: 130/82 Code : 8480-6 Weight: 05/04/2013 Blood Pressure 1: 110/68 Code : 8480-6 BMI: 38.8 Code : 14755-9 Heart Rate 1 : 76 bpm Height: 5' Temperature: 37.3 (C) / 99.2 (F) Weight: 202 lbs 02/09/2013 Blood Pressure 1: 128/78 Code : 8480-6 BMI: 39.4 Code : 03377-4 Heart Rate 1 : 76 bpm Height: 5' Weight: 205 lbs 09/11/2012 Blood Pressure 1: 128/72 Code : 8480-6 BMI: 38.6 Code : 50723-2 Heart Rate 1 : 76 bpm Height: 5' Temperature: 37.2 (C) / 99.0 (F) Weight: 201 lbs 05/29/2012 Blood Pressure 1: 132/82 Code : 8480-6 BMI: 38.4 Code : 62557-3 Heart Rate 1 : 80 bpm Height: 5' Weight: 200 lbs 02/28/2012 Blood Pressure 1: 120/66 Code : 8480-6 BMI: 37.6 Code : 15560-2 Height: 5' Weight: 196 lbs 01/28/2012 Blood Pressure 1: 144/72 Code : 8480-6 Heart Rate 1: 68 bpm Weight: 194 lbs 12/03/2011 Blood Pressure 1: 146/70 Code : 8480-6 BMI: 37.3 Code : 84341-2 Heart Rate 1 : 68 bpm Height: [...] Code : 8480-6 BMI: 37.9 Code : 65101-4 Heart Rate 1 : 66 bpm Height: 5' Respiratory Rate: 20 bpm Weight: 197 lbs 8 oz 11/15/2010 Blood Pressure 1: 166/94 Code : 8480-6 BMI: 36.5 Code : 89140-2 Heart Rate 1 : 56 bpm Height: [...] 05/28/2011 None well woman exam (65+ years) Breast/[facility] Complaints urinary urgency 03/15/2011 states urine [place] [...] data Encounters Encounter Performer Location Codes Date ([id number]) [id number] EST. PATIENT, LEVEL III Diagnosis: Cough[ICD10: R05] Diagnosis: Fever, unspecified[ICD10: R50.9] Diagnosis: Acute recurrent maxillary sinusitis[ICD10: J01.01] [facility] CPT-4: 49683 04/22/2018 [id number]) 87032 EST. PATIENT, LEVEL III Diagnosis: Insect bite (nonvenomous) of right upper arm, initial encounter[ICD10 : S40.861A] [facility] CPT-4: 43387 11/18/2017 [id number] EST. PATIENT, LEVEL III Diagnosis: Pain in right knee[ICD10: M25.561] Diagnosis: Pain in left knee[ICD10: M25.562] Diagnosis: Low back pain[ICD10: M54.5] Lana Ty MD, [facility] CPT-4 : 25948 03/21/2017 95320 EST. PATIENT, LEVEL III Diagnosis: Pain in right knee[ICD10: M25.561] Diagnosis: Pain in left knee[ICD10: M25.562] Diagnosis: Low back pain[ICD10: M54.5] Lana Ty MD, [facility] CPT-4 : 49771 11/02/2016 ([id number]) 58327 EST. PATIENT, LEVEL III Diagnosis: Essential (primary) hypertension[ICD10: I10] Diagnosis: Atrophy of thyroid (acquired)[ICD10: E03.4] Brionna Ty MD, [facility] CPT-4: 16656 07/26/2016 ([id number]) 00445 EST. PATIENT, LEVEL III Diagnosis: Essential (primary) hypertension[ICD10: I10] Diagnosis: Pain in left knee[ICD10: M25.562] Diagnosis: Unilateral primary osteoarthritis, left knee[ICD10: M17.12] Brionna Ty MD , [facility] CPT-4: 71997 06/21/2016 97791 EST. PATIENT, LEVEL III Diagnosis: Pain in left knee[ICD10: M25.562] Lana yT MD, [facility] CPT -4: 51950 05/25/2016 99175 EST. PATIENT, LEVEL IV Diagnosis: Other acute sinusitis[ICD10: J01.80] Diagnosis: Dizziness and giddiness[ICD10: R42] Diagnosis: Other acute nonsuppurative otitis media, bilateral[ICD10: H65.193] Lana Ty MD, [facility] CPT-4: 73561 12/02/2015 12593 EST. PATIENT, LEVEL III Diagnosis: Scar conditions and fibrosis of skin[ICD10: L90.5] Lana Ty MD, [facility] CPT-4: 16735 10/21/2015 ([id number]) 76520 EST. PATIENT, LEVEL IV Diagnosis: Essential (primary) hypertension[ICD10: I10] Diagnosis: Hypothyroidism, unspecified[ICD10: E03.9] Brionna Ty MD, [facility] CPT-4: 31549 10/17/2015 ([id number]) 96913 EST. PATIENT, LEVEL III Diagnosis: Low back pain[ICD10: M54.5] Diagnosis: Sciatica, right side[ICD10: M54.31] Diagnosis: Other obesity due to excess calories[ICD10: E66.09] Sheri Ty MD, [facility] CPT-4: 67744 06/16/2015 ([id number]) 98026 EST. PATIENT, LEVEL III Diagnosis: Essential (primary) hypertension[ICD10: I10] Diagnosis: Hypothyroidism, unspecified[ICD10: E03.9] Sheri Ty MD, [facility] CPT-4: 58084 05/12/2015 ([id number]) 79583 EST. PATIENT, LEVEL IV Diagnosis: Essential (primary) hypertension[ICD10: I10] Diagnosis: Hypothyroidism, unspecified[ICD10: E03.9] Diagnosis: Dizziness and giddiness[ICD10: R42] Sheri Ty MD, [facility] CPT-4: 33817 03/10/2015 ([id number]) 82985 EST. PATIENT, LEVEL IV Diagnosis: Hypothyroidism, unspecified[ICD10: E03.9] Diagnosis: Dizziness and giddiness[ICD10: R42] Diagnosis: Headache[ICD10: R51] Diagnosis: Allergic rhinitis due to pollen[ICD10: J30.1] Sheri Ty MD, [facility] CPT-4: 51948 02/08/2015 ([id number]) 72293 EST. PATIENT, LEVEL III Diagnosis: Acute maxillary sinusitis, unspecified[ICD10: J01.00] Sheri Ty MD, [facility] CPT-4: 51150 12/27/2014 ([id number]) 38257 EST. PATIENT, LEVEL IV Diagnosis: ESSENTIAL HYPERTENSION[ICD9: 401.9] Diagnosis: HYPOTHYROIDISM[ICD9: 244.9] Brionna Ty MD, [facility] CPT- 4: 38326 11/16/2014 ([id number]) 17118 EST. PATIENT, LEVEL III Diagnosis: ESSENTIAL HYPERTENSION[ICD9: 401.9] Diagnosis: HYPOTHYROIDISM[ICD9: 244.9] Sheri Ty MD, [facility] CPT-4: 23200 10/11/2014 ([id number]) 22607 EST. PATIENT, LEVEL IV Diagnosis: ESSENTIAL HYPERTENSION[ICD9: 401.9] Diagnosis: HYPERLIPIDEMIA[ICD9: 272.4] Diagnosis: HYPOTHYROIDISM[ICD9: 244.9] Diagnosis: Sacroiliitis[ICD9: 720.2] Brionna Ty MD, [facility] CPT-4: 70090 07/16/2014 ([id number]) 77063 EST. PATIENT, LEVEL IV Diagnosis: ESSENTIAL HYPERTENSION[ICD9: 401.9] Diagnosis: HYPOTHYROIDISM[ICD9: 244.9] Diagnosis: HYPERLIPIDEMIA[ICD9: 272.4] Diagnosis: Gait instability[ICD9: 781.2] Diagnosis: Osteoarthritis[ICD9: 715.90] Brionna Ty MD, [facility] CPT- 4: 24548 06/14/2014 ([id number]) 72984 EST. PATIENT, LEVEL IV Diagnosis: Solano's cyst[ICD9: 727.51] Diagnosis: ESSENTIAL HYPERTENSION[ICD9: 401.9] Brionna Ty MD, [facility] CPT-4: 69613 11/05/2013 ([id number]) 24998 EST. PATIENT, LEVEL III Diagnosis: ACUTE PHARYNGITIS[ICD9: 462] Sheri Ty MD, [facility] CPT-4: 12363 09/08/2013 ([id number]) 43791 EST. PATIENT, LEVEL III Diagnosis: UTI[ICD9: 599.0] Sheri Ty MD, [facility] CPT-4: 47289 05/25/2013 ([id number]) 75918 EST. PATIENT, LEVEL IV Diagnosis: ESSENTIAL HYPERTENSION[SNOMED: 61103794] Diagnosis: HYPOTHYROIDISM[ICD9: 244.9] Diagnosis: ALLERGIC RHINITIS[ICD9: 477.9] Brionna Ty MD, [facility] CPT- 4: 19117 05/04/2013 ([id number]) 16011 EST. PATIENT, LEVEL IV Diagnosis: ESSENTIAL HYPERTENSION[SNOMED: 75539317] Diagnosis: HYPOTHYROIDISM[ICD9: 244.9] Brionna Ty MD [facility] CPT- 4: 87712 02/09/2013 ([id number]) 19633 EST. PATIENT, LEVEL III Diagnosis: UTI[ICD9: 599.0] Diagnosis: Dysuria[ICD9: 788.1] Brionna Ty MD [facility] CPT-4: 89156 09/11/2012 ([id number]) 96290 EST. PATIENT, LEVEL IV Diagnosis: ESSENTIAL HYPERTENSION[SNOMED: 59558012] Diagnosis: HYPERLIPIDEMIA[ICD9: 272.4] Diagnosis: HYPOTHYROIDISM[ICD9: 244.9] Brionna Ty MD [facility] CPT- 4: 92813 05/29/2012 ([id number]) 77646 EST. PATIENT, LEVEL IV Diagnosis: ESSENTIAL HYPERTENSION[SNOMED: 86780809] Diagnosis: HYPERLIPIDEMIA[ICD9: 272.4] Diagnosis: HYPOTHYROIDISM[ICD9: 244.9] Brionna Ty MD [facility] CPT- 4: 54414 02/28/2012 ([id number]) 32749 EST. PATIENT, LEVEL IV Diagnosis: ESSENTIAL HYPERTENSION[SNOMED: 96662117] Diagnosis: HYPOTHYROIDISM[ICD9: 244.9] Brionna Ty MD [facility] CPT- 4: 48009 01/28/2012 ([id number]) 60794 EST. PATIENT, LEVEL IV Diagnosis: ESSENTIAL HYPERTENSION[SNOMED: 30414277] Diagnosis: ESOPHAGEAL REFLUX[ICD9: 530.81] Diagnosis: Constipation - functional[ICD9: 564.09] Brionna Ty MD [facility] CPT-4: 75529 12/03/2011 ([id number]) 61559 EST. PATIENT, LEVEL III Diagnosis: ALLERGIC RHINITIS[ICD9: 477.9] Diagnosis: ACUTE SINUSITIS[ICD9: 461.9] Brionna Ty MD [facility] CPT- 4: 06596 11/05/2011 ([id number]) 58443 EST. PATIENT, LEVEL III Diagnosis: SCIATICA[ICD9: 724.3] Diagnosis: SACROILIITIS NEC[ICD9: 720.2] Diagnosis: Gait instability[ICD9: 781.2] Sheri Ty MD [facility] CPT-4: 79224 08/09/2011 91344 EST. PATIENT, LEVEL III Diagnosis: Sacroiliitis[ICD9: 720.2] Diagnosis: Fall from slipping[ICD9: E885.9] Sheri Ty MD, [facility] CPT-4: 07081 05/28/2011 ([id number]) PER PM REEVAL EST PAT 65+ YR Diagnosis: Well woman exam[ICD9: V70.0] Sheri Ty MD, [facility] CPT-4: 80790 03/15/2011 ([id number]) 85828 EST. PATIENT, LEVEL IV Diagnosis: ESSENTIAL HYPERTENSION[SNOMED: 60431252] Diagnosis: HYPOTHYROIDISM[ICD9: 244.9] Diagnosis: ESOPHAGEAL REFLUX[ICD9: 530.81] Brionna Ty MD, [facility] CPT- 4: 53254 03/13/2011 11789 EST. PATIENT, LEVEL IV Diagnosis: ESSENTIAL HYPERTENSION[SNOMED: 69346581] Diagnosis: HYPOTHYROIDISM[ICD9: 244.9] Diagnosis: Leg pain, bilateral[ICD9: 729.5] Brionna Ty MD, [facility] CPT-4: 06016 11/15/2010 36357 EST. PATIENT, LEVEL IV Diagnosis: SACROILIITIS NEC[ICD9: 720.2] Diagnosis: SCIATICA[ICD9: 724.3] Diagnosis: ESSENTIAL HYPERTENSION[SNOMED: 26698885] Diagnosis: HYPOTHYROIDISM[ICD9: 244.9] Brionna Ty MD, [facility] CPT- 4: 17127 11/01/2010 Plan of Care Planned Activity Notes [...] care surrogate. 11/28/2017 Appointment: Sheri Sorto WPtel: [phone] [facility] - Annual Wellness Visit 11/28/2017 Patient Education: Patient Medication Summary Completed 11/28/2017 Care Plan: SCREENINGMAMMOGRAPHYDIGITAL LOINC : 80467-3 Pending 11/28/2017 Visit Plan: Cellulitis -possible spider [...] warmth, discharge. 11/18/2017 Appointment: Sheri Sorto WPtel: [phone] (30 min) Complex 11/18/2017 Patient [...] they worsen. 09/04/2017 Appointment: Lana Seaman WPtel: [phone] (30 min) Complex 09/04/2017 Patient Education: Patient Medication Summary Completed 09/04/2017 Visit Plan: Bilateral knee - Joint Injection - Pt was given post - injection instructions. The pt has been advised to use anti- inflammatories post injection today, ice to the injected site, call if redness, warmth, or increased pain occurs at the site of injection. 03/21/2017 Appointment: Lana Seaman WPtel: [phone] (30 min) Complex 03/21/2017 Patient Education: Patient Medication Summary Completed 03/21/2017 Referral: Osman Yoo 11/07 at 1PM - pt notified at her appointment Completed 11/07/2016 Care Plan: Referral Order SNOMED-CT : 810166906 Pending 11/04/2016 Visit Plan: Low back pain- [...] or concerns. 11/02/2016 Appointment: Lana Seaman WPtel: [phone] [place] (30 min) Complex 11/02/2016 [...] control. 07/26/2016 Appointment: Brionna Ty WPtel: [phone] [facility] (15 min) Moderate 07/26/2016 Patient Education: Patient Medication Summary Completed 07/26/2016 Patient Education: Obesity Completed 07/26/2016 Appointment: Brionna Ty WPtel: [facility] (15 min) Moderate 07/24/2016 Visit Plan: Hypertension [...] break through pain symptoms. 06/21/2016 Appointment: Brionna yT WPtel: [facility] (15 min) Moderate 06/21/2016 Patient Education: Patient [...] improve. 05/25/2016 Appointment: Lana Seaman WPtel: [facility] [place] (30 min) Complex 05/25/2016 Patient Education: Patient Medication Summary Completed 05/25/2016 Patient Education: Obesity Completed 05/25/2016 Appointment: Brionna Ty WPtel: [facility] [place] (15 min) Moderate 02/14/2016 Visit Plan: [...] instructions/medication interventions. 12/02/2015 Appointment: Sheri Sorto WPtel: [address] [place], [place] [phone] (30 min) Complex 12/02/2015 Patient Education: Patient [...] months based on previous levels of control. Srkisnnqp-npwnroup-ehhe if symptoms do not completely resolve 03/10/2015 [...] months based on previous levels of control. Ibajwoyzx-jmxlklilf-uwppegh due to allergies-start claritin-call if symptoms persist [...] show improvement. 12/27/2014 Appointment: Sheri Sorto WPtel: [facility] [place] [address] (15 min) Moderate 12/27/2014 Patient Education: Patient [...] of control. 11/16/2014 Appointment: Brionna Ty WPtel: [facility] Follow up 11/16/2014 Patient Education: Patient Medication [...] treatments help. 07/16/2014 Appointment: Brionna Ty WPtel[facility] Follow up 07/16/2014 Patient Education: Patient Medication Summary Completed 07/16/2014 Patient Education: Hypertension Completed 07/16/2014 Appointment: Brionna Ty WPtel: [facility] [place] Follow up 07/14/2014 Visit Plan: Hypertension [...] inject patient. 06/14/2014 Appointment: Brionna Ty WPtel: [facility] Follow up 06/14/2014 Patient Education: Patient Medication [...] x 1 11/05/2013 Appointment: Brionna Ty WPtel: [facility] Follow up 11/05/2013 Patient Education: Patient Medication Summary Completed 11/05/2013 Patient Education: Hypertension Completed 11/05/2013 Appointment: Brionna Ty WPtel: [facility] Follow up 11/02/2013 Visit Plan: Pharyngitis-Discussed natural [...] plan. 05/25/2013 Appointment: Sheri Sorto WPtel: [phone] Other 05/25/2013 Patient Education: Patient Medication [...] allergy spray. 05/04/2013 Appointment: Brionna Ty WPtel: [address] [place], [place] [phone] Follow up 05/04/2013 Patient Education: Patient Medication [...] of control. 02/09/2013 Appointment: Brionna Ty WPtel: [address] [place], [place] [phone] Follow up 02/09/2013 Patient Education: Patient Medication Summary Completed 02/09/2013 Patient Education: Hypertension Completed 02/09/2013 Appointment: Brionna Ty WPtel: [address] [place], [place] [phone] Follow up 12/11/2012 Visit Plan: UTI - pt with positive urinalysis - culture sent if appropriate. Antibiotic electronically prescribed to pt's pharmacy of choice. Pt to call if symptoms do not improve. 09/11/2012 Appointment: [facility]Ptel[phone] Follow up 09/11/2012 Patient Education: Patient Medication Summary Completed 09/11/2012 Appointment: Brionna Ty WPtel: [phone] [facility] Follow up 09/02/2012 Visit Plan: Hypertension - [...] control. 05/29/2012 Appointment: [facility]el[phone] Follow [facility] 05/29/2012 Patient Education: Patient Medication [...] daily 02/28/2012 Appointment: [facility]Ptel[phone] Follow [facility] 02/28/2012 Patient Education: Patient Medication [...] supplementation. 01/28/2012 Appointment: [facility]Ptel[phone] Follow [facility] 01/28/2012 Patient Education: Hypertension Completed [...] Saturday, Saturday. 12/03/2011 Appointment: Brionna Ty WPtel: [address] [place], [place] [phone] Hospital follow up 12/03/2011 Patient Education: Patient [...] show improvement. 11/05/2011 Appointment: Sheri Sorto WPtel: [address] [place], [place] [phone] [place] [address] Other 11/05/2011 Appointment: Sheri Sorto WPtel: [address] [place], [place] [phone] Lab Draw 11/05/2011 Patient Education: Patient Medication Summary Completed 11/05/2011 Appointment: Brionna Ty WPtel: [address] [place], [place] [phone] Follow up 09/06/2011 Visit Plan: Sacroilitis/sciatica-injection today in the office-Recommend physical therapy for gait instability- exercises discussed with the patient, pt to continue with antiinflammatories. Pt is to call if the symptoms do not improve or if they worsen. 08/09/2011 Appointment: Sheri Sorto WPtel: [address] [place], [place] [phone] [place] Other 08/09/2011 Patient Education: Patient Medication Summary Completed 08/09/2011 Visit Plan: Sacroilitis/sciatica-discussed natural and expected course of this diagnosis and to alert me if symptoms do not follow expected course, or if any worse. Plan for xrays today at the hospital to evaluate for acute abnormality. Kenalog injection today in the office. 05/28/2011 Appointment: Sheri Sorto WPtel: [phone] Other 05/28/2011 Patient Education: Patient Medication Summary [...] RTC yearly or prn. 03/15/2011 Appointment: Sheri Sorot WPtel: [phone] [phone] [facility] 03/15/2011 Patient Education: Patient [...] pt. 03/13/2011 Appointment: Brionna Ty WPtel: [phone] [facility] Other 03/13/2011 Patient Education: Patient Medication Summary Completed 03/13/2011 Patient Education: High Blood Pressure: Essential Hypertension Completed 2011 Appointment: Brionna Ty WPtel: [address] [place], [place] [address] Other 12/06/2010 Visit Plan: Hypertension - uncontrolled [...] needed antiinflammatories. 11/15/2010 Appointment: Brionna Ty WPtel: [address] [place], [place] [address] Other 11/15/2010 Patient Education: Patient Medication Summary [...] BACK PAIN). 11/01/2010 Appointment: Brionna Ty WPtel: [address] [place], [place] [phone] Other 11/01/2010 Patient Education: Patient Medication Summary [...] months based on previous levels of control. Bvvodgpnx-ktgomlcw-mrys if symptoms do not completely resolve . [...] WHILE ON ANTIBIOTIC, TAKE A PROBIOTIC LIKE [employer] TO HELP PREVENT DIARRHEA. UTI - pt [...] x [address] Yoo in [place] office on Tuesday 11/07 at 1PM - [...] months based on previous levels of control. Ybxvssgfq-vgjpakzyr-wosowho due to allergies-start claritin-call if symptoms persist [...]
[2018-06-02 15:22] LABS: BASOPHILS % (AUTO) 0 % (0-10); EOSINOPHILS % (AUTO) 0 % (0-10); HEMATOCRIT 47 % (35-52); HEMOGLOBIN 15.6 G/DL (11.5-16.0); LYMPHOCYTES # (AUTO) 1.3 X 10^3 (1.0-4.0); LYMPHOCYTES % (AUTO) 10 % (12-44); MEAN CORPUSCULAR HEMOGLOBIN 29 PG (25-34); MEAN CORPUSCULAR HGB CONC 33 G/DL (32-36); MEAN CORPUSCULAR VOLUME 87 FL (80-99); MEAN PLATELET VOLUME 9.7 FL (7.4-10.4); MONOCYTES # (AUTO) 0.3 X 10^3 (0.0-1.0); MONOCYTES % (AUTO) 2 % (0-12); NEUTROPHILS # (AUTO) 12.1 X 10^3 (1.8-7.8); NEUTROPHILS % (AUTO) 88 % (42-75); PLATELET COUNT 264 10^3/uL (130-400); RED CELL DISTRIBUTION WIDTH 14.4 % (10.0-14.5); WHITE BLOOD COUNT 13.7 10^3/uL (4.3-11.0)
[2018-06-02 15:23] LABS: BILIRUBIN,URINE NEGATIVE (NEGATIVE); CLARITY,URINE SLIGHTLY CLOUDY; COLOR,URINE YELLOW; GLUCOSE, URINE (UA) NEGATIVE (NEGATIVE); KETONES,URINE 1+ (NEGATIVE); LEUKOCYTE ESTERASE ,URINE 1+ (NEGATIVE); NITRITE,URINE NEGATIVE (NEGATIVE); PH,URINE 8 (5-9); PROTEIN,URINE 1+ (NEGATIVE); UROBILINOGEN,URINE 1 MG/DL (NORMAL)
--- OUTSIDE RECORDS SUMMARY | 2018-06-02 15:27 | XMS REPORT | CCD ---
Author Author [facility] Organization [facility] Address [address] [place] [address] Phone Care Team Providers Care Loan Broker Name Role Phone Brionna Ty PP Unavailable CCM Unavailable Summary Purpose Interface Exchange Insurance Providers Payer name Policy type / Coverage type Covered alliance party ID Effective Begin Date Effective End Date WPS Medicare Part B [id number] 2016 Unknown [employer] [id number] 2016 Unknown Family history Daughter Diagnosis Age [...] and well 11/01/[address]: 547016302 Nonsmoker 11/01/[address]: 281476855 Never drinks alcohol 11/01/2010 Has the patient [...] Codes Condition Status Onset Date Resolved Date Encounter for screening mammogram for malignant neoplasm [...] Problems Condition Codes Effective Dates Condition Status Encounter for screening mammogram for malignant neoplasm [...] Start Date Stop Date Status Fill Instructions levothyroxine 150 mcg tablet RxNorm: 087152 1 Tablet(s) PO daily 03/18/2018 07/15/2018 Active levothyroxine 137 mcg tablet RxNorm: 416909 1 Tablet(s) PO daily 12/04/2017 03/17/2018 Inactive levothyroxine 137 mcg tablet RxNorm: 177817 1 Tablet(s) PO daily 12/04/2017 12/03/2017 Inactive doxycycline hyclate 100 mg tablet RxNorm: 1026856 1 Tablet(s) PO BID 11/18/2017 11/24/2017 Inactive Kenalog 40 mg/mL suspension for injection RxNorm: 5056708 1 Milliliter(s) Inj 09/04/2017 09/04/2017 Inactive Kenalog 40 mg/mL suspension for injection RxNorm: 4925146 1 Milliliter(s) Inj 09/04/2017 09/04/2017 Inactive levothyroxine 150 mcg tablet RxNorm: 236942 TAKE ONE TABLET BY MOUTH ONCE DAILY ON EMPTY STOMACH 07/09/2017 12/03/2017 Inactive Kenalog 40 mg/mL suspension for injection RxNorm: 1031530 2 Milliliter(s) Inj 03/21/2017 03/21/2017 Inactive levothyroxine 150 mcg tablet RxNorm: 976442 TAKE ONE TABLET BY MOUTH ONCE DAILY ON EMPTY STOMACH 11/08/2016 05/06/2017 Inactive Voltaren 1 % topical gel RxNorm: 751153 1 Application TOP TID as needed 11/02/2016 No Stop Date Active Kenalog 40 mg/mL suspension for injection RxNorm: 6743718 1 Milliliter(s) Inj 06/21/2016 06/21/2016 Inactive levothyroxine 150 mcg tablet RxNorm: 906321 TAKE ONE TABLET BY MOUTH ONCE DAILY ON EMPTY STOMACH 05/09/2016 09/05/2016 Inactive Zithromax Z-Elmer 250 mg tablet RxNorm: 450122 1 Tablet(s) PO UD 12/02/2015 12/06/2015 Inactive Kenalog 40 mg/mL suspension for injection RxNorm: 3447386 Milliliter(s) Inj 12/02/2015 12/02/2015 Inactive levothyroxine 150 mcg tablet RxNorm: 001490 TAKE ONE TABLET BY MOUTH DAILY ON AN EMPTY STOMACH 12/01/2015 03/29/2016 Inactive Norvasc 5 mg tablet RxNorm: 914305 1 Tablet(s) PO daily 201510/10/2016 Inactive Kenalog 40 mg/mL suspension for injection RxNorm: 1437864 1 Milliliter(s) Inj 06/16/2015 06/16/2015 Inactive Norvasc 5 mg tablet RxNorm: 954747 TAKE ONE TABLET BY MOUTH DAILY 06/10/2015 10/07/2015 Inactive levothyroxine 150 mcg tablet RxNorm: 655663 1 Tablet(s) PO daily TAKE ONE TABLET BY MOUTH DAILY 05/18/2015 09/14/2015 Inactive Synthroid 175 mcg tablet RxNorm: 597883 1 Tablet(s) PO daily TAKE ONE TABLET BY MOUTH DAILY 03/11/2015 05/17/2015 Inactive Synthroid 175 mcg tablet RxNorm: 247465 1 Tablet(s) PO daily TAKE ONE TABLET BY MOUTH DAILY 02/08/2015 03/10/2015 Inactive Flonase Allergy Relief 50 mcg/actuation nasal spray, suspension RxNorm: 2 [place] NASAL daily 12/27/2014 01/05/2015 Inactive Kenalog 40 mg/mL suspension for injection RxNorm: 7392542 Milliliter(s) Inj 12/27/2014 12/27/2014 Inactive Levaquin 500 mg tablet RxNorm: 176724 1 Tablet(s) PO daily 03/201401/02/2015 Inactive Zithromax Z-Elmer 250 mg tablet RxNorm: 610018 1 Tablet(s) PO UD 11/26/2014 11/30/2014 Inactive Synthroid 125 mcg tablet RxNorm: 575428 1 Tablet(s) PO daily 10/12/2014 Inactive Synthroid 150 mcg tablet RxNorm: 696749 1 Tablet(s) PO daily TAKE ONE TABLET BY MOUTH DAILY 10/05/2014 02/01/2015 Inactive Norvasc 5 mg tablet RxNorm: 984330 TAKE ONE TABLET BY MOUTH DAILY 10/05/2014 06/01/2015 Inactive Synthroid 125 mcg tablet RxNorm: 981257 TAKE ONE TABLET BY MOUTH DAILY 07/12/2014 10/05/2014 Inactive cephalexin 500 mg capsule RxNorm: 184677 1 Capsule(s) PO TID 06/28/2014 Inactive Have patient get probiotic while on antibiotic cephalexin 500 mg capsule RxNorm: 812232 1 Capsule(s) PO TID 06/21/2014 Inactive Have patient get probiotic while on antibiotic Synthroid 125 mcg tablet RxNorm: 964594 TAKE ONE TABLET BY MOUTH DAILY 05/21/2014 06/19/2014 Inactive ketorolac 60 mg/2 mL intramuscular solution RxNorm: 420746 Milliliter(s) IM 11/05/2013 11/05/2013 Inactive Norvasc 5 mg tablet RxNorm: 847508 TAKE 1 TABLET BY MOUTH ONCE DAILY. 09/21/2013 10/04/2014 Inactive Generic For:NORVASC 5MG Zithromax Z-Elmer 250 mg tablet RxNorm: 672885 1 Tablet(s) PO UD 09/08/2013 09/12/2013 Inactive Bactrim DS 800 mg-160 mg tablet RxNorm: 732484 1 Tablet(s) PO BID 05/25/2013 05/31/2013 Inactive Keflex 500 mg capsule RxNorm: 193717 1 Capsule(s) PO TID 201305/04/2013 Inactive Keflex 500 mg capsule RxNorm: 956244 1 Capsule(s) PO TID 201304/27/2013 Inactive Synthroid 125 mcg tablet RxNorm: 452449 1 Tablet(s) PO daily 02/03/2014 Inactive Synthroid 112 mcg tablet RxNorm: 432691 Tablet(s) PO TAKE (1) TABLET BY MOUTH ONCE DAILY IN THE MORNING 01/28/201302/08 Inactive Synthroid 112 mcg tablet RxNorm: 405696 Tablet(s) PO TAKE (1) TABLET BY MOUTH ONCE DAILY IN THE MORNING 01/28/201301/27 Inactive Synthroid 112 mcg tablet RxNorm: 069857 Tablet(s) PO TAKE (1) TABLET BY MOUTH ONCE DAILY IN THE MORNING 01/26/201301/27 Inactive lovastatin 20 mg tablet RxNorm: 478281 Tablet(s) PO TAKE 1 TABLET BY MOUTH ONCE DAILY AT BEDTIME. 01/05/2013 10/10/2014 Inactive Synthroid 112 mcg tablet RxNorm: 733413 Tablet(s) PO TAKE (1) TABLET BY MOUTH ONCE DAILY IN THE MORNING 10/20/201201/25 Inactive Bactrim DS 800 mg-160 mg tablet RxNorm: 696108 1 Tablet(s) PO BID 09/25/2012 09/24/2012 Inactive Bactrim DS 800 mg-160 mg tablet RxNorm: 755658 1 Tablet(s) PO BID 09/25/2012 09/27/2012 Inactive Diflucan 150 mg tablet RxNorm: 822847 2 Tablet(s) PO daily 09/20/2012 Inactive sulfamethoxazole 800 mg-trimethoprim 160 mg tablet RxNorm: 231604 1 Tablet(s) PO BID 09/11/2012 09/17/2012 Inactive PLEASE GET A PROBIOTIC FOR VALERIE AND HAVE HER TAKE THE PROBIOTIC WHILE ON THE ANTIBIOT TO HELP PREVENT DIARRHEA Norvasc 5 mg tablet RxNorm: 564497 Tablet(s) PO TAKE 1 TABLET BY MOUTH ONCE DAILY. 08/13/2012 09/20/2013 Inactive Synthroid 112 mcg tablet RxNorm: 240865 1 Tablet(s) PO QAM 04/201206/26/2012 Inactive lovastatin 20 mg tablet RxNorm: 079300 1 Tablet(s) PO QHS 02/2701/04/2013 Inactive Norvasc 5 mg tablet RxNorm: 479261 1 Tablet(s) PO daily 201105/26/2012 Inactive Synthroid 100 mcg tablet RxNorm: 021330 Tablet(s) PO 201102/27/2012 Inactive TAKE 1 TABLET BY MOUTH ONCE DAILY FOR THYROID (IN AM, 30-60MIN BEFORE FOOD/ VITAMINS) Synthroid 100 mcg tablet RxNorm: 702998 Tablet(s) PO 201102/27/2012 Inactive TAKE 1 TABLET BY MOUTH ONCE DAILY FOR THYROID (IN AM, 30-60MIN BEFORE FOOD/ VITAMINS) Synthroid 100 mcg tablet RxNorm: 727733 Tablet(s) PO 201112/02/2011 Inactive TAKE 1 TABLET BY MOUTH ONCE DAILY FOR THYROID (IN AM, 30-60MIN BEFORE FOOD/ VITAMINS) Zyrtec 10 mg tablet RxNorm: 6642243 1 Tablet(s) PO daily 11/0412/04/2011 Inactive Synthroid 100 mcg tablet RxNorm: 954802 Tablet(s) PO 201112/02/2011 Inactive TAKE 1 TABLET BY MOUTH ONCE DAILY FOR THYROID (IN AM, 30-60MIN BEFORE FOOD/ VITAMINS) lisinopril 40 mg tablet RxNorm: 976637 Tablet(s) PO 10/08/2011 10/11/2014 Inactive TAKE 1 TABLET BY MOUTH ONCE DAILY. lisinopril 40 mg tablet RxNorm: 535273 Tablet(s) PO 09/04/2011 10/07/2011 Inactive TAKE 1 TABLET BY MOUTH ONCE DAILY. Kenalog 40 mg/mL Susp for Injection RxNorm: 3611410 1 Milliliter(s) Inj 08/09/2011 08/09/2011 Inactive Norvasc 5 mg Tab RxNorm: 090824 Tablet(s) PO 06/26/2011 11/04/2011 Inactive TAKE 1 TABLET BY MOUTH ONCE DAILY. Kenalog 40 mg/mL Susp for Injection RxNorm: 9869322 1 Milliliter(s) Inj 05/28/2011 05/28/2011 Inactive Synthroid 100 mcg tablet RxNorm: 243557 1 Tablet(s) PO daily 10/08/2011 Inactive lisinopril 40 mg Tab RxNorm: 081430 1 Tablet(s) PO daily 201109/03/2011 Inactive Norvasc 5 mg Tab RxNorm: 594628 1 Tablet(s) PO daily 2011 No Stop Date Active Synthroid 88 mcg Tab RxNorm: 359388 1 Tablet(s) PO daily 201012/14/2010 Inactive Norvasc 5 mg tablet RxNorm: 586713 1 Tablet(s) PO daily 201001/27/2012 Inactive Aspirin Low Dose 81 mg tablet,delayed release RxNorm: 927555 1 Tablet(s) PO daily No Start Date Active Aleve 220 mg Tab RxNorm: 402503 Oral No Start Date 12/02/2011 Inactive Synthroid 75 mcg Tab RxNorm: 273577 1 Tablet(s) PO daily No Start Date 11/14/2010 Inactive Diflucan 150 mg tablet RxNorm: 394451 Tablet(s) PO No Start Date 09/17/2012 Inactive lisinopril 40 mg Tab RxNorm: 864102 1 Tablet(s) PO daily No Start Date 03/12/2011 Inactive Synthroid 75 mcg Tab RxNorm: 253902 1 Tablet(s) PO daily No Start Date 03/13/2011 Inactive aspirin 325 mg tablet RxNorm: 583883 1 Tablet(s) PO daily No Start Date 07/25/2016 Inactive Zithromax Z-Elmer 250 mg tablet RxNorm: 369088 Tablet(s) PO QPM No Start Date 12/02/2011 Inactive Aciphex 20 mg Tab RxNorm: 033307 Tablet(s) PO No Start Date 10/10/2014 Inactive Synthroid 88 mcg Tab RxNorm: 937370 1 Tablet(s) PO daily No Start Date 03/13/2011 Inactive naproxen 500 mg Tab RxNorm: 554399 1 Tablet(s) PO BID No Start Date 03/12/2011 Inactive Medication Administered Medication Codes Instructions Start Date Status Kenalog 40 mg/mL suspension for injection RxNorm: 7962189 1Milliliter 09/04/2017 No longer Active Kenalog 40 mg/mL suspension for injection RxNorm: 8254659 1Milliliter 09/04/2017 No longer Active Kenalog 40 mg/mL suspension for injection RxNorm: 1282150 2Milliliter 03/21/2017 No longer Active Kenalog 40 mg/mL suspension for injection RxNorm: 8151218 1Milliliter 06/21/2016 No longer Active Kenalog 40 mg/mL suspension for injection RxNorm: 3989847 Milliliter 12/02/2015 No longer Active Kenalog 40 mg/mL suspension for injection RxNorm: 7046894 1Milliliter 06/16/2015 No longer Active Kenalog 40 mg/mL suspension for injection RxNorm: 0834819 Milliliter 12/27/2014 No longer Active ketorolac 60 mg/2 mL intramuscular solution RxNorm: 969954 Milliliter 11/05/2013 No longer Active Kenalog 40 mg/mL Susp for Injection RxNorm: 4274156 1Milliliter 08/09/2011 No longer Active Kenalog 40 mg/mL Susp for Injection RxNorm: 0896851 1Milliliter 05/28/2011 No longer Active Immunizations Vaccine Codes Date Status Influenza CVX: 141 11/28/2017 completed Pneumococcal (Adult) CVX: 133 11/28/2017 completed Influenza CVX: 141 11/09/2016 completed Influenza CVX: 141 04/06/2016 completed Influenza CVX: 141 05/04/2013 completed Assessments Condition Codes Effective Dates Encounter for screening mammogram for malignant neoplasm [...] sinusitis, unspecified ICD-10: J01.00 ICD-9: 461.0 12/27/2014 ESSENTIAL HYPERTENSION ICD-9: 401.9 11/16 HYPOTHYROIDISM ICD-9: 244.9 11/16/2014 HYPERLIPIDEMIA ICD-9: 272.4 07/16/2014 Sacroiliitis ICD-9: 720.2 07/16/2014 Gait instability ICD-9: 781.2 06/14/2014 Osteoarthritis ICD-9: 715.90 06/14/2014 Solano's cyst ICD-9: 727.51 11/05/2013 ACUTE [...] Visit Reason For Visit Effective Dates Notes Annual Medicare Wellness Exam 11/28/2017 rash 11/18/2017 [...] Observation Code Item Item Code Result Date Free T4 Pic437 FREE T4 0.92 ng/dL 03/14/2018 Tsh Ord6 TSH (3rd IS) 7.96 uIU/mL 03/14/2018 Tsh Ord6 TSH (3rd IS) 0.19 uIU/mL 11/29/2017 Comp Metabolic Kcj228 NA 141 mEq/L 11/29/2017 Comp Metabolic Aqw901 K 4.1 mEq/L 11/29/2017 Comp Metabolic Bpq910 CL 104 mEq/L 11/29/2017 Comp Metabolic Uth324 CO2 29.0 mEq/L 11/29/2017 Comp Metabolic Lkb332 ANION GAP 12 11/29/2017 Comp Metabolic Gva314 GLUCOSE 100 mg/dL 11/29/2017 Comp Metabolic Reo347 Creat 0.7 mg/dL 11/29/2017 Comp Metabolic Wjx835 eGFR 95 ml/min/1.73m2 11/29/2017 Comp Metabolic Vat368 BUN 14 mg/dL 11/29/2017 Comp Metabolic Ncn643 B/C Ratio 21.5 Ratio 11/29/2017 Comp Metabolic Jzh291 CALCIUM 9.1 mg/dL 11/29/2017 Comp Metabolic Ywe953 ALK PHOS 53 U/L 11/29/2017 Comp Metabolic Rpu272 AST(SGOT) 13 U/L 11/29/2017 Comp Metabolic Atp222 ALT(SGPT) 17 U/L 11/29/2017 Comp Metabolic Yws163 BILI T 0.8 mg/dL 11/29/2017 Comp Metabolic Lmr030 ALBUMIN 3.9 g/dL 11/29/2017 Comp Metabolic Zgv440 TPRO 6.1 g/dL 11/29/2017 Comp Metabolic Bxx769 GLOB 2.2 g/dL 11/29/2017 Comp Metabolic Cpn164 A/G Ratio 1.8 Ratio 11/29/2017 Comp Metabolic Qlu642 Osmo 282 mOsmo 11/29/2017 Lipid Ord30 CHOL 184 mg/dL 11/29/2017 Lipid Ord30 HDL 52.0 mg/dl 11/29/2017 Lipid Ord30 TRIG 73 mg/dL 11/29/2017 Lipid Ord30 LDL 117 mg/dL 11/29/2017 Lipid Ord30 C/HDL 3.5 Ratio 11/29/2017 Free T4 Hli235 FREE T4 1.47 ng/dL 11/29/2017 Cbc With [...] 29.3 pg 11/29/2017 Cbc With Differential Ord2 Miner% 8.6 % 11/29/2017 Cbc With Differential Ord2 [...] 1.37 K/ul 11/29/2017 Cbc With Differential Ord2 Miner ABS# 0.7 K/ul 11/29/2017 Cbc With Differential Ord2 Eos ABS# 0.3 K/ul 11/29/2017 Cbc With Differential Ord2 Baso ABS# 0.0 K/ul 11/29/2017 Comp Metabolic Npt132 NA 140 mEq/L 07/26/2016 Comp Metabolic Fcd660 K 4.0 mEq/L 07/26/2016 Comp Metabolic Pti371 CL 101 mEq/L 07/26/2016 Comp Metabolic Izi305 CO2 30.0 mEq/L 07/26/2016 Comp Metabolic Eib405 ANION GAP 13 07/26/2016 Comp Metabolic Wre127 GLUCOSE 94 mg/dL 07/26/2016 Comp Metabolic Tgw882 Creat 0.7 mg/dL 07/26/2016 Comp Metabolic Hln550 eGFR 87 ml/min/1.73m2 07/26/2016 Comp Metabolic Edc826 BUN 9 mg/dL 07/26/2016 Comp Metabolic Nhg488 B/C Ratio 12.9 Ratio 07/26/2016 Comp Metabolic Gbt819 CALCIUM 9.2 mg/dL 07/26/2016 Comp Metabolic Vav976 ALK PHOS 74 U/L 07/26/2016 Comp Metabolic Jga280 AST(SGOT) 17 U/L 07/26/2016 Comp Metabolic Xxy221 ALT(SGPT) 25 U/L 07/26/2016 Comp Metabolic Uve510 BILI T 0.8 mg/dL 07/26/2016 Comp Metabolic Ztu200 ALBUMIN 4.0 g/dL 07/26/2016 Comp Metabolic Jwz742 TPRO 6.6 g/dL 07/26/2016 Comp Metabolic Dyv807 GLOB 2.6 g/dL 07/26/2016 Comp Metabolic Kbv347 A/G Ratio 1.5 Ratio 07/26/2016 Comp Metabolic Uta058 Osmo 278 mOsmo 07/26/2016 Free T4 Tbm552 FREE T4 1.07 ng/dL 07/26/2016 Cbc With [...] 30.4 % 07/26/2016 Cbc With Differential Ord2 Miner% 9.6 % 07/26/2016 Cbc With Differential Ord2 MCH 28.5 pg 07/26/2016 Cbc With Differential Ord2 MCHC 32.4 pg 07/26/2016 Cbc With Differential Ord2 Eos% 4.0 % 07/26/2016 Cbc With Differential Ord2 PLT 300 K/ul 07/26/2016 Cbc With Differential Ord2 Baso% 0.1 % 07/26/2016 Cbc With Differential Ord2 RDW 13.4 % 07/26/2016 Cbc With Differential Ord2 Neut ABS# 4.65 K/ul 07/26/2016 Cbc With Differential Ord2 Lymph ABS# 2.53 K/ul 07/26/2016 Cbc With Differential Ord2 Miner ABS# 0.8 K/ul 07/26/2016 Cbc With Differential Ord2 Eos ABS# 0.3 K/ul 07/26/2016 Cbc With Differential Ord2 Baso ABS# 0.0 K/ul 07/26/2016 Tsh Ord6 hTSH II 0.44 uIU/mL 07/26/2016 Tsh Ord6 hTSH II 0.07 uIU/mL 05/12/2015 Free T4 Dzu142 FREE T4 1.70 ng/dL 05/12/2015 Free T4 Smi336 FREE T4 0.96 ng/dL 02/03/2015 Comp Metabolic Zdp720 NA 141 mEq/L 02/03/2015 Comp Metabolic Ejg303 K 4.1 mEq/L 02/03/2015 Comp Metabolic Pop048 CL 105 mEq/L 02/03/2015 Comp Metabolic Mby101 CO2 29.0 mEq/L 02/03/2015 Comp Metabolic Vsa602 ANION GAP 11 02/03/2015 Comp Metabolic Dki219 GLUCOSE 99 mg/dL 02/03/2015 Comp Metabolic Ids654 Creat 0.7 mg/dL 02/03/2015 Comp Metabolic Wil660 eGFR 85 ml/min/1.73m2 02/03/2015 Comp Metabolic Ogh107 BUN 15 mg/dL 02/03/2015 Comp Metabolic Fak263 B/C Ratio 20.8 Ratio 02/03/2015 Comp Metabolic Jzj229 CALCIUM 9.3 mg/dL 02/03/2015 Comp Metabolic Fzr592 ALK PHOS 62 U/L 02/03/2015 Comp Metabolic Ifq328 AST(SGOT) 19 U/L 02/03/2015 Comp Metabolic Cmd897 ALT(SGPT) 23 U/L 02/03/2015 Comp Metabolic Zlj475 BILI T 0.4 mg/dL 02/03/2015 Comp Metabolic Sfs348 ALBUMIN 4.2 g/dL 02/03/2015 Comp Metabolic Ucm627 TPRO 6.6 g/dL 02/03/2015 Comp Metabolic Big348 GLOB 2.4 g/dL 02/03/2015 Comp Metabolic Aqy548 A/G Ratio 1.7 Ratio 02/03/2015 Comp Metabolic Rcc944 Osmo 282 mOsmo 02/03/2015 Lipid Ord30 CHOL [...] GRP RCHOL/HDL 4.78 RATIO 02/04/2012 FREE T4 5438353 FREE T4 1.05 NG/DL 02/04/2012 GFR CALC 6158310 GFR AA >60 ML/MIN 02/04/2012 GFR CALC 8863641 GFR NON-AA >60 ML/MIN 02/04/2012 TSH 0959544 TSH 3.062 uIU/ML 02/04/2012 CHEM 14 1209364 AST 18 U/L 02/04/2012 CHEM 14 8242560 ALT 22 IU/L 02/04/2012 CHEM 14 6548081 BUN 15 MG/DL 02/04/2012 CHEM 14 7117419 ALBUMIN 4.4 GM/DL 02/04/2012 CHEM 14 9752100 CHLORIDE 104 MMOL/L 02/04/2012 CHEM 14 2050324 BILI TOT 0.6 MG/DL 02/04/2012 CHEM 14 4509576 ALK PHOS 54 U/L 02/04/2012 CHEM 14 9038583 SODIUM 141 MMOL/L 02/04/2012 CHEM 14 7861252 CREATININE 0.85 MG/DL 02/04/2012 CHEM 14 2651320 CALCIUM 9.4 MG/DL 02/04/2012 CHEM 14 4011548 POTASSIUM 4.0 MMOL/L 02/04/2012 CHEM 14 2343268 PROT TOT 6.6 GM/DL 02/04/2012 CHEM 14 0991976 GLUCOSE 106 MG/DL 02/04/2012 CHEM 14 0716367 BICARB 30 MMOL/L 02/04/2012 CHEM 14 3991716 ANION GAP 7 MEQ/L 02/04/2012 UA 29579 Specific [place] 1.020 DateTime(Free Text in Aprima ) UA 71902 PH 6 DateTime(Free Text in Aprima) UA 26932 GLUCOSE DateTime(Free Text in Aprima) UA 37938 Protein 1+ DateTime(Free Text in Aprima) UA 72929 Blood 3+ DateTime(Free Text in Apr) UA 59477 Bilirubin DateTime(Free Text in Aprima) UA 65398 Ketones DateTime(Free Text in Apr) UA 37964 Urobilinogen DateTime(Free Text in Aprima) UA 40281 Nitrite DateTime(Free Text in Aprima) UA 36319 Leukocytes 2+ DateTime(Free Text in Aprima) UA 15265 Specific [place] 1.025 DateTime(Free Text in Apr ) UA 87974 PH 6 DateTime(Free Text in Apr) UA 53463 GLUCOSE neg DateTime(Free Text in Aprima) UA 44275 Protein neg DateTime(Free Text in Apr) UA 63018 Blood neg DateTime(Free Text in Apr) UA 43439 Bilirubin neg DateTime(Free Text in Apr) UA 81994 Ketones neg DateTime(Free Text in Aprima) UA 89082 Urobilinogen neg DateTime(Free Text in Apr) UA 48415 Nitrite neg DateTime(Free Text in ) UA 56145 Leukocytes 1+ DateTime(Free Text in ) Review of Systems System Result Effective Dates Constitutional No recent illness 2017 Constitutional No [...] Result Effective Dates Notes Full Exam - General 1995 Constitutional general appearance Overall: well developed 11/28/2017 [...] affect 05/29/2012 None Full Exam - General 1994 Constitutional general appearance Overall: well developed 02/28/2012 None Full Exam - General 1994 [...] masses 01/28/2012 None Full Exam - General 1994 [...] masses 12/03/2011 None Full Exam - General 1994 Ears/Nose/Throat oral cavity/pharynx/larynx Overall: oral mucosa clear 12/03/2011 None Full Exam - General 1994 Abdomen abdominal exam Overall: no tenderness 12/03/2011 [...] time 12/03/2011 None Full Exam - General 1995 Psychiatric mood and affect Overall: normal mood and affect 12/03/2011 None Full Exam - General 1995 Neck inspection of neck Overall: normal size [...] time 03/13/2011 None Full Exam - General 1995 [...] accomodation 03/13/2011 None Full Exam - General 1994 [...] affect 11/01/2010 None Procedures Procedure Codes Date PPPS, SUBSEQ VISIT CPT -4: G0439 11/28/2017 ADMIN INFLUENZA VIRUS VAC CPT-4: G0008 11/28/2017 ADMIN PNEUMOCOCCAL VACCINE SNOMED CT: 54229286 CPT-4: G0009 11/28/2017 FLU VACC PRSV FREE INC ANTIG CPT-4: 43417 11/28/2017 PNEUMOCOCCAL VACC [address]: 25267928 CPT-4: 84287 11/28/2017 DRAIN/INJECT JOINT/BURSA CPT-4: 92371 09/04/2017 TRIAMCINOLONE ACET INJ NOS CPT-4: J3301 09/04/2017 TRIAMCINOLONE ACET INJ NOS CPT-4: J3301 03/21/2017 DRAIN/INJECT JOINT/BURSA CPT-4: 48221 03/21/2017 TRIAMCINOLONE ACET INJ NOS CPT-4: J3301 06/21/2016 DRAIN/INJECT JOINT/BURSA CPT-4: 82393 06/21/2016 TRIAMCINOLONE ACET INJ NOS CPT-4: J3301 12/02/2015 TRIAMCINOLONE ACET INJ NOS CPT-4: J3301 06/16/2015 TRIAMCINOLONE ACET INJ NOS CPT-4: J3301 12/27/2014 KETOROLAC TROMETHAMINE INJ CPT-4: J1885 11/05/2013 THER/PROPH/DIAG INJ SC/IM CPT-4: 38174 11/05/2013 URINALYSIS NONAUTO W/O SCOPE CPT-4: 94823 05/25/2013 URINALYSIS NONAUTO W/O SCOPE CPT-4: 80978 09/11/2012 PRESCRIP TRANSMIT VIA ERX SY CPT-4: G8553 09/11/2012 PRESCRIP TRANSMIT VIA ERX SY CPT-4: G8553 02/28/2012 ROUTINE VENIPUNCTURE CPT-4: 87607 02/04/2012 PRESCRIP TRANSMIT VIA ERX SY CPT-4: G8553 01/28/2012 PRESCRIP TRANSMIT VIA ERX SY CPT-4: G8553 11/05/2011 DRAIN/INJECT JOINT/BURSA CPT-4: 92022 08/09/2011 TRIAMCINOLONE ACET INJ NOS CPT-4: J3301 08/09/2011 TRIAMCINOLONE ACET INJ NOS CPT-4: J3301 05/28/2011 THER/PROPH/DIAG INJ SC/IM CPT-4: 72483 05/28/2011 URINALYSIS NONAUTO W/O SCOPE CPT-4: 10101 03/15/2011 Vital Signs Date Vital 11/28/2017 Blood Pressure 1: 122/66 Code : 8480-6 BMI: 37.1 Code : 79973-0 Heart Rate 1 : 78 bpm Height: 5' SpO2: 96% Waist Measure (cm): 109 cm Weight: 190 lbs 11/18/2017 Blood Pressure 1: 140/80 Code : 8480-6 BMI: 36.9 Code : 68487-4 Heart Rate 1 : 86 bpm Height: 5' SpO2: 94% Weight: 189 lbs 09/04/2017 Blood Pressure 1: 134/80 Code : 8480-6 Heart Rate 1: 74 bpm Height: SpO2: 96% Weight: 03/21/2017 Blood Pressure 1: 126/72 Code : 8480-6 BMI: 36.9 Code : 69422-2 Heart Rate 1 : 87 bpm Height: 5' SpO2: 97% Weight: 189 lbs 11/02/2016 Blood Pressure 1: 134/68 Code : 8480-6 BMI: 38.3 Code : 73569-8 Heart Rate 1 : 86 bpm Height: 5' SpO2: 98% Weight: 196 lbs 07/26/2016 Blood Pressure 1: 144/78 Code : 8480-6 BMI: 37.9 Code : 13900-8 Heart Rate 1 : 69 bpm Height: 5' SpO2: 96% Weight: 194 lbs 06/21/2016 Blood Pressure 1: 118/68 Code : 8480-6 BMI: 39.1 Code : 94609-6 Heart Rate 1 : 77 bpm Height: 5' SpO2: 95% Weight: 200 lbs 05/25/2016 Blood Pressure 1: 148/88 Code : 8480-6 BMI: 38.9 Code : 26288-9 Heart Rate 1 : 91 bpm Height: 5' SpO2: 94% Weight: 199 lbs 12/02/2015 Blood Pressure 1: 144/62 Code : 8480-6 BMI: 37.3 Code : 24133-2 Heart Rate 1 : 81 bpm Height: 5' SpO2: 95% Weight: 191 lbs 10/21/2015 Blood Pressure 1: 138/72 Code : 8480-6 BMI: 37.3 Code : 71156-5 Heart Rate 1 : 102 bpm Height: 5' SpO2: 98% Weight: 191 lbs 10/17/2015 Blood Pressure 1: 132/78 Code : 8480-6 BMI: 37.9 Code : 93438-4 Heart Rate 1 : 74 bpm Height: 5' SpO2: 97% Weight: 194 lbs 06/16/2015 Blood Pressure 1: 140/88 Code : 8480-6 BMI: 39.8 Code : 91149-0 Heart Rate 1 : 74 bpm Height: 5' SpO2: 96% Weight: 204 lbs 05/12/2015 Blood Pressure 1: 146/82 Code : 8480-6 Blood Pressure 1: 130/78 Code: 8480-6 BMI: 38.7 Code: 41617-4 Heart Rate 1: 67 bpm Height: 5' SpO2: 94% Weight: 198 lbs 03/10/2015 Blood Pressure 1: 132/86 Code : 8480-6 BMI: 38.9 Code : 88063-3 Heart Rate 1 : 72 bpm Height: 5' SpO2: 99% Weight: 199 lbs 02/08/2015 Blood Pressure 1: 130/88 Code : 8480-6 BMI: 38.5 Code : 25739-3 Heart Rate 1 : 68 bpm Height: 5' SpO2: 97% Temperature: 36.6 (C) / 97.8 (F) Weight: 197 lbs 12/27/2014 Blood Pressure 1: 140/82 Code : 8480-6 BMI: 38.5 Code : 68684-1 Heart Rate 1 : 79 bpm Height: 5' SpO2: 97% Temperature: 36.3 (C) / 97.4 (F) Weight: 197 lbs 11/16/2014 Blood Pressure 1: 128/76 Code : 8480-6 BMI: 38.7 Code : 34935-5 Heart Rate 1 : 76 bpm Height: 5' Weight: 198 lbs 10/11/2014 Blood Pressure 1: 112/78 Code : 8480-6 BMI: 38.7 Code : 61727-8 Heart Rate 1 : 100 bpm Height: 5' SpO2: 93% Temperature: 36.8 (C) / 98.3 (F) Weight: 198 lbs 07/16/2014 Blood Pressure 1: 142/86 Code : 8480-6 BMI: 39.8 Code : 93898-3 Heart Rate 1 : 71 bpm Height: 5' SpO2: 96% Weight: 204 lbs 06/14/2014 Blood Pressure 1: 132/82 Code : 8480-6 BMI: 39.8 Code : 93354-4 Heart Rate 1 : 71 bpm Height: 5' SpO2: 98% Weight: 207 lbs 11/05/2013 Blood Pressure 1: 130/70 Code : 8480-6 BMI: 38.6 Code : 49357-5 Heart Rate 1 : 83 bpm Height: 5' SpO2: 98% Weight: 201 lbs 09/08/2013 Blood Pressure 1: 122/78 Code : 8480-6 BMI: 39.2 Code : 33079-9 Heart Rate 1 : 64 bpm Height: 5' SpO2: 98% Temperature: 36.7 (C) / 98.0 (F) Weight: 204 lbs 05/25/2013 Blood Pressure 1: 130/82 Code : 8480-6 Weight: 05/04/2013 Blood Pressure 1: 110/68 Code : 8480-6 BMI: 38.8 Code : 73608-6 Heart Rate 1 : 76 bpm Height: 5' Temperature: 37.3 (C) / 99.2 (F) Weight: 202 lbs 02/09/2013 Blood Pressure 1: 128/78 Code : 8480-6 BMI: 39.4 Code : 92116-6 Heart Rate 1 : 76 bpm Height: 5' Weight: 205 lbs 09/11/2012 Blood Pressure 1: 128/72 Code : 8480-6 BMI: 38.6 Code : 27539-9 Heart Rate 1 : 76 bpm Height: 5' Temperature: 37.2 (C) / 99.0 (F) Weight: 201 lbs 05/29/2012 Blood Pressure 1: 132/82 Code : 8480-6 BMI: 38.4 Code : 71107-7 Heart Rate 1 : 80 bpm Height: 5' Weight: 200 lbs 02/28/2012 Blood Pressure 1: 120/66 Code : 8480-6 BMI: 37.6 Code : 62486-6 Height: 5' Weight: 196 lbs 01/28/2012 Blood Pressure 1: 144/72 Code : 8480-6 Heart Rate 1: 68 bpm Weight: 194 lbs 12/03/2011 Blood Pressure 1: 146/70 Code : 8480-6 BMI: 37.3 Code : 95590-2 Heart Rate 1 : 68 bpm Height: [...] Code : 8480-6 BMI: 37.9 Code : 76101-8 Heart Rate 1 : 66 bpm Height: 5' Respiratory Rate: 20 bpm Weight: 197 lbs 8 oz 11/15/2010 Blood Pressure 1: 166/94 Code : 8480-6 BMI: 36.5 Code : 10364-5 Heart Rate 1 : 56 bpm Height: 5'1" Respiratory Rate: 16 bpm Weight: 193 lbs 11/01/2010 Blood Pressure 1: 132/72 Code : 8480-6 Heart Rate 1: 58 bpm Respiratory Rate : 16 bpm Weight: 189 lbs Functional Status No Functional Status data History of Present Illness Symptom Name Status Result Effective Date Notes Annual Medicare Wellness Exam Alcohol Use does [...] 05/28/2011 None well woman exam (65+ years) 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 PATIENT, LEVEL III Diagnosis: Insect bite (nonvenomous) of right upper arm, initial encounter[ICD10 : S40.861A] Sheri Ty MD, [facility] CPT-4: 83911 11/18/2017 71296 EST. PATIENT, LEVEL III Diagnosis: Pain in right knee[ICD10: M25.561] Diagnosis: Pain in left knee[ICD10: M25.562] Diagnosis: Low back pain[ICD10: M54.5] Lana Ty MD, [facility] CPT-4 : 11282 03/21/2017 19613 EST. PATIENT, LEVEL III Diagnosis: Pain in right knee[ICD10: M25.561] Diagnosis: Pain in left knee[ICD10: M25.562] Diagnosis: Low back pain[ICD10: M54.5] Lana Ty MD, [facility] CPT-4 : 73906 11/02/2016 ([id number]) 86641 EST. PATIENT, LEVEL III Diagnosis: Essential (primary) hypertension[ICD10: I10] Diagnosis: Atrophy of thyroid (acquired)[ICD10: E03.4] Brionna Ty MD, [facility] CPT-4: 47605 07/26/2016 ([id number]) 03968 EST. PATIENT, LEVEL III Diagnosis: Essential (primary) hypertension[ICD10: I10] Diagnosis: Pain in left knee[ICD10: M25.562] Diagnosis: Unilateral primary osteoarthritis, left knee[ICD10: M17.12] Brionna Ty MD , [facility] CPT-4: 82900 06/21/2016 95285 EST. PATIENT, LEVEL III Diagnosis: Pain in left knee[ICD10: M25.562] Lana Ty MD, [facility] CPT -4: 62960 05/25/2016 86717 EST. PATIENT, LEVEL IV Diagnosis: Other acute sinusitis[ICD10: J01.80] Diagnosis: Dizziness and giddiness[ICD10: R42] Diagnosis: Other acute nonsuppurative otitis media, bilateral[ICD10: H65.193] Lana Ty MD, [facility] CPT-4: 50745 12/02/2015 03737 EST. PATIENT, LEVEL III Diagnosis: Scar conditions and fibrosis of skin[ICD10: L90.5] Lana Ty MD, [facility] CPT-4: 76589 10/21/2015 ([id number]) 72534 EST. PATIENT, LEVEL IV Diagnosis: Essential (primary) hypertension[ICD10: I10] Diagnosis: Hypothyroidism, unspecified[ICD10: E03.9] Brionna Ty MD, [facility] CPT-4: 09011 10/17/2015 ([id number]) 61011 EST. PATIENT, LEVEL III Diagnosis: Low back pain[ICD10: M54.5] Diagnosis: Sciatica, right side[ICD10: M54.31] Diagnosis: Other obesity due to excess calories[ICD10: E66.09] Sheri Ty MD, [facility] CPT-4: 29258 06/16/2015 ([id number]) 52435 EST. PATIENT, LEVEL III Diagnosis: Essential (primary) hypertension[ICD10: I10] Diagnosis: Hypothyroidism, unspecified[ICD10: E03.9] Sheri Ty MD, [facility] CPT-4: 62808 05/12/2015 ([id number]) 70660 EST. PATIENT, LEVEL IV Diagnosis: Essential (primary) hypertension[ICD10: I10] Diagnosis: Hypothyroidism, unspecified[ICD10: E03.9] Diagnosis: Dizziness and giddiness[ICD10: R42] Sheri Ty MD, [facility] CPT-4: 96495 03/10/2015 ([id number]) 25305 EST. PATIENT, LEVEL IV Diagnosis: Hypothyroidism, unspecified[ICD10: E03.9] Diagnosis: Dizziness and giddiness[ICD10: R42] Diagnosis: Headache[ICD10: R51] Diagnosis: Allergic rhinitis due to pollen[ICD10: J30.1] Sheri Ty MD, [facility] CPT-4: 49234 02/08/2015 ([id number]) 28325 EST. PATIENT, LEVEL III Diagnosis: Acute maxillary sinusitis, unspecified[ICD10: J01.00] Sheri Ty MD, [facility] CPT-4: 90561 12/27/2014 ([id number]) 32912 EST. PATIENT, LEVEL IV Diagnosis: ESSENTIAL HYPERTENSION[ICD9: 401.9] Diagnosis: HYPOTHYROIDISM[ICD9: 244.9] Brionna Ty MD, [facility] CPT- 4: 58061 11/16/2014 ([id number]) 92829 EST. PATIENT, LEVEL III Diagnosis: ESSENTIAL HYPERTENSION[ICD9: 401.9] Diagnosis: HYPOTHYROIDISM[ICD9: 244.9] Sheri Ty MD, [facility] CPT-4: 31717 10/11/2014 ([id number]) 34964 EST. PATIENT, LEVEL IV Diagnosis: ESSENTIAL HYPERTENSION[ICD9: 401.9] Diagnosis: HYPERLIPIDEMIA[ICD9: 272.4] Diagnosis: HYPOTHYROIDISM[ICD9: 244.9] Diagnosis: Sacroiliitis[ICD9: 720.2] Brionna Ty MD, [facility] CPT-4: 44261 07/16/2014 ([id number]) 93037 EST. PATIENT, LEVEL IV Diagnosis: ESSENTIAL HYPERTENSION[ICD9: 401.9] Diagnosis: HYPOTHYROIDISM[ICD9: 244.9] Diagnosis: HYPERLIPIDEMIA[ICD9: 272.4] Diagnosis: Gait instability[ICD9: 781.2] Diagnosis: Osteoarthritis[ICD9: 715.90] Brionna Ty MD, [facility] CPT- 4: 72793 06/14/2014 ([id number]) 27112 EST. PATIENT, LEVEL IV Diagnosis: Solano's cyst[ICD9: 727.51] Diagnosis: ESSENTIAL HYPERTENSION[ICD9: 401.9] Brionna Ty MD, [facility] CPT-4: 80879 11/05/2013 ([id number]) 47867 EST. PATIENT, LEVEL III Diagnosis: ACUTE PHARYNGITIS[ICD9: 462] Sheri Ty MD, [facility] CPT-4: 20802 09/08/2013 ([id number]) 34402 EST. PATIENT, LEVEL III Diagnosis: UTI[ICD9: 599.0] Sheri Ty MD, [facility] CPT-4: 06057 05/25/2013 ([id number]) 58719 EST. PATIENT, LEVEL IV Diagnosis: ESSENTIAL HYPERTENSION[SNOMED: 34394793] Diagnosis: HYPOTHYROIDISM[ICD9: 244.9] Diagnosis: ALLERGIC RHINITIS[ICD9: 477.9] Brionna Ty MD, [facility] CPT- 4: 82025 05/04/2013 ([id number]) 24961 EST. PATIENT, LEVEL IV Diagnosis: ESSENTIAL HYPERTENSION[SNOMED: 34465083] Diagnosis: HYPOTHYROIDISM[ICD9: 244.9] Brionna Ty MD [facility] CPT- 4: 21954 02/09/2013 ([id number]) 66678 EST. PATIENT, LEVEL III Diagnosis: UTI[ICD9: 599.0] Diagnosis: Dysuria[ICD9: 788.1] Brionna Ty MD [facility] CPT-4: 71360 09/11/2012 ([id number]) 85080 EST. PATIENT, LEVEL IV Diagnosis: ESSENTIAL HYPERTENSION[SNOMED: 50296297] Diagnosis: HYPERLIPIDEMIA[ICD9: 272.4] Diagnosis: HYPOTHYROIDISM[ICD9: 244.9] Brionna Ty MD [facility] CPT- 4: 68529 05/29/2012 ([id number]) 61108 EST. PATIENT, LEVEL IV Diagnosis: ESSENTIAL HYPERTENSION[SNOMED: 75855908] Diagnosis: HYPERLIPIDEMIA[ICD9: 272.4] Diagnosis: HYPOTHYROIDISM[ICD9: 244.9] Brionna Ty MD [facility] CPT- 4: 64899 02/28/2012 ([id number]) 15820 EST. PATIENT, LEVEL IV Diagnosis: ESSENTIAL HYPERTENSION[SNOMED: 73571952] Diagnosis: HYPOTHYROIDISM[ICD9: 244.9] Brionna Ty MD [facility] CPT- 4: 52330 01/28/2012 ([id number]) 69198 EST. PATIENT, LEVEL IV Diagnosis: ESSENTIAL HYPERTENSION[SNOMED: 28621880] Diagnosis: ESOPHAGEAL REFLUX[ICD9: 530.81] Diagnosis: Constipation - functional[ICD9: 564.09] Brionna Ty MD [facility] CPT-4: 97594 12/03/2011 ([id number]) 40170 EST. PATIENT, LEVEL III Diagnosis: ALLERGIC RHINITIS[ICD9: 477.9] Diagnosis: ACUTE SINUSITIS[ICD9: 461.9] Brionna Ty MD [facility] CPT- 4: 54359 11/05/2011 ([id number]) 63547 EST. PATIENT, LEVEL III Diagnosis: SCIATICA[ICD9: 724.3] Diagnosis: SACROILIITIS NEC[ICD9: 720.2] Diagnosis: Gait instability[ICD9: 781.2] Sheri Ty MD, [facility] CPT-4: 23705 08/09/2011 61737 EST. PATIENT, LEVEL III Diagnosis: Sacroiliitis[ICD9: 720.2] Diagnosis: Fall from slipping[ICD9: E885.9] Sheri Ty MD, [facility] CPT-4: 15880 05/28/2011 ([id number]) PER PM REEVAL EST PAT 65+ YR Diagnosis: Well woman exam[ICD9: V70.0] Sheri Ty MD, [facility] CPT-4: 18763 03/15/2011 ([id number]) 12036 EST. PATIENT, LEVEL IV Diagnosis: ESSENTIAL HYPERTENSION[SNOMED: 04904140] Diagnosis: HYPOTHYROIDISM[ICD9: 244.9] Diagnosis: ESOPHAGEAL REFLUX[ICD9: 530.81] Brionna Ty MD, [facility] CPT- 4: 75617 03/13/2011 22168 EST. PATIENT, LEVEL IV Diagnosis: ESSENTIAL HYPERTENSION[SNOMED: 95646054] Diagnosis: HYPOTHYROIDISM[ICD9: 244.9] Diagnosis: Leg pain, bilateral[ICD9: 729.5] Brionna Ty MD, [facility] CPT-4: 44777 11/15/2010 47409 EST. PATIENT, LEVEL IV Diagnosis: SACROILIITIS NEC[ICD9: 720.2] Diagnosis: SCIATICA[ICD9: 724.3] Diagnosis: ESSENTIAL HYPERTENSION[SNOMED: 27989741] Diagnosis: HYPOTHYROIDISM[ICD9: 244.9] Brionna Ty MD, [facility] CPT- 4: 96470 11/01/2010 Plan of Care Planned Activity Notes Codes Status Date Patient Education: Patient Medication Summary Completed 12/06/2017 [...] care surrogate. 11/28/2017 Appointment: Sheri Sorto WPtel: [phone] [facility] - Annual Wellness Visit 11/28/2017 Patient Education: Patient Medication Summary Completed 11/28/2017 Care Plan: [facility] Pending 11/28/2017 Visit Plan: Cellulitis -possible spider [...] warmth, discharge. 11/18/2017 Appointment: Sheri Sorto WPtel: [phone] (30 min) Complex 11/18/2017 Patient Education: Patient [...] they worsen. 09/04/2017 Appointment: Lana Seaman [facility]Ptel: [phone] (30 min) Complex 09/04/2017 Patient Education: Patient Medication Summary Completed 09/04/2017 Visit Plan: Bilateral knee - Joint Injection - Pt was given post - injection instructions. The pt has been advised to use anti- inflammatories post injection today, ice to the injected site, call if redness, warmth, or increased pain occurs at the site of injection. 03/21/2017 Appointment: L[facility] Seaman [facility]el[phone] [facility] (30 min) Complex 03/21/2017 Patient Education: Patient Medication Summary Completed 03/21/2017 Referral: Osman Yoo 11/07 at 1PM - pt notified at her appointment Completed 11/07/2016 Care Plan: Referral Order SNOMED-CT : 986847095 Pending 11/04/2016 Visit Plan: Low back pain- [...] or concerns. 11/02/2016 Appointment: [facility] Se[phone] [facility] (30 min) Complex 11/02/2016 Patient Education: Patient [...] of control. 07/26/2016 Appointment: Brionna Ty WPtel: [phone] [facility] (15 min) Moderate 07/26/2016 Patient Education: Patient Medication Summary Completed 07/26/2016 Patient Education: Obesity Completed 07/26/2016 Appointment: Brionna Ty WPtel: [facility] (15 min) Moderate 07/24/2016 Visit Plan: Hypertension [...] pain symptoms. 06/21/2016 Appointment: Brionna Ty WPtel: [facility] (15 min) Moderate 06/21/2016 Patient Education: Patient [...] not improve. 05/25/2016 Appointment: Lana Seaman WPtel: [facility] [place] (30 min) Complex 05/25/2016 Patient Education: Patient Medication Summary Completed 05/25/2016 Patient Education: Obesity Completed 05/25/2016 Appointment: Brionna Ty WPtel: [facility] [place] (15 min) Moderate 02/14/2016 Visit Plan: [...] office for further instructions/medication interventions. 12/02/2015 Appointment: MacarioSheri WPtel: [phone] (30 min) Complex 12/02/2015 Patient Education: Patient [...] months based on previous levels of control. Mhgtfjaqs-hnxidkjl-nlqp if symptoms do not completely resolve 03/10/2015 [...] months based on previous levels of control. Xkmmqvuyv-ivufnftqd-krgsiuo due to allergies-start claritin-call if symptoms persist [...] show improvement. 12/27/2014 Appointment: She[facility] Sorto [facility]el[phone] [phone] [place] (15 min) Moderate 12/27/2014 Patient Education: [...] of control. 11/16/2014 [phone] [facility] 11/16/2014 Patient Education: Patient [...] treatments help. 07/16/2014 Appointment: [phone] [facility] 07/16/2014 Patient Education: Patient Medication Summary Completed 07/16/2014 Patient Education: Hypertension Completed 07/16/2014 Appointment: [phone] [place] Follow up 07/14/2014 Visit Plan: Hypertension [...] inject patient. 06/14/2014 Appointment: Brionna Ty WPtel: [facility]5 [facility] Follow up 06/14/2014 Patient Education: Patient Medication [...] x 1 11/05/2013 Appointment: Brionna Ty WPtel: [facility] Follow up 11/05/2013 Patient Education: Patient Medication Summary Completed 11/05/2013 Patient Education: Hypertension Completed 11/05/2013 Appointment: Brionna Ty WPtel: [facility]5 [facility] Follow up 11/02/2013 Visit Plan: Pharyngitis-Discussed natural [...] of plan. 05/25/2013 Appointment: Sheri Sorto WPtel: [phone] [place] Other 05/25/2013 Patient Education: Patient Medication [...] allergy spray. 05/04/2013 Appointment: Brionna Ty WPtel: [facility]3 [facility] Follow up 05/04/2013 Patient Education: Patient Medication [...] of control. 02/09/2013 Appointment: [phone] Follow up 02/09/2013 Patient Education: Patient Medication Summary Completed 02/09/2013 Patient Education: Hypertension Completed 02/09/2013 Appointment: Brionna Ty WPtel: [phone] [facility] [place] Follow up 12/11/2012 Visit Plan: UTI - pt with positive urinalysis - culture sent if appropriate. Antibiotic electronically prescribed to pt's pharmacy of choice. Pt to call if symptoms do not improve. 09/11/2012 Appointment: Brionna Ty WPtel: [phone] [facility] Follow up 09/11/2012 Patient Education: Patient Medication Summary Completed 09/11/2012 Appointment: Brionna Ty WPtel: [phone] [facility] Follow up 09/02/2012 Visit Plan: Hypertension - [...] 05/29/2012 Appointment: [phone] Follow [facility] 05/29/2012 Patient Education: Patient Medication [...] 02/28/2012 Appointment: [phone] Follow up 02/28/2012 Patient Education: Patient Medication [...] 01/28/2012 Appointment: [phone] Follow up 01/28/2012 Patient Education: Hypertension Completed [...] Saturday, Saturday. 12/03/2011 Appointment: Brionna Ty WPtel: [facility]5 [facility] Hospital follow up 12/03/2011 Patient Education: Patient [...] show improvement. 11/05/2011 Appointment: Sheri Sorto WPtel: [address] [place], [place] [phone] Other 11/05/2011 Appointment: Sheri Sorto WPtel: [address] [place], [place] [phone] Lab Draw 11/05/2011 Patient Education: Patient Medication Summary Completed 11/05/2011 Appointment: Brionna Ty WPtel: [address] [place] [address] Follow up 09/06/2011 Visit Plan: Sacroilitis/sciatica-injection today in the office-Recommend physical therapy for gait instability- exercises discussed with the patient, pt to continue with antiinflammatories. Pt is to call if the symptoms do not improve or if they worsen. 08/09/2011 Appointment: Sheri Sorto WPtel: [address] [place], [place] [phone] Other 08/09/2011 Patient Education: Patient Medication Summary Completed 08/09/2011 Visit Plan: Sacroilitis/sciatica-discussed natural and expected course of this diagnosis and to alert me if symptoms do not follow expected course, or if any worse. Plan for xrays today at the hospital to evaluate for acute abnormality. Kenalog injection today in the office. 05/28/2011 Appointment: Sheri Sorto WPtel: [facility]5 [facility] [place] [address] Other 05/28/2011 Patient Education: Patient Medication Summary [...] or prn. 03/15/2011 Appointment: Sheri Sorto WPtel: [facility]9 [facility] [place] [address] [facility] 03/15/2011 Patient Education: Patient Medication [...] to pt. 03/13/2011 Appointment: Brionna Ty WPtel: [facility]7 [facility] Other 03/13/2011 Patient Education: Patient Medication Summary Completed 03/13/2011 Patient Education: High Blood Pressure: Essential Hypertension Completed 2011 Appointment: Brionna Ty WPtel: [facility] [address] Other 12/06/2010 Visit Plan: Hypertension - uncontrolled [...] needed antiinflammatories. 11/15/2010 Appointment: Brionna Ty WPtel: [facility] [address] Other 11/15/2010 Patient Education: Patient Medication Summary [...] BACK PAIN). 11/01/2010 Appointment: Brionna Ty WPtel: [facility]2 [facility] Other 11/01/2010 Patient Education: Patient Medication Summary [...] months based on previous levels of control. Rnvxwnemp-tzxxqixs-lhhe if symptoms do not completely resolve . [...] WHILE ON ANTIBIOTIC, TAKE A PROBIOTIC LIKE [employer] TO HELP PREVENT DIARRHEA. UTI - pt [...] x [address] Yoo in [place] office on Tuesday 11/07 at 1PM - [...] months based on previous levels of control. Wvqpvyyap-anfnttlig-afnovgt due to allergies-start claritin-call if symptoms persist [...]
[2018-06-02 15:32] LABS: AMORPHOUS SEDIMENT,UR FEW AMOR PHOSPHATE /LPF; BACTERIA,URINE TRACE /HPF; RBC,URINE RARE /HPF; SQUAMOUS EPITHELIAL CELL,UR RARE /HPF; WBC,URINE RARE /HPF
--- OUTSIDE RECORDS SUMMARY | 2018-06-02 15:32 | XMS REPORT | CCD ---
Author Author [facility] Organization [facility] Address [address] [place] [address] Phone Care Team Providers Care Dimension Quarry Supervisor Name Role Phone Brionna Ty PP Unavailable CCM Unavailable Summary Purpose Interface Exchange Insurance Providers Payer name Policy type / Coverage type Covered constitution party ID Effective Begin Date Effective End Date WPS Medicare Part B [id number] 2016 Unknown [employer] [id number] 2016 Unknown Family history Daughter Diagnosis Age [...] and well 11/01/[address]: 978722119 Nonsmoker 11/01/[address]: 911540614 Never drinks alcohol 11/01/2010 Has the patient [...] Date Stop Date Status Fill Instructions levothyroxine 137 mcg tablet RxNorm: 170844 1 Tablet(s) PO daily 12/04/2017 04/02/2018 Active levothyroxine 137 mcg tablet RxNorm: 456203 1 Tablet(s) PO daily 12/04/2017 12/03/2017 Inactive doxycycline hyclate 100 mg tablet RxNorm: 5893492 1 Tablet(s) PO BID 11/18/2017 11/24/2017 Inactive Kenalog 40 mg/mL suspension for injection RxNorm: 6643314 1 Milliliter(s) Inj 09/04/2017 09/04/2017 Inactive Kenalog 40 mg/mL suspension for injection RxNorm: 2440472 1 Milliliter(s) Inj 09/04/2017 09/04/2017 Inactive levothyroxine 150 mcg tablet RxNorm: 604719 TAKE ONE TABLET BY MOUTH ONCE DAILY ON EMPTY STOMACH 07/09/2017 12/03/2017 Inactive Kenalog 40 mg/mL suspension for injection RxNorm: 7153815 2 Milliliter(s) Inj 03/21/2017 03/21/2017 Inactive levothyroxine 150 mcg tablet RxNorm: 707552 TAKE ONE TABLET BY MOUTH ONCE DAILY ON EMPTY STOMACH 11/08/2016 05/06/2017 Inactive Voltaren 1 % topical gel RxNorm: 558678 1 Application TOP TID as needed 11/02/2016 No Stop Date Active Kenalog 40 mg/mL suspension for injection RxNorm: 9435241 1 Milliliter(s) Inj 06/21/2016 06/21/2016 Inactive levothyroxine 150 mcg tablet RxNorm: 504900 TAKE ONE TABLET BY MOUTH ONCE DAILY ON EMPTY STOMACH 05/09/2016 09/05/2016 Inactive Zithromax Z-Elmer 250 mg tablet RxNorm: 824856 1 Tablet(s) PO UD 12/02/2015 12/06/2015 Inactive Kenalog 40 mg/mL suspension for injection RxNorm: 2833213 Milliliter(s) Inj 12/02/2015 12/02/2015 Inactive levothyroxine 150 mcg tablet RxNorm: 549207 TAKE ONE TABLET BY MOUTH DAILY ON AN EMPTY STOMACH 12/01/2015 03/29/2016 Inactive Norvasc 5 mg tablet RxNorm: 685905 1 Tablet(s) PO daily 201510/10/2016 Inactive Kenalog 40 mg/mL suspension for injection RxNorm: 2829584 1 Milliliter(s) Inj 06/16/2015 06/16/2015 Inactive Norvasc 5 mg tablet RxNorm: 258800 TAKE ONE TABLET BY MOUTH DAILY 06/10/2015 10/07/2015 Inactive levothyroxine 150 mcg tablet RxNorm: 301609 1 Tablet(s) PO daily TAKE ONE TABLET BY MOUTH DAILY 05/18/2015 09/14/2015 Inactive Synthroid 175 mcg tablet RxNorm: 751152 1 Tablet(s) PO daily TAKE ONE TABLET BY MOUTH DAILY 03/11/2015 05/17/2015 Inactive Synthroid 175 mcg tablet RxNorm: 111371 1 Tablet(s) PO daily TAKE ONE TABLET BY MOUTH DAILY 02/08/2015 03/10/2015 Inactive Flonase Allergy Relief 50 mcg/actuation nasal spray, suspension RxNorm: 2 Brogan NASAL daily 12/27/2014 01/05/2015 Inactive Kenalog 40 mg/mL suspension for injection RxNorm: 4020464 Milliliter(s) Inj 12/27/2014 12/27/2014 Inactive Levaquin 500 mg tablet RxNorm: 095970 1 Tablet(s) PO daily 03/201401/02/2015 Inactive Zithromax Z-Elmer 250 mg tablet RxNorm: 537014 1 Tablet(s) PO UD 11/26/2014 11/30/2014 Inactive Synthroid 125 mcg tablet RxNorm: 705620 1 Tablet(s) PO daily 10/12/2014 Inactive Synthroid 150 mcg tablet RxNorm: 063242 1 Tablet(s) PO daily TAKE ONE TABLET BY MOUTH DAILY 10/05/2014 02/01/2015 Inactive Norvasc 5 mg tablet RxNorm: 135030 TAKE ONE TABLET BY MOUTH DAILY 10/05/2014 06/01/2015 Inactive Synthroid 125 mcg tablet RxNorm: 713073 TAKE ONE TABLET BY MOUTH DAILY 07/12/2014 10/05/2014 Inactive cephalexin 500 mg capsule RxNorm: 963309 1 Capsule(s) PO TID 06/28/2014 Inactive Have patient get probiotic while on antibiotic cephalexin 500 mg capsule RxNorm: 905406 1 Capsule(s) PO TID 06/21/2014 Inactive Have patient get probiotic while on antibiotic Synthroid 125 mcg tablet RxNorm: 052592 TAKE ONE TABLET BY MOUTH DAILY 05/21/2014 06/19/2014 Inactive ketorolac 60 mg/2 mL intramuscular solution RxNorm: 249143 Milliliter(s) IM 11/05/2013 11/05/2013 Inactive Norvasc 5 mg tablet RxNorm: 455307 TAKE 1 TABLET BY MOUTH ONCE DAILY. 09/21/2013 10/04/2014 Inactive Generic For:NORVASC 5MG Zithromax Z-Elmer 250 mg tablet RxNorm: 854256 1 Tablet(s) PO UD 09/08/2013 09/12/2013 Inactive Bactrim DS 800 mg-160 mg tablet RxNorm: 571051 1 Tablet(s) PO BID 05/25/2013 05/31/2013 Inactive Keflex 500 mg capsule RxNorm: 405806 1 Capsule(s) PO TID 201305/04/2013 Inactive Keflex 500 mg capsule RxNorm: 258785 1 Capsule(s) PO TID 201304/27/2013 Inactive Synthroid 125 mcg tablet RxNorm: 026347 1 Tablet(s) PO daily 02/03/2014 Inactive Synthroid 112 mcg tablet RxNorm: 425317 Tablet(s) PO TAKE (1) TABLET BY MOUTH ONCE DAILY IN THE MORNING 01/28/201302/08 Inactive Synthroid 112 mcg tablet RxNorm: 689551 Tablet(s) PO TAKE (1) TABLET BY MOUTH ONCE DAILY IN THE MORNING 01/28/201301/27 Inactive Synthroid 112 mcg tablet RxNorm: 994582 Tablet(s) PO TAKE (1) TABLET BY MOUTH ONCE DAILY IN THE MORNING 01/26/201301/27 Inactive lovastatin 20 mg tablet RxNorm: 012675 Tablet(s) PO TAKE 1 TABLET BY MOUTH ONCE DAILY AT BEDTIME. 01/05/2013 10/10/2014 Inactive Synthroid 112 mcg tablet RxNorm: 164617 Tablet(s) PO TAKE (1) TABLET BY MOUTH ONCE DAILY IN THE MORNING 10/20/201201/25 Inactive Bactrim DS 800 mg-160 mg tablet RxNorm: 162364 1 Tablet(s) PO BID 09/25/2012 09/24/2012 Inactive Bactrim DS 800 mg-160 mg tablet RxNorm: 615381 1 Tablet(s) PO BID 09/25/2012 09/27/2012 Inactive Diflucan 150 mg tablet RxNorm: 380773 2 Tablet(s) PO daily 09/20/2012 Inactive sulfamethoxazole 800 mg-trimethoprim 160 mg tablet RxNorm: 418559 1 Tablet(s) PO BID 09/11/2012 09/17/2012 Inactive PLEASE GET A PROBIOTIC FOR VALERIE AND HAVE HER TAKE THE PROBIOTIC WHILE ON THE ANTIBIOT TO HELP PREVENT DIARRHEA Norvasc 5 mg tablet RxNorm: 323506 Tablet(s) PO TAKE 1 TABLET BY MOUTH ONCE DAILY. 08/13/2012 09/20/2013 Inactive Synthroid 112 mcg tablet RxNorm: 750971 1 Tablet(s) PO QAM 04/201206/26/2012 Inactive lovastatin 20 mg tablet RxNorm: 662171 1 Tablet(s) PO QHS 02/2701/04/2013 Inactive Norvasc 5 mg tablet RxNorm: 454701 1 Tablet(s) PO daily 201105/26/2012 Inactive Synthroid 100 mcg tablet RxNorm: 007780 Tablet(s) PO 201102/27/2012 Inactive TAKE 1 TABLET BY MOUTH ONCE DAILY FOR THYROID (IN AM, 30-60MIN BEFORE FOOD/ VITAMINS) Synthroid 100 mcg tablet RxNorm: 387676 Tablet(s) PO 201102/27/2012 Inactive TAKE 1 TABLET BY MOUTH ONCE DAILY FOR THYROID (IN AM, 30-60MIN BEFORE FOOD/ VITAMINS) Synthroid 100 mcg tablet RxNorm: 431006 Tablet(s) PO 201112/02/2011 Inactive TAKE 1 TABLET BY MOUTH ONCE DAILY FOR THYROID (IN AM, 30-60MIN BEFORE FOOD/ VITAMINS) Zyrtec 10 mg tablet RxNorm: 1097226 1 Tablet(s) PO daily 11/0412/04/2011 Inactive Synthroid 100 mcg tablet RxNorm: 832528 Tablet(s) PO 201112/02/2011 Inactive TAKE 1 TABLET BY MOUTH ONCE DAILY FOR THYROID (IN AM, 30-60MIN BEFORE FOOD/ VITAMINS) lisinopril 40 mg tablet RxNorm: 985025 Tablet(s) PO 10/08/2011 10/11/2014 Inactive TAKE 1 TABLET BY MOUTH ONCE DAILY. lisinopril 40 mg tablet RxNorm: 494703 Tablet(s) PO 09/04/2011 10/07/2011 Inactive TAKE 1 TABLET BY MOUTH ONCE DAILY. Kenalog 40 mg/mL Susp for Injection RxNorm: 9781597 1 Milliliter(s) Inj 08/09/2011 08/09/2011 Inactive Norvasc 5 mg Tab RxNorm: 227468 Tablet(s) PO 06/26/2011 11/04/2011 Inactive TAKE 1 TABLET BY MOUTH ONCE DAILY. Kenalog 40 mg/mL Susp for Injection RxNorm: 8957509 1 Milliliter(s) Inj 05/28/2011 05/28/2011 Inactive Synthroid 100 mcg tablet RxNorm: 886512 1 Tablet(s) PO daily 10/08/2011 Inactive lisinopril 40 mg Tab RxNorm: 645215 1 Tablet(s) PO daily 201109/03/2011 Inactive Norvasc 5 mg Tab RxNorm: 069417 1 Tablet(s) PO daily 2011 No Stop Date Active Synthroid 88 mcg Tab RxNorm: 206307 1 Tablet(s) PO daily 201012/14/2010 Inactive Norvasc 5 mg tablet RxNorm: 525985 1 Tablet(s) PO daily 201001/27/2012 Inactive Aspirin Low Dose 81 mg tablet,delayed release RxNorm: 825711 1 Tablet(s) PO daily No Start Date Active Aleve 220 mg Tab RxNorm: 194628 Oral No Start Date 12/02/2011 Inactive Synthroid 75 mcg Tab RxNorm: 009159 1 Tablet(s) PO daily No Start Date 11/14/2010 Inactive Diflucan 150 mg tablet RxNorm: 770437 Tablet(s) PO No Start Date 09/17/2012 Inactive lisinopril 40 mg Tab RxNorm: 021881 1 Tablet(s) PO daily No Start Date 03/12/2011 Inactive Synthroid 75 mcg Tab RxNorm: 920644 1 Tablet(s) PO daily No Start Date 03/13/2011 Inactive aspirin 325 mg tablet RxNorm: 948311 1 Tablet(s) PO daily No Start Date 07/25/2016 Inactive Zithromax Z-Elmer 250 mg tablet RxNorm: 380122 Tablet(s) PO QPM No Start Date 12/02/2011 Inactive Aciphex 20 mg Tab RxNorm: 807463 Tablet(s) PO No Start Date 10/10/2014 Inactive Synthroid 88 mcg Tab RxNorm: 253731 1 Tablet(s) PO daily No Start Date 03/13/2011 Inactive naproxen 500 mg Tab RxNorm: 501687 1 Tablet(s) PO BID No Start Date 03/12/2011 Inactive Medication Administered Medication Codes Instructions Start Date Status Kenalog 40 mg/mL suspension for injection RxNorm: 6921577 1Milliliter 09/04/2017 No longer Active Kenalog 40 mg/mL suspension for injection RxNorm: 0577853 1Milliliter 09/04/2017 No longer Active Kenalog 40 mg/mL suspension for injection RxNorm: 2345693 2Milliliter 03/21/2017 No longer Active Kenalog 40 mg/mL suspension for injection RxNorm: 3587067 1Milliliter 06/21/2016 No longer Active Kenalog 40 mg/mL suspension for injection RxNorm: 4901178 Milliliter 12/02/2015 No longer Active Kenalog 40 mg/mL suspension for injection RxNorm: 2982895 1Milliliter 06/16/2015 No longer Active Kenalog 40 mg/mL suspension for injection RxNorm: 3852766 Milliliter 12/27/2014 No longer Active ketorolac 60 mg/2 mL intramuscular solution RxNorm: 612448 Milliliter 11/05/2013 No longer Active Kenalog 40 mg/mL Susp for Injection RxNorm: 1034088 1Milliliter 08/09/2011 No longer Active Kenalog 40 mg/mL Susp for Injection RxNorm: 6072756 1Milliliter 05/28/2011 No longer Active Immunizations Vaccine [...] Item Item Code Result Date Free T4 Pbo935 FREE T4 0.92 ng/dL 03/14/2018 Comp Metabolic Bsu743 NA 141 mEq/L 11/29/2017 Comp Metabolic Ogq527 K 4.1 mEq/L 11/29/2017 Comp Metabolic Jwc186 CL 104 mEq/L 11/29/2017 Comp Metabolic Ukm944 CO2 29.0 mEq/L 11/29/2017 Comp Metabolic Ouy920 ANION GAP 12 11/29/2017 Comp Metabolic Uhg802 GLUCOSE 100 mg/dL 11/29/2017 Comp Metabolic Bkp365 Creat 0.7 mg/dL 11/29/2017 Comp Metabolic Qzr444 eGFR 95 ml/min/1.73m2 11/29/2017 Comp Metabolic Guf126 BUN 14 mg/dL 11/29/2017 Comp Metabolic Puf390 B/C Ratio 21.5 Ratio 11/29/2017 Comp Metabolic Mju275 CALCIUM 9.1 mg/dL 11/29/2017 Comp Metabolic Dgw503 ALK PHOS 53 U/L 11/29/2017 Comp Metabolic Jkx377 AST(SGOT) 13 U/L 11/29/2017 Comp Metabolic Tqa574 ALT(SGPT) 17 U/L 11/29/2017 Comp Metabolic Era761 BILI T 0.8 mg/dL 11/29/2017 Comp Metabolic Kyi401 ALBUMIN 3.9 g/dL 11/29/2017 Comp Metabolic Chj299 TPRO 6.1 g/dL 11/29/2017 Comp Metabolic Gxi260 GLOB 2.2 g/dL 11/29/2017 Comp Metabolic Ugo468 A/G Ratio 1.8 Ratio 11/29/2017 Comp Metabolic Uwh301 Osmo 282 mOsmo 11/29/2017 Free T4 Nox059 FREE T4 1.47 ng/dL 11/29/2017 Tsh Ord6 TSH (3rd IS) 0.19 uIU/mL 11/29/2017 Cbc With Differential Ord2 WBC 7.95 [...] 29.3 pg 11/29/2017 Cbc With Differential Ord2 Bertie% 8.6 % 11/29/2017 Cbc With Differential Ord2 MCHC 32.5 pg 11/29/2017 Cbc With Differential Ord2 Eos% 4.2 % 11/29/2017 Cbc With Differential Ord2 Baso% 0.4 % 11/29/2017 Cbc With Differential Ord2 PLT 276 K/ul 11/29/2017 Cbc With Differential Ord2 RDW 14.0 % 11/29/2017 Cbc With Differential Ord2 Neut ABS# 5.54 K/ul 11/29/2017 Cbc With Differential Ord2 Lymph ABS# 1.37 K/ul 11/29/2017 Cbc With Differential Ord2 Bertie ABS# 0.7 K/ul 11/29/2017 Cbc With Differential Ord2 Eos ABS# 0.3 K/ul 11/29/2017 Cbc With Differential Ord2 Baso ABS# 0.0 K/ul 11/29/2017 Lipid Ord30 CHOL 184 mg/dL 11/29/2017 Lipid Ord30 HDL 52.0 mg/dl 11/29/2017 Lipid Ord30 TRIG 73 mg/dL 11/29/2017 Lipid Ord30 LDL 117 mg/dL 11/29/2017 Lipid Ord30 C/HDL 3.5 Ratio 11/29/2017 Comp Metabolic Fmc211 NA 140 mEq/L 07/26/2016 Comp Metabolic Pmf955 K 4.0 mEq/L 07/26/2016 Comp Metabolic Izi861 CL 101 mEq/L 07/26/2016 Comp Metabolic Eal422 CO2 30.0 mEq/L 07/26/2016 Comp Metabolic Win854 ANION GAP 13 07/26/2016 Comp Metabolic Qpv787 GLUCOSE 94 mg/dL 07/26/2016 Comp Metabolic Loe201 Creat 0.7 mg/dL 07/26/2016 Comp Metabolic Jiz083 eGFR 87 ml/min/1.73m2 07/26/2016 Comp Metabolic Ogq320 BUN 9 mg/dL 07/26/2016 Comp Metabolic Ptp690 B/C Ratio 12.9 Ratio 07/26/2016 Comp Metabolic Etz662 CALCIUM 9.2 mg/dL 07/26/2016 Comp Metabolic Mku232 ALK PHOS 74 U/L 07/26/2016 Comp Metabolic Qlq310 AST(SGOT) 17 U/L 07/26/2016 Comp Metabolic Wyt719 ALT(SGPT) 25 U/L 07/26/2016 Comp Metabolic Uxx858 BILI T 0.8 mg/dL 07/26/2016 Comp Metabolic Byi362 ALBUMIN 4.0 g/dL 07/26/2016 Comp Metabolic Pyr701 TPRO 6.6 g/dL 07/26/2016 Comp Metabolic Tiq263 GLOB 2.6 g/dL 07/26/2016 Comp Metabolic Vde242 A/G Ratio 1.5 Ratio 07/26/2016 Comp Metabolic Mtu347 Osmo 278 mOsmo 07/26/2016 Free T4 Kzj675 FREE T4 1.07 ng/dL 07/26/2016 Cbc With [...] 28.5 pg 07/26/2016 Cbc With Differential Ord2 Bertie% 9.6 % 07/26/2016 Cbc With Differential Ord2 [...] 2.53 K/ul 07/26/2016 Cbc With Differential Ord2 Bertie ABS# 0.8 K/ul 07/26/2016 Cbc With Differential Ord2 Eos ABS# 0.3 K/ul 07/26/2016 Cbc With Differential Ord2 Baso ABS# 0.0 K/ul 07/26/2016 Tsh Ord6 hTSH II 0.44 uIU/mL 07/26/2016 Free T4 Vax192 FREE T4 1.70 ng/dL 05/12/2015 Tsh Ord6 hTSH II 0.07 uIU/mL 05/12/2015 Cbc With Differential Ord2 WBC 7.4 K/uL [...] Tsh Ord6 hTSH II 5.13 uIU/mL 02/03/2015 Lipid Ord30 CHOL 198 mg/dL 02/03/2015 Lipid Ord30 HDL 47.0 mg/dl 02/03/2015 Lipid Ord30 TRIG 75 mg/dL 02/03/2015 Lipid Ord30 LDL 136 mg/dL 02/03/2015 Lipid Ord30 C/HDL 4.2 Ratio 02/03/2015 Comp Metabolic Qwj373 NA 141 mEq/L 02/03/2015 Comp Metabolic Udf913 K 4.1 mEq/L 02/03/2015 Comp Metabolic Qkk571 CL 105 mEq/L 02/03/2015 Comp Metabolic Deq136 CO2 29.0 mEq/L 02/03/2015 Comp Metabolic Kzv670 ANION GAP 11 02/03/2015 Comp Metabolic Xnz717 GLUCOSE 99 mg/dL 02/03/2015 Comp Metabolic Izw341 Creat 0.7 mg/dL 02/03/2015 Comp Metabolic Ick664 eGFR 85 ml/min/1.73m2 02/03/2015 Comp Metabolic Myn539 BUN 15 mg/dL 02/03/2015 Comp Metabolic Hte730 B/C Ratio 20.8 Ratio 02/03/2015 Comp Metabolic Vqn029 CALCIUM 9.3 mg/dL 02/03/2015 Comp Metabolic Rvb687 ALK PHOS 62 U/L 02/03/2015 Comp Metabolic Zal463 AST(SGOT) 19 U/L 02/03/2015 Comp Metabolic Pql454 ALT(SGPT) 23 U/L 02/03/2015 Comp Metabolic Vyi220 BILI T 0.4 mg/dL 02/03/2015 Comp Metabolic Plh131 ALBUMIN 4.2 g/dL 02/03/2015 Comp Metabolic Mun988 TPRO 6.6 g/dL 02/03/2015 Comp Metabolic Xxl758 GLOB 2.4 g/dL 02/03/2015 Comp Metabolic Tsx007 A/G Ratio 1.7 Ratio 02/03/2015 Comp Metabolic Hnk676 Osmo 282 mOsmo 02/03/2015 Free T4 Pob054 FREE T4 0.96 ng/dL 02/03/2015 FREE T4 5939459 FREE T4 1.05 NG/DL 02/04/2012 GFR CALC 7025526 GFR AA >60 ML/MIN 02/04/2012 GFR CALC 3340494 GFR NON-AA >60 ML/MIN 02/04/2012 CHEM 14 2330399 AST 18 U/L 02/04/2012 CHEM 14 5077422 ALT 22 IU/L 02/04/2012 CHEM 14 0614014 BUN 15 MG/DL 02/04/2012 CHEM 14 5064856 ALBUMIN 4.4 GM/DL 02/04/2012 CHEM 14 3583201 CHLORIDE 104 MMOL/L 02/04/2012 CHEM 14 5630024 BILI TOT 0.6 MG/DL 02/04/2012 CHEM 14 3264569 ALK PHOS 54 U/L 02/04/2012 CHEM 14 2500042 SODIUM 141 MMOL/L 02/04/2012 CHEM 14 9502909 CREATININE 0.85 MG/DL 02/04/2012 CHEM 14 0042203 CALCIUM 9.4 MG/DL 02/04/2012 CHEM 14 7761064 POTASSIUM 4.0 MMOL/L 02/04/2012 CHEM 14 9578394 PROT TOT 6.6 GM/DL 02/04/2012 CHEM 14 6349570 GLUCOSE 106 MG/DL 02/04/2012 CHEM 14 9879429 BICARB 30 MMOL/L 02/04/2012 CHEM 14 2251210 ANION GAP 7 MEQ/L 02/04/2012 TSH 1033053 TSH 3.062 uIU/ML 02/04/2012 LIPID GRP HDL TEST 41 MG/DL 02/04/2012 LIPID GRP TRIG 129 MG/DL 02/04/2012 LIPID GRP TEST LDL 129 MG/DL 02/04/2012 LIPID GRP CHOL 196 MG/DL 02/04/2012 LIPID GRP RCHOL/HDL 4.78 RATIO 02/04/2012 UA 39439 Specific [place] 1.020 DateTime(Free Text in Apr ) UA 11584 PH 6 DateTime(Free Text in Apr) UA 60083 GLUCOSE DateTime(Free Text in Aprima) UA 87982 Protein 1+ DateTime(Free Text in Aprima) UA 88722 Blood 3+ DateTime(Free Text in Aprima) UA 99026 Bilirubin DateTime(Free Text in Aprima) UA 21594 Ketones DateTime(Free Text in Aprima) UA 22456 Urobilinogen DateTime(Free Text in ) UA 32294 Nitrite DateTime(Free Text in ) UA 91902 Leukocytes 2+ DateTime(Free Text in ) UA 89379 Specific [place] 1.025 DateTime(Free Text in ) UA 38849 PH 6 DateTime(Free Text in Apr) UA 16860 GLUCOSE neg DateTime(Free Text in ) UA 31078 Protein neg DateTime(Free Text in Apr) UA 26527 Blood neg DateTime(Free Text in Apr) UA 77924 Bilirubin neg DateTime(Free Text in Apr) UA 97961 Ketones neg DateTime(Free Text in Apr) UA 32899 Urobilinogen neg DateTime(Free Text in ) UA 64525 Nitrite neg DateTime(Free Text in ) UA 43485 Leukocytes 1+ DateTime(Free Text in ) Review [...] Effective Dates Notes Full Exam - General 1994 Constitutional general [...] murmurs 02/09/2013 None Full Exam - General 1995 Abdomen abdominal exam Overall: no tenderness 02/09/2013 None Full Exam - General 1995 Abdomen [...] tenderness 09/11/2012 None Full Exam - General 1994 [...] dentition 01/28/2012 None Full Exam - General 1994 Ears/Nose/Throat lips/teeth/gingiva Overall: benign gingiva 01/28/2012 None [...] sounds 01/28/2012 None Full Exam - General 1995 Musculoskeletal [...] lips 12/03/2011 None Full Exam - General 1994 Ears/Nose/Throat lips/teeth/gingiva Overall: normal dentition 12/03/2011 None Full Exam - General 1995 Ears/Nose/Throat lips/teeth/gingiva Overall: benign gingiva 12/03/2011 None Full Exam - General 1994 Ears/Nose/Throat lips/teeth/gingiva Overall: no masses 12/03/2011 None [...] G0008 11/28/2017 ADMIN PNEUMOCOCCAL VACCINE SNOMED CT: 66170492 CPT-4: G0009 11/28/2017 FLU VACC PRSV FREE INC ANTIG CPT-4: 49464 11/28/2017 PNEUMOCOCCAL VACC [address]: 53110219 CPT-4: 02637 11/28/2017 DRAIN/INJECT JOINT/BURSA CPT-4: 35008 09/04/2017 TRIAMCINOLONE ACET INJ NOS CPT-4: J3301 09/04/2017 TRIAMCINOLONE ACET INJ NOS CPT-4: J3301 03/21/2017 DRAIN/INJECT JOINT/BURSA CPT-4: 17918 03/21/2017 TRIAMCINOLONE ACET INJ NOS CPT-4: J3301 06/21/2016 DRAIN/INJECT JOINT/BURSA CPT-4: 99213 06/21/2016 TRIAMCINOLONE ACET INJ NOS CPT-4: J3301 12/02/2015 TRIAMCINOLONE ACET INJ NOS CPT-4: J3301 06/16/2015 TRIAMCINOLONE ACET INJ NOS CPT-4: J3301 12/27/2014 KETOROLAC TROMETHAMINE INJ CPT-4: J1885 11/05/2013 THER/PROPH/DIAG INJ SC/IM CPT-4: 03636 11/05/2013 URINALYSIS NONAUTO W/O SCOPE CPT-4: 56002 05/25/2013 URINALYSIS NONAUTO W/O SCOPE CPT-4: 30799 09/11/2012 PRESCRIP TRANSMIT VIA ERX SY CPT-4: G8553 09/11/2012 PRESCRIP TRANSMIT VIA ERX SY CPT-4: G8553 02/28/2012 ROUTINE VENIPUNCTURE CPT-4: 88660 02/04/2012 PRESCRIP TRANSMIT VIA ERX SY CPT-4: G8553 01/28/2012 PRESCRIP TRANSMIT VIA ERX SY CPT-4: G8553 11/05/2011 DRAIN/INJECT JOINT/BURSA CPT-4: 09223 08/09/2011 TRIAMCINOLONE ACET INJ NOS CPT-4: J3301 08/09/2011 TRIAMCINOLONE ACET INJ NOS CPT-4: J3301 05/28/2011 THER/PROPH/DIAG INJ SC/IM CPT-4: 67479 05/28/2011 URINALYSIS NONAUTO W/O SCOPE CPT-4: 48329 03/15/2011 Vital Signs Date Vital 11/28/2017 Blood Pressure 1: 122/66 Code : 8480-6 BMI: 37.1 Code : 95037-3 Heart Rate 1 : 78 bpm Height: 5' SpO2: 96% Waist Measure (cm): 109 cm Weight: 190 lbs 11/18/2017 Blood Pressure 1: 140/80 Code : 8480-6 BMI: 36.9 Code : 16049-8 Heart Rate 1 : 86 bpm Height: 5' SpO2: 94% Weight: 189 lbs 09/04/2017 Blood Pressure 1: 134/80 Code : 8480-6 Heart Rate 1: 74 bpm Height: SpO2: 96% Weight: 03/21/2017 Blood Pressure 1: 126/72 Code : 8480-6 BMI: 36.9 Code : 97341-3 Heart Rate 1 : 87 bpm Height: 5' SpO2: 97% Weight: 189 lbs 11/02/2016 Blood Pressure 1: 134/68 Code : 8480-6 BMI: 38.3 Code : 07543-6 Heart Rate 1 : 86 bpm Height: 5' SpO2: 98% Weight: 196 lbs 07/26/2016 Blood Pressure 1: 144/78 Code : 8480-6 BMI: 37.9 Code : 96126-4 Heart Rate 1 : 69 bpm Height: 5' SpO2: 96% Weight: 194 lbs 06/21/2016 Blood Pressure 1: 118/68 Code : 8480-6 BMI: 39.1 Code : 69741-1 Heart Rate 1 : 77 bpm Height: 5' SpO2: 95% Weight: 200 lbs 05/25/2016 Blood Pressure 1: 148/88 Code : 8480-6 BMI: 38.9 Code : 78597-3 Heart Rate 1 : 91 bpm Height: 5' SpO2: 94% Weight: 199 lbs 12/02/2015 Blood Pressure 1: 144/62 Code : 8480-6 BMI: 37.3 Code : 36281-9 Heart Rate 1 : 81 bpm Height: 5' SpO2: 95% Weight: 191 lbs 10/21/2015 Blood Pressure 1: 138/72 Code : 8480-6 BMI: 37.3 Code : 35040-6 Heart Rate 1 : 102 bpm Height: 5' SpO2: 98% Weight: 191 lbs 10/17/2015 Blood Pressure 1: 132/78 Code : 8480-6 BMI: 37.9 Code : 18609-1 Heart Rate 1 : 74 bpm Height: 5' SpO2: 97% Weight: 194 lbs 06/16/2015 Blood Pressure 1: 140/88 Code : 8480-6 BMI: 39.8 Code : 16240-1 Heart Rate 1 : 74 bpm Height: 5' SpO2: 96% Weight: 204 lbs 05/12/2015 Blood Pressure 1: 146/82 Code : 8480-6 Blood Pressure 1: 130/78 Code: 8480-6 BMI: 38.7 Code: 78542-0 Heart Rate 1: 67 bpm Height: 5' SpO2: 94% Weight: 198 lbs 03/10/2015 Blood Pressure 1: 132/86 Code : 8480-6 BMI: 38.9 Code : 84644-2 Heart Rate 1 : 72 bpm Height: 5' SpO2: 99% Weight: 199 lbs 02/08/2015 Blood Pressure 1: 130/88 Code : 8480-6 BMI: 38.5 Code : 81659-0 Heart Rate 1 : 68 bpm Height: 5' SpO2: 97% Temperature: 36.6 (C) / 97.8 (F) Weight: 197 lbs 12/27/2014 Blood Pressure 1: 140/82 Code : 8480-6 BMI: 38.5 Code : 45910-3 Heart Rate 1 : 79 bpm Height: 5' SpO2: 97% Temperature: 36.3 (C) / 97.4 (F) Weight: 197 lbs 11/16/2014 Blood Pressure 1: 128/76 Code : 8480-6 BMI: 38.7 Code : 71317-7 Heart Rate 1 : 76 bpm Height: 5' Weight: 198 lbs 10/11/2014 Blood Pressure 1: 112/78 Code : 8480-6 BMI: 38.7 Code : 24671-5 Heart Rate 1 : 100 bpm Height: 5' SpO2: 93% Temperature: 36.8 (C) / 98.3 (F) Weight: 198 lbs 07/16/2014 Blood Pressure 1: 142/86 Code : 8480-6 BMI: 39.8 Code : 89771-0 Heart Rate 1 : 71 bpm Height: 5' SpO2: 96% Weight: 204 lbs 06/14/2014 Blood Pressure 1: 132/82 Code : 8480-6 BMI: 39.8 Code : 56931-5 Heart Rate 1 : 71 bpm Height: 5' SpO2: 98% Weight: 207 lbs 11/05/2013 Blood Pressure 1: 130/70 Code : 8480-6 BMI: 38.6 Code : 36287-6 Heart Rate 1 : 83 bpm Height: 5' SpO2: 98% Weight: 201 lbs 09/08/2013 Blood Pressure 1: 122/78 Code : 8480-6 BMI: 39.2 Code : 06377-1 Heart Rate 1 : 64 bpm Height: 5' SpO2: 98% Temperature: 36.7 (C) / 98.0 (F) Weight: 204 lbs 05/25/2013 Blood Pressure 1: 130/82 Code : 8480-6 Weight: 05/04/2013 Blood Pressure 1: 110/68 Code : 8480-6 BMI: 38.8 Code : 49122-6 Heart Rate 1 : 76 bpm Height: 5' Temperature: 37.3 (C) / 99.2 (F) Weight: 202 lbs 02/09/2013 Blood Pressure 1: 128/78 Code : 8480-6 BMI: 39.4 Code : 96224-6 Heart Rate 1 : 76 bpm Height: 5' Weight: 205 lbs 09/11/2012 Blood Pressure 1: 128/72 Code : 8480-6 BMI: 38.6 Code : 51027-6 Heart Rate 1 : 76 bpm Height: 5' Temperature: 37.2 (C) / 99.0 (F) Weight: 201 lbs 05/29/2012 Blood Pressure 1: 132/82 Code : 8480-6 BMI: 38.4 Code : 69519-1 Heart Rate 1 : 80 bpm Height: 5' Weight: 200 lbs 02/28/2012 Blood Pressure 1: 120/66 Code : 8480-6 BMI: 37.6 Code : 16981-0 Height: 5' Weight: 196 lbs 01/28/2012 Blood Pressure 1: 144/72 Code : 8480-6 Heart Rate 1: 68 bpm Weight: 194 lbs 12/03/2011 Blood Pressure 1: 146/70 Code : 8480-6 BMI: 37.3 Code : 08813-4 Heart Rate 1 : 68 bpm Height: [...] Code : 8480-6 BMI: 37.9 Code : 96775-9 Heart Rate 1 : 66 bpm Height: 5' Respiratory Rate: 20 bpm Weight: 197 lbs 8 oz 11/15/2010 Blood Pressure 1: 166/94 Code : 8480-6 BMI: 36.5 Code : 49800-7 Heart Rate 1 : 56 bpm Height: [...] 05/28/2011 None 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 PATIENT, LEVEL III Diagnosis: Insect bite (nonvenomous) of right upper arm, initial encounter[ICD10 : S40.861A] Sheri Ty MD, [facility] CPT-4: 12549 11/18/2017 [id number] EST. PATIENT, LEVEL III Diagnosis: Pain in right knee[ICD10: M25.561] Diagnosis: Pain in left knee[ICD10: M25.562] Diagnosis: Low back pain[ICD10: M54.5] Lana Ty MD, [facility] CPT-4 : 16231 03/21/2017 [id number] EST. PATIENT, LEVEL III Diagnosis: Pain in right knee[ICD10: M25.561] Diagnosis: Pain in left knee[ICD10: M25.562] Diagnosis: Low back pain[ICD10: M54.5] Lana Ty MD, [facility] CPT-4 : 91062 11/02/2016 ([id number]) 20948 EST. PATIENT, LEVEL III Diagnosis: Essential (primary) hypertension[ICD10: I10] Diagnosis: Atrophy of thyroid (acquired)[ICD10: E03.4] Brionna Ty MD, [facility] CPT-4: 96333 07/26/2016 ([id number]) 48484 EST. PATIENT, LEVEL III Diagnosis: Essential (primary) hypertension[ICD10: I10] Diagnosis: Pain in left knee[ICD10: M25.562] Diagnosis: Unilateral primary osteoarthritis, left knee[ICD10: M17.12] Brionna Ty MD , [facility] CPT-4: 56520 06/21/2016 31107 EST. PATIENT, LEVEL III Diagnosis: Pain in left knee[ICD10: M25.562] Lana Ty MD, [facility] CPT -4: 06995 05/25/2016 24995 EST. PATIENT, LEVEL IV Diagnosis: Other acute sinusitis[ICD10: J01.80] Diagnosis: Dizziness and giddiness[ICD10: R42] Diagnosis: Other acute nonsuppurative otitis media, bilateral[ICD10: H65.193] Lana Ty MD, [facility] CPT-4: 60086 12/02/2015 20265 EST. PATIENT, LEVEL III Diagnosis: Scar conditions and fibrosis of skin[ICD10: L90.5] Lana Ty MD, [facility] CPT-4: 22926 10/21/2015 ([id number]) 22484 EST. PATIENT, LEVEL IV Diagnosis: Essential (primary) hypertension[ICD10: I10] Diagnosis: Hypothyroidism, unspecified[ICD10: E03.9] Brionna Ty MD, [facility] CPT-4: 02373 10/17/2015 ([id number]) 23425 EST. PATIENT, LEVEL III Diagnosis: Low back pain[ICD10: M54.5] Diagnosis: Sciatica, right side[ICD10: M54.31] Diagnosis: Other obesity due to excess calories[ICD10: E66.09] Sheri Ty MD, [facility] CPT-4: 69295 06/16/2015 ([id number]) 22370 EST. PATIENT, LEVEL III Diagnosis: Essential (primary) hypertension[ICD10: I10] Diagnosis: Hypothyroidism, unspecified[ICD10: E03.9] Sheri Ty MD, [facility] CPT-4: 11720 05/12/2015 ([id number]) 97187 EST. PATIENT, LEVEL IV Diagnosis: Essential (primary) hypertension[ICD10: I10] Diagnosis: Hypothyroidism, unspecified[ICD10: E03.9] Diagnosis: Dizziness and giddiness[ICD10: R42] Sheri Ty MD, [facility] CPT-4: 35463 03/10/2015 ([id number]) 07256 EST. PATIENT, LEVEL IV Diagnosis: Hypothyroidism, unspecified[ICD10: E03.9] Diagnosis: Dizziness and giddiness[ICD10: R42] Diagnosis: Headache[ICD10: R51] Diagnosis: Allergic rhinitis due to pollen[ICD10: J30.1] Sheri Ty MD, [facility] CPT-4: 15016 02/08/2015 ([id number]) 35379 EST. PATIENT, LEVEL III Diagnosis: Acute maxillary sinusitis, unspecified[ICD10: J01.00] Sheri Ty MD, [facility] CPT-4: 24388 12/27/2014 ([id number]) 84159 EST. PATIENT, LEVEL IV Diagnosis: ESSENTIAL HYPERTENSION[ICD9: 401.9] Diagnosis: HYPOTHYROIDISM[ICD9: 244.9] Brionna Ty MD, [facility] CPT- 4: 15732 11/16/2014 ([id number]) 46903 EST. PATIENT, LEVEL III Diagnosis: ESSENTIAL HYPERTENSION[ICD9: 401.9] Diagnosis: HYPOTHYROIDISM[ICD9: 244.9] Sheri Ty MD [facility] CPT-4: 45000 10/11/2014 ([id number]) 48704 EST. PATIENT, LEVEL IV Diagnosis: ESSENTIAL HYPERTENSION[ICD9: 401.9] Diagnosis: HYPERLIPIDEMIA[ICD9: 272.4] Diagnosis: HYPOTHYROIDISM[ICD9: 244.9] Diagnosis: Sacroiliitis[ICD9: 720.2] Brionna Ty MD, [facility] CPT-4: 31293 07/16/2014 ([id number]) 02196 EST. PATIENT, LEVEL IV Diagnosis: ESSENTIAL HYPERTENSION[ICD9: 401.9] Diagnosis: HYPOTHYROIDISM[ICD9: 244.9] Diagnosis: HYPERLIPIDEMIA[ICD9: 272.4] Diagnosis: Gait instability[ICD9: 781.2] Diagnosis: Osteoarthritis[ICD9: 715.90] Brionna Ty MD [facility] CPT- 4: 41043 06/14/2014 ([id number]) 72323 EST. PATIENT, LEVEL IV Diagnosis: Solano's cyst[ICD9: 727.51] Diagnosis: ESSENTIAL HYPERTENSION[ICD9: 401.9] Brionna Ty MD [facility] CPT-4: 50190 11/05/2013 ([id number]) 45688 EST. PATIENT, LEVEL III Diagnosis: ACUTE PHARYNGITIS[ICD9: 462] Sheri Ty MD, [facility] CPT-4: 09450 09/08/2013 ([id number]) 80754 EST. PATIENT, LEVEL III Diagnosis: UTI[ICD9: 599.0] Sheri Ty MD, [facility] CPT-4: 57696 05/25/2013 ([id number]) 33514 EST. PATIENT, LEVEL IV Diagnosis: ESSENTIAL HYPERTENSION[SNOMED: 70795918] Diagnosis: HYPOTHYROIDISM[ICD9: 244.9] Diagnosis: ALLERGIC RHINITIS[ICD9: 477.9] Brionna Ty MD, [facility] CPT- 4: 77915 05/04/2013 ([id number]) 52978 EST. PATIENT, LEVEL IV Diagnosis: ESSENTIAL HYPERTENSION[SNOMED: 47673858] Diagnosis: HYPOTHYROIDISM[ICD9: 244.9] Brionna Ty MD [facility] CPT- 4: 42192 02/09/2013 ([id number]) 15127 EST. PATIENT, LEVEL III Diagnosis: UTI[ICD9: 599.0] Diagnosis: Dysuria[ICD9: 788.1] Brionna Ty MD [facility] CPT-4: 67333 09/11/2012 ([id number]) 60569 EST. PATIENT, LEVEL IV Diagnosis: ESSENTIAL HYPERTENSION[SNOMED: 12913444] Diagnosis: HYPERLIPIDEMIA[ICD9: 272.4] Diagnosis: HYPOTHYROIDISM[ICD9: 244.9] Brionna Ty MD [facility] CPT- 4: 71279 05/29/2012 ([id number]) 26282 EST. PATIENT, LEVEL IV Diagnosis: ESSENTIAL HYPERTENSION[SNOMED: 01488955] Diagnosis: HYPERLIPIDEMIA[ICD9: 272.4] Diagnosis: HYPOTHYROIDISM[ICD9: 244.9] Brionna Ty MD [facility] CPT- 4: 76962 02/28/2012 ([id number]) 42215 EST. PATIENT, LEVEL IV Diagnosis: ESSENTIAL HYPERTENSION[SNOMED: 35378233] Diagnosis: HYPOTHYROIDISM[ICD9: 244.9] Brionna Ty MD [facility] CPT- 4: 26599 01/28/2012 ([id number]) 39105 EST. PATIENT, LEVEL IV Diagnosis: ESSENTIAL HYPERTENSION[SNOMED: 70074801] Diagnosis: ESOPHAGEAL REFLUX[ICD9: 530.81] Diagnosis: Constipation - functional[ICD9: 564.09] Brionna Ty MD [facility] CPT-4: 63032 12/03/2011 ([id number]) 54168 EST. PATIENT, LEVEL III Diagnosis: ALLERGIC RHINITIS[ICD9: 477.9] Diagnosis: ACUTE SINUSITIS[ICD9: 461.9] Brionna Ty MD [facility] CPT- 4: 40556 11/05/2011 ([id number]) 51561 EST. PATIENT, LEVEL III Diagnosis: SCIATICA[ICD9: 724.3] Diagnosis: SACROILIITIS NEC[ICD9: 720.2] Diagnosis: Gait instability[ICD9: 781.2] Sheri Ty MD [facility] CPT-4: 58541 08/09/2011 21301 EST. PATIENT, LEVEL III Diagnosis: Sacroiliitis[ICD9: 720.2] Diagnosis: Fall from slipping[ICD9: E885.9] Sheri Ty MD, [facility] CPT-4: 45848 05/28/2011 ([id number]) PER PM REEVAL EST PAT 65+ YR Diagnosis: Well woman exam[ICD9: V70.0] Sheri Ty MD, [facility] CPT-4: 92694 03/15/2011 ([id number]) 43375 EST. PATIENT, LEVEL IV Diagnosis: ESSENTIAL HYPERTENSION[SNOMED: 18279224] Diagnosis: HYPOTHYROIDISM[ICD9: 244.9] Diagnosis: ESOPHAGEAL REFLUX[ICD9: 530.81] Brionna Ty MD, [facility] CPT- 4: 97696 03/13/2011 75984 EST. PATIENT, LEVEL IV Diagnosis: ESSENTIAL HYPERTENSION[SNOMED: 12299719] Diagnosis: HYPOTHYROIDISM[ICD9: 244.9] Diagnosis: Leg pain, bilateral[ICD9: 729.5] Brionna Ty MD, [facility] CPT-4: 05990 11/15/2010 40867 EST. PATIENT, LEVEL IV Diagnosis: SACROILIITIS NEC[ICD9: 720.2] Diagnosis: SCIATICA[ICD9: 724.3] Diagnosis: ESSENTIAL HYPERTENSION[SNOMED: 38150739] Diagnosis: HYPOTHYROIDISM[ICD9: 244.9] Brionna Ty MD, [facility] CPT- 4: 22998 11/01/2010 Plan of Care Planned Activity Notes [...] care surrogate. 11/28/2017 Appointment: Sheri Sorto WPtel: [phone] [facility] - Annual Wellness Visit 11/28/2017 Patient Education: Patient Medication Summary Completed 11/28/2017 Care Plan: SCREENINGMAMMOGRAPHYDIGITAL [facility] : 97306-6 Pending 11/28/2017 Visit Plan: Cellulitis -possible spider [...] warmth, discharge. 11/18/2017 Appointment: Sheri Sorto WPtel: [phone] (30 min) Complex 11/18/2017 Patient Education: Patient [...] they worsen. 09/04/2017 Appointment: Lana Seaman WPtel: [phone] (30 min) Complex 09/04/2017 Patient Education: Patient Medication Summary Completed 09/04/2017 Visit Plan: Bilateral knee - Joint Injection - Pt was given post - injection instructions. The pt has been advised to use anti- inflammatories post injection today, ice to the injected site, call if redness, warmth, or increased pain occurs at the site of injection. 03/21/2017 Appointment: [phone] ([facility] min) Complex 03/21/2017 Patient Education: Patient Medication Summary Completed 03/21/2017 Referral: Osman Yoo 11/07 at 1PM - pt notified at her appointment Completed 11/07/2016 Care Plan: Referral Order SNOMED-CT : 843196482 Pending 11/04/2016 Visit Plan: Low back pain- [...] or concerns. 11/02/2016 Appointment: Lana Seaman WPtel: [facility] [place] (30 min) Complex 11/02/2016 Patient Education: [...] of control. 07/26/2016 Appointment: [facility]el[phone] [place] (15 min) Moderate 07/26/2016 Patient Education: Patient Medication Summary Completed 07/26/2016 Patient Education: Obesity Completed 07/26/2016 Appointment: Brionna Ty WPtel: [facility]5 [facility] (15 min) Moderate 07/24/2016 Visit Plan: [...] pain symptoms. 06/21/2016 Appointment: Brionna Ty WPtel: [address] [place], [place] [phone] (15 min) Moderate 06/21/2016 Patient Education: Patient [...] not improve. 05/25/2016 Appointment: Lana Seaman WPtel: [address] [place], [place] [phone] (30 min) Complex 05/25/2016 Patient Education: Patient Medication Summary Completed 05/25/2016 Patient Education: Obesity Completed 05/25/2016 Appointment: Brionna Ty WPtel: [address] [place], [place] [phone] (15 min) Moderate 02/14/2016 Visit Plan: Sinusitis [...] instructions/medication interventions. 12/02/2015 Appointment: Sheri Sorto WPtel: [phone] (30 min) Complex 12/02/2015 Patient Education: Patient [...] months based on previous levels of control. Gacytbuay-qzxvunxo-mnoh if symptoms do not completely resolve 03/10/2015 [...] months based on previous levels of control. Zdsiegzrr-djlvuhffh-orbrxcd due to allergies-start claritin-call if symptoms persist [...] show improvement. 12/27/2014 Appointment: Sheri Sorto WPtel: [phone] [phone] (15 min) Moderate 12/27/2014 Patient Education: Patient [...] of control. 11/16/2014 Appointment: Brionna Ty WPtel: [phone] [facility] Follow up 11/16/2014 Patient Education: Patient Medication [...] treatments help. 07/16/2014 Appointment: Brionna Ty WPtel: [facility] [place] Follow up 07/16/2014 Patient Education: Patient Medication Summary Completed 07/16/2014 Patient Education: Hypertension Completed 07/16/2014 Appointment: Brionna Ty WPtel: [facility] [place] Follow up 07/14/2014 Visit Plan: Hypertension [...] inject patient. 06/14/2014 Appointment: Brionna Ty WPtel: [phone] [facility] [place] Follow up 06/14/2014 Patient Education: Patient [...] 60mg im x 1 11/05/2013 Appointment: Brionna yT WPtel: [facility] Follow up 11/05/2013 Patient Education: Patient Medication Summary Completed 11/05/2013 Patient Education: Hypertension Completed 11/05/2013 Appointment: Brionna Ty WPtel: [facility] Follow up 11/02/2013 Visit Plan: Pharyngitis-Discussed natural [...] of plan. 05/25/2013 Appointment: Sheri Sorto [facility]Ptel[phone] [place] Other 05/25/2013 Patient Education: Patient Medication [...] allergy spray. 05/04/2013 Appointment: Brionna Ty WPtel: [phone] [facility] Follow up 05/04/2013 Patient Education: Patient Medication [...] of control. 02/09/2013 Appointment: Brionna Ty WPtel: [facility] Follow up 02/09/2013 Patient Education: Patient Medication Summary Completed 02/09/2013 Patient Education: Hypertension Completed 02/09/2013 Appointment: Brionna Ty WPtel[phone] [place] Follow up 12/11/2012 Visit Plan: UTI - pt with positive urinalysis - culture sent if appropriate. Antibiotic electronically prescribed to pt's pharmacy of choice. Pt to call if symptoms do not improve. 09/11/2012 Appointment: Brionna Ty WPtel: [phone] [phone] Follow up 09/11/2012 Patient Education: Patient Medication Summary Completed 09/11/2012 Appointment: [facility]ion[facility] Ty [facility]Ptel[phone] Follow up 09/02/2012 Visit Plan: Hypertension - [...] control. 05/29/2012 Appointment: Brionna Ty [facility]Ptel[phone] Follow up 05/29/2012 Patient Education: [...] daily 02/28/2012 Appointment: Brionna Ty WPtel: [phone] [facility] Follow up 02/28/2012 Patient Education: Patient Medication [...] supplementation. 01/28/2012 Appointment: Brionna Ty WPtel: [phone] [facility] Follow up 01/28/2012 Patient Education: Hypertension Completed [...] Saturday, Saturday. 12/03/2011 Appointment: Brionna Ty WPtel: [address] [place], [place] [address] Hospital follow up 12/03/2011 Patient Education: Patient [...] show improvement. 11/05/2011 Appointment: Sheri Sorto WPtel: [address] [place], [place] [phone] Other 11/05/2011 Appointment: Sheri Sorto WPtel: [address] [place], [place] [phone] Lab Draw 11/05/2011 Patient Education: Patient Medication Summary Completed 11/05/2011 Appointment: Brionna Ty WPtel: [address] [place], [place] [phone] Follow up 09/06/2011 Visit Plan: Sacroilitis/sciatica-injection today in the office-Recommend physical therapy for gait instability- exercises discussed with the patient, pt to continue with antiinflammatories. Pt is to call if the symptoms do not improve or if they worsen. 08/09/2011 Appointment: Sheri Sorto WPtel: [address] [place], [place] [phone] Other 08/09/2011 Patient Education: Patient Medication Summary Completed 08/09/2011 Visit Plan: Sacroilitis/sciatica-discussed natural and expected course of this diagnosis and to alert me if symptoms do not follow expected course, or if any worse. Plan for xrays today at the hospital to evaluate for acute abnormality. Kenalog injection today in the office. 05/28/2011 Appointment: Sheri Sorto WPtel: [address] [place], [place] [phone] Other 05/28/2011 Patient Education: Patient Medication Summary [...] or prn. 03/15/2011 Appointment: Sheri Sorto WPtel: [phone] [phone] [facility] 03/15/2011 Patient Education: Patient Medication [...] to pt. 03/13/2011 Appointment: Brionna Ty WPtel: [facility] Other 03/13/2011 Patient Education: Patient Medication Summary Completed 03/13/2011 Patient Education: High Blood Pressure: Essential Hypertension Completed 2011 Appointment: Brionna Ty WPtel: [address] [place], [place] [phone] Other 12/06/2010 Visit Plan: Hypertension - uncontrolled [...] needed antiinflammatories. 11/15/2010 Appointment: Brionna Ty WPtel: [address] [place] [address] [place] Other 11/15/2010 Patient Education: Patient Medication Summary [...] BACK PAIN). 11/01/2010 Appointment: Brionna Ty WPtel: [facility]6 [place] [address] [place] Other 11/01/2010 Patient Education: Patient Medication Summary Completed 11/01/2010 Referral: Osman Yoo Referral Completed Instructions Comment . Hypertension - well controlled - continue [...] based on previous levels of control. RETURN TOMORROW FOR FASTING LABS SCHEDULE MAMMOGRAM [...] DOPA paperwork for health care surrogate. . Joint Injection - Pt was given [...] or if they worsen. . Hypertension - well controlled - [...] do not improve or if they worsen. WHILE ON ANTIBIOTIC, TAKE A PROBIOTIC LIKE [employer] TO HELP PREVENT DIARRHEA. UTI - pt [...] abnormality. Kenalog injection today in the office. Plan: ([id number]) SCREENINGMAMMOGRAPHYDIGITAL-Scheduled for tomorrow at the [...] x [address] Yoo in [place] office on Tuesday 11/07 at 1PM - [...] with any changes, questions, or concerns. . Hypertension - well controlled [...] months based on previous levels of control. Uqgqbicbz-htwjflij-qwkb if symptoms do not completely resolve . Sinusitis - Pt has acute infection [...] the office for further instructions/medication interventions. . Well Adult Female - exam completed. [...] months based on previous levels of control. Nkhlbgmqn-snhigjeeh-wgdwksb due to allergies-start claritin-call if symptoms persist and we will further investigate with CT head and carotid ultrasound . Scar - lap sites - cholecystectomy [...] Samples of aciphex given to pt. . Sinusitis - Pt has acute infection [...] change in symptoms, worsening redness, warmth, discharge. PT TO RESTART THE NORVASC 5MG DAILY [...] pain is worsening or does not improve. . Hypertension - well controlled - continue [...] in the nasal steroid allergy spray. . Pharyngitis-Discussed natural and expected course of this diagnosis and need to alert me if symtpoms do not follow expected course, or if any worse. Recommended salt water gargles as needed for pain. Tylenol/ motrin as needed for fever/discomfort.
--- OUTSIDE RECORDS SUMMARY | 2018-06-02 15:34 | XMS REPORT | Continuity of Care Document ---
Author Organization Unknown Address Unknown Allergies Active Description Code Type Severity Reaction Onset Reported/Identified Relationship to Patient Clinical Status Yes Penicillins [id number] Drug Allergy Mild N/A 11/14/2011 Yes CONTRAST DYE CONTRAST DYE Mild N/A 09/25/2015 Medications There is no data. Problems Date Dx Coded Attending Type Code Diagnosis Diagnosed By 01/24/1338 LEEANNA KOROMA DO, Ot M25.551 PAIN IN RIGHT HIP 01/24/1338 LEEANNA KOROMA DO Ot M41.9 SCOLIOSIS, UNSPECIFIED 01/24/1338 LEEANNA KOROMA DO Ot M51.36 OTHER INTERVERTEBRAL DISC DEGENERATION, 01/24/1441 PATRIA RIVAS APRN Ot S42.251D DISP FX OF GREATER TUBEROSITY OF R HUMER 01/24/1441 PATRIA RIVAS APRN Ot W17.89XD OTHER FALL FROM ONE LEVEL TO ANOTHER, MARTINEZ 06/19/2010 Ot 244.9 HYPOTHYROIDISM NOS 06/19/2010 Ot 401.9 HYPERTENSION NOS 06/19/2010 Ot 427.89 CARDIAC DYSRHYTHMIAS NEC 06/19/2010 Ot 719.45 JOINT PAIN- PELVIS 06/19/2010 Ot 780.2 SYNCOPE AND COLLAPSE 06/19/2010 Ot E000.8 OTHER EXTERNAL CAUSE STATUS 06/19/2010 Ot E816.0 LOSS CONTROL MV ACC-DRIV 06/19/2010 Ot V58.69 OT MED,LT, CURRENT USE 08/24/2010 Ot 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 COLI INFECT NOS 08/24/2010 Ot 244.9 HYPOTHYROIDISM NOS 08/24/2010 Ot 401.9 HYPERTENSION NOS 08/24/2010 Ot 590.10 AC PYELONEPHRITIS NOS 08/24/2010 Ot 715.90 OSTEOARTHROS NOS-UNSPEC 08/24/2010 Ot 995.91 SEPSIS 09/18/2010 Ot 780.2 SYNCOPE AND COLLAPSE 11/17/2011 Ot 041.49 OTHER AND UNSPECIFIED ESCHERICHIA COLI [ 11/17/2011 Ot 244.9 HYPOTHYROIDISM NOS 11/17/2011 Ot 276.51 DEHYDRATION 11/17/2011 Ot 401.9 HYPERTENSION NOS 11/17/2011 Ot 560.32 FECAL IMPACTION 11/17/2011 Ot 564.00 UNSPEC CONSTIPATION 11/17/2011 Ot 599.0 URIN TRACT INFECTION NOS 11/17/2011 Ot 682.1 CELLULITIS OF NECK 11/17/2011 Ot 715.90 OSTEOARTHROS NOS-UNSPEC 11/17/2011 Ot 998.59 OTH POSTOPER INFECTION 11/19/2011 Ot 041.49 OTHER AND UNSPECIFIED ESCHERICHIA COLI [ 11/19/2011 Ot 244.9 HYPOTHYROIDISM NOS 11/19/2011 Ot 401.9 HYPERTENSION NOS 11/19/2011 Ot 564.00 UNSPEC CONSTIPATION 11/19/2011 Ot 599.0 URIN TRACT INFECTION NOS 11/19/2011 Ot 682.1 CELLULITIS OF NECK 11/19/2011 Ot 715.90 OSTEOARTHROS NOS-UNSPEC 11/19/2011 Ot 998.59 OTH POSTOPER INFECTION 10/04/2014 HARINDER SHELLEY MD Ot 401.9 HYPERTENSION NOS 10/04/2014 HARINDER SHELLEY MD Ot 780.4 DIZZINESS AND GIDDINESS 09/25/2015 Ot 780.2 SYNCOPE AND COLLAPSE 09/25/2015 Ot 780.2 SYNCOPE AND COLLAPSE 09/25/2015 Ot V76.12 OTH SCREEN MAMMO-MALIGN NEOPLASM OF ISSAC 09/25/2015 Ot 724.2 LUMBAGO 09/25/2015 Ot 724.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-THORACIC 09/25/2015 Ot 724.02 SPINAL STENOSIS, LUMBAR REG, W/OUT NEURO 09/25/2015 Ot 721.0 CERVICAL SPONDYLOSIS 09/25/2015 Ot 397.0 TRICUSPID VALVE DISEASE 09/25/2015 Ot 401.9 HYPERTENSION NOS 09/25/2015 Ot 424.0 MITRAL VALVE DISORDER 09/25/2015 CARRIE TY MD Ot V76.12 OTH SCREEN MAMMO-MALIGN NEOPLASM OF ISSAC 09/25/2015 Ot 780.2 SYNCOPE AND COLLAPSE 09/28/2015 CARRIE TY MD Ot D72.829 ELEVATED WHITE BLOOD CELL COUNT, UNSPECI 09/28/2015 CARRIE TY MD Ot E03.9 HYPOTHYROIDISM, UNSPECIFIED 09/28/2015 CARRIE TY MD Ot E78.5 HYPERLIPIDEMIA, UNSPECIFIED 09/28/2015 CARRIE TY MD Ot I10 ESSENTIAL (PRIMARY) HYPERTENSION 09/28/2015 CARRIE TY MD Ot K80.12 CALCULUS OF GB W ACUTE AND CHRONIC KASSY 09/28/2015 CARRIE TY MD Ot Z79.899 OTHER [facility] (CURRENT) DRUG THERAPY 10/05/2015 CARRIE TY MD Ot D72.829 ELEVATED WHITE BLOOD CELL COUNT, UNSPECI 10/05/2015 CARRIE TY MD Ot E03.9 HYPOTHYROIDISM, UNSPECIFIED 10/05/2015 CARRIE TY MD Ot E78.5 HYPERLIPIDEMIA, UNSPECIFIED 10/05/2015 CARRIE TY MD Ot I10 ESSENTIAL (PRIMARY) HYPERTENSION 10/05/2015 CARRIE TY MD Ot K80.12 CALCULUS OF GB W ACUTE AND CHRONIC KASSY 10/05/2015 CARRIE TY MD Ot Z79.899 OTHER [facility] (CURRENT) DRUG THERAPY 11/26/2015 JASPAL MCGOVERN MD Ot I10 ESSENTIAL (PRIMARY) HYPERTENSION 11/26/2015 JASPAL MCGOVERN MD Ot M48.04 SPINAL STENOSIS, THORACIC REGION 11/26/2015 JASPAL MCGOVERN MD Ot R42 DIZZINESS AND GIDDINESS 11/26/2015 JASPAL MCGOVERN MD Ot Z79.82 DIRECTOR OF OPERATIONS HOME HEALTH (CURRENT) USE OF ASPIRIN 11/26/2015 JASPAL MCGOVERN MD Ot Z79.899 OTHER [facility] (CURRENT) DRUG THERAPY 11/28/2015 JASPAL MCGOVERN MD Ot I10 ESSENTIAL (PRIMARY) HYPERTENSION 11/28/2015 JASPAL MCGOVERN MD Ot M48.04 SPINAL STENOSIS, THORACIC REGION 11/28/2015 JASPAL MCGOVERN MD Ot R42 DIZZINESS AND GIDDINESS 11/28/2015 JASPAL MCGOVERN MD Ot Z79.82 DIRECTOR OF OPERATIONS HOME HEALTH (CURRENT) USE OF ASPIRIN 11/28/2015 JASPAL MCGOVERN MD Ot Z79.899 OTHER [facility] (CURRENT) DRUG THERAPY 12/02/2015 JASPAL MCGOVERN MD Ot I10 ESSENTIAL (PRIMARY) HYPERTENSION 12/02/2015 JASPAL MCGOVERN MD Ot M48.04 SPINAL STENOSIS, THORACIC REGION 12/02/2015 JASPAL MCGOVERN MD Ot R42 DIZZINESS AND GIDDINESS 12/02/2015 JASPAL MCGOVERN MD Ot Z79.82 DIRECTOR OF OPERATIONS HOME HEALTH (CURRENT) USE OF ASPIRIN 12/02/2015 JASPAL MCGOVERN MD Ot Z79.899 OTHER [facility] (CURRENT) DRUG THERAPY 12/06/2015 Ot 780.2 SYNCOPE AND COLLAPSE 12/06/2015 Ot 780.2 SYNCOPE AND COLLAPSE 12/06/2015 Ot V76.12 OTH SCREEN MAMMO-MALIGN NEOPLASM OF ISSAC 12/06/2015 Ot 724.2 LUMBAGO 12/06/2015 Ot 724.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-THORACIC 12/06/2015 Ot 724.02 SPINAL STENOSIS, LUMBAR REG, W/OUT NEURO 12/06/2015 Ot 721.0 CERVICAL SPONDYLOSIS 12/06/2015 Ot 397.0 TRICUSPID VALVE DISEASE 12/06/2015 Ot 401.9 HYPERTENSION NOS 12/06/2015 Ot 424.0 MITRAL VALVE DISORDER 12/06/2015 CARRIE TY MD Ot V76.12 OTH SCREEN MAMMO-MALIGN NEOPLASM OF ISSAC 12/07/2015 ERIK DAUGHERTY MD Ot E03.9 HYPOTHYROIDISM, UNSPECIFIED 12/07/2015 ERIK DAUGHERTY MD Ot E78.5 HYPERLIPIDEMIA, UNSPECIFIED 12/07/2015 ERIK DAUGHERTY MD Ot I10 ESSENTIAL (PRIMARY) HYPERTENSION 12/07/2015 ERIK DAUGHERTY MD Ot I51.9 HEART DISEASE, UNSPECIFIED 12/07/2015 ERIK DAUGHERTY MD Ot R00.2 PALPITATIONS 12/07/2015 ERIK DAUGHERTY MD Ot R07.9 CHEST PAIN, UNSPECIFIED 12/11/2015 ERIK DAUGHERTY MD Ot E03.9 HYPOTHYROIDISM, UNSPECIFIED 12/11/2015 ERIK DAUGHERTY MD Ot E78.5 HYPERLIPIDEMIA, UNSPECIFIED 12/11/2015 ERIK DAUGHERTY MD Ot I10 ESSENTIAL (PRIMARY) HYPERTENSION 12/11/2015 ERIK DAUGHERTY MD Ot I51.9 HEART DISEASE, UNSPECIFIED 12/11/2015 ERIK DAUGHERTY MD Ot R00.2 PALPITATIONS 12/11/2015 ERIK DAUGHERTY MD Ot R07.9 CHEST PAIN, UNSPECIFIED 12/21/2015 ERIK DAUGHERTY MD Ot E03.9 HYPOTHYROIDISM, UNSPECIFIED 12/21/2015 ERIK DAUGHERTY MD Ot E78.5 HYPERLIPIDEMIA, UNSPECIFIED 12/21/2015 ERIK DAUGHERTY MD Ot I11.9 HYPERTENSIVE HEART DISEASE WITHOUT HEART 12/21/2015 ERIK DAUGHERTY MD Ot I51.9 HEART DISEASE, UNSPECIFIED 12/21/2015 ERIK DAUGHERTY MD Ot R00.2 PALPITATIONS 12/21/2015 ERIK DAUGHERTY MD Ot R07.9 CHEST PAIN, UNSPECIFIED 12/28/2015 ERIK DAUGHERTY MD Ot E03.9 HYPOTHYROIDISM, UNSPECIFIED 12/28/2015 ERIK DAUGHERTY MD Ot E78.5 HYPERLIPIDEMIA, UNSPECIFIED 12/28/2015 ERIK DAUGHERTY MD Ot I10 ESSENTIAL (PRIMARY) HYPERTENSION 12/28/2015 ERIK DAUGHERTY MD Ot I51.9 HEART DISEASE, UNSPECIFIED 12/28/2015 ERIK DAUGHERTY MD Ot R00.2 PALPITATIONS 12/28/2015 ERIK DAUGHERTY MD Ot R07.9 CHEST PAIN, UNSPECIFIED 01/09/2016 ERIK DAUGHERTY MD Ot E03.9 HYPOTHYROIDISM, UNSPECIFIED 01/09/2016 ERIK DAUGHERTY MD Ot E78.5 HYPERLIPIDEMIA, UNSPECIFIED 01/09/2016 ERIK DAUGHERTY MD Ot I11.9 HYPERTENSIVE HEART DISEASE WITHOUT HEART 01/09/2016 ERIK DAUGHERTY MD Ot I51.9 HEART DISEASE, UNSPECIFIED 01/09/2016 ERIK DAUGHERTY MD Ot R00.2 PALPITATIONS 01/09/2016 ERIK DAUGHERTY MD Ot R07.9 CHEST PAIN, UNSPECIFIED 05/25/2016 Ot V76.12 OTH SCREEN MAMMO-MALIGN NEOPLASM OF ISSAC 05/25/2016 Ot 724.2 LUMBAGO 05/25/2016 Ot 724.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-THORACIC 05/25/2016 Ot 724.02 SPINAL STENOSIS, LUMBAR REG, W/OUT NEURO 05/25/2016 Ot 721.0 CERVICAL SPONDYLOSIS 05/25/2016 Ot 397.0 TRICUSPID VALVE DISEASE 05/25/2016 Ot 401.9 HYPERTENSION NOS 05/25/2016 Ot 424.0 MITRAL VALVE DISORDER 05/25/2016 CARRIE TY MD Ot V76.12 OTH SCREEN MAMMO-MALIGN NEOPLASM OF ISSAC 05/25/2016 ERIK DAUGHERTY MD Ot E03.9 HYPOTHYROIDISM, UNSPECIFIED 05/25/2016 ERIK DAUGHERTY MD Ot E78.5 HYPERLIPIDEMIA, UNSPECIFIED 05/25/2016 ERIK DAUGHERTY MD Ot I11.9 HYPERTENSIVE HEART DISEASE WITHOUT HEART 05/25/2016 ERIK DAUGHERTY MD Ot I51.9 HEART DISEASE, UNSPECIFIED 05/25/2016 ERIK DAUGHERTY MD Ot R00.2 PALPITATIONS 05/25/2016 ERIK DAUGHERTY MD Ot R07.9 CHEST PAIN, UNSPECIFIED 05/25/2016 ERIK DAUGHERTY MD Ot E03.9 HYPOTHYROIDISM, UNSPECIFIED 05/25/2016 ERIK DAUGHERTY MD Ot E78.5 HYPERLIPIDEMIA, UNSPECIFIED 05/25/2016 ERIK DAUGHERTY MD Ot I10 ESSENTIAL (PRIMARY) HYPERTENSION 05/25/2016 ERIK DAUGHERTY MD Ot I51.9 HEART DISEASE, UNSPECIFIED 05/25/2016 ERIK DAUGHERTY MD Ot R00.2 PALPITATIONS 05/25/2016 ERIK DAUGHERTY MD Ot R07.9 CHEST PAIN, UNSPECIFIED 05/28/2016 VITOR CLINTON SEAFOOD SPECIALIST Ot M17.12 UNILATERAL PRIMARY OSTEOARTHRITIS, LEFT 05/28/2016 VITOR CL[employer]ON SEA[employer] SPECIALIST Ot M17.12 UNILATERAL PRIMARY OSTEOARTHRITIS, LEFT 06/14/2016 VITOR CLINTON SEA[employer] SPECIALIST Ot M17.12 UNILATERAL PRIMARY OSTEOARTHRITIS, LEFT 11/26/2016 VITOR CLINTON SEA[employer] SPECIALIST Ot M17.12 UNILATERAL PRIMARY OSTEOARTHRITIS, LEFT 11/26/2016 Ot 724.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-THORACIC 11/26/2016 Ot 724.02 SPINAL STENOSIS, LUMBAR REG, W/OUT NEURO 11/26/2016 Ot 721.0 CERVICAL SPONDYLOSIS 11/26/2016 Ot 397.0 TRICUSPID VALVE DISEASE 11/26/2016 Ot 401.9 HYPERTENSION NOS 11/26/2016 Ot 424.0 MITRAL VALVE DISORDER 11/26/2016 CARRIE TY MD Ot V76.12 OTH SCREEN MAMMO-MALIGN NEOPLASM OF ISSAC 11/26/2016 ERIK DAUGHERTY MD Ot E03.9 HYPOTHYROIDISM, UNSPECIFIED 11/26/2016 ERIK DAUGHERTY MD Ot E78.5 HYPERLIPIDEMIA, UNSPECIFIED 11/26/2016 ERIK DAUGHERTY MD Ot I11.9 HYPERTENSIVE HEART DISEASE WITHOUT HEART 11/26/2016 ERIK DAUGHERTY MD Ot I51.9 HEART DISEASE, UNSPECIFIED 11/26/2016 ERIK DAUGHERTY MD Ot R00.2 PALPITATIONS 11/26/2016 EIRK DAUGHERTY MD Ot R07.9 CHEST PAIN, UNSPECIFIED 11/26/2016 ERIK DAUGHERTY MD Ot E03.9 HYPOTHYROIDISM, UNSPECIFIED 11/26/2016 ERIK DAUGHERTY MD Ot E78.5 HYPERLIPIDEMIA, UNSPECIFIED 11/26/2016 ERIK DAUGHERTY MD Ot I10 ESSENTIAL (PRIMARY) HYPERTENSION 11/26/2016 ERIK DAUGHERTY MD Ot I51.9 HEART DISEASE, UNSPECIFIED 11/26/2016 ERIK DAUGHERTY MD Ot R00.2 PALPITATIONS 11/26/2016 ERIK DAUGHERTY MD Ot R07.9 CHEST PAIN, UNSPECIFIED 11/26/2016 VITOR [employer] SPECIALIST Ot M17.12 UNILATERAL PRIMARY OSTEOARTHRITIS, LEFT 11/29/2016 VITOR CL[employer] SPECIALIST Ot M17.12 UNILATERAL PRIMARY OSTEOARTHRITIS, LEFT 12/05/2016 MARGARET FRANK APRN Ot E03.9 HYPOTHYROIDISM, UNSPECIFIED 12/05/2016 MARGARET FRANK APRN Ot I10 ESSENTIAL (PRIMARY) HYPERTENSION 12/05/2016 MARGARET FRANK APRN Ot M48.02 SPINAL STENOSIS, CERVICAL REGION 12/05/2016 MARGARET FRANK APRN Ot R11.10 VOMITING, UNSPECIFIED 12/05/2016 MARGARET FRANK APRN Ot R42 DIZZINESS AND GIDDINESS 12/05/2016 MARGARET FRANK APRN Ot Z79.82 DIRECTOR OF OPERATIONS HOME HEALTH (CURRENT) USE OF ASPIRIN 12/05/2016 MARGARET FRANK APRN Ot Z82.49 FAMILY HX OF ISCHEM HEART DIS AND OTH DI 12/05/2016 MARGARET FRANK APRN Ot Z86.73 PRSNL HX OF TIA (TIA), AND CEREB INFRC W 12/05/2016 MARGARET FRANK APRN Ot Z98.890 OTHER SPECIFIED POSTPROCEDURAL STATES 12/20/2016 REGGIE ALY Ot E03.9 HYPOTHYROIDISM, UNSPECIFIED 12/20/2016 SHEEBA, REGGIE STUDENT COUNSELOR Ot I10 ESSENTIAL (PRIMARY) HYPERTENSION 12/20/2016 REGGIE ALYP Ot M25.511 PAIN IN RIGHT SHOULDER 12/20/2016 REGGIE ALYP Ot M48.02 SPINAL STENOSIS, CERVICAL REGION 12/20/2016 REGGIE ALYP Ot S42.251A DISP FX OF GREATER TUBEROSITY OF RIGHT H 12/20/2016 REGGIE ALY STUDENT COUNSELOR Ot W17.89XA OTHER FALL FROM ONE LEVEL TO ANOTHER, IN 12/20/2016 REGGIE ALYP Ot Z79.82 DIRECTOR OF OPERATIONS HOME HEALTH (CURRENT) USE OF ASPIRIN 12/20/2016 REGGIE ALYP Ot Z82.49 FAMILY HX OF ISCHEM HEART DIS AND OTH DI 12/20/2016 REGGIE ALYP Ot Z86.73 PRSNL HX OF TIA (TIA), AND CEREB INFRC W 02/01/2017 VITOR CL[place] SEA[employer] SPECIALIST Ot M17.12 UNILATERAL PRIMARY OSTEOARTHRITIS, LEFT 03/05/2017 PATRIA RIVAS SEAFOOD SPECIALIST Ot S42.251D DISP FX OF GREATER TUBEROSITY OF R HUMER 03/05/2017 PATRIA RIVAS SEAFOOD SPECIALIST Ot W17.89XD OTHER FALL FROM ONE LEVEL TO ANOTHER, MARTINEZ 03/14/2017 PATRIA RIVAS SEAFOOD SPECIALIST Ot S42.251D DISP FX OF GREATER TUBEROSITY OF R HUMER 03/14/2017 EVELYN PATRIA E SEAFOOD SPECIALIST Ot W17.89XD OTHER FALL FROM ONE LEVEL TO ANOTHER, MARTINEZ 04/05/2017 FRANCI LEEANNA FORD Ot S42.251D DISP FX OF GREATER TUBEROSITY OF R HUMER 04/05/2017 FRANCI DOLEEANNA Ot S46.011D STRAIN OF MUSC/TEND THE ROTATOR CUFF OF 04/05/2017 FRANCI DOLEEANNA Ot W19.XXXD UNSPECIFIED FALL, SUBSEQUENT ENCOUNTER 04/19/2017 PATRIA RIVAS SEAFOOD SPECIALIST Ot S42.251D DISP FX OF GREATER TUBEROSITY OF R HUMER 04/19/2017 EVELYN PATRIA E SEAFOOD SPECIALIST Ot W17.89XD OTHER FALL FROM ONE LEVEL TO ANOTHER, MARTINEZ 04/22/2017 EVELYN PATRIA E SEAFOOD SPECIALIST Ot S42.251D DISP FX OF GREATER TUBEROSITY OF R HUMER 04/22/2017 EVELYN PATRIA E SEAFOOD SPECIALIST Ot W17.89XD OTHER FALL FROM ONE LEVEL TO ANOTHER, MARTINEZ 04/30/2017 FRANCI DO, LEEANNA Spicer Ot S42.251D DISP FX OF GREATER TUBEROSITY OF R HUMER 04/30/2017 FRANCI DO, LEEANNA Spicer Ot S46.011D STRAIN OF MUSC/TEND THE ROTATOR CUFF OF 04/30/2017 FRANCI DO, LEEANNA Spicer Ot W19.XXXD UNSPECIFIED FALL, SUBSEQUENT ENCOUNTER 10/15/2017 FRANCI DO, LEEANNA Spicer Ot M25.551 PAIN IN RIGHT HIP 10/15/2017 FRANCI DO, LEEANNA Spicer Ot M41.9 SCOLIOSIS, UNSPECIFIED 10/15/2017 FRANCI DO, LEEANNA Spicer Ot M51.36 OTHER INTERVERTEBRAL DISC DEGENERATION, 10/24/2017 FRANCI DO, LEEANNA Spicer Ot M25.551 PAIN IN RIGHT HIP 10/24/2017 FRANCI DO, LEEANNA Spicer Ot M41.9 SCOLIOSIS, UNSPECIFIED 10/24/2017 FRANCI DO, LEEANNA Spicer Ot M51.36 OTHER INTERVERTEBRAL DISC DEGENERATION, 12/04/2017 CHENCHO SYKES Ot Z12.31 ENCNTR SCREEN MAMMOGRAM FOR MALIGNANT NE 12/05/2017 SERGE CALLEJAS, CARRIE Omalley Ot V76.12 OTH SCREEN MAMMO-MALIGN NEOPLASM OF ISSAC 12/05/2017 ERIK DAUGHERTY MD Ot E03.9 HYPOTHYROIDISM, UNSPECIFIED 12/05/2017 ERIK DAUGHERTY MD Ot E78.5 HYPERLIPIDEMIA, UNSPECIFIED 12/05/2017 ERIK DAUGHERTY MD Ot I11.9 HYPERTENSIVE HEART DISEASE WITHOUT HEART 12/05/2017 ERIK DAUGHERTY MD Ot I51.9 HEART DISEASE, UNSPECIFIED 12/05/2017 ERIK DAUGHERTY MD Ot R00.2 PALPITATIONS 12/05/2017 ERIK DAUGHERTY MD Ot R07.9 CHEST PAIN, UNSPECIFIED 12/05/2017 ERIK DAUGHERTY MD Ot E03.9 HYPOTHYROIDISM, UNSPECIFIED 12/05/2017 ERIK DAUGHERTY MD Ot E78.5 HYPERLIPIDEMIA, UNSPECIFIED 12/05/2017 ERIK DAUGHERTY MD Ot I10 ESSENTIAL (PRIMARY) HYPERTENSION 12/05/2017 ERIK DAUGHERTY MD Ot I51.9 HEART DISEASE, UNSPECIFIED 12/05/2017 ERIK DAUGHERTY MD Ot R00.2 PALPITATIONS 12/05/2017 DAT CALLEJAS, ERIK Bentley Ot R07.9 CHEST PAIN, UNSPECIFIED 12/05/2017 VITOR CLINTON APRN Ot M17.12 UNILATERAL PRIMARY OSTEOARTHRITIS, LEFT 12/05/2017 LEEANNA KOROMA DO Ot S42.251D DISP FX OF GREATER TUBEROSITY OF R HUMER 12/05/2017 LEEANNA KOROMA DO Ot S46.011D STRAIN OF MUSC/TEND THE ROTATOR CUFF OF 12/05/2017 LEEANNA KOROMA DO Ot W19.XXXD UNSPECIFIED FALL, SUBSEQUENT ENCOUNTER 12/06/2017 CHENCHO SYKES Ot Z12.31 ENCNTR SCREEN MAMMOGRAM FOR MALIGNANT NE 12/25/2017 CHENCHO SYKES Ot Z12.31 ENCNTR SCREEN MAMMOGRAM FOR MALIGNANT NE 01/30/2018 ROSEY MERCADO Ot E78.2 MIXED HYPERLIPIDEMIA 01/30/2018 ROSEY MERCADO Ot I10 ESSENTIAL (PRIMARY) HYPERTENSION 01/30/2018 ROESY MERCADO Ot I25.10 ATHSCL HEART DISEASE OF [place] CORONARY 03/14/2018 ROSEY MERCADO Ot E78.2 MIXED HYPERLIPIDEMIA 03/14/2018 ROSEY MERCADO Ot I10 ESSENTIAL (PRIMARY) HYPERTENSION 03/14/2018 ROSEY MERCADO Ot I25.10 ATHSCL HEART DISEASE OF [place] CORONARY Procedures There is no data. Results Test Result Range Complete blood count (CBC) with automated white blood cell (WBC) differential - 09/25/15 19:43 Blood leukocytes automated count (number/volume) 10.4 10*3/uL 4.3-11.0 Blood erythrocytes automated count (number/volume) 5.21 10*6/uL 4.35-5.85 Venous blood hemoglobin measurement (mass/volume) 14.9 g/dL 11.5-16.0 Blood hematocrit (volume fraction) 45 % 35-52 Automated erythrocyte mean corpuscular volume 87 [foz_us] 80-99 Automated erythrocyte mean corpuscular hemoglobin (mass per erythrocyte) 29 pg 25-34 Automated erythrocyte mean corpuscular hemoglobin concentration measurement ( mass/volume) 33 g/dL 32-36 Automated erythrocyte distribution width ratio 13.3 % 10.0-14.5 Automated blood platelet count (count/volume) 255 10*3/uL 130-400 Automated blood platelet mean volume measurement 10.0 [foz_us] 7.4-10.4 Automated blood neutrophils/100 leukocytes 55 % 42-75 Automated blood lymphocytes/100 leukocytes 33 % 12-44 Blood monocytes/100 leukocytes 8 % 0-12 Automated blood eosinophils/100 leukocytes 4 % 0-10 Automated blood basophils/100 leukocytes 1 % 0-10 Blood neutrophils automated count (number/volume) 5.7 10*3 1.8-7.8 Blood lymphocytes automated count (number/volume) 3.4 10*3 1.0-4.0 Blood monocytes automated count (number/volume) 0.8 10*3 0.0-1.0 Automated eosinophil count 0.4 10*3/uL 0.0-0.3 Automated blood basophil count (count/volume) 0.1 10*3/uL 0.0-0.1 Comprehensive metabolic panel - 09/25/15 19:43 Serum or plasma sodium measurement (moles/volume) 141 mmol/L 135-145 Serum or plasma potassium measurement (moles/volume) 3.8 mmol/L 3.6-5.0 Serum or plasma chloride measurement (moles/volume) 101 mmol/L 98-107 Carbon dioxide 28 mmol/L 21-32 Serum or plasma anion gap determination (moles/volume) 12 mmol/L 5-14 Serum or plasma urea nitrogen measurement (mass/volume) 12 mg/dL 7-18 Serum or plasma creatinine measurement (mass/volume) 0.91 mg/dL 0.60-1.30 Serum or plasma urea nitrogen/creatinine mass ratio 13 NRG Serum or plasma creatinine measurement with calculation of estimated glomerular filtration rate > NRG Serum or plasma glucose measurement (mass/volume) 137 mg/dL 70-105 Serum or plasma calcium measurement (mass/volume) 9.7 mg/dL 8.5-10.1 Serum or plasma total bilirubin measurement (mass/volume) 0.5 mg/dL 0.1-1.0 Serum or plasma alkaline phosphatase measurement (enzymatic activity/volume) 64 U/L 40-136 Serum or plasma aspartate aminotransferase measurement (enzymatic activity/ volume) 19 U/L 5-34 Serum or plasma alanine aminotransferase measurement (enzymatic activity/volume ) 22 U/L 0-55 Serum or plasma protein measurement (mass/volume) 7.5 g/dL 6.4-8.2 Serum or plasma albumin measurement (mass/volume) 4.5 g/dL 3.2-4.5 Magnesium - 09/25/15 19:43 Magnesium 2.4 mg/dL 1.8-2.4 Serum or plasma troponin i.cardiac measurement (mass/volume) - 09/25/15 19:43 Serum or plasma troponin i.cardiac measurement (mass/volume) < ng/ mL <0.30 Myoglobin, serum - 09/25/15 19:43 Myoglobin, serum 26.6 ng/mL 10.0-92.0 Lipase - 09/25/15 19:43 Lipase 28 U/L 8-78 THYROID STIMULATING HORMONE - 09/25/15 19:43 THYROID STIMULATING HORMONE 4.40 u[iU]/mL 0.35-4.94 Serum or plasma thyroxine (T4) free measurement (mass/volume) - 09/25/15 19:43 Serum or plasma thyroxine (T4) free measurement (mass/volume) 1.13 ng/dL 0.70-1.48 PT panel in platelet poor plasma by coagulation assay - 09/25/15 19:55 Prothrombin time (PT) in platelet poor plasma by coagulation assay 12.4 s 12.2-14.7 INR in platelet poor plasma or blood by coagulation assay 0.9 0.8-1.4 Activated partial thromboplastin time (aPTT) in platelet poor plasma bycoagulation assay - 09/25/15 19:55 Activated partial thromboplastin time (aPTT) in platelet poor plasma bycoagulation assay 28 s 24-35 Fibrin D-dimer FEU measurement in platelet poor plasma (mass/volume) - 19:55 Fibrin D-dimer FEU measurement in platelet poor plasma (mass/volume) 2.77 ug/mL 0.00-0.49 Complete urinalysis with reflex to culture - 09/25/15 21:13 Urine color determination YELLOW NRG Urine clarity determination CLEAR NRG Urine pH measurement by test strip 8 5-9 Specific gravity of urine by test strip 1.010 1.016- 1.022 Urine protein assay by test strip, semi-quantitative NEGATIVE NEGATIVE Urine glucose detection by automated test strip NEGATIVE NEGATIVE Erythrocytes detection in urine sediment by light microscopy NEGATIVE NEGATIVE Urine ketones detection by automated test strip NEGATIVE NEGATIVE Urine nitrite detection by test strip NEGATIVE NEGATIVE Urine total bilirubin detection by test strip NEGATIVE NEGATIVE Urine urobilinogen measurement by automated test strip (mass/volume) NORMAL NORMAL Urine leukocyte esterase detection by dipstick NEGATIVE NEGATIVE Automated urine sediment erythrocyte count by microscopy (number/high power field) NONE NRG Automated urine sediment leukocyte count by microscopy (number/high power field ) RARE NRG Bacteria detection in urine sediment by light microscopy TRACE NRG Squamous epithelial cells detection in urine sediment by light microscopy 0-2 NRG Crystals detection in urine sediment by light microscopy NONE NRG Casts detection in urine sediment by light microscopy NONE NRG Mucus detection in urine sediment by light microscopy NEGATIVE NRG Complete urinalysis with reflex to culture NO NRG Serum or plasma troponin i.cardiac measurement (mass/volume) - 09/26/15 01:45 Serum or plasma troponin i.cardiac measurement (mass/volume) < ng/ mL <0.30 Complete blood count (CBC) with automated white blood cell (WBC) differential - 09/26/15 04:20 Blood leukocytes automated count (number/volume) 15.3 10*3/uL 4.3-11.0 Blood erythrocytes automated count (number/volume) 5.16 10*6/uL 4.35-5.85 Venous blood hemoglobin measurement (mass/volume) 14.8 g/dL 11.5-16.0 Blood hematocrit (volume fraction) 44 % 35-52 Automated erythrocyte mean corpuscular volume 85 [foz_us] 80-99 Automated erythrocyte mean corpuscular hemoglobin (mass per erythrocyte) 29 pg 25-34 Automated erythrocyte mean corpuscular hemoglobin concentration measurement ( mass/volume) 34 g/dL 32-36 Automated erythrocyte distribution width ratio 13.3 % 10.0-14.5 Automated blood platelet count (count/volume) 275 10*3/uL 130-400 Automated blood platelet mean volume measurement 10.3 [foz_us] 7.4-10.4 Automated blood neutrophils/100 leukocytes 94 % 42-75 Automated blood lymphocytes/100 leukocytes 5 % 12-44 Blood monocytes/100 leukocytes 1 % 0-12 Automated blood eosinophils/100 leukocytes 0 % 0-10 Automated blood basophils/100 leukocytes 0 % 0-10 Blood neutrophils automated count (number/volume) 14.4 10*3 1.8-7.8 Blood lymphocytes automated count (number/volume) 0.8 10*3 1.0-4.0 Blood monocytes automated count (number/volume) 0.1 10*3 0.0-1.0 Automated eosinophil count 0.0 10*3/uL 0.0-0.3 Automated blood basophil count (count/volume) 0.0 10*3/uL 0.0-0.1 Lipid 1996 panel - 09/26/15 04:20 Serum or plasma triglyceride measurement (mass/volume) 59 mg/dL <150 Serum or plasma cholesterol measurement (mass/volume) 210 mg/dL < 200 Serum or plasma cholesterol in HDL measurement (mass/volume) 52 mg/ dL 40-60 Cholesterol in LDL [mass/volume] in serum or plasma by direct assay 150 mg/dL 1-129 Serum or plasma cholesterol in VLDL measurement (mass/volume) 12 mg/ dL 5-40 Comprehensive metabolic panel - 09/26/15 04:25 Serum or plasma sodium measurement (moles/volume) 138 mmol/L 135-145 Serum or plasma potassium measurement (moles/volume) 3.8 mmol/L 3.6-5.0 Serum or plasma chloride measurement (moles/volume) 102 mmol/L 98-107 Carbon dioxide 23 mmol/L 21-32 Serum or plasma anion gap determination (moles/volume) 13 mmol/L 5-14 Serum or plasma urea nitrogen measurement (mass/volume) 10 mg/dL 7-18 Serum or plasma creatinine measurement (mass/volume) 0.83 mg/dL 0.60-1.30 Serum or plasma urea nitrogen/creatinine mass ratio 12 NRG Serum or plasma creatinine measurement with calculation of estimated glomerular filtration rate > NRG Serum or plasma glucose measurement (mass/volume) 170 mg/dL 70-105 Serum or plasma calcium measurement (mass/volume) 8.9 mg/dL 8.5-10.1 Serum or plasma total bilirubin measurement (mass/volume) 0.6 mg/dL 0.1-1.0 Serum or plasma alkaline phosphatase measurement (enzymatic activity/volume) 56 U/L 40-136 Serum or plasma aspartate aminotransferase measurement (enzymatic activity/ volume) 16 U/L 5-34 Serum or plasma alanine aminotransferase measurement (enzymatic activity/volume ) 19 U/L 0-55 Serum or plasma protein measurement (mass/volume) 6.8 g/dL 6.4-8.2 Serum or plasma albumin measurement (mass/volume) 4.2 g/dL 3.2-4.5 Methicillin resistant Staphylococcus aureus (MRSA) screening culture - 11:15 Methicillin resistant Staphylococcus aureus (MRSA) screening culture NEG NRG Automated blood complete blood count (hemogram) panel - 09/27/15 05:20 Blood leukocytes automated count (number/volume) 16.3 10*3/uL 4.3-11.0 Blood erythrocytes automated count (number/volume) 4.58 10*6/uL 4.35-5.85 Venous blood hemoglobin measurement (mass/volume) 13.0 g/dL 11.5-16.0 Blood hematocrit (volume fraction) 40 % 35-52 Automated erythrocyte mean corpuscular volume 87 [foz_us] 80-99 Automated erythrocyte mean corpuscular hemoglobin (mass per erythrocyte) 28 pg 25-34 Automated erythrocyte mean corpuscular hemoglobin concentration measurement ( mass/volume) 33 g/dL 32-36 Automated erythrocyte distribution width ratio 14.0 % 10.0-14.5 Automated blood platelet count (count/volume) 263 10*3/uL 130-400 Automated blood platelet mean volume measurement 10.3 [foz_us] 7.4-10.4 Whole blood basic metabolic panel - 09/27/15 05:20 Serum or plasma sodium measurement (moles/volume) 141 mmol/L 135-145 Serum or plasma potassium measurement (moles/volume) 4.0 mmol/L 3.6-5.0 Serum or plasma chloride measurement (moles/volume) 107 mmol/L 98-107 Carbon dioxide 26 mmol/L 21-32 Serum or plasma anion gap determination (moles/volume) 8 mmol/L 5-14 Serum or plasma urea nitrogen measurement (mass/volume) 11 mg/dL 7-18 Serum or plasma creatinine measurement (mass/volume) 0.75 mg/dL 0.60-1.30 Serum or plasma urea nitrogen/creatinine mass ratio 15 NRG Serum or plasma creatinine measurement with calculation of estimated glomerular filtration rate > NRG Serum or plasma glucose measurement (mass/volume) 119 mg/dL 70-105 Serum or plasma calcium measurement (mass/volume) 8.5 mg/dL 8.5-10.1 Complete blood count (CBC) with automated white blood cell (WBC) differential - 11/26/15 10:37 Blood leukocytes automated count (number/volume) 10.0 10*3/uL 4.3-11.0 Blood erythrocytes automated count (number/volume) 5.01 10*6/uL 4.35-5.85 Venous blood hemoglobin measurement (mass/volume) 14.3 g/dL 11.5-16.0 Blood hematocrit (volume fraction) 43 % 35-52 Automated erythrocyte mean corpuscular volume 85 [foz_us] 80-99 Automated erythrocyte mean corpuscular hemoglobin (mass per erythrocyte) 29 pg 25-34 Automated erythrocyte mean corpuscular hemoglobin concentration measurement ( mass/volume) 33 g/dL 32-36 Automated erythrocyte distribution width ratio 12.7 % 10.0-14.5 Automated blood platelet count (count/volume) 265 10*3/uL 130-400 Automated blood platelet mean volume measurement 10.6 [foz_us] 7.4-10.4 Automated blood neutrophils/100 leukocytes 56 % 42-75 Automated blood lymphocytes/100 leukocytes 30 % 12-44 Blood monocytes/100 leukocytes 9 % 0-12 Automated blood eosinophils/100 leukocytes 5 % 0-10 Automated blood basophils/100 leukocytes 0 % 0-10 Blood neutrophils automated count (number/volume) 5.6 10*3 1.8-7.8 Blood lymphocytes automated count (number/volume) 3.0 10*3 1.0-4.0 Blood monocytes automated count (number/volume) 0.9 10*3 0.0-1.0 Automated eosinophil count 0.5 10*3/uL 0.0-0.3 Automated blood basophil count (count/volume) 0.0 10*3/uL 0.0-0.1 Comprehensive metabolic panel - 11/26/15 10:37 Serum or plasma sodium measurement (moles/volume) 140 mmol/L 135-145 Serum or plasma potassium measurement (moles/volume) 3.3 mmol/L 3.6-5.0 Serum or plasma chloride measurement (moles/volume) 106 mmol/L 98-107 Carbon dioxide 19 mmol/L 21-32 Serum or plasma anion gap determination (moles/volume) 15 mmol/L 5-14 Serum or plasma urea nitrogen measurement (mass/volume) 15 mg/dL 7-18 Serum or plasma creatinine measurement (mass/volume) 0.77 mg/dL 0.60-1.30 Serum or plasma urea nitrogen/creatinine mass ratio 19 NRG Serum or plasma creatinine measurement with calculation of estimated glomerular filtration rate > NRG Serum or plasma glucose measurement (mass/volume) 144 mg/dL 70-105 Serum or plasma calcium measurement (mass/volume) 9.5 mg/dL 8.5-10.1 Serum or plasma total bilirubin measurement (mass/volume) 0.8 mg/dL 0.1-1.0 Serum or plasma alkaline phosphatase measurement (enzymatic activity/volume) 78 U/L 40-136 Serum or plasma aspartate aminotransferase measurement (enzymatic activity/ volume) 19 U/L 5-34 Serum or plasma alanine aminotransferase measurement (enzymatic activity/volume ) 28 U/L 0-55 Serum or plasma protein measurement (mass/volume) 7.1 g/dL 6.4-8.2 Serum or plasma albumin measurement (mass/volume) 4.3 g/dL 3.2-4.5 Complete urinalysis with reflex to culture - 11/26/15 11:25 Urine color determination YELLOW NRG Urine clarity determination CLEAR NRG Urine pH measurement by test strip 7 5-9 Specific gravity of urine by test strip 1.015 1.016- 1.022 Urine protein assay by test strip, semi-quantitative NEGATIVE NEGATIVE Urine glucose detection by automated test strip NEGATIVE NEGATIVE Erythrocytes detection in urine sediment by light microscopy NEGATIVE NEGATIVE Urine ketones detection by automated test strip 1+ NEGATIVE Urine nitrite detection by test strip NEGATIVE NEGATIVE Urine total bilirubin detection by test strip NEGATIVE NEGATIVE Urine urobilinogen measurement by automated test strip (mass/volume) NORMAL NORMAL Urine leukocyte esterase detection by dipstick NEGATIVE NEGATIVE Automated urine sediment erythrocyte count by microscopy (number/high power field) NONE NRG Automated urine sediment leukocyte count by microscopy (number/high power field ) NONE NRG Bacteria detection in urine sediment by light microscopy TRACE NRG Squamous epithelial cells detection in urine sediment by light microscopy 2-5 NRG Crystals detection in urine sediment by light microscopy NONE NRG Casts detection in urine sediment by light microscopy NONE NRG Mucus detection in urine sediment by light microscopy NEGATIVE NRG Complete urinalysis with reflex to culture NO NRG Complete blood count (CBC) with automated white blood cell (WBC) differential - 12/05/16 17:35 Blood leukocytes automated count (number/volume) 12.5 10*3/uL 4.3-11.0 Blood erythrocytes automated count (number/volume) 5.34 10*6/uL 4.35-5.85 Venous blood hemoglobin measurement (mass/volume) 15.0 g/dL 11.5-16.0 Blood hematocrit (volume fraction) 46 % 35-52 Automated erythrocyte mean corpuscular volume 86 [foz_us] 80-99 Automated erythrocyte mean corpuscular hemoglobin (mass per erythrocyte) 28 pg 25-34 Automated erythrocyte mean corpuscular hemoglobin concentration measurement ( mass/volume) 33 g/dL 32-36 Automated erythrocyte distribution width ratio 13.6 % 10.0-14.5 Automated blood platelet count (count/volume) 314 10*3/uL 130-400 Automated blood platelet mean volume measurement 9.7 [foz_us] 7.4-10.4 Automated blood neutrophils/100 leukocytes 93 % 42-75 Automated blood lymphocytes/100 leukocytes 3 % 12-44 Blood monocytes/100 leukocytes 4 % 0-12 Automated blood eosinophils/100 leukocytes 0 % 0-10 Automated blood basophils/100 leukocytes 0 % 0-10 Blood neutrophils automated count (number/volume) 11.6 10*3 1.8-7.8 Blood lymphocytes automated count (number/volume) 0.4 10*3 1.0-4.0 Blood monocytes automated count (number/volume) 0.5 10*3 0.0-1.0 Automated eosinophil count 0.0 10*3/uL 0.0-0.3 Automated blood basophil count (count/volume) 0.0 10*3/uL 0.0-0.1 Blood manual differential performed detection - 12/05/16 17:35 Blood monocytes/100 leukocytes 7 % NRG Manual blood segmented neutrophils/100 leukocytes 72 % NRG Blood band neutrophils/100 leukocytes 16 % NRG Manual blood lymphocytes/100 leukocytes 6 % NRG Manual eosinophils/100 leukocytes in nose 1 % NRG Manual blood basophils/100 leukocytes 1 % NRG Blood erythrocyte morphology finding identification NORMAL NR Comprehensive metabolic panel - 12/05/16 17:35 Serum or plasma sodium measurement (moles/volume) 140 mmol/L 135-145 Serum or plasma potassium measurement (moles/volume) 3.8 mmol/L 3.6-5.0 Serum or plasma chloride measurement (moles/volume) 102 mmol/L 98-107 Carbon dioxide 28 mmol/L 21-32 Serum or plasma anion gap determination (moles/volume) 10 mmol/L 5-14 Serum or plasma urea nitrogen measurement (mass/volume) 13 mg/dL 7-18 Serum or plasma creatinine measurement (mass/volume) 0.81 mg/dL 0.60-1.30 Serum or plasma urea nitrogen/creatinine mass ratio 16 NRG Serum or plasma creatinine measurement with calculation of estimated glomerular filtration rate > NRG Serum or plasma glucose measurement (mass/volume) 152 mg/dL 70-105 Serum or plasma calcium measurement (mass/volume) 9.6 mg/dL 8.5-10.1 Serum or plasma total bilirubin measurement (mass/volume) 1.0 mg/dL 0.1-1.0 Serum or plasma alkaline phosphatase measurement (enzymatic activity/volume) 91 U/L 40-136 Serum or plasma aspartate aminotransferase measurement (enzymatic activity/ volume) 39 U/L 5-34 Serum or plasma alanine aminotransferase measurement (enzymatic activity/volume ) 46 U/L 0-55 Serum or plasma protein measurement (mass/volume) 7.6 g/dL 6.4-8.2 Serum or plasma albumin measurement (mass/volume) 4.3 g/dL 3.2-4.5 Serum or plasma troponin i.cardiac measurement (mass/volume) - 12/05/16 17:35 Serum or plasma troponin i.cardiac measurement (mass/volume) < ng/ mL <0.30 Complete urinalysis with reflex to culture - 12/05/16 18:25 Urine color determination YELLOW NRG Urine clarity determination CLEAR NRG Urine pH measurement by test strip 5 5-9 Specific gravity of urine by test strip 1.020 1.016- 1.022 Urine protein assay by test strip, semi-quantitative NEGATIVE NEGATIVE Urine glucose detection by automated test strip NEGATIVE NEGATIVE Erythrocytes detection in urine sediment by light microscopy NEGATIVE NEGATIVE Urine ketones detection by automated test strip NEGATIVE NEGATIVE Urine nitrite detection by test strip NEGATIVE NEGATIVE Urine total bilirubin detection by test strip NEGATIVE NEGATIVE Urine urobilinogen measurement by automated test strip (mass/volume) NORMAL NORMAL Urine leukocyte esterase detection by dipstick NEGATIVE NEGATIVE Automated urine sediment erythrocyte count by microscopy (number/high power field) NONE NRG Automated urine sediment leukocyte count by microscopy (number/high power field ) NONE NRG Bacteria detection in urine sediment by light microscopy NONE NRG Squamous epithelial cells detection in urine sediment by light microscopy RARE NRG Crystals detection in urine sediment by light microscopy NONE NRG Casts detection in urine sediment by light microscopy NONE NRG Mucus detection in urine sediment by light microscopy NEGATIVE NRG Complete urinalysis with reflex to culture NO NRG Encounters ACCT No. Visit Date/Time Discharge Status Pt. Type Provider Facility Loc./Unit Complaint [id number] 01/29/2018 11:00:00 01/29/2018 23:59:59 CLS Outpatient ROSEY MERCADO [facility] RAD CAD,HTN, MIXED HYPERLIPIDEMIA [id number] 12/20/2017 10:53:00 12/20/2017 23:59:59 CLS Preadmit ROSEY MERCADO [facility] CARD CAD,HTN, PALPITATIONS [id number] 12/05/2017 10:17:00 12/05/2017 23:59:59 CLS Outpatient CHENCHO SYKES [facility] RAD SCREENING [id number] 10/24/2017 13:01:00 10/24/2017 13:39:00 DIS Outpatient LEEANNA KOROMA DO [facility] REHAB LUMBAR SCOLIOSIS;R HIP PAIN [id number] 03/21/2017 10:00:00 04/22/2017 14:42:00 DIS Outpatient PATRIA RIVAS APRN [facility] REHAB R GREATER TUBEROSITY FX [id number] 04/04/2017 12:55:00 04/04/2017 23:59:59 CLS Outpatient LEEANNA KOROMA DO [facility] RAD RT SHOULDER HUMERUS FRACTURE [id number] 12/20/2016 17:52:00 12/20/2016 19:07:00 DIS Emergency REGGIE ALY [facility] ER FALL [id number] 12/05/2016 16:43:00 12/05/2016 19:38:00 DIS Emergency MARGARET FRANK APRN [facility] ER VOMITING,TROUBLE URINATING [id number] 05/25/2016 15:35:00 05/25/2016 23:59:59 CLS Outpatient VITOR CLINTON APRN [facility] RAD LEFT KNEE PAIN [id number] 12/16/2015 08:37:00 12/16/2015 23:59:59 CLS Outpatient ERIK DAUGHERTY MD [facility] CARD CHEST PAIN SYNDROME [id number] 12/05/2015 08:52:00 12/05/2015 23:59:59 CLS Outpatient ERIK DAUGHERTY MD [facility] CARD CHEST PAIN SYNDROME, DIASTOLIC DYSFUNCTION, HTN, [id number] 11/26/2015 10:26:00 11/26/2015 12:33:00 DIS Emergency JASPAL MCGOVERN MD [facility] ER NAUSEA;DIZZINESS [id number] 09/25/2015 23:10:00 09/28/2015 11:30:00 DIS Outpatient CARRIE TY MD [facility] CATH CHEST PAIN, RUQ PAIN , BACK PAIN, N/V, HYPERTENSIVE [id number] 10/04/2014 18:43:00 10/04/2014 20:56:00 DIS Emergency DAPHNEY CALLEJAS, HARINDER Morales [facility] ER DIZZY [id number] 11/27/2013 09:14:00 11/27/2013 23:59:59 CLS Outpatient CARRIE TY MD [facility] RAD SCREENING [id number] 06/02/2018 14:58:00 ACT Emergency ANDRÉS MURGUIA MD [facility] ER WEAKNESS [id number] 11/17/2011 19:22:00 Document Registration [id number] 11/14/2011 19:00:00 Document Registration [id number] 11/06/2011 12:29:00 Document Registration [id number] 09/13/2011 15:17:00 Document Registration [id number] 08/16/2011 14:58:00 Document Registration [id number] 05/28/2011 11:12:00 Document Registration [id number] 03/22/2011 09:52:00 Document Registration [id number] 09/19/2010 10:00:00 Document Registration [id number] 08/22/2010 22:28:00 Document Registration [id number] 07/08/2010 10:30:00 Document Registration [id number] 06/21/2010 10:01:00 Document Registration [id number] 06/17/2010 16:50:00 Document Registration [id number] 11/02/2016 10:17:05 11/02/2016 23:59:59 [facility] Outpatient Carrie Ty
[2018-06-02 15:35] LABS: PROTHROMBIN TIME PATIENT 13.3 SEC (12.2-14.7)
[2018-06-02 15:40] LABS: ALANINE AMINOTRANSFERASE 29 U/L (0-55); ALBUMIN 4.1 GM/DL (3.2-4.5); ALKALINE PHOSPHATASE 54 U/L (40-136); BILIRUBIN,TOTAL 1.6 MG/DL (0.1-1.0); BUN/CREATININE RATIO 12; CALCIUM 9.5 MG/DL (8.5-10.1); CARBON DIOXIDE 25 MMOL/L (21-32); CHLORIDE 100 MMOL/L (98-107); CREATININE SERUM 0.89 MG/DL (0.60-1.30); GFR ESTIMATED > 60; GLUCOSE 166 MG/DL (70-105); POTASSIUM 3.6 MMOL/L (3.6-5.0); SODIUM 138 MMOL/L (135-145); TOTAL PROTEIN 6.8 GM/DL (6.4-8.2)
[2018-06-02 15:47] LABS: BAND NEUTROPHILS 20 %; BASOPHILS % (MANUAL) 0 %; EOSINOPHILS % (MANUAL) 0 %; LYMPHOCYTES % (MANUAL) 9 %; MONOCYTES % (MANUAL) 2 %; NEUTROPHILS % (MANUAL) 65 %; RBC MORPH NORMAL; REACTIVE LYMPHOCYTES 4 %
[2018-06-02] MEDS ORDERED: NS IV 500 ML 500 ML IV ONE (15:47)
[2018-06-02] MEDS ORDERED: PROPOFOL DRIP (ICU) 100 ML IV ONE (16:01)
--- NOTE | 2018-06-02 16:05 | NUR ---
1605: 30MG ETOMIDATE 1606: 100MG SUCC 1608: TIME OF INTUBATION BY DR. MURGUIA WITH RT ASSIST 1610: 16 FR JIMENEZ 1611: PROPOFOL DRIP INITIATED @ 30MCG/KG/MIN 1614: ET DEEP SUCTION 1616: SPUTUM CULTURE OBTAINED VIA ET DEEP SUCTION 1620: 5MG VERSED 1634: PROPOFOL DRIP STOPPED (BP 67/31) 1639: ET DEEP SUCTION BY CALEB RT 1642: NOREPINEPHRINE @10MCG/MIN (38.1ML/HR) 1645: PH 7.32 CV 1652: NOREPINEPHRINE DECREASED 5MCG/MIN (BP119/60) 1708: 20MG PROPOFOL BOLUS FROM DRIP. PROPOFOL DRIP RESTARTED @ 20MCG/KG/MIN 1710: CENTRAL LINE PLACEMENT BY DR. MURGUIA TO RT IJ 1717: NOREPINEPHRINE INCREASED @10MCG/MIN (BP 82/44) 1720: FAMILY @ BEDSIDE. 1739: NOREPINEPHRINE INCREASED @ 15MCG/MIN 1759: NOREPINEPHRINE INCREASED @ 20MCG/MIN
--- NOTE | 2018-06-02 16:06 | Diagnostic Imaging Report ---
INDICATION: Weakness with shortness of breath. COMPARISON: 12/05/2016. FINDINGS: New right basilar pulmonary opacity reflecting a change from prior is suspicious for infiltrate in the right middle or lower lobe. There is partial obscuration of the right heart border. There does appear to be at least small right pleural effusion. We note sensitivity limited by portable semi-upright technique with an apical lordotic orientation. IMPRESSION: Suspicion for new infiltrate medial right base with probable small right pleural effusion. No other potential change at this exam. Dictated by: Dictated on workstation # [id number]
[2018-06-02] MEDS ORDERED: PROPOFOL DRIP (ICU) 100 ML IV SCH ×2 (16:15→17:15)
[2018-06-02] MEDS ORDERED: NOREPINEPHRINE 4 MG/4 ML (LEVOPHED) AMP IV ONE (16:35)
[2018-06-02] MEDS ORDERED: NS (IVPB) 250 ML ONE (16:35)
[2018-06-02 16:42] LABS: ABG BASE EXCESS -4.8 MMOL/L (-2.5-2.5); ABG OXYGEN SATURATION 99 % (94-100); ABG PCO2 41 MMHG (35-45); ABG PO2 123 MMHG (79-93); ABG TCO2 21.1 MMOL/L (21.0-31.0)
[2018-06-02 16:44] LABS: ABG PH 7.32 (7.37-7.43)
[2018-06-02 16:45] LABS: ALLENS TEST YES-POS; INSPIRED O2 100%; PATIENT TEMP 101.5; VENTILATOR YES
[2018-06-02] MEDS ORDERED: KETOROLAC 30 MG/ML VIAL IVP ONE (16:45)
--- NOTE | 2018-06-02 16:54 | Diagnostic Imaging Report ---
PATIENT HISTORY: Intubation. TECHNIQUE: Single frontal view of the chest. COMPARISON: Radiograph from the same day. FINDINGS: The endotracheal tube is approximately 3 cm from the raz. An enteric tube crosses the [id number]. Cervical spine fusion hardware is noted. A suture anchor is seen in the left humeral head. The lung volumes are low. There is dense consolidation in the right lung base. The cardiac silhouette is mildly prominent which may be due to AP technique. No pneumothorax or pleural effusion is seen. IMPRESSION: 1. The endotracheal tube is 3 cm from the raz. 2. Dense right basilar consolidation. Dictated by: Dictated on workstation # [id number]
[2018-06-02] MEDS ORDERED: NOREPINEPHRINE 4 MG in NS (IVPB) 250 ML IV SCH (17:15)
--- NOTE | 2018-06-02 17:28 | Diagnostic Imaging Report ---
INDICATION: Catheter placement. FINDINGS: Right IJ catheter has been placed, tip at the upper SVC. ET tube in the mid trachea. OG catheter in the stomach. Worsened consolidative changes and density in the right lung have occurred with likely increased pleural fluid. IMPRESSION: Right IJ at the SVC with no pneumothorax. Progressive right thoracic pleural-parenchymal opacity. Remaining support apparatus unchanged. Dictated by: Dictated on workstation # [id number]
[2018-06-02] MEDS ORDERED: VANCOMYCIN INJECTION 1,000 MG in NS (IVPB) 250 ML IV STA (17:36)
[2018-06-02] MEDS ORDERED: LACTATED RINGERS 1,000 ML IV ONE (18:21)
[2018-06-02] MEDS ORDERED: LACTATED RINGERS 1,000 ML IV STA (18:23)
--- NOTE | 2018-06-02 18:27 | NUR ---
PT REPORT GIVEN TO LOBITO JEFFREY @ 1827. ICU #9.
--- NOTE | 2018-06-02 18:38 | History & Physicial ---
History of Present Illness History of Present Illness Reason for visit/HPI PT IS A 73 Y/O FEMALE WHO IS WELL KNOWN TO ME FROM CLINIC. UNFORTUNATELY SHE IS INTUBATED AND UNABLE TO RELATE ANY HPI INFORMATION TO ME. THE INFORMATION IN THIS RECORD IS FROM THE PATIENT'S INITIAL EMERGENCY ROOM VISIT. THIS IS THE INITIAL INFORMATION FROM THE ER PHYSICIAN...Patient presents to ER by private conveyance with her grandson with chief complaint that this morning she woke up just not feeling well having nausea vomiting all day cough is productive and complaint of shortness of air. She does not have a history of oxygen dependency, asthma or COPD that her grandson is aware of. He does not know what medication she takes. The patient is not able to give any meaningful review of systems or history as she is quite delirious. She has not had any Tylenol ibuprofen or aspirin today. Date of Admission Jun 02, 2018 at 16:25 Date Seen by a Provider: Jun 02, 2018 Time Seen by a Provider: 16:25 I consulted on this patient on 06/02/18 18:38 Attending Physician Carrie Ty MD Admitting Physician Carrie Ty MD Consult DR. HAINES Allergies and Home Medications Allergies Coded Allergies: Penicillins (Unverified Allergy, Mild, 11/14/11) Uncoded Allergies: CONTRAST DYE (Adverse Reaction, Mild, 09/25/15) Home Medications Amlodipine Besylate 5 Mg Tablet, 5 MG PO DAILY, (Reported) Aspirin 325 Mg Tablet.dr, 325 MG PO DAILY Prescribed by: CARRIE TY on 09/28/15 0842 Atorvastatin Calcium 20 Mg Tablet, 20 MG PO DAILY Prescribed by: CARRIE TY on 09/28/15 0843 Levothyroxine Sodium 150 Mcg Tablet, 150 MCG PO DAILY, (Reported) LAST FILLED #30 08-08-15 Tramadol HCl 50 Mg Tablet, 50 MG PO Q8H PRN for PAIN-MILD Prescribed by: REGGIE ALY on 12/20/16 8317 Patient Home Medication List Home Medication List Reviewed: Yes Past [id number]-[id number]-Thfxfm Hx Patient Social History Marrital Status: Living Status: LIVES IN HOME WITH FAMILY Employed/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[employer]) Alcohol Use: Denies Use Recreational Drug Use: No Smoking Status: Never a Smoker 2nd Hand Smoke Exposure: No Physical Abuse Screen: No Sexual Abuse: No Recent Foreign Travel: No Contact w/other who traveled: No Recent Hopitalizations: No Recent Infectious Disease Expo: No Immunizations Up To Date Tetanus Booster (TDap): Unknown Date of Pneumonia Vaccine: Nov 24, 2010 Seasonal Allergies Seasonal Allergies: No Surgeries Yes (DISC SURGERY ON BACK 1999, disc surgery on back in 2011) Gallbladder, Orthopedic Respiratory No Cardiovascular Yes Hypertension Neurological Yes (severe speech impediment, cervical spinal stenosis) Stroke Reproductive System Hx Reproductive Disorders: No Sexually Transmitted Disease: No HIV/AIDS: No Female Reproductive Disorders: Denies Genitourinary No Gastrointestinal Yes (constipation) Musculoskeletal Yes (cervical spinal stenosis) Arthritis Endocrine History of Endocrine Disorders: Yes Endocrine Disorders: Hypothyroidsim HEENT Loss of Vision: Denies Hearing Impairment: Denies Cancer No Psychosocial History of Psychiatric Problem: No Integumentary History of Skin or Integumenta: No Blood Transfusions History of Blood Disorders: No Adverse Reaction to a Blood Tr: No Reviewed Nursing Assessment Reviewed/Agree w Nursing PMH: Yes Family Medical History Significant Family History: Heart Disease, Hypertension Review of Systems Constitutional: No chills; malaise, weakness Respiratory: dyspnea on exertion, short of breath Psychiatric/Neurological: Weakness, Other (DELIRIOUS) All Other Systems Reviewed Negative Unless Noted: Yes Physical Exam Vital Signs Vital Signs - First Documented 06/02/18 06/02/18 06/02/18 14:57 15:08 15:17 Temp 103.6 Pulse 128 Resp 26 B/P (MAP) 175/87 (116) Pulse Ox 90 O2 Delivery Nasal Cannula O2 Flow Rate 5.00 FiO2 75 Capillary Refill : Greater Than 3 Seconds Height, Weight, BMI Height: 5'2.00" Weight: 200lbs. 0.0oz. 90.304168aa; 37.3 BMI Method:Estimated General Appearance: Other (INTUBATED, LEVEL OF DISTRESS UNABLE TO BE NOTED) Eyes: Bilateral Eye PERRL Neck: Supple Respiratory: Chest Non Tender, Other (INTUBATED) Cardiovascular: Regular Rate, Rhythm, No Edema, Normal Peripheral Pulses Gastrointestinal: Normal Bowel Sounds, No Organomegaly, No Pulsatile Mass, Non Tender, Soft Rectal: Deferred Extremity: Normal Capillary Refill, Pedal Edema Neurologic/Psychiatric: Other (INTUBATED AND SEDATED) Lymphatic: No Adenopathy Assessment/Plan Assessment and Plan PNEUMONIA RESPIRATORY FAILURE SEPSIS LEUKOCYTOSIS LACTIC ACIDOSIS INTUBATED STATUS HYPERTENSION HYPOTHYROIDISM PNEUMONIA WITH RESPIRATORY FAILURE AND SEPSIS - PT IS INTUBATED, ICU STATUS WITH IV ANTIBIOTIC TREATMENT WHILE WE GIVE HER A CHANCE TO REST ON THE VENTILATOR TONIGHT. DEFER TO DR. HAINES - REPEAT CHEST XRAY IN MORNING. CONTINUE WITH MONITORING OF LACIT ACID AND REPEAT LABS IN MORNING. LEUKOCYTOSIS - REPEAT LABS IN MORNING HYPERTENSION - HOLD ORAL MEDICATIONS AT THIS TIME, - - WILL REVIEW MEDICATION AND RESTART HOME MEDICATIONS WHEN ABLE TO TAKE PO. HYPOTHYROIDISM -HOLD ORAL MEDICATIONS AT THIS TIME, - - WILL REVIEW MEDICATION AND RESTART HOME MEDICATIONS WHEN ABLE TO TAKE PO. Admission Diagnosis PNEUMONIA RESPIRATORY FAILURE SEPSIS LEUKOCYTOSIS LACTIC ACIDOSIS INTUBATED STATUS HYPERTENSION HYPOTHYROIDISM Admission Status: Inpatient Order (span 2 midnights) Reason for Inpatient Admission: PT HAS PNEUMONIA, IS INTUBATED AND WILL REQUIRE AT LEAST 72+ HOURS PRIOR TO DISCHARGE CARRIE TY MD Jun 02, 2018 18:38
--- NOTE | 2018-06-02 18:48 | NUR ---
TYMPANIC TEMP 99.3. RT IN ROOM OBTAINING ABG.
--- NOTE | 2018-06-02 18:51 | NUR ---
DR. VALENTINE IN ROOM WITH PT.
[2018-06-02 19:04] LABS: ABG BASE EXCESS -6.8 MMOL/L (-2.5-2.5); ABG OXYGEN SATURATION 95 % (94-100); ABG PCO2 33 MMHG (35-45); ABG PH 7.35 (7.37-7.43); ABG PO2 74 MMHG (79-93); ABG TCO2 18.7 MMOL/L (21.0-31.0)
[2018-06-02 19:05] LABS: ALLENS TEST YES-POS; INSPIRED O2 100%; PATIENT TEMP 99.3; VENTILATOR YES
--- NOTE | 2018-06-02 19:12 | NUR ---
SONIA NOEL admitted to room CU9-1, with an admitting diagnosis of Pneumonia, Septic shock, Acute resp failure, on 06/02/18 from ED via stretcher, accompanied by Family Sister, Son and Grandson.BERTSONIA Lyssa introduced to surroundings, call light, bed controls, phone, TV, temperature control, lights, meal times, smoking policy, visitor policy, side rail policy, bathrooms and showers. Patient Rights given to patient in the handbook. BERTSONIA A Family verbalizes understanding that [facility] is not responsible for the loss or damage to any personal effects or valuables that are kept in the patients possession during their hospitalization. The following Patient Care Plans were discussed with the patient family: Discharge Planning. SONIA NOEL family verbalizes understanding of Interdisciplinary Patient Education. Patient and/or family were informed about the Rapid Response Team and its purpose.
[2018-06-02] MEDS ORDERED: NS (IVPB) 100 ML ONE (19:26)
[2018-06-02] MEDS ORDERED: VASOPRESSIN INJECTION 20 UNIT/ML VIAL ONE (19:27)
--- NOTE | 2018-06-02 19:29 | NUR ---
CR 0.89; CR CL ~51; WT 90.7 KG; VANCO 1750 MG IV BOLUS THEN 1500 MG DAILY FOR 3 DAYS
[2018-06-02] MEDS ORDERED: NS IV 1000 ML 2,721.54 ML IV ONE (19:30)
[2018-06-02] MEDS: VANCOMYCIN 750 MG/NS 250 ML IVPB IV NR ×4 (20:07→20:38)
[2018-06-02] MEDS: NOREPINEPHRINE 4 MG in NS (IVPB) 250 ML IV SCH ×2 (20:16→22:39)
[2018-06-02] MEDS: NS IV 1000 ML 1,000 ML IV SCH (20:18)
--- NOTE | 2018-06-02 20:31 | NUR ---
Spoke to Dr Morales via telephone at this and updated on patient condition. Updated on lactic acid results and ABG. Order for repeat chest x -ray at this time.
--- NOTE | 2018-06-02 21:18 | Diagnostic Imaging Report ---
INDICATION: Possible pneumothorax COMPARISON STUDY: Chest from 5:20 PM today. FINDINGS: A portable upright view of the chest demonstrates marked decrease of the right pleural effusion with no pneumothorax. Cardiomegaly is stable. The left lung is clear. An endotracheal tube, enteric tube and right jugular catheter are in place. IMPRESSION: There has been marked decrease of the right pleural effusion with no pneumothorax. Cardiomegaly is stable. Life support tubes appear to be in good position. Dictated by: Dictated on workstation # [id number]
[2018-06-02] MEDS: RT-ALBUTEROL/IPRATROPIUM 3 ML (DUONEB) VIAL INH SCH (21:51)
[2018-06-02] MEDS ORDERED: NS (IVPB) 50 ML ONE (22:12)
[2018-06-02] MEDS: CEFEPIME 1,000 MG/SWFI 10 ML IV PUSH IV SCH ×2 (22:16)
[2018-06-02] MEDS: PROPOFOL DRIP (ICU) 100 ML IV SCH (22:16)
[2018-06-02] MEDS: DEXMEDETOMIDINE INJECTION 200 MCG in NS (IVPB) 50 ML IV SCH (22:20)
--- NOTE | 2018-06-02 23:55 | NUR ---
Call to E ICU, spoke to Mile to report critical lactic acid and decreased urine output of 25ml x 2 hours.
[2018-06-03] VITALS (37 sets, daily range): BP systolic 81–153; BP diastolic 53–93
[2018-06-03] MEDS: NS IV 1000 ML 1,000 ML IV SCH (00:20)
[2018-06-03] MEDS: NOREPINEPHRINE 4 MG in NS (IVPB) 250 ML IV SCH ×2 (01:44→04:36)
[2018-06-03] MEDS: RT-ALBUTEROL/IPRATROPIUM 3 ML (DUONEB) VIAL INH SCH ×6 (02:24→22:15)
[2018-06-03] MEDS ORDERED: VASOPRESSIN INJECTION 20 UNIT/ML VIAL ONE (02:38)
[2018-06-03] MEDS ORDERED: NS (IVPB) 100 ML ONE (02:38)
[2018-06-03 03:14] LABS: BASOPHILS % (AUTO) 0 % (0-10); EOSINOPHILS # (AUTO) 0.1 10^3/uL (0.0-0.3); EOSINOPHILS % (AUTO) 0 % (0-10); HEMATOCRIT 36 % (35-52); HEMOGLOBIN 11.7 G/DL (11.5-16.0); LYMPHOCYTES % (AUTO) 13 % (12-44); MEAN CORPUSCULAR HEMOGLOBIN 29 PG (25-34); MEAN CORPUSCULAR HGB CONC 32 G/DL (32-36); MEAN CORPUSCULAR VOLUME 88 FL (80-99); MEAN PLATELET VOLUME 9.7 FL (7.4-10.4); MONOCYTES % (AUTO) 7 % (0-12); NEUTROPHILS # (AUTO) 12.4 X 10^3 (1.8-7.8); NEUTROPHILS % (AUTO) 80 % (42-75); PLATELET COUNT 246 10^3/uL (130-400); RED CELL DISTRIBUTION WIDTH 14.7 % (10.0-14.5); WHITE BLOOD COUNT 15.5 10^3/uL (4.3-11.0)
[2018-06-03] MEDS ORDERED: LACTATED RINGERS 1,000 ML IV SCH (03:16)
[2018-06-03 03:28] LABS: ALBUMIN 2.5 GM/DL (3.2-4.5); BILIRUBIN,TOTAL 0.8 MG/DL (0.1-1.0); CALCIUM 6.9 MG/DL (8.5-10.1); CREATININE SERUM 1.62 MG/DL (0.60-1.30); POTASSIUM 2.8 MMOL/L (3.6-5.0); TOTAL PROTEIN 4.2 GM/DL (6.4-8.2)
[2018-06-03] MEDS ORDERED: POTASSIUM CL 10MEQ/50ML IVPB 50 ML IV ONE (03:45)
[2018-06-03] MEDS: CEFEPIME 1,000 MG/SWFI 10 ML IV PUSH IV SCH ×6 (03:45→19:55)
[2018-06-03 03:49] LABS: MAGNESIUM 1.7 MG/DL (1.8-2.4); PHOSPHORUS 3.5 MG/DL (2.3-4.7)
[2018-06-03] MEDS: POTASSIUM CL 10MEQ/50ML IVPB 50 ML IV SCH ×5 (03:54→05:05)
[2018-06-03] MEDS ORDERED: NS (IVPB) 50 ML ONE (04:06)
[2018-06-03] MEDS: MAGNESIUM 1 GM/100 ML IVPB 100 ML IV SCH ×3 (04:12→05:04)
[2018-06-03] MEDS: DEXMEDETOMIDINE INJECTION 200 MCG in NS (IVPB) 50 ML IV SCH (04:16)
[2018-06-03] MEDS: KCL 20 MEQ TAB (K-DUR) PO SCH (04:27)
[2018-06-03] MEDS ORDERED: NS IV 1000 ML 1,000 ML IV SCH ×2 (04:30→06:00)
[2018-06-03] MEDS ORDERED: NS (IVPB) 250 ML ONE (04:30)
[2018-06-03] MEDS ORDERED: NOREPINEPHRINE 4 MG/4 ML (LEVOPHED) AMP IV ONE ×3 (04:30→08:57)
--- NOTE | 2018-06-03 05:43 | Pulmonary Progress Note ---
Sepsis Event Evaluation Height, Weight, BMI Height: 5'2.00" Weight: 201lbs. 0.0oz. [id number]; 36.8 BMI Method:Estimated Focused Exam Lactate Level 06/02/18 23:29: Lactic Acid Level 3.52*H 06/03/18 02:51: Lactic Acid Level 3.81*H 06/03/18 05:06: Lactic Acid Level 6.13*H Time of Focused Exam: 18:11 Lactic Acid Level Laboratory Tests Test 06/03/18 02:51 06/03/18 05:06 Lactic Acid Level 3.81 MMOL/L (0.50-2.00) *H 6.13 MMOL/L (0.50-2.00) *H Exam Exam Vital Signs Date Time Temp Pulse Resp B/P (MAP) Pulse Ox O2 Delivery O2 Flow Rate FiO2 06/03/18 04:38 102 26 98 70 06/03/18 04:00 105 22 84/60 (68) 97 Mechanical Ventilator 70.00 06/03/18 04:00 99 Mechanical Ventilator 70 06/03/18 03:57 97.9 Mechanical Ventilator 70.00 06/03/18 03:00 90 24 105/64 (78) 96 Mechanical Ventilator 70.00 06/03/18 02:24 82 24 95 80 06/03/18 02:24 82 23 82/53 (63) 95 Mechanical Ventilator 70.00 06/03/18 02:00 78 24 83/54 (64) 91 Mechanical Ventilator 80.00 06/03/18 01:00 81 06/03/18 01:00 81 24 89/58 (68) 94 Mechanical Ventilator 80.00 06/03/18 00:52 81 24 94 80 06/03/18 00:45 82 24 85/59 (68) 94 Mechanical Ventilator 80.00 06/03/18 00:30 80 23 89/57 (68) 94 Mechanical Ventilator 80.00 06/03/18 00:15 76 24 85/54 (64) 94 Mechanical Ventilator 80.00 06/03/18 00:00 78 24 81/55 (64) 94 Mechanical Ventilator 80.00 06/02/18 23:45 80 23 90/57 (68) 96 Mechanical Ventilator 80.00 06/02/18 23:40 93 Mechanical Ventilator 80 06/02/18 23:31 93 Mechanical Ventilator 80 06/02/18 23:30 86 23 81/67 (72) 95 Mechanical Ventilator 80.00 06/02/18 23:15 88 24 86/59 (68) 94 Mechanical Ventilator 80.00 06/02/18 23:00 89 24 98/57 (71) 94 Mechanical Ventilator 80.00 06/02/18 22:16 113/66 Mechanical Ventilator 80.00 06/02/18 22:00 73 24 113/66 (82) 93 Mechanical Ventilator 80.00 06/02/18 21:51 75 24 95 100 06/02/18 21:51 75 23 100/69 (79) 95 Mechanical Ventilator 80.00 06/02/18 21:25 97.4 Mechanical Ventilator 100.00 06/02/18 21:00 80 24 103/76 (85) 97 Mechanical Ventilator 100.00 06/02/18 20:45 82 23 80/47 (58) 96 Mechanical Ventilator 100.00 06/02/18 20:31 86 24 89/59 (69) 97 Mechanical Ventilator 100.00 06/02/18 20:15 79 23 74/52 (59) 93 Mechanical Ventilator 100.00 06/02/18 20:07 82 24 84/49 (61) 97 Mechanical Ventilator 100.00 06/02/18 20:00 81 24 78/49 (59) 97 Mechanical Ventilator 100.00 06/02/18 19:45 73 27 99/54 (69) 95 Mechanical Ventilator 100.00 06/02/18 19:29 85 23 74/48 (57) 95 Mechanical Ventilator 100.00 06/02/18 19:26 86 24 94 100 06/02/18 19:24 90 06/02/18 19:21 86 17 82/46 (58) 96 Mechanical Ventilator 100.00 06/02/18 19:20 99.4 Mechanical Ventilator 100.00 06/02/18 19:07 99.4 80 20 93/46 (62) 94 Mechanical Ventilator 06/02/18 17:37 108 24 89 100 06/02/18 16:11 103.6 120 18 113/92 Mechanical Ventilator 06/02/18 15:19 103.6 06/02/18 15:17 94 Vapotherm 30.00 75 06/02/18 15:12 Nasal Cannula 4.00 06/02/18 15:08 103.6 128 26 175/87 (116) 90 Nasal Cannula 5.00 06/02/18 14:57 90 Nasal Cannula 5.00 I & O 06/03/18 07:00 Intake Total 8207.5 ml Output Total 180 ml Balance 8027.5 ml Height & Weight Height: 5'2.00" Weight: 201lbs. 0.0oz. 91.264142wc; 36.8 BMI Method:Estimated General Appearance: Other (INTUBATED, LEVEL OF DISTRESS UNABLE TO BE NOTED) HEENT: PERRL/EOMI, TMs Normal, Normal ENT Inspection, Pharynx Normal; No Moist Mucous Membranes Neck: Supple Respiratory: Chest Non Tender, Other (INTUBATED) Cardiovascular: Regular Rate, Rhythm, No Edema, Normal Peripheral Pulses Capillary Refill: Less Than 3 Seconds Peripheral Pulses: 1+ Radial Pulses (R), 1+ Radial Pulses (L) Extremity: Normal Capillary Refill, Pedal Edema Neurologic/Psychiatric: Other (INTUBATED AND SEDATED) Lymphatic: No Adenopathy Results Lab Laboratory Tests 06/02/18 15:10 06/03/18 02:51 CORIN HAINES DO Jun 03, 2018 05:43
[2018-06-03] MEDS: HYDROCORTISONE 100 MG/2 ML (Solu-CORTEF) VIAL IV SCH ×3 (06:04→22:16)
--- NOTE | 2018-06-03 06:07 | Pulmonary Consultation ---
History of Present Illness History of Present Illness Date of Consultation 06/03/18 06:02 Time Seen by Provider: 06:02 Date of Admission History of Present Illness 73yo presented to ED never smoker presented to ED in acute respiratory distress and was intubated secondary to worsening respiratory failure. PT woke up not feeling well she had some nausea, cough, and progressive SOB. Pt is currently sedated on vent. All information is obtained from chart. Allergies and Home Medications Allergies Coded Allergies: Penicillins (Unverified Allergy, Mild, 11/14/11) Uncoded Allergies: CONTRAST DYE (Adverse Reaction, Mild, 09/25/15) Home Medications Amlodipine Besylate 10 Mg Tablet, 10 MG PO DAILY, (Reported) Aspirin 81 Mg Tablet.dr, 81 MG PO DAILY, (Reported) Levothyroxine Sodium 150 Mcg Tablet, 150 MCG PO DAILY, (Reported) Past Sdfqnzg-Hgjddf-Krsuoq Hx Patient Social History Alcohol Use: Denies Use Recreational Drug Use: No Smoking Status: Never a Smoker 2nd Hand Smoke Exposure: No Recent Foreign Travel: No Contact w/Someone Who Travel: No Recent Infectious Disease Expo: No Recent Hopitalizations: No Immunizations Up To Date Tetanus Booster (TDap): Unknown Date of Pneumonia Vaccine: Nov 24, 2010 Seasonal Allergies Seasonal Allergies: No Past Medical History Surgeries: Yes (DISC SURGERY ON BACK 1999, disc surgery on back in 2011) Gallbladder, Orthopedic Respiratory: No Cardiac: Yes Hypertension Neurological: Yes (severe speech impediment, cervical spinal stenosis) Stroke : No Reproductive Disorders: No Female Reproductive Disorders: Denies Sexually Transmitted Disease: No HIV/AIDS: No Genitourinary: No Gastrointestinal: Yes (constipation) Musculoskeletal: Yes (cervical spinal stenosis) Arthritis Endocrine: Yes Hypothyroidsim Loss of Vision: Denies Hearing Impairment: Denies Cancer: No Psychosocial: No Integumentary: No Blood Disorders: No Adverse Reaction/Blood Tranf: No Family Medical History Heart Disease, Hypertension Review of Systems Time Seen by Provider: 07:16 Sepsis Event Evaluation Height, Weight, BMI Height: 5'2.00" Weight: 210lbs. 9.0oz. 95.069004df; 36.8 BMI Method:Estimated Exam Exam Vital Signs Date Time Temp Pulse Resp B/P (MAP) Pulse Ox O2 Delivery O2 Flow Rate FiO2 06/03/18 04:38 102 26 98 70 4/9/19 04:00 105 22 84/60 (68) 97 Mechanical Ventilator 70.00 06/03/18 04:00 99 Mechanical Ventilator 70 06/03/18 03:57 97.9 Mechanical Ventilator 70.00 06/03/18 03:00 90 24 105/64 (78) 96 Mechanical Ventilator 70.00 06/03/18 02:24 82 24 95 80 06/03/18 02:24 82 23 82/53 (63) 95 Mechanical Ventilator 70.00 06/03/18 02:00 78 24 83/54 (64) 91 Mechanical Ventilator 80.00 06/03/18 01:00 81 06/03/18 01:00 81 24 89/58 (68) 94 Mechanical Ventilator 80.00 06/03/18 00:52 81 24 94 80 06/03/18 00:45 82 24 85/59 (68) 94 Mechanical Ventilator 80.00 06/03/18 00:30 80 23 89/57 (68) 94 Mechanical Ventilator 80.00 06/03/18 00:15 76 24 85/54 (64) 94 Mechanical Ventilator 80.00 06/03/18 00:00 78 24 81/55 (64) 94 Mechanical Ventilator 80.00 06/02/18 23:45 80 23 90/57 (68) 96 Mechanical Ventilator 80.00 06/02/18 23:40 93 Mechanical Ventilator 80 06/02/18 23:31 93 Mechanical Ventilator 80 06/02/18 23:30 86 23 81/67 (72) 95 Mechanical Ventilator 80.00 06/02/18 23:15 88 24 86/59 (68) 94 Mechanical Ventilator 80.00 06/02/18 23:00 89 24 98/57 (71) 94 Mechanical Ventilator 80.00 06/02/18 22:16 113/66 Mechanical Ventilator 80.00 06/02/18 22:00 73 24 113/66 (82) 93 Mechanical Ventilator 80.00 06/02/18 21:51 75 24 95 100 06/02/18 21:51 75 23 100/69 (79) 95 Mechanical Ventilator 80.00 06/02/18 21:25 97.4 Mechanical Ventilator 100.00 06/02/18 21:00 80 24 103/76 (85) 97 Mechanical Ventilator 100.00 06/02/18 20:45 82 23 80/47 (58) 96 Mechanical Ventilator 100.00 06/02/18 20:31 86 24 89/59 (69) 97 Mechanical Ventilator 100.00 06/02/18 20:15 79 23 74/52 (59) 93 Mechanical Ventilator 100.00 06/02/18 20:07 82 24 84/49 (61) 97 Mechanical Ventilator 100.00 06/02/18 20:00 81 24 78/49 (59) 97 Mechanical Ventilator 100.00 06/02/18 19:45 73 27 99/54 (69) 95 Mechanical Ventilator 100.00 06/02/18 19:29 85 23 74/48 (57) 95 Mechanical Ventilator 100.00 06/02/18 19:26 86 24 94 100 06/02/18 19:24 90 06/02/18 19:21 86 17 82/46 (58) 96 Mechanical Ventilator 100.00 06/02/18 19:20 99.4 Mechanical Ventilator 100.00 06/02/18 19:07 99.4 80 20 93/46 (62) 94 Mechanical Ventilator 06/02/18 17:37 108 24 89 100 06/02/18 16:11 103.6 120 18 113/92 Mechanical Ventilator 06/02/18 15:19 103.6 06/02/18 15:17 94 Vapotherm 30.00 75 06/02/18 15:12 Nasal Cannula 4.00 06/02/18 15:08 103.6 128 26 175/87 (116) 90 Nasal Cannula 5.00 06/02/18 14:57 90 Nasal Cannula 5.00 I & O 06/03/18 07:00 Intake Total 8207.5 ml Output Total 180 ml Balance 8027.5 ml Height & Weight Height: 5'2.00" Weight: 210lbs. 9.0oz. 95.227526kw; 36.8 BMI Method:Estimated General Appearance: Other (INTUBATED, LEVEL OF DISTRESS UNABLE TO BE NOTED) HEENT: PERRL/EOMI, TMs Normal, Normal ENT Inspection, Pharynx Normal; No Moist Mucous Membranes Neck: Supple Respiratory: Chest Non Tender, Other (INTUBATED) Cardiovascular: Regular Rate, Rhythm, No Edema, Normal Peripheral Pulses Capillary Refill: Less Than 3 Seconds Peripheral Pulses: 1+ Radial Pulses (R), 1+ Radial Pulses (L) Extremity: Normal Capillary Refill, Pedal Edema Neurologic/Psychiatric: Other (INTUBATED AND SEDATED) Lymphatic: No Adenopathy Results Lab Laboratory Tests 06/02/18 15:10 06/03/18 02:51 Assessment/Plan Assessment/Plan Acute respiratory failure with ARDS Pa02/Fi02= 74 -Decrease Vt to 450, increase RR to 26, continue to titrate Fi02. Repeat ABG in 1hr Severe Sepsis with septic shock - Lactic acid up to 6 -Give another liter bolus of NS -Bennett cultures pending -Currently on Levophed, and Vasopressin -continue Vanco, and cefepime, add flagyl -Add solucortef -Check echocardiogram -Check troponins x3 q6hrs, and BNP -Influenza is neg -MRSA swab is neg Bilateral pneumonia Metabolic lactic acidosis -Start bicarb gtt and give 2 amps of bicarb Hypokalemia, hypomag -replace Acute renal failure with oligemia, and decreased UO -Check bladder scan -Monitor close I am going to be out of town from to Saturday. We will not have 24/7 pulmonary/CC coverage during that time. Will transfer pt to [place] for pulm/CC management. I have discussed with Dr. Ty who agrees. I have also discussed with family. I have talked to [facility] in [place] and right now they do not have an available bed in ICU however they believe one will open up over the next 24hrs. They are going to call us back as soon as one opens. Since I will be able to see pt tomorrow will wait for [facility] to have an available bed. UPDATE: 1545 Pt's LA continues to rise despite aggressive IVF. Pt's UO has improved and is over 100cc/hr right now. Secondary to her rising LA and severe septic shock I am very concerned about intraabdominal ischemia. I have consulted and discussed with Dr. Yu multiple times. I have also discussed with Dr. Maria (radiology) who also agrees with need to obtain CT with contrast. We all agree pt needs to have a CT of abd/pelvis with IV contrast to r /o ischemia. Pt is sedated on vent which makes it difficult to evaluate abdomen on clinical exam. Despite renal failure we are going to proceed with CT with IV contrast. Will continue aggressive IVF to help protect kidneys. Pt has had > 10liters of IVF since admission. Total time spent with pt, family, medial staff including this morning is 120 min of ICU time. Critical Care: Critically Ill Patient Time spent with patient (mins): 120 CORIN HAINES DO Jun 03, 2018 06:07
[2018-06-03] MEDS ORDERED: SODIUM BICARBONATE 8.4% VIAL 75 MEQ in 1/2 NS IV SOLUTION 1,000 ML IV SCH (06:15)
[2018-06-03] MEDS ORDERED: SODIUM BICARB 8.4% 50 MEQ/50 ML (ABBOTT) SYR ONE ×2 (06:28→13:39)
[2018-06-03] MEDS ORDERED: SODIUM BICARB 8.4% 50 MEQ/50 ML (ABBOTT) SYR IV ONE (06:30)
[2018-06-03] MEDS ORDERED: LEVOTHYROXINE 100 MCG INJ (SYNTHROID) VIAL IV SCH (07:00)
[2018-06-03] MEDS ORDERED: D5W IV SOLUTION (EXCEL) 250 ML IV ONE ×2 (07:05→08:57)
[2018-06-03] MEDS: metroNIDAZOLE 500MG/100ML IVPB 100 ML IV SCH ×2 (07:49→17:33)
--- NOTE | 2018-06-03 08:37 | Progress Note ---
Focused Exam Lactate Level 06/02/18 23:29: Lactic Acid Level 3.52*H 06/03/18 02:51: Lactic Acid Level 3.81*H 06/03/18 05:06: Lactic Acid Level 6.13*H Time of Focused Exam: 18:11 Lactic Acid Level Laboratory Tests Test 06/03/18 05:06 Lactic Acid Level 6.13 MMOL/L (0.50-2.00) *H Objective Exam Last Set of Vital Signs Vital Signs Date Time Temp Pulse Resp B/P (MAP) Pulse Ox O2 Delivery O2 Flow Rate FiO2 06/03/18 06:55 100 28 99 55 06/03/18 06:00 83/58 (66) Mechanical Ventilator 55.00 06/03/18 03:57 97.9 Capillary Refill : Less Than 3 Seconds I&O Intake and Output 06/03/18 00:00 Intake Total 5545.5 ml Output Total 150 ml Balance 5395.5 ml Intake Oral 0 ml IV Total 5545.5 ml Output Urine Total 150 ml # Bowel Movements 2 Daily Weight Change No Results Lab Laboratory Tests 06/02/18 15:09: Blood Gas Puncture Site LT BRACHIAL, Blood Gas Patient Temperature 103.3, Arterial Blood pH 7.39, Arterial Blood Partial Pressure CO2 35, Arterial Blood Partial Pressure O2 74L, Arterial Blood HCO3 20L, Arterial Blood Total CO2 21.2 , Arterial Blood Oxygen Saturation 94, Arterial Blood Base Excess -3.3L, Yovani Test YES-POS, Blood Gas Ventilator Setting NO, Blood Gas Inspired Oxygen 4 06/02/18 15:10: White Blood Count 13.7H, Red Blood Count 5.39, Hemoglobin 15.6, Hematocrit 47, Mean Corpuscular Volume 87, Mean Corpuscular Hemoglobin 29, Mean Corpuscular Hemoglobin Concent 33, Red Cell Distribution Width 14.4, Platelet Count 264, Mean Platelet Volume 9.7, Neutrophils (%) (Auto) 88H, Lymphocytes (%) (Auto) 10L , Monocytes (%) (Auto) 2, Eosinophils (%) (Auto) 0, Basophils (%) (Auto) 0, Neutrophils # (Auto) 12.1H, Lymphocytes # (Auto) 1.3, Monocytes # (Auto) 0.3, Eosinophils # (Auto) 0.0, Basophils # (Auto) 0.0, Neutrophils % (Manual) 65, Lymphocytes % (Manual) 9, Monocytes % (Manual) 2, Eosinophils % (Manual) 0, Basophils % (Manual) 0, Band Neutrophils 20, Reactive Lymphocytes 4, Blood Morphology Comment NORMAL, Prothrombin Time 13.3, INR Comment 1.0, Activated Partial Thromboplast Time 26, Sodium Level 138, Potassium Level 3.6, Chloride Level 100, Carbon Dioxide Level 25, Anion Gap 13, Blood Urea Nitrogen 11, Creatinine 0.89, Estimat Glomerular Filtration Rate > 60, BUN/Creatinine Ratio 12, Glucose Level 166H, Lactic Acid Level 4.42*H, Calcium Level 9.5, Corrected Calcium 9.4, Total Bilirubin 1.6H, Aspartate Amino Transf (AST/SGOT) 22, Alanine Aminotransferase (ALT/SGPT) 29, Alkaline Phosphatase 54, Total Protein 6.8, Albumin 4.1, Triglycerides Level 75, Thyroid Stimulating Hormone (TSH) 1.97 06/02/18 15:12: Glucometer 162H 06/02/18 15:14: Urine Color YELLOW, Urine Clarity SLIGHTLY CLOUDY, Urine pH 8, Urine Specific [place] 1.010L, Urine Protein 1+H, Urine Glucose (UA) NEGATIVE, Urine Ketones 1+ H, Urine Nitrite NEGATIVE, Urine Bilirubin NEGATIVE, Urine Urobilinogen 1, Urine Leukocyte Esterase 1+H, Urine RBC (Auto) NEGATIVE, Urine RBC RARE, Urine WBC RARE, Urine Squamous Epithelial Cells RARE, Urine Crystals PRESENTH, Urine Amorphous Sediment FEW RENATA PHOSPHATEH, Urine Bacteria TRACE, Urine Casts NONE, Urine Mucus SMALLH, Urine Culture Indicated CULTURE PENDING 06/02/18 16:37: Blood Gas Puncture Site RT BRACHIAL, Blood Gas Patient Temperature 101.5, Arterial Blood pH 7.32*L, Arterial Blood Partial Pressure CO2 41, Arterial Blood Partial Pressure O2 123H, Arterial Blood HCO3 20L, Arterial Blood Total CO2 21.1, Arterial Blood Oxygen Saturation 99, Arterial Blood Base Excess -4.8L , Yovani Test YES-POS, Blood Gas Ventilator Setting YES, Blood Gas Inspired Oxygen 100% 06/02/18 16:50: Lactic Acid Level 3.01*H 06/02/18 18:52: Blood Gas Puncture Site RT RADIAL, Blood Gas Patient Temperature 99.3, Arterial Blood pH 7.35L, Arterial Blood Partial Pressure CO2 33L, Arterial Blood Partial Pressure O2 74L, Arterial Blood HCO3 18L, Arterial Blood Total CO2 18.7L, Arterial Blood Oxygen Saturation 95, Arterial Blood Base Excess -6.8L, Yovani Test YES-POS, Blood Gas Ventilator Setting YES, Blood Gas Inspired Oxygen 100% 06/02/18 19:59: Lactic Acid Level 3.17*H 06/02/18 23:29: Lactic Acid Level 3.52*H 06/03/18 02:51: Lactic Acid Level 3.81*H, White Blood Count 15.5H, Red Blood Count 4.09L, Hemoglobin 11.7#, Hematocrit 36, Mean Corpuscular Volume 88, Mean Corpuscular Hemoglobin 29, Mean Corpuscular Hemoglobin Concent 32, Red Cell Distribution Width 14.7H, Platelet Count 246, Mean Platelet Volume 9.7, Neutrophils (%) (Auto ) 80H, Lymphocytes (%) (Auto) 13, Monocytes (%) (Auto) 7, Eosinophils (%) (Auto ) 0, Basophils (%) (Auto) 0, Neutrophils # (Auto) 12.4H, Lymphocytes # (Auto) 2.0, Monocytes # (Auto) 1.0, Eosinophils # (Auto) 0.1, Basophils # (Auto) 0.0, Sodium Level 139, Potassium Level 2.8L, Chloride Level 114#H, Carbon Dioxide Level 14L, Anion Gap 11, Blood Urea Nitrogen 16, Creatinine 1.62H, Estimat Glomerular Filtration Rate 31, BUN/Creatinine Ratio 10, Glucose Level 165H, Calcium Level 6.9L, Corrected Calcium 8.1L, Phosphorus Level 3.5, Magnesium Level 1.7L, Total Bilirubin 0.8, Aspartate Amino Transf (AST/SGOT) 19, Alanine Aminotransferase (ALT/SGPT) 24, Alkaline Phosphatase 40, B-Type Natriuretic Peptide 504.3H, Total Protein 4.2L, Albumin 2.5L 06/03/18 05:06: Lactic Acid Level 6.13*H Microbiology 06/02/18 Influenza Types A,B Antigen ([place]) - Final, Complete Clinical Quality Measures Admission Status Admission Dx PNEUMONIA RESPIRATORY FAILURE SEPSIS LEUKOCYTOSIS LACTIC ACIDOSIS INTUBATED STATUS HYPERTENSION HYPOTHYROIDISM DVT/VTE Risk/Contraindication: Risk Factor Score Per Nursin RFS Level Per Nursing on Admit: 4+=Very High CARRIE VALENTINE MD Jun 03, 2018 08:37
[2018-06-03] MEDS ORDERED: NOREPINEPHRINE 8 MG in NS (IVPB) 250 ML IV SCH (08:45)
--- NOTE | 2018-06-03 08:47 | Diagnostic Imaging Report ---
EXAMINATION: Portable erect AP chest at 3:44 AM. INDICATION: Pneumonia, respiratory distress. FINDINGS: The cardiomegaly and the area of increased density overlying the right lung base seen on the prior exam of 06/02/2018 are again visualized and no different. The right upper lung and left lung are generally clear. The mediastinum is prominent but also stable when compared to the prior exam. The osseous structures are intact. The supportive tubes and lines seem unchanged in position. IMPRESSION: Stable chest. There has been no adverse change since the prior exam. Dictated by: Dictated on workstation # [id number]
[2018-06-03] MEDS ORDERED: AMLO10TA7 PO (08:51)
[2018-06-03] MEDS ORDERED: ASPI-983 PO (09:09)
--- NOTE | 2018-06-03 09:11 | NUR ---
UNABLE TO SPEAK WITH THE PATIENT AT THIS TIME. [facility] HAS NOT FILLED ANYTHING FOR THE PATIENT SINCE 2017. [facility] HAS FILLED AMLODIPINE 10MG AND LEVOTHYROXINE 150MCG RECENTLY. I HAD A LIST SENT OVER FROM DR. VALENTINE'S OFFICE WELL. THE LIST FROM THERE STATES AMLODIPINE 5MG, I UPDATED THE MED REC TO THE 10MG SINCE THAT IS WHAT HAS BEEN FILLED MOST RECENTLY. THAT LIST ALSO STATES ASPIRIN 81MG, I ADDED THAT OTC MED TO THE MED REC AT THIS TIME. ALSO LISTED WAS TESSALON PERLES WHICH A SHORT SUPPLY WAS FILLED IN [facility], I DID NOT PUT IT ON MED REC I ASSUME THAT IS COMPLETED. ALSO LISTED IS VOLTAREN GEL, THIS HAS NOT BEEN FILLED RECENTLY SO I DID NOT INCLUDE IT ON THE MED REC AT THIS TIME.
[2018-06-03] MEDS: PROPOFOL DRIP (ICU) 100 ML IV SCH ×3 (10:19→22:49)
[2018-06-03] MEDS: VASOPRESSIN INJECTION 20 UNIT in NS (IVPB) 100 ML IV SCH ×2 (11:26→19:56)
--- NOTE | 2018-06-03 11:28 | NUR ---
Pt is Caodaism and currently intubated. Her grandson and sister say she would want to be anointed. Information Security Specialist offered prayer and will notify treasury representative.
[2018-06-03] MEDS ORDERED: NS IV 1000 ML 1,000 ML ONE (12:08)
[2018-06-03 12:56] LABS: ABG BASE EXCESS -14.9 MMOL/L (-2.5-2.5); ABG OXYGEN SATURATION 91 % (94-100); ABG PCO2 28 MMHG (35-45); ABG PO2 58 MMHG (79-93); ABG TCO2 12.3 MMOL/L (21.0-31.0)
[2018-06-03 12:59] LABS: ABG PH 7.22 (7.37-7.43)
[2018-06-03] MEDS ORDERED: inSUlin ASPART (NovoLOG) 1 UNIT/0.01 ML (CHARGE PER UNIT) ONE (12:59)
[2018-06-03 13:00] LABS: INSPIRED O2 FIO2 35%; VENTILATOR YES
[2018-06-03 14:43] LABS: ALBUMIN 2.8 GM/DL (3.2-4.5); BILIRUBIN,DIRECT 0.4 MG/DL (0.0-0.3); BILIRUBIN,INDIRECT 0.1 MG/DL; BILIRUBIN,TOTAL 0.5 MG/DL (0.1-1.0); CALCIUM 7.4 MG/DL (8.5-10.1); CREATININE SERUM 1.68 MG/DL (0.60-1.30); PHOSPHORUS 3.6 MG/DL (2.3-4.7); POTASSIUM 3.5 MMOL/L (3.6-5.0); TOTAL PROTEIN 5.1 GM/DL (6.4-8.2)
[2018-06-03] MEDS: SODIUM BICARBONATE 8.4% VIAL 150 MEQ in 1/2 NS IV SOLUTION 1,000 ML IV SCH ×3 (15:29→23:30)
[2018-06-03] MEDS ORDERED: HOLD METFORMIN - RECEIVED CONTRAST 20 ML VIAL IV SCH (15:45)
[2018-06-03] MEDS ORDERED: IOHEXOL 350 MG/ML 100 ML (OMNIPAQUE 350) VIAL IV ONE (15:45)
[2018-06-03] MEDS: inSUlin ASPART (NovoLOG) 1 UNIT/0.01 ML (CHARGE PER UNIT) SC SCH ×2 (15:48→21:01)
[2018-06-03] MEDS: diphenhydrAMINE 50 MG/ML INJ (BENADRYL) IM SCH ×2 (15:50→23:30)
--- NOTE | 2018-06-03 17:09 | Diagnostic Imaging Report ---
PROCEDURE: CT chest, abdomen, and pelvis with contrast. TECHNIQUE: Multiple contiguous axial images were obtained through the chest, abdomen, and pelvis after the administration of intravenous contrast. Auto Exposure Controls were utilized during the CT exam to meet ALARA standards for radiation dose reduction. INDICATION: Intestinal ischemia. FINDINGS: The previous CTA chest, abdomen, and pelvis exam of 09/25/2015 failed to show any sign of an acute abnormality of the chest, abdomen, and pelvis. In the interval since the prior study, a sizable area of consolidation has developed in the right lung base. There is also a small right pleural effusion. The right upper lung and left lung are generally clear. The heart is enlarged but stable when compared to the prior exam. Coronary artery calcifications are evident. The aorta is not abnormally dilated, and there is no sign of a dissection. The pulmonary arteries were not well opacified. There is no definite defect to suggest a pulmonary embolus, however. In the interval since the prior exam, the patient has been intubated. The ET tube appears to be in good position with the tip overlying the mid portion of the tracheal air shadow, roughly 3 cm above the raz. There is also an enteric tube in place with the tip of the tube in the gastric body. There is no mediastinal or hilar adenopathy. The thyroid gland does not seem to have changed significantly since the prior study. The thyroid gland does appear prominent. The sections through the abdomen and pelvis show that the aorta is not aneurysmally dilated. There is only mild atherosclerotic disease involving the aorta. There is no evidence for a hemodynamically significant stenosis of the superior mesenteric artery or celiac axis. The renal arteries, inferior mesenteric artery, and common iliac arteries are also unremarkable for a hemodynamically significant stenosis. The liver is homogeneous and not enlarged. The spleen, pancreas, adrenals, kidneys, and inferior vena cava show no sign of an acute abnormality. In the interval since the prior study, the patient has undergone a cholecystectomy. There is no pelvic mass or free fluid collection noted. There is a Mullen catheter within the bladder. There is also a considerable amount of gas within the bladder. This is probably related to the introduction of the Mullen. The uterus does not appear to be enlarged. There are numerous diverticula involving the sigmoid and descending colon, but there is no sign of acute diverticulitis. There is no evidence for pneumatosis of the large or small bowel to suggest bowel ischemia. The appendix was not well visualized, but there are no indirect signs of acute appendicitis. The bone windows show no sign of a fracture or of a destructive lesion. There is no obvious breast mass. IMPRESSION: 1. There is a large area of consolidation in the right lung base. Most likely, this is due to pneumonia/atelectasis. There is also cardiomegaly and coronary artery disease, but there is no acute cardiopulmonary abnormality noted otherwise. 2. The aorta is not aneurysmally dilated, and there is no sign of a hemodynamically significant stenosis of the major branches of the aorta. 3. There is no evidence for pneumatosis of the bowel to suggest bowel ischemia. 4. There is diverticulosis of the sigmoid and descending colon, but there is no sign of acute diverticulitis. 5. These results were discussed with Dr. Freddie Morales. Dictated by: Dictated on workstation # [id number]
[2018-06-03] MEDS ORDERED: VANCOMYCIN 1500 MG/NS 500 ML IVPB IV SCH ×2 (18:30)
--- NOTE | 2018-06-03 20:21 | Consultation ---
History of Present Illness History of Present Illness Patient Consulted On(meño/time) 06/03/18 20:21 Date Seen by Provider: Jun 03, 2018 Time Seen by Provider: 16:30 History of Present Illness consult requested by Dr. gonzalez for concern for ischemic bowel patient is a 73 year old female who was reported as not feeling well and having some nausea and vomiting. Was having breathing difficulty which resulted in her being intubated. She is intubated and sedated at this time. Patient despite aggressive fluid resuscitation lactic acid continued to increase reaching just slightly higher than 8. She is currently requiring pressors. Has low urine output. Patient to be going to ct scan Allergies and Home Medications Allergies Coded Allergies: Penicillins (Unverified Allergy, Mild, 11/14/11) Uncoded Allergies: CONTRAST DYE (Adverse Reaction, Mild, 09/25/15) Home Medications Amlodipine Besylate 10 Mg Tablet, 10 MG PO DAILY, (Reported) Aspirin 81 Mg Tablet.dr, 81 MG PO DAILY, (Reported) Levothyroxine Sodium 150 Mcg Tablet, 150 MCG PO DAILY, (Reported) Patient Home Medication List Home Medication List Reviewed: Yes Past Xzxcjeu-Nbalsk-Plajwe Hx Patient Social History Alcohol Use: Denies Use Recreational Drug Use: No Smoking Status: Never a Smoker 2nd Hand Smoke Exposure: No Recent Foreign Travel: No Contact w/Someone Who Travel: No Recent Infectious Disease Expo: No Recent Hopitalizations: No Physical Abuse Screen: No Sexual Abuse: No Immunizations Up To Date Tetanus Booster (TDap): Unknown Date of Pneumonia Vaccine: Nov 24, 2010 Seasonal Allergies Seasonal Allergies: No Surgeries History of Surgeries: Yes (DISC SURGERY ON BACK 1999, disc surgery on back in 2011) Surgeries: Gallbladder, Orthopedic Respiratory History of Respiratory Disorde: No Cardiovascular History of Cardiac Disorders: Yes Cardiac Disorders: Hypertension Neurological History of Neurological Disord: Yes (severe speech impediment, cervical spinal stenosis) Neurological Disorders: Stroke Reproductive System : No Hx Reproductive Disorders: No Sexually Transmitted Disease: No HIV/AIDS: No Female Reproductive Disorders: Denies Genitourinary History of Genitourinary Disor: No Gastrointestinal History of Gastrointestinal Di: Yes (constipation) Musculoskeletal History of Musculoskeletal Dis: Yes (cervical spinal stenosis) Musculoskeletal Disorders: Arthritis Endocrine History of Endocrine Disorders: Yes Endocrine Disorders: Hypothyroidsim HEENT Loss of Vision: Denies Hearing Impairment: Denies Cancer History of Cancer: No Psychosocial History of Psychiatric Problem: No Integumentary History of Skin or Integumenta: No Blood Transfusions History of Blood Disorders: No Adverse Reaction to a Blood Tr: No Reviewed Nursing Assessment Reviewed/Agree w Nursing PMH: Yes Family Medical History Significant Family History: Heart Disease, Hypertension Review of Systems-General ROS-Unable to Obtain: intubated sedated Physical Exam-General Problems Physical Exam Vital Signs Vital Signs - First Documented 06/02/18 06/02/18 06/02/18 14:57 15:08 15:17 Temp 103.6 Pulse 128 Resp 26 B/P (MAP) 175/87 (116) Pulse Ox 90 O2 Delivery Nasal Cannula O2 Flow Rate 5.00 FiO2 75 Capillary Refill : Less Than 3 Seconds General Appearance: other (intubated sedated) HEENT: normal ENT inspection Respiratory: other (intubated, equal chest rise) Cardiovascular: regular rate, rhythm Gastrointestinal: soft (no palpable masses) Back: normal inspection Extremities: normal inspection Neurologic/Psychiatric: other (intubated sedated) Skin: warm/dry Lymphatic: no adenopathy Data Review Labs Laboratory Tests 06/02/18 23:29: Lactic Acid Level 3.52*H 06/03/18 02:51: Lactic Acid Level 3.81*H, White Blood Count 15.5H, Red Blood Count 4.09L, Hemoglobin 11.7#, Hematocrit 36, Mean Corpuscular Volume 88, Mean Corpuscular Hemoglobin 29, Mean Corpuscular Hemoglobin Concent 32, Red Cell Distribution Width 14.7H, Platelet Count 246, Mean Platelet Volume 9.7, Neutrophils (%) (Auto ) 80H, Lymphocytes (%) (Auto) 13, Monocytes (%) (Auto) 7, Eosinophils (%) (Auto ) 0, Basophils (%) (Auto) 0, Neutrophils # (Auto) 12.4H, Lymphocytes # (Auto) 2.0, Monocytes # (Auto) 1.0, Eosinophils # (Auto) 0.1, Basophils # (Auto) 0.0, Sodium Level 139, Potassium Level 2.8L, Chloride Level 114#H, Carbon Dioxide Level 14L, Anion Gap 11, Blood Urea Nitrogen 16, Creatinine 1.62H, Estimat Glomerular Filtration Rate 31, BUN/Creatinine Ratio 10, Glucose Level 165H, Calcium Level 6.9L, Corrected Calcium 8.1L, Phosphorus Level 3.5, Magnesium Level 1.7L, Total Bilirubin 0.8, Aspartate Amino Transf (AST/SGOT) 19, Alanine Aminotransferase (ALT/SGPT) 24, Alkaline Phosphatase 40, B-Type Natriuretic Peptide 504.3H, Total Protein 4.2L, Albumin 2.5L 06/03/18 05:06: Lactic Acid Level 6.13*H 06/03/18 11:52: Glucometer 312H 06/03/18 12:47: Blood Gas Puncture Site RT RAD, Blood Gas Patient Temperature 97.0, Arterial Blood pH 7.22*L, Arterial Blood Partial Pressure CO2 28L, Arterial Blood Partial Pressure O2 58L, Arterial Blood HCO3 11*L, Arterial Blood Total CO2 12.3L, Arterial Blood Oxygen Saturation 91L, Arterial Blood Base Excess -14.9L, Yovani Test NA, Blood Gas Ventilator Setting YES, Blood Gas Inspired Oxygen FIO2 35% 06/03/18 14:09: Sodium Level 137, Potassium Level 3.5L, Chloride Level 110H, Carbon Dioxide Level 15L, Anion Gap 12, Blood Urea Nitrogen 17, Creatinine 1.68H, Estimat Glomerular Filtration Rate 30, BUN/Creatinine Ratio 10, Glucose Level 264H, Lactic Acid Level 8.27*H, Calcium Level 7.4L, Phosphorus Level 3.6, Total Bilirubin 0.5, Direct Bilirubin 0.4H, Indirect Bilirubin 0.1, Aspartate Amino Transf (AST/SGOT) 19, Alanine Aminotransferase (ALT/SGPT) 26, Alkaline Phosphatase 53, Troponin I < 0.028, Total Protein 5.1L, Albumin 2.8L 06/03/18 15:40: Glucometer 219H 06/03/18 16:51: Lactic Acid Level 8.02*H 06/03/18 18:32: Troponin I 0.033H Microbiology 06/02/18 Blood Culture - Preliminary, Resulted No growth 06/02/18 Gram Stain, Resulted Pending 06/02/18 Sputum Culture - Preliminary, Resulted No growth 06/02/18 Urine Culture - Final, Complete NO GROWTH Assessment/Plan Assessment/Plan Assessment/Plan Severe Sepsis with septic shock RLL extensive pneumonia Acute renal failure Acute respiratory failure Concern for ischemic bowel. Patient going for ct scan for chest/abd/pelvis. Continue supportive medical management at this time. Currently I do not see a surgical indication, await ct scan to be done Discussed with family Will follow. Clinical Quality Measures DVT/VTE Risk/Contraindication: Risk Factor Score Per Nursin RFS Level Per Nursing on Admit: 4+=Very High JAZMYN YANES DO Jun 03, 2018 20:21
[2018-06-03] MEDS ORDERED: FAMOTIDINE 20MG/2ML IV (PEPCID) IVP SCH ×2 (21:00)
[2018-06-04] VITALS (21 sets, daily range): BP systolic 88–147; BP diastolic 54–78
[2018-06-04] MEDS: RT-ALBUTEROL/IPRATROPIUM 3 ML (DUONEB) VIAL INH SCH ×3 (02:15→10:43)
[2018-06-04 03:10] LABS: BASOPHILS % (AUTO) 0 % (0-10); EOSINOPHILS % (AUTO) 0 % (0-10); HEMATOCRIT 34 % (35-52); HEMOGLOBIN 11.6 G/DL (11.5-16.0); LYMPHOCYTES # (AUTO) 0.5 X 10^3 (1.0-4.0); LYMPHOCYTES % (AUTO) 3 % (12-44); MEAN CORPUSCULAR HEMOGLOBIN 29 PG (25-34); MEAN CORPUSCULAR HGB CONC 35 G/DL (32-36); MEAN CORPUSCULAR VOLUME 85 FL (80-99); MEAN PLATELET VOLUME 9.7 FL (7.4-10.4); MONOCYTES # (AUTO) 1.4 X 10^3 (0.0-1.0); MONOCYTES % (AUTO) 7 % (0-12); NEUTROPHILS # (AUTO) 18.7 X 10^3 (1.8-7.8); NEUTROPHILS % (AUTO) 91 % (42-75); PLATELET COUNT 204 10^3/uL (130-400); RED CELL DISTRIBUTION WIDTH 14.9 % (10.0-14.5); WHITE BLOOD COUNT 20.6 10^3/uL (4.3-11.0)
[2018-06-04 03:18] LABS: MAGNESIUM 1.5 MG/DL (1.8-2.4); PHOSPHORUS 3.1 MG/DL (2.3-4.7)
[2018-06-04] MEDS: VASOPRESSIN INJECTION 20 UNIT in NS (IVPB) 100 ML IV SCH (03:31)
[2018-06-04] MEDS: PROPOFOL DRIP (ICU) 100 ML IV SCH ×3 (03:37→13:34)
[2018-06-04] MEDS: CEFEPIME 1,000 MG/SWFI 10 ML IV PUSH IV SCH ×4 (03:37→11:24)
[2018-06-04] MEDS: MAGNESIUM 1 GM/100 ML IVPB 100 ML IV SCH ×5 (03:38→07:37)
[2018-06-04 03:39] LABS: CREATININE SERUM 1.42 MG/DL (0.60-1.30)
[2018-06-04 03:40] LABS: ALBUMIN 2.5 GM/DL (3.2-4.5); BILIRUBIN,TOTAL 0.6 MG/DL (0.1-1.0); CALCIUM 7.7 MG/DL (8.5-10.1); TOTAL PROTEIN 4.6 GM/DL (6.4-8.2)
[2018-06-04 03:41] LABS: BAND NEUTROPHILS 33 %; LYMPHOCYTES % (MANUAL) 2 %; MONOCYTES % (MANUAL) 4 %; NEUTROPHILS % (MANUAL) 61 %; RBC MORPH NORMAL; TOXIC GRANULATION/VACUOLAZATIO 2+
[2018-06-04] MEDS: POTASSIUM CL 10MEQ/50ML IVPB 50 ML IV SCH ×7 (03:47→05:41)
[2018-06-04] MEDS: KCL 20 MEQ TAB (K-DUR) PO SCH (03:49)
[2018-06-04] MEDS ORDERED: MAGNESIUM 1 GM/100 ML IVPB 100 ML IV SCH (05:15)
[2018-06-04] MEDS ORDERED: POTASSIUM PHOSPHATE INJ 30 MM in NS (IVPB) 250 ML IV ONE (05:15)
[2018-06-04 05:26] LABS: ABG BASE EXCESS 1.1 MMOL/L (-2.5-2.5); ABG OXYGEN SATURATION 93 % (94-100); ABG PCO2 30 MMHG (35-45); ABG PH 7.51 (7.37-7.43); ABG PO2 52 MMHG (79-93)
--- NOTE | 2018-06-04 05:30 | Pulmonary Progress Note ---
Subjective Time Seen by a Provider: 06:45 Subjective/Events-last exam Pt sedated on vent. Sepsis Event Evaluation Height, Weight, BMI Height: 5'2.00" Weight: 216lbs. 0.0oz. 97.714492yb; 36.8 BMI Method:Estimated Focused Exam Lactate Level 06/03/18 16:51: Lactic Acid Level 8.02*H 06/03/18 23:50: Lactic Acid Level 3.69*H 06/04/18 02:59: Lactic Acid Level 2.61*H Time of Focused Exam: 18:11 Lactic Acid Level Laboratory Tests Test 06/04/18 02:59 Lactic Acid Level 2.61 MMOL/L (0.50-2.00) *H Exam Exam Vital Signs Date Time Temp Pulse Resp B/P (MAP) Pulse Ox O2 Delivery O2 Flow Rate FiO2 06/04/18 04:00 89 25 106/61 (76) 96 Mechanical Ventilator 35.00 06/04/18 03:37 Mechanical Ventilator 35.00 06/04/18 03:35 98.5 Mechanical Ventilator 35.00 06/04/18 03:30 96 Mechanical Ventilator 35 06/04/18 03:00 84 25 88/54 (65) 96 Mechanical Ventilator 35.00 06/04/18 02:15 85 26 96 35 06/04/18 02:00 84 26 109/66 (80) 96 Mechanical Ventilator 06/04/18 01:03 90 06/04/18 01:00 92 26 146/77 (100) 96 Mechanical Ventilator 06/04/18 00:30 92 26 147/78 (101) 98 Mechanical Ventilator 06/04/18 00:15 89 26 95 35 06/03/18 23:30 98.4 99 25 117/65 (82) 94 Mechanical Ventilator 35.00 06/03/18 23:30 95 Mechanical Ventilator 35 06/03/18 22:49 Mechanical Ventilator 35.00 06/03/18 22:15 93 26 94 35 06/03/18 22:00 93 25 120/65 (83) 94 Mechanical Ventilator 06/03/18 21:00 102 29 109/67 (81) 93 Mechanical Ventilator 06/03/18 20:05 92 27 97 35 06/03/18 20:00 92 25 111/71 (84) 97 Mechanical Ventilator 35.00 06/03/18 19:45 96 Mechanical Ventilator 35 06/03/18 19:40 97.0 96 26 96 Mechanical Ventilator 35.00 06/03/18 19:00 98 06/03/18 18:49 97.3 06/03/18 18:40 101 28 96 35 06/03/18 17:00 96 18 144/80 (101) 95 Mechanical Ventilator 35.00 06/03/18 16:56 101 28 95 35 06/03/18 16:00 99 Mechanical Ventilator 70 06/03/18 16:00 101 18 141/93 (109) 85 Mechanical Ventilator 35.00 06/03/18 15:48 97.3 06/03/18 15:00 106 26 140/81 (100) 95 Mechanical Ventilator 35.00 06/03/18 14:38 102 30 93 35 06/03/18 14:00 89 19 123/86 (98) 95 Mechanical Ventilator 35.00 06/03/18 13:00 97.0 06/03/18 13:00 101 25 109/88 (95) 95 Mechanical Ventilator 35.00 06/03/18 12:50 100 06/03/18 12:02 96 30 96 35 06/03/18 12:00 99 Mechanical Ventilator 70 06/03/18 12:00 93 19 127/80 (96) 96 Mechanical Ventilator 35.00 06/03/18 11:00 99 19 125/81 (96) 97 Mechanical Ventilator 45.00 06/03/18 10:20 93 29 98 45 06/03/18 10:19 97.1 06/03/18 10:15 Mechanical Ventilator 45.00 06/03/18 10:00 93 18 113/75 (88) 97 Mechanical Ventilator 55.00 06/03/18 09:00 103 18 119/78 (92) 97 Mechanical Ventilator 55.00 06/03/18 08:00 99 Mechanical Ventilator 70 06/03/18 08:00 97.1 06/03/18 08:00 101 22 100/81 (87) 98 Mechanical Ventilator 55.00 06/03/18 07:04 101 06/03/18 07:00 99 18 114/72 (86) 100 Mechanical Ventilator 55.00 06/03/18 06:55 100 28 99 55 06/03/18 06:00 95 14 83/58 (66) 96 Mechanical Ventilator 55.00 06/03/18 05:53 97 12 85/59 (68) 96 Mechanical Ventilator 55.00 I & O 06/04/18 07:00 Intake Total 4405 ml Output Total 1640 ml Balance 2765 ml Height & Weight Height: 5'2.00" Weight: 216lbs. 0.0oz. 97.287208tq; 36.8 BMI Method:Estimated General Appearance: Other (INTUBATED, LEVEL OF DISTRESS UNABLE TO BE NOTED) HEENT: PERRL/EOMI, TMs Normal, Normal ENT Inspection, Pharynx Normal; No Moist Mucous Membranes Neck: Supple Respiratory: Chest Non Tender, Other (INTUBATED) Cardiovascular: Regular Rate, Rhythm, No Edema, Normal Peripheral Pulses Capillary Refill: Less Than 3 Seconds Peripheral Pulses: 1+ Radial Pulses (R), 1+ Radial Pulses (L) Extremity: Normal Capillary Refill, Pedal Edema Neurologic/Psychiatric: Other (INTUBATED AND SEDATED) Lymphatic: No Adenopathy Results Lab Laboratory Tests 06/02/18 15:10 06/03/18 02:51 06/03/18 14:09 06/04/18 02:59 Assessment/Plan Assessment/Plan Acute respiratory failure with ARDS Pa02/Fi02= 74 - Vt to 450, increase RR to 26, continue to titrate Fi02. -Decrease RR to 20 Severe Sepsis with septic shock - Lactic acid up to 6 -Bennett cultures pending -Currently on Levophed, and - Vasopressin Vasopressin is off - Vanco, and cefepime, D/C Flagyl - solucortef 100mg IV Q 8 -echocardiogram EF 50-55% -Influenza is neg -MRSA swab is pending RLL extensive pneumonia - sputum prelim is showing strep -Await final cultures Metabolic lactic acidosis -bicarb gtt -- change to LR Hypokalemia, hypomag -replace Acute renal failure with oligemia, and decreased UO -Check bladder scan -Monitor close Update 11:50- I called [facility] to transfer pt since [place] is on diversion. Dr. Esquivel is accepting patient to their ICU. Time spent with patient and medical team is 60min. CORIN HAINES DO Jun 04, 2018 05:29
[2018-06-04 05:32] LABS: INSPIRED O2 35%; PATIENT TEMP 97.9; VENTILATOR YES
[2018-06-04] MEDS: inSUlin ASPART (NovoLOG) 1 UNIT/0.01 ML (CHARGE PER UNIT) SC SCH ×2 (05:38→11:24)
[2018-06-04] MEDS: diphenhydrAMINE 50 MG/ML INJ (BENADRYL) IM SCH ×2 (05:41→11:24)
[2018-06-04] MEDS: HYDROCORTISONE 100 MG/2 ML (Solu-CORTEF) VIAL IV SCH (05:41)
[2018-06-04] MEDS: metroNIDAZOLE 500MG/100ML IVPB 100 ML IV SCH (06:18)
[2018-06-04] MEDS ORDERED: LACTATED RINGERS 1,000 ML IV SCH (06:45)
--- NOTE | 2018-06-04 08:54 | Diagnostic Imaging Report ---
EXAMINATION: Portable erect AP chest at 1241. INDICATION: Respiratory distress The cardiomegaly noted on the prior exam of 06/03/2018 is again evident and no different. There has been some increase in density in the right lung base since the prior study. Most likely this is due to greater involvement of the right lower lobe by atelectasis/infiltrate and fluid. The right upper lung and left lung are generally clear. Mediastinum is not widened. The osseous structures are intact. The supportive tubes and lines remain good position. IMPRESSION: The appearance of the chest has worsened somewhat since the prior exam as there has been a slight increase in atelectasis/infiltrate and fluid involving the right lung base. A followup exam would be recommended for continued evaluation. Dictated by: Dictated on workstation # [id number]
--- NOTE | 2018-06-04 09:09 | Progress Note ---
Focused Exam Lactate Level 06/04/18 02:59: Lactic Acid Level 2.61*H 06/04/18 06:10: Lactic Acid Level 2.54*H 06/04/18 08:00: Lactic Acid Level 2.52*H Time of Focused Exam: 18:11 Lactic Acid Level Laboratory Tests Test 06/04/18 06:10 06/04/18 08:00 Lactic Acid Level 2.54 MMOL/L (0.50-2.00) *H 2.52 MMOL/L (0.50-2.00) *H Objective Exam Last Set of Vital Signs Vital Signs Date Time Temp Pulse Resp B/P (MAP) Pulse Ox O2 Delivery O2 Flow Rate FiO2 06/04/18 08:54 Mechanical Ventilator 30.00 06/04/18 08:23 102 28 93 35 06/04/18 07:42 99.4 Capillary Refill : Less Than 3 Seconds I&O Intake and Output 06/04/18 00:00 Intake Total 7107 ml Output Total 1500 ml Balance 5607 ml Intake Oral 0 ml IV Total 6987 ml Other 120 ml Output Urine Total 1500 ml # Bowel Movements 1 Results Lab Laboratory Tests 06/03/18 11:52: Glucometer 312H 06/03/18 12:47: Blood Gas Puncture Site RT RAD, Blood Gas Patient Temperature 97.0, Arterial Blood pH 7.22*L, Arterial Blood Partial Pressure CO2 28L, Arterial Blood Partial Pressure O2 58L, Arterial Blood HCO3 11*L, Arterial Blood Total CO2 12.3L, Arterial Blood Oxygen Saturation 91L, Arterial Blood Base Excess -14.9L, Yovani Test NA, Blood Gas Ventilator Setting YES, Blood Gas Inspired Oxygen FIO2 35% 06/03/18 14:09: Sodium Level 137, Potassium Level 3.5L, Chloride Level 110H, Carbon Dioxide Level 15L, Anion Gap 12, Blood Urea Nitrogen 17, Creatinine 1.68H, Estimat Glomerular Filtration Rate 30, BUN/Creatinine Ratio 10, Glucose Level 264H, Lactic Acid Level 8.27*H, Calcium Level 7.4L, Phosphorus Level 3.6, Total Bilirubin 0.5, Direct Bilirubin 0.4H, Indirect Bilirubin 0.1, Aspartate Amino Transf (AST/SGOT) 19, Alanine Aminotransferase (ALT/SGPT) 26, Alkaline Phosphatase 53, Troponin I < 0.028, Total Protein 5.1L, Albumin 2.8L 06/03/18 15:40: Glucometer 219H 06/03/18 16:51: Lactic Acid Level 8.02*H 06/03/18 18:32: Troponin I 0.033H 06/03/18 20:59: Glucometer 171H 06/03/18 23:39: Glucometer 125H 06/03/18 23:50: Lactic Acid Level 3.69*H, Troponin I 0.040H 06/04/18 02:59: Lactic Acid Level 2.61*H, White Blood Count 20.6H, Red Blood Count 3.97L, Hemoglobin 11.6, Hematocrit 34L, Mean Corpuscular Volume 85, Mean Corpuscular Hemoglobin 29, Mean Corpuscular Hemoglobin Concent 35, Red Cell Distribution Width 14.9H, Platelet Count 204, Mean Platelet Volume 9.7, Neutrophils (%) (Auto ) 91H, Lymphocytes (%) (Auto) 3L, Monocytes (%) (Auto) 7, Eosinophils (%) (Auto ) 0, Basophils (%) (Auto) 0, Neutrophils # (Auto) 18.7H, Lymphocytes # (Auto) 0.5L, Monocytes # (Auto) 1.4H, Eosinophils # (Auto) 0.0, Basophils # (Auto) 0.0 , Neutrophils % (Manual) 61, Lymphocytes % (Manual) 2, Monocytes % (Manual) 4, Band Neutrophils 33, Toxic Granulation 2+, Blood Morphology Comment NORMAL, Sodium Level 142, Potassium Level 3.0L, Chloride Level 108H, Carbon Dioxide Level 23, Anion Gap 11, Blood Urea Nitrogen 18, Creatinine 1.42H, Estimat Glomerular Filtration Rate 36, BUN/Creatinine Ratio 13, Glucose Level 130H, Calcium Level 7.7L, Corrected Calcium 8.9, Phosphorus Level 3.1, Magnesium Level 1.5L, Total Bilirubin 0.6, Aspartate Amino Transf (AST/SGOT) 24, Alanine Aminotransferase (ALT/SGPT) 24, Alkaline Phosphatase 63, Total Protein 4.6L, Albumin 2.5L, Triglycerides Level 122 06/04/18 05:20: Blood Gas Puncture Site LEFT FEMORAL, Blood Gas Patient Temperature 97.9, Arterial Blood pH 7.51H, Arterial Blood Partial Pressure CO2 30L, Arterial Blood Partial Pressure O2 52L, Arterial Blood HCO3 24, Arterial Blood Total CO2 25.0, Arterial Blood Oxygen Saturation 93L, Arterial Blood Base Excess 1.1, Yovani Test NA, Blood Gas Ventilator Setting YES, Blood Gas Inspired Oxygen 35% 06/04/18 06:10: Lactic Acid Level 2.54*H 06/04/18 08:00: Lactic Acid Level 2.52*H Microbiology 06/02/18 Blood Culture - Preliminary, Resulted No growth 06/02/18 MRSA Screen - Final, Complete 06/02/18 Urine Culture - Final, Complete NO GROWTH Clinical Quality Measures Admission Status Admission Dx PNEUMONIA RESPIRATORY FAILURE SEPSIS LEUKOCYTOSIS LACTIC ACIDOSIS INTUBATED STATUS HYPERTENSION HYPOTHYROIDISM DVT/VTE Risk/Contraindication: Risk Factor Score Per Nursin RFS Level Per Nursing on Admit: 4+=Very High CARRIE VALENTINE MD Jun 04, 2018 09:09
--- NOTE | 2018-06-04 09:37 | NUR ---
Pt anointed yesterday. Chaplain carreno w/ family.
--- NOTE | 2018-06-04 14:01 | NUR ---
PT D/C TO [facility] ICU VIA EMS. PT LEFT FLOOR WITH IV PROPOFOL INFUSING VIA PUMP AND LR VIA GRAVITY. , PT REMAINED ON VENT AT TIME OF DISCHARGE. PT LEFT FLOOR WITH EMS
--- NOTE | 2018-06-04 20:50 | Progress Note ---
Subjective Date Seen by a Provider: Jun 04, 2018 Time Seen by a Provider: 07:59 Subjective/Events-last exam Patient intubated and sedated. On pressors. WBC increasing on steroid and lactic acid trending down. No family at bedside at this time. Ct chest/abd/pelvis yesterday evening left lower consolidation of lung, diverticulosis, no acute intra-abdominal process by ct Focused Exam Lactate Level 06/04/18 06:10: Lactic Acid Level 2.54*H 06/04/18 08:00: Lactic Acid Level 2.52*H 06/04/18 11:10: Lactic Acid Level 2.30*H Time of Focused Exam: 18:11 Objective Exam Vital Signs Date Time Temp Pulse Resp B/P (MAP) Pulse Ox O2 Delivery O2 Flow Rate FiO2 06/04/18 13:59 96 23 102/55 97 30.00 75 06/04/18 13:34 98.4 96 23 102/55 97 Mechanical Ventilator 30.00 06/04/18 13:01 96 06/04/18 13:00 96 22 90/54 (66) 97 Mechanical Ventilator 30.00 06/04/18 12:39 101 23 97 35 06/04/18 12:15 96 Mechanical Ventilator 35 06/04/18 12:00 104 22 102/55 (71) 97 Mechanical Ventilator 30.00 06/04/18 11:59 98.4 06/04/18 11:00 98 21 102/57 (72) 94 Mechanical Ventilator 30.00 06/04/18 10:43 96 22 94 35 06/04/18 10:00 100 26 107/58 (74) 95 Mechanical Ventilator 30.00 06/04/18 09:00 105 26 107/59 (75) 96 Mechanical Ventilator 30.00 06/04/18 08:54 Mechanical Ventilator 30.00 06/04/18 08:23 102 28 93 35 06/04/18 08:15 96 Mechanical Ventilator 35 06/04/18 08:00 104 25 101/58 (72) 93 Mechanical Ventilator 35.00 06/04/18 07:42 99.4 98 25 93/59 94 06/04/18 07:03 102 06/04/18 07:00 103 25 90/55 (67) 92 Mechanical Ventilator 35.00 06/04/18 06:16 98 26 96 35 06/04/18 06:05 100 25 93/61 (72) 96 Mechanical Ventilator 35.00 06/04/18 05:00 96 23 114/67 (83) 95 Mechanical Ventilator 35.00 06/04/18 04:00 89 25 106/61 (76) 96 Mechanical Ventilator 35.00 06/04/18 03:37 Mechanical Ventilator 35.00 06/04/18 03:35 98.5 Mechanical Ventilator 35.00 06/04/18 03:30 96 Mechanical Ventilator 35 06/04/18 03:00 84 25 88/54 (65) 96 Mechanical Ventilator 35.00 06/04/18 02:15 85 26 96 35 06/04/18 02:00 84 26 109/66 (80) 96 Mechanical Ventilator 06/04/18 01:03 90 06/04/18 01:00 92 26 146/77 (100) 96 Mechanical Ventilator 06/04/18 00:30 92 26 147/78 (101) 98 Mechanical Ventilator 06/04/18 00:15 89 26 95 35 06/03/18 23:30 98.4 99 25 117/65 (82) 94 Mechanical Ventilator 35.00 06/03/18 23:30 95 Mechanical Ventilator 35 06/03/18 22:49 Mechanical Ventilator 35.00 06/03/18 22:15 93 26 94 35 06/03/18 22:00 93 25 120/65 (83) 94 Mechanical Ventilator 06/03/18 21:00 102 29 109/67 (81) 93 Mechanical Ventilator I & O 06/04/18 07:00 Intake Total 4735 ml Output Total 1795 ml Balance 2940 ml Capillary Refill : Less Than 3 Seconds General Appearance: Other (INTUBATED and Sedated) HEENT: PERRL/EOMI, TMs Normal, Normal ENT Inspection, Pharynx Normal; No Moist Mucous Membranes Neck: Supple Respiratory: Chest Non Tender, Other (INTUBATED) Cardiovascular: Regular Rate, Rhythm, No Edema, Normal Peripheral Pulses Peripheral Pulses: 1+ Radial Pulses (R), 1+ Radial Pulses (L) Gastrointestinal: soft; No distended Extremity: Normal Capillary Refill, Pedal Edema Neurologic/Psychiatric: Other (INTUBATED AND SEDATED) Skin: Warm/Dry Lymphatic: No Adenopathy Results Lab Laboratory Tests 06/03/18 20:59: Glucometer 171H 06/03/18 23:39: Glucometer 125H 06/03/18 23:50: Lactic Acid Level 3.69*H, Troponin I 0.040H 06/04/18 02:59: Lactic Acid Level 2.61*H, White Blood Count 20.6H, Red Blood Count 3.97L, Hemoglobin 11.6, Hematocrit 34L, Mean Corpuscular Volume 85, Mean Corpuscular Hemoglobin 29, Mean Corpuscular Hemoglobin Concent 35, Red Cell Distribution Width 14.9H, Platelet Count 204, Mean Platelet Volume 9.7, Neutrophils (%) (Auto ) 91H, Lymphocytes (%) (Auto) 3L, Monocytes (%) (Auto) 7, Eosinophils (%) (Auto ) 0, Basophils (%) (Auto) 0, Neutrophils # (Auto) 18.7H, Lymphocytes # (Auto) 0.5L, Monocytes # (Auto) 1.4H, Eosinophils # (Auto) 0.0, Basophils # (Auto) 0.0 , Neutrophils % (Manual) 61, Lymphocytes % (Manual) 2, Monocytes % (Manual) 4, Band Neutrophils 33, Toxic Granulation 2+, Blood Morphology Comment NORMAL, Sodium Level 142, Potassium Level 3.0L, Chloride Level 108H, Carbon Dioxide Level 23, Anion Gap 11, Blood Urea Nitrogen 18, Creatinine 1.42H, Estimat Glomerular Filtration Rate 36, BUN/Creatinine Ratio 13, Glucose Level 130H, Calcium Level 7.7L, Corrected Calcium 8.9, Phosphorus Level 3.1, Magnesium Level 1.5L, Total Bilirubin 0.6, Aspartate Amino Transf (AST/SGOT) 24, Alanine Aminotransferase (ALT/SGPT) 24, Alkaline Phosphatase 63, Total Protein 4.6L, Albumin 2.5L, Triglycerides Level 122 06/04/18 05:20: Blood Gas Puncture Site LEFT FEMORAL, Blood Gas Patient Temperature 97.9, Arterial Blood pH 7.51H, Arterial Blood Partial Pressure CO2 30L, Arterial Blood Partial Pressure O2 52L, Arterial Blood HCO3 24, Arterial Blood Total CO2 25.0, Arterial Blood Oxygen Saturation 93L, Arterial Blood Base Excess 1.1, Yovani Test NA, Blood Gas Ventilator Setting YES, Blood Gas Inspired Oxygen 35% 06/04/18 06:10: Lactic Acid Level 2.54*H 06/04/18 08:00: Lactic Acid Level 2.52*H 06/04/18 11:10: Lactic Acid Level 2.30*H 06/04/18 11:23: Glucometer 123H Microbiology 06/02/18 Blood Culture - Preliminary, Resulted No growth 06/02/18 MRSA Screen - Final, Complete 06/02/18 Urine Culture - Final, Complete NO GROWTH Assessment/Plan Assessment/Plan Assessment/Plan Severe Sepsis with septic shock RLL extensive pneumonia - sputum prelim is showing strep Acute renal failure decreased UO Acute respiratory failure with ARDS Concern for ischemic bowel but ct scan not showing any characteristics of ischemic bowel at this time. No surgical intervention at this time. Continue medical management. Will follow with you. Clinical Quality Measures DVT/VTE Risk/Contraindication: Risk Factor Score Per Nursin RFS Level Per Nursing on Admit: 4+=Very High JAZMYN YANES DO Jun 04, 2018 20:50
== END 2018-06-04 14:00 | disposition short-term general hospital (02) | DRG 871 ==
LOC: EDUNIT# 14:57 → ER 14:58 → ICU 16:25
PROVIDERS: ADMIT Family Medicine; ATTEND Family Medicine
PROC: 5A1945Z Respiratory Ventilation, 24-96 Consecutive Hours (ICD-10-PCS; principal; 2018-06-02)
PROC: 0BH17EZ Insertion of Endotracheal Airway into Trachea, Via Natural or Artificial Opening (ICD-10-PCS; 2018-06-02)
DX: A41.9 Sepsis, unspecified organism (principal); R65.21 Severe sepsis with septic shock; J18.1 Lobar pneumonia, unspecified organism; J80 Acute respiratory distress syndrome; N17.9 Acute kidney failure, unspecified; E87.2 Acidosis; I10 Essential (primary) hypertension; E03.9 Hypothyroidism, unspecified; R47.9 Unspecified speech disturbances; Z86.73 Personal history of transient ischemic attack (TIA), and cerebral infarction without residual deficits; M48.02 Spinal stenosis, cervical region; M19.91 Primary osteoarthritis, unspecified site; K59.00 Constipation, unspecified; E87.6 Hypokalemia; K57.30 Diverticulosis of large intestine without perforation or abscess without bleeding
CPT/HCPCS: 36415; 36600; 51702; 71045; 71260; 74177; 80053; 80069; 80076; 81000; 82533; 82805; 82962; 83605; 83735; 83880; 84100; 84443; 84478; 84484; 85007; 85025; 85027; 85610; 85730; 87040; 87070; 87077; 87081; 87088; 87184; 87205; 87804; 93005; 93306; 94002; 94003; 94640; 94799; 96361; 96374; 96375; 99291